=== PATIENT | male | born 1955 | race Caucasian/White ===

== ENCOUNTER 2018-02-19 14:54 | Inpatient (IN) | payer OTHER ==
--- NOTE | 2018-02-19 16:29 | PDOC ---
History of Present Illness - General History Source: Patient Exam Limitations: No Limitations - History of Present Illness Initial Comments: 02/19/18 17:15 The patient is a 62 year old male with past medical history of hypertension, diabetes, atrial fibrillation s/p stent x2, and R charcot foot who presents to the ED with complaints of redness and swelling to the sole of his right foot for the past two days. The patient states he has been nursing his foot for the past three years with his diagnosis and has had to reschedule his surgery multiple times in the past due to health and insurance reasons. The patient reports two days ago he stepped too hard on his right foot and developed a bruise on his right sole that has since swelled up and is painful to bare weight on. He denies any numbness or tingling, or blood or discharge from the area. Denies any fevers, chills, nausea, vomiting, diarrhea, cough, SOB, CP or urinary complaints. The patient states his most recent surgery was supposed to be done for January 17, 2018, but was canceled due to his need for cardiac catheterization. Timing/Duration: unsure <Lissa Walter - Last Filed: 02/20/18 00:26> <Mona Lamar - Last Filed: 02/20/18 00:34> - General Chief Complaint: Wound Stated Complaint: (PRE-OP) RT FOOT INJURY Time Seen by Provider: 02/19/18 16:28 Past History <Lissa Walter - Last Filed: 02/20/18 00:26> - Suicide/Smoking/Psychosocial Hx Smoking History: Former smoker Have you smoked in the past 12 months: No Information on smoking cessation initiated: No <Mona Lamar - Last Filed: 02/20/18 00:34> - Past Medical History Allergies/Adverse Reactions: Allergies Allergy/AdvReac Type Severity Reaction Status Date / Time metformin Allergy Hives Verified 02/19/18 15:27 Review of Systems - Review of Systems Able to Perform ROS?: Yes Comments:: 02/19/18 17:16 GENERAL/CONSTITUTIONAL: No fever or chills. No weakness. HEAD, EYES, EARS, NOSE AND THROAT: No change in vision. No ear pain or discharge. No sore throat. CARDIOVASCULAR: No chest pain or shortness of breath. RESPIRATORY: No cough, wheezing, or hemoptysis. GASTROINTESTINAL: No nausea, vomiting, diarrhea or constipation. GENITOURINARY: No dysuria, frequency, or change in urination. MUSCULOSKELETAL: (+) pain, swelling to sole of R foot. No neck or back pain. SKIN: No rash NEUROLOGIC: No headache, vertigo, loss of consciousness, or change in strength/ sensation. ENDOCRINE: No increased thirst. No abnormal weight change. HEMATOLOGIC/LYMPHATIC: No anemia, easy bleeding, or history of blood clots. ALLERGIC/IMMUNOLOGIC: No hives or skin allergy. All Other Systems: Reviewed and Negative <Lissa Walter - Last Filed: 02/20/18 00:26> *Physical Exam - Vital Signs Last Vital Signs Temp Pulse Resp BP Pulse Ox 98.4 F 88 17 137/67 95 02/19/18 15:27 02/19/18 15:27 02/19/18 15:27 02/19/18 15:27 02/19/18 15:27 - Physical Exam Comments: 02/19/18 17:17 GENERAL: Awake, alert, and fully oriented, in no acute distress HEAD: No signs of trauma EYES: PERRLA, EOMI, sclera anicteric, conjunctiva clear ENT: Auricles normal inspection, hearing grossly normal, nares patent, oropharynx clear without exudates. Moist mucosa NECK: Normal ROM, supple, no lymphadenopathy, JVD, or masses LUNGS: Breath sounds equal, clear to auscultation bilaterally. No wheezes, and no crackles HEART: Irregularly irregular, normal S1 and S2, no murmurs, rubs or gallops ABDOMEN: Obese, Soft, nontender, normoactive bowel sounds. No guarding, no rebound. No masses EXTREMITIES: Swelling and erythema to bilateral lower extremities, right greater than left. Diabetic wound to left pinky toe and diabetic wound to right big toe, both without any drainage, induration, or fluctuance. Soft tissue swelling present at the bottom of right foot that is extending out laterally, tender to palpation. Normal range of motion. No clubbing or cyanosis. NEUROLOGICAL: Cranial nerves II through XII grossly intact. Normal speech, normal gait SKIN: Warm, Dry, normal turgor, no rashes or lesions noted. <Lissa Walter - Last Filed: 02/20/18 00:26> - Vital Signs Last Vital Signs Temp Pulse Resp BP Pulse Ox 98.4 F 88 17 137/67 95 02/19/18 15:27 02/19/18 15:27 02/19/18 15:27 02/19/18 15:27 02/19/18 15:27 <Mona Lamar - Last Filed: 02/20/18 00:34> Heart Score/ECG Review - ECG Intrepretation Comment:: 02/19/18 23:14 afib at 96, nl axis, q waves anteriorly that are age indeterminate, no acute st/ t wave findings <Mona Lamar - Last Filed: 02/20/18 00:34> ED Treatment Course - LABORATORY CBC & Chemistry Diagram: 02/19/18 19:28 02/19/18 19:28 - RADIOLOGY Radiograph Interpretation: 02/19/18 22:38 Chest X-ray as reviewed by Dr. Lawson reports suggestion of mild cardiomegaly. Mild bilateral increased lung markings without gross evidence of focal infiltrates. <Lissa Walter - Last Filed: 02/20/18 00:26> - LABORATORY CBC & Chemistry Diagram: 02/19/18 19:28 02/19/18 19:28 <Mona Lamar - Last Filed: 02/20/18 00:34> Medical Decision Making - Medical Decision Making 02/19/18 23:01 Microblog sent to [facility]. Awaiting call back 02/20/18 00:26 US doppler exam as reviewed by Dr. Lawson reports no evidence of DVT. <Lissa Walter - Last Filed: 02/20/18 00:26> - Medical Decision Making 02/19/18 17:05 a/p: 62yo male with hx of charcot foot and dm with R foot swelling, purulent drainage from bottom of foot -pt was supposed to have charcot foot sx at S January 17 -had a cardiac cath and now has had surgery delayed 6m because of 2 stents placed on asa/plavix -concern for dm early ulcer formation with poss osteo to R foot given new swelling, drainage from the wound, redness up the legs -will obtain labs, ekg, cxr, foot xray -duplex b/l LE -cultures -will most likely need admission for IV abx for LE cellulitis with diabetic wounds 02/19/18 23:13 elevated WBC xray shows soft tissue swellign without air in the tissue 02/19/18 23:14 [facility] 02/19/18 23:[address] Vásquez who accepts pt to service <Mona Lamar - Last Filed: 02/20/18 00:34> *DC/Admit/Observation/Transfer - Attestations Scribe Attestion: 02/19/18 17:25 Documentation prepared by Lissa Walter, acting as registered medical assistant for Mona Lamar DO. <Lissa Walter - Last Filed: 02/20/18 00:26> - Discharge Dispostion Decision to Admit order: Yes - Attestations Physician Attestion: 02/19/18 23:32 I, Dr. Mona Lamar, DO, attest that this document has been prepared under my direction and personally reviewed by me in its entirety. I further attest, that it accurately reflects all work, treatment, procedures and medical decision -making performed by me. <Mona Lamar - Last Filed: 02/20/18 00:34> Diagnosis at time of Disposition: Cellulitis of foot - Discharge Dispostion Condition at time of disposition: Fair
[2018-02-19 19:53] LABS: BASO % 0.5 % (0-2.0); EOS % 2.3 % (0-4.5); HEMATOCRIT 44.1 % (35.4-49); HEMOGLOBIN 14.8 GM/dL (11.7-16.9); LYMPH % 25.3 % (8-40); MCH 30.9 pg (25.7-33.7); MCHC 33.6 g/dl (32.0-35.9); MEAN CELL VOLUME 91.7 fl (80-96); MEAN PLT VOLUME 8.2 fl (7.5-11.1); MONO % 7.5 % (3.8-10.2); NEUT % 64.4 % (42.8-82.8); PLATELET COUNT 373 K/MM3 (134-434); RDW 14.4 % (11.9-15.9); WHITE BLOOD COUNT 18.9 K/mm3 (4.0-10.0)
[2018-02-19 20:11] LABS: ALBUMIN 3.3 g/dl (3.4-5.0); ALK PHOS 125 U/L (45-117); ANION GAP 5 (8-16); BILIRUBIN,TOTAL 0.4 mg/dL (0.2-1.0); BLOOD UREA NITROGEN 13 mg/dL (7-18); CALCIUM 8.8 mg/dL (8.5-10.1); CHLORIDE 100 mmol/L (98-107); CO2 31 mmol/L (21-32); CREATININE 0.7 mg/dL (0.7-1.3); GLUCOSE,RANDOM 119 mg/dL (74-106); POTASSIUM 4.5 mmol/L (3.5-5.1); SGOT/AST 10 U/L (15-37); SGPT/ALT 16 U/L (12-78); SODIUM 136 mmol/L (136-145); TOT PROT 7.8 g/dl (6.4-8.2)
[2018-02-19 20:21] LABS: INR 1.55 (0.82-1.09); PROTHROMBIN TIME (PATIENT) 17.5 SEC (9.7-13.0)
[2018-02-19] MEDS ORDERED: VANCOMYCIN 1,000 MG in DEXTROSE 5%-WATER - 250 ML IVPB ONE (20:51)
[2018-02-19] MEDS ORDERED: PIPERACILLIN/TAZOB 4.5 GM 4.5 GM in DEXTROSE 5%-WATER 100 ML IVPB ONE (20:51)
[2018-02-19] MEDS ORDERED: VANCOMYCIN 1 GRAM (PRE-DOCKED) 1,000 MG/250 ML BAG IVPB ONE (20:52)
[2018-02-19] MEDS ORDERED: PIPERACILLIN/TAZOB 4.5 GM 4.5 GM/100 ML BAG IVPB ONE (20:52)
--- NOTE | 2018-02-20 00:19 | HP ---
CHIEF COMPLAINT: R foot pain PCP: Dr. Dee HISTORY OF PRESENT ILLNESS: 62 year old male with a past medical history of HTN, DM, A fib s/p 2 recent stents (January 2018), R foot osteomyelitis presents to the hospital for pain on the plantar side of his R foot. He states that he has had neuropathy which has progressed into a Charcot foot over the past 4 years. He has been admitted to multiple hospitals for R foot cellulitis and osteomyelitis since then. He states that normally, he takes good care of his feet and has aids that help wash and apply creams on it - but that 2 days ago, he must have stepped on something in the bathroom to cause his foot to swell and produce drainage. He had a surgery planned in January 2018 with a doctor from [facility] but it was cancelled and postponed 6 months because he had a positive stress echo and had 2 coated stents put in requiring him to be on ASA/Plavix. Denies fevers, chills, chest pain, SOB, nausea, vomiting. ER course was notable for: (1) WBC 18.9 (2) INR 1.55 (3) Vascular study no DVT Recent Travel: none PAST MEDICAL HISTORY: HTN, DM, A fib s/p 2 recent stents (January 2018), R foot osteomyelitis Social History: Smoking: former smoker 30 pack year, no longer smokes Alcohol: no alcohol Drugs: no drugs Allergies: metformin Allergy (Verified 02/19/18 15:27) Hives HOME MEDICATIONS: REVIEW OF SYSTEMS CONSTITUTIONAL: Absent: fever, chills, diaphoresis, generalized weakness, malaise, loss of appetite, weight change HEENT: Absent: rhinorrhea, nasal congestion, throat pain, throat swelling, difficulty swallowing, mouth swelling, ear pain, eye pain, visual changes CARDIOVASCULAR: Absent: chest pain, syncope, palpitations, irregular heart rate, lightheadedness , peripheral edema RESPIRATORY: Absent: cough, shortness of breath, dyspnea with exertion, orthopnea, wheezing, stridor, hemoptysis GASTROINTESTINAL: Absent: abdominal pain, abdominal distension, nausea, vomiting, diarrhea, constipation, melena, hematochezia GENITOURINARY: Absent: dysuria, frequency, urgency, hesitancy, hematuria, flank pain, genital pain MUSCULOSKELETAL: Absent: myalgia, arthralgia, joint swelling, back pain, neck pain SKIN: Absent: rash, itching, pallor HEMATOLOGIC/IMMUNOLOGIC: Absent: easy bleeding, easy bruising, lymphadenopathy, frequent infections ENDOCRINE: Absent: unexplained weight gain, unexplained weight loss, heat intolerance, cold intolerance NEUROLOGIC: Absent: headache, focal weakness or paresthesias, dizziness, unsteady gait, seizure, mental status changes, bladder or bowel incontinence PSYCHIATRIC: Absent: anxiety, depression, suicidal or homicidal ideation, hallucinations. PHYSICAL EXAMINATION Vital Signs - 24 hr 02/19/18 15:27 Temperature 98.4 F Pulse Rate 88 Respiratory 17 Rate Blood Pressure 137/67 O2 Sat by Pulse 95 Oximetry (%) GENERAL: A&Ox3, no acute distress EYES: PERRLA, EOMI ENT: Moist mucus membranes NECK: No JVD LUNGS: CTA, no wheezes HEART: RRR, no murmurs ABDOMEN: Morbidly Obese, Soft, nontender, BS present MUSCULOSKELETAL: No CVA Tenderness EXTREMITIES: Difficulty in feeling pulses. R foot has plantar callus with a lateral projection producing purulent fluid, another unstageable ulcer present on dorsal side of great toe (1cm in diameter) NEUROLOGICAL: Cranial nerves II-XII intact. Laboratory Results - last 24 hr 02/19/18 02/19/18 02/19/18 19:28 19:28 19:28 WBC 18.9 H RBC 4.80 Hgb 14.8 Hct 44.1 MCV 91.7 MCH 30.9 MCHC 33.6 RDW 14.4 Plt Count 373 MPV 8.2 Neutrophils % 64.4 Lymphocytes % 25.3 Monocytes % 7.5 Eosinophils % 2.3 Basophils % 0.5 PT with INR 17.50 H INR 1.55 H PTT (Actin FS) 35.8 H Sodium Potassium Chloride Carbon Dioxide Anion Gap BUN Creatinine Creat Clearance w eGFR Random Glucose Lactic Acid Calcium Magnesium Total Bilirubin AST ALT Alkaline Phosphatase Total Protein Albumin 02/19/18 02/19/18 19:28 19:28 WBC RBC Hgb Hct MCV MCH MCHC RDW Plt Count MPV Neutrophils % Lymphocytes % Monocytes % Eosinophils % Basophils % PT with INR INR PTT (Actin FS) Sodium 136 Potassium 4.5 Chloride 100 Carbon Dioxide 31 Anion Gap 5 L BUN 13 Creatinine 0.7 Creat Clearance w eGFR > 60 Random Glucose 119 H Lactic Acid 1.7 Calcium 8.8 Magnesium 2.0 Total Bilirubin 0.4 AST 10 L ALT 16 Alkaline Phosphatase 125 H Total Protein 7.8 Albumin 3.3 L ASSESSMENT/PLAN: 62 year old male with a past medical history of HTN, DM, A fib s/p 2 recent stents presents to the hospital for pain, swelling and drainage in his R foot suspect of cellulitis #R foot cellulitis: present for the past 2 days, unclear etiology - WBC count 18.9 -no xray evidence of osteomyelitis -likely will need MRI to r/o osteomyelitis- order w/ and w/o contrast of R foot -culture of wound -given vancomycin/zosyn in the ED - continue vanc/zosyn. -f/u ESR/CRP -podiatry consult appreciated -Patient's personal foot doctor is Dr. Moya ([facility]) -ID consult Dr. Bojorquez appreciated #Diabetes Mellitus: glucose is stable -A1C -BGMs -ISS -Patient takes high dose of long acting insulin but is unable to reliably remember dose, confirm medications with [facility] ([address] [facility]) #Atrial Fibrillation: patient is on coumadin for anticoagulation, but INR seems to be subtherapeutic given hx of cardiac stent placement -patient is on 2.5mg warfarin at home, but is subtherapeutic -start 180mg lovenox (1mg/kg) BID to bridge to coumadin once therapeutic -INR is subtherapeutic, will likely need to adjust medications -patient is on digoxin and diltiazem but does not remember the dose, will confirm in AM and restart appropriately #Subtherapeutic INR: INR 1.55 in the setting of CAD s/p stents -lovenox 180mg (1mg/kg) #CAD S/P 2 Stents: stable, not an acute complaint - recent stents as of January 2018 -continue ASA 81 -continue Plavix 75 -ordered echocardiogram #Hypertension: blood pressure stable -continue metoprolol 50 BID, confirm dose #FEN -No current standing fluids -electrolytes within normal limits -cardiac diet #Prophylaxis -On lovenox #Disposition: -admit to med surg Visit type - Emergency Visit Emergency Visit: Yes ED Registration Date: 02/19/18 Care time: The patient presented to the Emergency Department on the above date and was hospitalized for further evaluation of their emergent condition. - New Patient This patient is new to me today: Yes Date on this admission: 02/20/18 - Critical Care Critical Care patient: No Hospitalist Screening - Colonoscopy Questionnaire Colonoscopy Questionnaire: Colonoscopy Questionnaire - Patient: 50 - 75 years old and never had a screening colonoscopy: Unknown History of colon or rectal polyps, or CA: Unknown History of IBD, Crohn's disease or UC: Unknown History of abdominal radiation therapy as a child: Unknown - Relative: 1 with colon or rectal CA, or polyps at age 60 or younger: Unknown Colon or rectal CA diagnosed at age 45 or younger: Unknown Multiple relatives with colon or rectal CA: Unknown - Outcome: Screening Result: Negative Screen
[2018-02-20] MEDS ORDERED: HEPARIN NA (PORCINE) 5,000 UNITS/ML 1ML VIAL SQ SCH (02:00)
--- NOTE | 2018-02-20 04:57 | PN ---
Teaching Attending Note Name of Resident: Keith Del Castillo ATTENDING PHYSICIAN STATEMENT I saw and evaluated the patient. Chart, data reviewed. I reviewed the resident's note and discussed the case with the resident. I agree with the resident's findings and plan as documented. SUBJECTIVE: 62 year old man with a morbid obesity, HTN, DM, A fib s/p 2 recent stents ( January 2018), recurrent right foot osteomyelitis, care at past care at outside hospitals, came to the hospital for pain on the plantar side of his R foot. 2 days ago he stepped on object in bathroom, injured foot. Denied any fevers or chills. OBJECTIVE: Last Vital Signs Temp Pulse Resp BP Pulse Ox 97.7 F 100 H 20 122/60 95 02/20/18 01:35 02/20/18 01:35 02/20/18 01:35 02/20/18 01:35 02/20/18 01:35 general- nad Neuro- aaox3, no headache. ext- right foot hallux scab, plantar surface blister skin- b/l lower ext venous stasis changes Laboratory Results - last 24 hr 02/19/18 02/19/18 02/19/18 19:28 19:28 19:28 WBC 18.9 H RBC 4.80 Hgb 14.8 Hct 44.1 MCV 91.7 MCH 30.9 MCHC 33.6 RDW 14.4 Plt Count 373 MPV 8.2 Neutrophils % 64.4 Lymphocytes % 25.3 Monocytes % 7.5 Eosinophils % 2.3 Basophils % 0.5 PT with INR 17.50 H INR 1.55 H PTT (Actin FS) 35.8 H Sodium Potassium Chloride Carbon Dioxide Anion Gap BUN Creatinine Creat Clearance w eGFR Random Glucose Lactic Acid Calcium Magnesium Total Bilirubin AST ALT Alkaline Phosphatase Total Protein Albumin 02/19/18 02/19/18 19:28 19:28 WBC RBC Hgb Hct MCV MCH MCHC RDW Plt Count MPV Neutrophils % Lymphocytes % Monocytes % Eosinophils % Basophils % PT with INR INR PTT (Actin FS) Sodium 136 Potassium 4.5 Chloride 100 Carbon Dioxide 31 Anion Gap 5 L BUN 13 Creatinine 0.7 Creat Clearance w eGFR > 60 Random Glucose 119 H Lactic Acid 1.7 Calcium 8.8 Magnesium 2.0 Total Bilirubin 0.4 AST 10 L ALT 16 Alkaline Phosphatase 125 H Total Protein 7.8 Albumin 3.3 L ASSESSMENT AND PLAN: #right foot cellulitis and should r/o osteomyelitis given pain and history of prior osteomyelitis. -MRI of right foot to r/o osteomyelitis -deep culture of foot wound -continue vancomycin/zosyn epirically -ESR/CRP -podiatry consult -ID consult #Atrial Fibrillation: rate controlled, INR subtherapeutic -lovenox bridging as inr is subtherapeutic -restart coumadin #restart chronic home medications -diabetic diet -see resident note for details
[2018-02-20] MEDS ORDERED: PIPERACILLIN/TAZOB 4.5 GM 4.5 GM/100 ML BAG IVPB ONE (05:40)
[2018-02-20] MEDS ORDERED: PIPERACILLIN/TAZOB 4.5 GM 4.5 GM in DEXTROSE 5%-WATER 100 ML IVPB ONE (06:00)
[2018-02-20] MEDS: INSULIN SLIDING SCALE (NOVOLOG) 1 VIAL SQ SCH ×4 (07:10→22:23)
[2018-02-20 07:21] LABS: BASO % 0.4 % (0-2.0); EOS % 2.4 % (0-4.5); HEMATOCRIT 43.8 % (35.4-49); HEMOGLOBIN 14.7 GM/dL (11.7-16.9); LYMPH % 18.9 % (8-40); MCH 30.8 pg (25.7-33.7); MCHC 33.5 g/dl (32.0-35.9); MEAN CELL VOLUME 91.9 fl (80-96); MEAN PLT VOLUME 8.2 fl (7.5-11.1); NEUT % 70.3 % (42.8-82.8); PLATELET COUNT 345 K/MM3 (134-434); RBC 4.76 M/mm3 (4.00-5.60); RDW 14.1 % (11.9-15.9); WHITE BLOOD COUNT 18.3 K/mm3 (4.0-10.0)
[2018-02-20] MEDS ORDERED: INSULIN REGULAR HUMAN 100 UNITS/ML *VIAL ONE ×3 (08:02→11:39)
[2018-02-20 08:11] LABS: ANION GAP 8 (8-16); BLOOD UREA NITROGEN 12 mg/dL (7-18); CALCIUM 8.3 mg/dL (8.5-10.1); CHLORIDE 102 mmol/L (98-107); CO2 27 mmol/L (21-32); GLUCOSE,RANDOM 117 mg/dL (74-106); MAGNESIUM 2.1 mg/dL (1.8-2.4); PHOSPHOROUS 4.6 mg/dL (2.5-4.9); POTASSIUM 4.7 mmol/L (3.5-5.1); SODIUM 137 mmol/L (136-145)
[2018-02-20 08:53] LABS: CREATININE 0.7 mg/dL (0.7-1.3)
--- NOTE | 2018-02-20 09:33 | CONSULT ---
Consult - text type - Consultation Consultation Note: Podiatry Consultation: 62 year old IDDM M presents with R foot DFI. Patient stated that he banged his big toe on the bed about 1 week ago. He noticed increased swelling to the foot as well as some redness to the leg. Has a complicated history of Charcot foot and has had several bouts with osteomyelitis. Has been treated in the past and was planning to schedule Charcot reconstructive surgery at [facility]. Denies F/V/N/C/ SOB/CP. Afebrile, VSS. PMHx: poorly controlled IDDM, CAD s/p stents 01/29 Meds: noted ALL: metforming QUENTIN: R foot: pedal pulses 1/4, TG warm-warmer, CFT brisk to all toes. There is fluctuance plantar midfoot in the area of Charcot collapse with moderate erythema. There is no soft tissue crepitus, there is no tenderness to palpation. There is a dorsal hallux ulcer with superficial eschar, no probing to bone, no purulence, no fluctuance, no soft tissue crepitus. WBC: 18.3 ESR: 23 Blood Cx: not obtained R foot XR: no evidence of soft tissue crepitus. Charcot deformity tarsometatarsal joint Imp: 62 year old IDDM M with R plantar midfoot Charcot ulcer, abscess 1. IV abx 2. ID consultation 3. MRI R foot. If possible with contrast to r/o deep space abscess 4. Strongly recommended incision and drainage due to suspicion of abscess. Patient does not want the area opened because he is concerned he will lose his leg. I explained to him the risk of leaving the infection the way it is poses risk of worsening infection, bone infection, loss of limb and loss of life. I will attempt to have second opinion as per patient's request. Thank you for the courtesy of this consultation. Marta Cruz DPM
[2018-02-20] MEDS ORDERED: ENOXAPARIN NA (PORCINE) 80 MG/0.8 ML DISP.SYRIN SQ ONE (09:42)
[2018-02-20] MEDS ORDERED: ENOXAPARIN NA (PORCINE) 100 MG/1 ML DISP.SYRIN SQ ONE (09:42)
[2018-02-20] MEDS ORDERED: ENOXAPARIN NA (PORCINE) 120 MG/0.8 ML DISP.SYRIN SQ SCH (10:00)
[2018-02-20] MEDS ORDERED: CLOPIDOGREL BISULFATE 75 MG TABLET (FP) PO SCH (10:00)
[2018-02-20] MEDS ORDERED: METOPROLOL TARTRATE 50 MG TABLET (FP) PO SCH (10:00)
[2018-02-20] MEDS: ASPIRIN COATED 81 MG TABLET.EC PO SCH (10:02)
[2018-02-20] MEDS: ENOXAPARIN NA (PORCINE) 80 MG/0.8 ML DISP.SYRIN SQ SCH ×2 (11:20→22:27)
[2018-02-20] MEDS: ENOXAPARIN NA (PORCINE) 100 MG/1 ML DISP.SYRIN SQ SCH ×2 (11:20→22:24)
--- NOTE | 2018-02-20 11:44 | EKG ---
Test Reason : Blood Pressure : / mmHG Vent. Rate : 096 BPM Atrial Rate : 093 BPM P-R Int : 000 ms QRS Dur : 088 ms QT Int : 356 ms P-R-T Axes : 000 036 042 degrees QTc Int : 449 ms ATRIAL FIBRILLATION LOW VOLTAGE QRS CANNOT RULE OUT ANTEROSEPTAL INFARCT , AGE UNDETERMINED ABNORMAL ECG NO PREVIOUS ECGS AVAILABLE Confirmed by DELORIS ROGERS MD ([id number]) on 02/20/2018 11:43:45 AM Referred By: Confirmed By:DELORIS ROGERS MD
[2018-02-20] MEDS ORDERED: PIPERACILLIN/TAZOB 4.5 GM 4.5 GM in DEXTROSE 5%-WATER 100 ML IVPB SCH (15:00)
--- NOTE | 2018-02-20 15:02 | PN ---
<Lidya Newman - Last Filed: 02/20/18 16:36> Physical Exam: SUBJECTIVE: Patient seen and examined. he is complaining of right leg pain. Denies fever, chills, SOB, chest pain. OBJECTIVE: Vital Signs Period Temp Pulse Resp BP Sys/Soto Pulse Ox Last 24 Hr 97.7 F-99.6 F 77-100 17-20 112-137/59-67 95-97 GENERAL: The patient is awake, alert, and fully oriented, in no acute distress. HEAD: Normal with no signs of trauma. EYES: extraocular movements intact, sclera anicteric, conjunctiva clear. No ptosis. ENT: Ears normal, nares patent, oropharynx clear without exudates, moist mucous membranes. NECK: Trachea midline, full range of motion, supple. LUNGS: Breath sounds equal, clear to auscultation bilaterally, diminished, no wheezes, no crackles, no accessory muscle use. HEART: Regular rate and rhythm, S1, S2 without murmur, rub or gallop. ABDOMEN: Obese, Soft, nontender, nondistended, normoactive bowel sounds, no guarding, no rebound, no hepatosplenomegaly, no masses. EXTREMITIES: 2+ pulses, warm, well-perfused, 1+ edema, right LE; on the bottom 2x2 cm closed wound, flatulance, no drainage, mild redness, no crepitus. NEUROLOGICAL: Normal speech, gait not observed. PSYCH: Normal mood, normal affect. SKIN: Warm, dry, normal turgor. Laboratory Results - last 24 hr 02/19/18 02/19/18 02/19/18 19:28 19:28 19:28 WBC 18.9 H RBC 4.80 Hgb 14.8 Hct 44.1 MCV 91.7 MCH 30.9 MCHC 33.6 RDW 14.4 Plt Count 373 MPV 8.2 Neutrophils % 64.4 Lymphocytes % 25.3 Monocytes % 7.5 Eosinophils % 2.3 Basophils % 0.5 ESR PT with INR 17.50 H INR 1.55 H PTT (Actin FS) 35.8 H Sodium Potassium Chloride Carbon Dioxide Anion Gap BUN Creatinine Creat Clearance w eGFR POC Glucometer Random Glucose Lactic Acid Calcium Phosphorus Magnesium Total Bilirubin AST ALT Alkaline Phosphatase C-Reactive Protein Total Protein Albumin 05/07/0102/19/18 02/20/18 19:28 19:28 06:36 WBC 18.3 H RBC 4.76 Hgb 14.7 Hct 43.8 MCV 91.9 MCH 30.8 MCHC 33.5 RDW 14.1 Plt Count 345 MPV 8.2 Neutrophils % 70.3 Lymphocytes % 18.9 D Monocytes % 8.0 Eosinophils % 2.4 Basophils % 0.4 ESR PT with INR INR PTT (Actin FS) Sodium 136 Potassium 4.5 Chloride 100 Carbon Dioxide 31 Anion Gap 5 L BUN 13 Creatinine 0.7 Creat Clearance w eGFR > 60 POC Glucometer Random Glucose 119 H Lactic Acid 1.7 Calcium 8.8 Phosphorus Magnesium 2.0 Total Bilirubin 0.4 AST 10 L ALT 16 Alkaline Phosphatase 125 H C-Reactive Protein Total Protein 7.8 Albumin 3.3 L 02/20/18 02/20/18 02/20/18 06:36 06:36 06:36 WBC RBC Hgb Hct MCV MCH MCHC RDW Plt Count MPV Neutrophils % Lymphocytes % Monocytes % Eosinophils % Basophils % ESR 23 H PT with INR INR PTT (Actin FS) Sodium 137 Potassium 4.7 Chloride 102 Carbon Dioxide 27 Anion Gap 8 BUN 12 Creatinine 0.7 Creat Clearance w eGFR POC Glucometer Random Glucose 117 H Lactic Acid Calcium 8.3 L Phosphorus 4.6 Magnesium 2.1 Total Bilirubin AST ALT Alkaline Phosphatase C-Reactive Protein 2.2 H Total Protein Albumin 02/20/18 02/20/18 07:58 11:35 WBC RBC Hgb Hct MCV MCH MCHC RDW Plt Count MPV Neutrophils % Lymphocytes % Monocytes % Eosinophils % Basophils % ESR PT with INR INR PTT (Actin FS) Sodium Potassium Chloride Carbon Dioxide Anion Gap BUN Creatinine Creat Clearance w eGFR POC Glucometer [phone] Random Glucose Lactic Acid Calcium Phosphorus Magnesium Total Bilirubin AST ALT Alkaline Phosphatase C-Reactive Protein Total Protein Albumin Active Medications Generic Name Dose Route Start Last Admin Trade Name Freq PRN Reason Stop Dose Admin Aspirin 81 mg 02/20/18 10:02/20/18 10:02 Ecotrin - PO 81 mg DAILY [facility] Administration Clopidogrel Bisulfate 75 mg 02/20/18 10:00 02/20/18 10:02 Plavix - PO 75 mg DAILY [facility] Administration Enoxaparin Sodium 100 mg 02/20/18 10:00 02/20/18 11:20 Lovenox - SQ Not Given BID [facility] Enoxaparin Sodium 80 mg 02/20/18 10:00 02/20/18 11:20 Lovenox - SQ Not Given BID [facility] Vancomycin HCl 1,500 mg/ 250 mls @ 250 mls/hr 02/20/18 22:00 Dextrose IVPB Q24H [facility] Protocol Piperacillin Sod/Tazobactam 100 mls @ 200 mls/hr 02/20/18 10:00 Sod 4.5 gm/ Dextrose IVPB 02/21/18 14:59 Q8H-IV [facility] Protocol Insulin Aspart 0 vial 02/20/18 07:00 02/20/18 11:37 Novolog Vial Sliding Scale - SQ 4 units ACHS [facility] Administration Protocol Metoprolol Tartrate 50 mg 02/20/18 10:00 02/20/18 10:02 Lopressor - PO 50 mg BID [facility] Administration ASSESSMENT/PLAN: The patient is a 62 year old male with a past medical history of osteomyelitis, HTN, DM, A fib, s/p 2 stents in January 2018 presents to the hospital for pain, swelling, ulcer in RLE. R foot ulcer: -present for the past 2 days, unclear etiology, no injury -WBC count 18.3, he states that he always has WBC ranging from 13-17 -no xray evidence of osteomyelitis -f/u MRI to r/o osteomyelitis w/ and w/o contrast of R foot -culture of wound -given vancomycin/zosyn in the ED - continue vanc/zosyn, will wait for ID recommendations -CRP 2.2 -podiatry consult appreciated, will follow recommendations, the patient refused drainage today -Patient's personal foot doctor is Dr. Moya ([facility]) Diabetes Mellitus: -A1C ordered -BGMs -ISS -Patient takes 75 units of long acting insulin at home. Will continue 75 units of Levemir in AM. -at home he takes Novolog 30 units TID before meals. We will resume at lower dose 15 units before meals. -cont kanuvia 100 mg daily Atrial Fibrillation: -patient is on 2.5 mg of coumadin for anticoagulation, but INR seems to be subtherapeutic 1.55 -given hx of cardiac stent placement we will increase Coumadin to 5 mg daily and start 180mg lovenox (1mg/kg) BID to bridge to coumadin once therapeutic, confirmed with pharmacy -will continue Diltiazem CAD S/P 2 Stents: -continue ASA 81 -continue Plavix 75 -ordered echocardiogram Hypertension: -continue Ramipril 2.5 mg Hypercholesterolemia: -continue Atorvastatin 10 mg daily FEN -No current standing fluids -electrolytes within normal limits -cardiac diet Prophylaxis -On lovenox, coumadin Disposition: med surg Problem List - Problems (1) Atrial fibrillation Code(s): I48.91 - UNSPECIFIED ATRIAL FIBRILLATION (2) CAD (coronary artery disease) Code(s): I25.10 - ATHSCL HEART DISEASE OF [place] CORONARY ARTERY W/O ANG PCTRS (3) HTN (hypertension) Code(s): I10 - ESSENTIAL (PRIMARY) HYPERTENSION (4) HLD (hyperlipidemia) Code(s): E78.5 - HYPERLIPIDEMIA, UNSPECIFIED (5) Osteomyelitis Code(s): M86.9 - OSTEOMYELITIS, UNSPECIFIED (6) Diabetes mellitus Code(s): E11.9 - TYPE 2 DIABETES MELLITUS WITHOUT COMPLICATIONS (7) Cellulitis of foot Code(s): L03.119 - CELLULITIS OF UNSPECIFIED PART OF LIMB Visit type - Emergency Visit Emergency Visit: Yes ED Registration Date: 02/19/18 Care time: The patient presented to the Emergency Department on the above date and was hospitalized for further evaluation of their emergent condition. - New Patient This patient is new to me today: Yes Date on this admission: 02/20/18 - Critical Care Critical Care patient: No - Discharge Referral Referred to [facility] No <Hamilton Fonseca - Last Filed: 02/20/18 17:16> Physical Exam: Patient stated that he has a charcoat foot and he was told not to have any open wounds and if he does then he will have severe infection of the foot and amputation will be an issue, since he gained 80lbs just being in wheelchair. Patient has a drug elluting stent and was told that he can't have surgery untill 6 months of into his stents( had stents placed a month ago) when he went for cardiac clearance and was found to have blockage. Vital Signs Temperature 98.7 F 02/20/18 16:55 Pulse Rate 99 H 02/20/18 16:55 Respiratory Rate 18 02/20/18 16:55 Blood Pressure 120/77 02/20/18 16:55 O2 Sat by Pulse Oximetry (%) 97 02/20/18 07:06 CBCD WBC 18.3 K/mm3 (4.0-10.0) H 02/20/18 06:36 RBC 4.76 M/mm3 (4.00-5.60) 02/20/18 06:36 Hgb 14.7 GM/dL (11.7-16.9) 02/20/18 06:36 Hct 43.8 % (35.4-49) 02/20/18 06:36 MCV 91.9 fl (80-96) 02/20/18 06:36 MCHC 33.5 g/dl (32.0-35.9) 02/20/18 06:36 RDW 14.1 % (11.9-15.9) 02/20/18 06:36 Plt Count 345 K/MM3 (134-434) 02/20/18 06:36 MPV 8.2 fl (7.5-11.1) 02/20/18 06:36 CMP Sodium 137 mmol/L (136-145) 02/20/18 06:36 Potassium 4.7 mmol/L (3.5-5.1) 02/20/18 06:36 Chloride 102 mmol/L (98-107) 02/20/18 06:36 Carbon Dioxide 27 mmol/L (21-32) 02/20/18 06:36 Anion Gap 8 (8-16) 02/20/18 06:36 BUN 12 mg/dL (7-18) 02/20/18 06:36 Creatinine 0.7 mg/dL (0.7-1.3) 02/20/18 06:36 Creat Clearance w eGFR > 60 (>60) 02/19/18 19:28 Random Glucose 117 mg/dL (74-106) H 02/20/18 06:36 Calcium 8.3 mg/dL (8.5-10.1) L 02/20/18 06:36 Total Bilirubin 0.4 mg/dL (0.2-1.0) 02/19/18 19:28 AST 10 U/L (15-37) L 02/19/18 19:28 ALT 16 U/L (12-78) 02/19/18 19:28 Alkaline Phosphatase 125 U/L (45-117) H 02/19/18 19:28 Total Protein 7.8 g/dl (6.4-8.2) 02/19/18 19:28 Albumin 3.3 g/dl (3.4-5.0) L 02/19/18 19:28 Current Medications Generic Name Dose Route Start Last Admin Trade Name Freq PRN Reason Stop Dose Admin Aspirin 81 mg 02/20/18 10:00 02/20/18 10:02 Ecotrin - PO 81 mg DAILY [facility] Administration Atorvastatin Calcium 10 mg 02/20/18 22:00 Lipitor - PO HS [facility] Clopidogrel Bisulfate 75 mg 02/21/18 10:00 Plavix - PO DAILY [facility] Digoxin 0.125 mg 02/21/18 10:00 Lanoxin - PO DAILY [facility] Diltiazem HCl 120 mg 02/21/18 10:00 Cardizem Cd - PO DAILY [facility] Enoxaparin Sodium 100 mg 02/20/18 10:00 02/20/18 11:20 Lovenox - SQ Not Given BID [facility] Enoxaparin Sodium 80 mg 02/20/18 10:00 02/20/18 11:20 Lovenox - SQ Not Given BID [facility] Vancomycin HCl 1,500 mg/ 250 mls @ 250 mls/hr 02/20/18 22:00 Dextrose IVPB Q24H [facility] Protocol Piperacillin Sod/Tazobactam 100 mls @ 200 mls/hr 02/20/18 10:00 Sod 4.5 gm/ Dextrose IVPB 02/21/18 14:59 Q8H-IV [facility] Protocol Insulin Aspart 0 vial 02/20/18 07:00 02/20/18 11:37 Novolog Vial Sliding Scale - SQ 4 units ACHS [facility] Administration Protocol Insulin Aspart 15 units 02/21/18 16:45 Novolog Vial SQ TIDAC [facility] Insulin Detemir 75 units 02/21/18 10:00 Levemir Vial SQ DAILY [facility] Ramipril 2.5 mg 02/21/18 10:00 Altace - PO DAILY [facility] Sitagliptin Phosphate 100 mg 02/20/18 16:45 Januvia - PO DAILY [facility] Warfarin Sodium 5 mg 02/20/18 18:00 Coumadin - PO DAILY@1800 [facility] Home Medications Medication Instructions Recorded Aspirin 81 mg PO DAILY 02/20/18 Atorvastatin Ca [Lipitor] 10 mg PO HS 02/20/18 Clopidogrel Bisulfate [Plavix] 75 mg PO DAILY 02/20/18 Digoxin [Digoxin] 0.125 mg PO DAILY 02/20/18 Diltiazem Cd [Cardizem Cd -] 90 mg PO DAILY 02/20/18 Insulin Aspart [Novolog] 30 unit SQ TID 02/20/18 Insulin Glargine,Hum.rec.anlog 80 units SQ DAILY 02/20/18 [Basaglar Kwikpen U-100] Metoprolol Tartrate [Lopressor -] 50 mg PO BID 02/20/18 Ramipril [Altace] 2.5 mg PO DAILY 02/20/18 Sitagliptin Phosphate [Januvia] 100 mg PO DAILY 02/20/18 Warfarin Na [Coumadin] 2.5 mg PO DAILY 02/20/18 PE: Morbidly obese CVS: S1S2 positive, no murmur. rrr Ext: RLE plantar aspect of the foot: some fluid flactuance ( not sure whether is an abcess or just fluid collection, no erythema. A/P: Patient is a 62 year old male with a past medical history of HTN, DM, A fib s/p 2 recent stents (January 2018), R foot osteomyelitis presents to the hospital for pain on the plantar side of his R foot. He states that he has had neuropathy which has progressed into a Charcot foot over the past 4 years. He has been admitted to multiple hospitals for R foot cellulitis and osteomyelitis since then. He states that normally, he takes good care of his feet and has aids that help wash and apply creams on it - but that 2 days ago, he must have stepped on something in the bathroom to cause his foot to swell and produce drainage. He had a surgery planned in January 2018 with a doctor from [facility] but it was cancelled and postponed 6 months because he had a positive stress echo and had 2 coated stents put in requiring him to be on ASA/Plavix. # CAD with stents; continue palvix/aspirin #afib non therapeutic INR , will give a dose of Lovenox 180mg x 1 , Inr in am , and increase the dose of coumadin to 5mg please monitor # RLE fluid collection can't r/o Osteo. mri of Le r/o osteo # T2DM on levemir and novolog and jANUVIA CONTINUE dvt pX; ON lOVENOX/COUMADIN
[2018-02-20] MEDS ORDERED: sitaGLIPtin PHOSPHATE 100 MG TABLET (FP) PO SCH (16:45)
[2018-02-20] MEDS: WARFARIN NA 5 MG TABLET (UD) PO SCH (17:51)
[2018-02-20] MEDS ORDERED: WARFARIN NA 2.5 MG TABLET (FP) PO SCH (18:00)
--- NOTE | 2018-02-20 18:42 | PN ---
Progress Note (short form) - Note Progress Note: ID Consult dictated Cellulitis R foot R/O abscess/ osteomyelitis Charcot joint For MRI Await c/s Continue vancomycin / zosyn
[2018-02-20] MEDS: PIPERACILLIN/TAZOB 4.5 GM 4.5 GM in DEXTROSE 5%-WATER 100 ML IVPB SCH (18:56)
[2018-02-20] MEDS ORDERED: PT OWN MED DRAWER 7, Y5N ONE (19:05)
--- NOTE | 2018-02-20 20:04 | CONS ---
DATE OF CONSULTATION: DATE OF DICTATION: 02/20/2018 INFECTIOUS DISEASE CONSULTATION HISTORY OF PRESENT ILLNESS: A 62-year-old diabetic male evaluated for cellulitis of the right foot. Patient states 2 days prior to admission, he stepped on a surface resulting in a traumatic injury to his right foot. Patient has a longstanding history of Charcot joint with a misshapened foot. He had sustained trauma. He subsequently developed worsening erythema and swelling of the foot. He presented to the emergency room where he was admitted for cellulitis. He was seen in consultation by podiatry. An MRI has been ordered. Patient has a longstanding history of Charcot joint. He had a cut which has been present over the base of the right great toe for some time. He reports that the wound has been chronic in nature and has not been draining. He denies any associated fever or chills. PAST MEDICAL HISTORY: Positive for diabetes mellitus, hypertension, atrial fibrillation, coronary artery disease. PAST SURGICAL HISTORY: Status post coronary artery stent. LABORATORY DATA: White count 18.3, ESR 23, C-reactive protein 2.2, platelets 345, creatinine 0.7. PHYSICAL EXAMINATION: General: He is awake and alert, nontoxic appearing. Vital signs: Temperature 98.7, blood pressure 120/77, pulse 99 regular, respirations 18 per minute. HEENT: Sclerae anicteric. Cardiovascular: Heart sounds S1, S2. Respiratory: Lungs clear. Abdomen: Obese. Extremities: Examination of the right foot, positive Charcot joint. There is a dry ulceration present over the dorsal aspect of the right great toe at the metatarsal head. There is no purulent drainage or foul odor. There is diffuse swelling of the foot as well as erythema around the area of the base of the right great toe extending to the dorsum of the foot. IMPRESSION: 1. Cellulitis of the right foot. 2. Rule out underlying osteomyelitis/abscess. 3. History of Charcot joint. 4. Diabetes mellitus. Await cultures. An MRI. Empiric antibiotic coverage with vancomycin and Zosyn. local wound care. Podiatry followup. Thank you for the kind referral. LASHAUN RODAS M.D. [id number]
[2018-02-20] MEDS: VANCOMYCIN 1,000 MG in DEXTROSE 5%-WATER - 250 ML IVPB SCH (20:36)
[2018-02-20] MEDS ORDERED: VANCOMYCIN 1,500 MG in DEXTROSE 5%-WATER - 250 ML IVPB SCH (22:00)
[2018-02-20] MEDS ORDERED: INSULIN SLIDING SCALE (NOVOLOG) 1 VIAL SQ SCH (22:00)
[2018-02-20] MEDS ORDERED: INSULIN (LEVEMIR) 100 UNITS/ML UNITS SQ SCH (22:00)
[2018-02-20] MEDS: ATORVASTATIN CA 10 MG TABLET (FP) PO SCH (22:28)
[2018-02-21] MEDS ORDERED: PIPERACILLIN/TAZOBACTAM 3.375 GM VIAL IVPB ONE ×4 (01:37→22:44)
[2018-02-21] MEDS ORDERED: DEXTROSE 5%-WATER - 50 ML IVPB ONE ×4 (01:37→22:44)
[2018-02-21] MEDS: PIPERACILLIN/TAZOB 3.375 GM 3.375 GM in DEXTROSE 5%-WATER - 50 ML IVPB SCH ×3 (01:46→17:16)
[2018-02-21] MEDS ORDERED: INSULIN SLIDING SCALE (NOVOLOG) 1 VIAL SQ SCH (07:00)
[2018-02-21] MEDS: VANCOMYCIN 1,000 MG in DEXTROSE 5%-WATER - 250 ML IVPB SCH ×2 (07:00→18:11)
[2018-02-21] MEDS: sitaGLIPtin PHOSPHATE 50 MG TABLET PO SCH (07:06)
[2018-02-21] MEDS: INSULIN (LEVEMIR) 100 UNITS/ML UNITS SQ SCH (07:06)
[2018-02-21] MEDS: INSULIN (NOVOLOG) ASPART 100 UNITS/ML 10ML VIAL SQ SCH ×3 (07:12→17:16)
[2018-02-21] MEDS ORDERED: Insulin (LOG) Aspart 100 UNITS/ML VIAL SQ SCH (07:30)
[2018-02-21 08:50] LABS: BASO % 0.6 % (0-2.0); EOS % 2.4 % (0-4.5); HEMOGLOBIN 14.3 GM/dL (11.7-16.9); LYMPH % 22.2 % (8-40); MCH 30.7 pg (25.7-33.7); MCHC 33.3 g/dl (32.0-35.9); MEAN CELL VOLUME 92.3 fl (80-96); MEAN PLT VOLUME 8.5 fl (7.5-11.1); MONO % 7.4 % (3.8-10.2); NEUT % 67.4 % (42.8-82.8); PLATELET COUNT 344 K/MM3 (134-434); RBC 4.66 M/mm3 (4.00-5.60); RDW 14.1 % (11.9-15.9); WHITE BLOOD COUNT 15.5 K/mm3 (4.0-10.0)
[2018-02-21 09:05] LABS: INR 1.65 (0.82-1.09); PROTHROMBIN TIME (PATIENT) 18.6 SEC (9.7-13.0)
[2018-02-21 09:33] LABS: ANION GAP 6 (8-16); BLOOD UREA NITROGEN 10 mg/dL (7-18); CALCIUM 8.3 mg/dL (8.5-10.1); CHLORIDE 103 mmol/L (98-107); CO2 27 mmol/L (21-32); GLUCOSE,RANDOM 160 mg/dL (74-106); POTASSIUM 4.9 mmol/L (3.5-5.1); SGOT/AST 13 U/L (15-37); SGPT/ALT 17 U/L (12-78); SODIUM 136 mmol/L (136-145)
[2018-02-21 09:35] LABS: ALK PHOS 118 U/L (45-117); BILIRUBIN,TOTAL 0.6 mg/dL (0.2-1.0); CREATININE 0.6 mg/dL (0.7-1.3); TOT PROT 6.8 g/dl (6.4-8.2)
[2018-02-21] MEDS ORDERED: sitaGLIPtin PHOSPHATE 100 MG TABLET (FP) PO SCH (10:00)
[2018-02-21] MEDS ORDERED: PT OWN MED DRAWER 7, Y5N ONE ×2 (10:10→18:05)
[2018-02-21] MEDS: DIGOXIN 0.125 MG TABLET (FP) PO SCH (10:21)
[2018-02-21] MEDS: ENOXAPARIN NA (PORCINE) 80 MG/0.8 ML DISP.SYRIN SQ SCH ×2 (10:21→22:12)
[2018-02-21] MEDS: ASPIRIN COATED 81 MG TABLET.EC PO SCH (10:22)
[2018-02-21] MEDS: CLOPIDOGREL BISULFATE 75 MG TABLET (FP) PO SCH (10:22)
[2018-02-21] MEDS: ENOXAPARIN NA (PORCINE) 100 MG/1 ML DISP.SYRIN SQ SCH ×2 (10:22→22:11)
[2018-02-21] MEDS: RAMIPRIL 5 MG CAPSULE (FP) PO SCH (10:22)
--- NOTE | 2018-02-21 10:48 | PN ---
Progress Note (short form) - Note Progress Note: Subjective: The patient was seen and examined at the bedside, he states he has been seeing Dr. Moya at [facility] for his right charcot foot Current Medications Generic Name Dose Route Start Last Admin Trade Name Saravanan PRN Reason Stop Dose Admin Aspirin 81 mg 02/20/18 10:00 02/21/18 10:22 Ecotrin - PO 81 mg DAILY [facility] Administration Atorvastatin Calcium 10 mg 02/20/18 22:00 02/20/18 22:28 Lipitor - PO 10 mg HS [facility] Administration Clopidogrel Bisulfate 75 mg 02/21/18 10:00 02/21/18 10:22 Plavix - PO 75 mg DAILY [facility] Administration Digoxin 0.125 mg 02/21/18 10:00 02/21/18 10:21 Lanoxin - PO 0.125 mg DAILY [facility] Administration Diltiazem HCl 120 mg 02/21/18 10:00 02/21/18 10:22 Cardizem Cd - PO 120 mg DAILY [facility] Administration Enoxaparin Sodium 100 mg 02/20/18 10:00 02/21/18 10:22 Lovenox - SQ 100 mg BID [facility] Administration Enoxaparin Sodium 80 mg 02/20/18 10:00 02/21/18 10:21 Lovenox - SQ 80 mg BID [facility] Administration Vancomycin HCl 1,000 mg/ 250 mls @ 166.667 mls/hr 02/20/18 19:00 02/21/18 07: 00 Dextrose IVPB 166.667 mls/hr Q12H [facility] Administration Protocol Piperacillin Sod/Tazobactam 50 mls @ 100 mls/hr 02/21/18 02:00 02/21/18 10:21 Sod 3.375 gm/ Dextrose IVPB 100 mls/hr Q8H-IV [facility] Administration Protocol Insulin Aspart 15 units 02/20/18 17:19 02/21/18 07:12 Novolog Vial SQ 15 units TIDAC [facility] Administration Insulin Aspart 1 vial 02/21/18 07:00 02/21/18 07:12 Novolog Vial Sliding Scale - SQ 2 units ACHS [facility] Administration Protocol Insulin Detemir 75 units 02/21/18 07:00 02/21/18 07:06 Levemir Vial SQ 75 units DAILY@0700 [facility] Administration Ramipril 2.5 mg 02/21/18 10:00 02/21/18 10:22 Altace - PO 2.5 mg DAILY [facility] Administration Sitagliptin Phosphate 100 mg 02/21/18 07:00 02/21/18 07:06 Januvia - PO 100 mg ACBK [facility] Administration Warfarin Sodium 5 mg 02/20/18 18:00 02/20/18 17:51 Coumadin - PO 5 mg DAILY@1800 [facility] Administration Objective: Vital Signs Period Temp Pulse Resp BP Sys/Soto Pulse Ox Last 24 Hr 97.4 F-98.7 F 93-100 18-20 120-127/77-79 96 Physical Exam: General: NAD, A&Ox3, morbidly obese Lungs: CTA bilaterally Heart: Irregular rhythm Abd: Soft, non-tender, non-distended Ext: Right foot with dorsal hallux ulcer with superficial eschar. Fluctuance plantar midfoot in area of Charcot collapse Neuro: CN 2-12 intact CBCD WBC 15.5 K/mm3 (4.0-10.0) H 02/21/18 07:45 RBC 4.66 M/mm3 (4.00-5.60) 02/21/18 07:45 Hgb 14.3 GM/dL (11.7-16.9) 02/21/18 07:45 Hct 43.0 % (35.4-49) 02/21/18 07:45 MCV 92.3 fl (80-96) 02/21/18 07:45 MCHC 33.3 g/dl (32.0-35.9) 02/21/18 07:45 RDW 14.1 % (11.9-15.9) 02/21/18 07:45 Plt Count 344 K/MM3 (134-434) 02/21/18 07:45 MPV 8.5 fl (7.5-11.1) 02/21/18 07:45 CMP Sodium 136 mmol/L (136-145) 02/21/18 07:45 Potassium 4.9 mmol/L (3.5-5.1) 02/21/18 07:45 Chloride 103 mmol/L (98-107) 02/21/18 07:45 Carbon Dioxide 27 mmol/L (21-32) 02/21/18 07:45 Anion Gap 6 (8-16) L 02/21/18 07:45 BUN 10 mg/dL (7-18) 02/21/18 07:45 Creatinine 0.6 mg/dL (0.7-1.3) L 02/21/18 07:45 Creat Clearance w eGFR > 60 (>60) 02/21/18 07:45 Random Glucose 160 mg/dL (74-106) H D 02/21/18 07:45 Calcium 8.3 mg/dL (8.5-10.1) L 02/21/18 07:45 Total Bilirubin 0.6 mg/dL (0.2-1.0) D 02/21/18 07:45 AST 13 U/L (15-37) L D 02/21/18 07:45 ALT 17 U/L (12-78) 02/21/18 07:45 Alkaline Phosphatase 118 U/L (45-117) H 02/21/18 07:45 Total Protein 6.8 g/dl (6.4-8.2) 02/21/18 07:45 Albumin 3.0 g/dl (3.4-5.0) L 02/21/18 07:45 Assessment: This is a 62 with PMHx of HTN, DM, a.fib, CAD s/p stenting x2 (2017), right foot osteomyelitis, right charcot foot, who presented to the ED with right plantar foot pain. Plan: 1) Right foot cellulitis - R/o abscess - MRI ordered to r/o osteo however patient exceeds weight limit and it cannot be completed - F/u blood cultures - Elevated ESR/CRP - Continue Vancomycin - Continue Zosyn - Appreciate ID - Appreciate podiatry - Awaiting call back from Dr. Moya ([facility]) 2) CAD s/p stenting 01/2018 - Continue ASA - Continue Plavix - Continue Lipitor 3) HTN - Continue Ramipril 4) A.fib - INR subtherapeutic on Coumadin - Coumadin increased to 5mg po hs on 02/20, continue to trend INR - Lovenox 180mg bid for now 5) DM - BGM ACHS - Levemir 75u sq daily - Novolog 15u sq tidac 6) F/E/N: - Cardiac/diabetic diet - Monitor electrolytes 7) Prophylaxis: - PT - OOB ambulating 8) Dispo: - Requires continued inpatient care CODE STATUS: FULL CODE Visit type - Emergency Visit Emergency Visit: Yes ED Registration Date: 02/19/18 Care time: The patient presented to the Emergency Department on the above date and was hospitalized for further evaluation of their emergent condition. - New Patient This patient is new to me today: Yes Date on this admission: 02/21/18 - Critical Care Critical Care patient: No
--- NOTE | 2018-02-21 13:17 | PN ---
Progress Note, Physician History of Present Illness: No c/o R foot pain No drainage No fever/ chills MRI could not be done as patient exceeds weight limit of table - Current Medication List Current Medications: Active Medications Aspirin (Ecotrin -) 81 mg PO DAILY [facility] Last Admin: 02/21/18 10:22 Dose: 81 mg Atorvastatin Calcium (Lipitor -) 10 mg PO HS [facility] Last Admin: 02/20/18 22:28 Dose: 10 mg Clopidogrel Bisulfate (Plavix -) 75 mg PO DAILY [facility] Last Admin: 02/21/18 10:22 Dose: 75 mg Digoxin (Lanoxin -) 0.125 mg PO DAILY [facility] Last Admin: 02/21/18 10:21 Dose: 0.125 mg Diltiazem HCl (Cardizem Cd -) 120 mg PO DAILY [facility] Last Admin: 02/21/18 10:22 Dose: 120 mg Enoxaparin Sodium (Lovenox -) 100 mg SQ BID [facility] Last Admin: 02/21/18 10:22 Dose: 100 mg Enoxaparin Sodium (Lovenox -) 80 mg SQ BID [facility] Last Admin: 02/21/18 10:21 Dose: 80 mg Vancomycin HCl 1,000 mg/ (Dextrose) 250 mls @ 166.667 mls/hr IVPB Q12H [facility] PRN Reason: Protocol Last Admin: 02/21/18 07:00 Dose: 166.667 mls/hr Piperacillin Sod/Tazobactam (Sod 3.375 gm/ Dextrose) 50 mls @ 100 mls/hr IVPB Q8H-IV [facility] PRN Reason: Protocol Last Admin: 02/21/18 10:21 Dose: 100 mls/hr Insulin Aspart (Novolog Vial) 15 units SQ TIDAC [facility] Last Admin: 02/21/18 07:12 Dose: 15 units Insulin Detemir (Levemir Vial) 75 units SQ DAILY@0700 [facility] Last Admin: 02/21/18 07:06 Dose: 75 units Ramipril (Altace -) 2.5 mg PO DAILY [facility] Last Admin: 02/21/18 10:22 Dose: 2.5 mg Sitagliptin Phosphate (Januvia -) 100 mg PO ACBK [facility] Last Admin: 02/21/18 07:06 Dose: 100 mg Warfarin Sodium (Coumadin -) 5 mg PO DAILY@1800 [facility] Last Admin: 02/20/18 17:51 Dose: 5 mg - Objective Vital Signs: Vital Signs Temperature 98.3 F 02/21/18 09:00 Pulse Rate 93 H 02/21/18 10:21 Respiratory Rate 18 02/21/18 09:00 Blood Pressure 121/62 02/21/18 09:00 O2 Sat by Pulse Oximetry (%) 96 02/20/18 17:58 Constitutional: Yes: No Distress Eyes: Yes: Conjunctiva Clear Cardiovascular: Yes: Regular Rate and Rhythm, S1, S2 Respiratory: No: CTA Bilaterally Gastrointestinal: Yes: Normal Bowel Sounds, Soft Extremities: Yes: Other (R Charcot foot. Erythema resolved, Dry ulcer great toe. No drainage) Labs: CBC, BMP 02/21/18 07:45 02/21/18 07:45 INR, PTT INR 1.65 (0.82-1.09) H 02/21/18 07:45 Assessment/Plan Cellulitis R foot R Charcot foot Chronically elevated WBC per pt Switch to Augmentin 875mg po bid next 24hr Follow up with podiatry at [facility]
[2018-02-21] MEDS ORDERED: INSULIN (NOVOLOG) ASPART 100 UNITS/ML 10ML VIAL SQ SCH (16:45)
[2018-02-21] MEDS: WARFARIN NA 5 MG TABLET (UD) PO SCH (17:16)
[2018-02-21] MEDS: ATORVASTATIN CA 10 MG TABLET (FP) PO SCH (22:12)
[2018-02-22] MEDS: PIPERACILLIN/TAZOB 3.375 GM 3.375 GM in DEXTROSE 5%-WATER - 50 ML IVPB SCH ×3 (01:18→18:10)
[2018-02-22] MEDS ORDERED: PT OWN MED DRAWER 7, Y5N ONE ×2 (05:46→18:21)
[2018-02-22] MEDS: VANCOMYCIN 1,000 MG in DEXTROSE 5%-WATER - 250 ML IVPB SCH ×2 (06:15→19:30)
[2018-02-22] MEDS: sitaGLIPtin PHOSPHATE 50 MG TABLET PO SCH (06:16)
[2018-02-22] MEDS: INSULIN (LEVEMIR) 100 UNITS/ML UNITS SQ SCH (06:16)
[2018-02-22] MEDS: INSULIN (NOVOLOG) ASPART 100 UNITS/ML 10ML VIAL SQ SCH ×3 (06:25→18:09)
[2018-02-22 07:59] LABS: BASO % 0.5 % (0-2.0); EOS % 3.2 % (0-4.5); HEMATOCRIT 41.8 % (35.4-49); HEMOGLOBIN 14.1 GM/dL (11.7-16.9); LYMPH % 25.8 % (8-40); MCHC 33.6 g/dl (32.0-35.9); MEAN CELL VOLUME 92.1 fl (80-96); MEAN PLT VOLUME 8.3 fl (7.5-11.1); MONO % 8.5 % (3.8-10.2); PLATELET COUNT 328 K/MM3 (134-434); RBC 4.54 M/mm3 (4.00-5.60); RDW 14.2 % (11.9-15.9); WHITE BLOOD COUNT 12.9 K/mm3 (4.0-10.0)
[2018-02-22 08:15] LABS: INR 2.11 (0.82-1.09); PROTHROMBIN TIME (PATIENT) 23.8 SEC (9.7-13.0)
[2018-02-22] MEDS ORDERED: PIPERACILLIN/TAZOBACTAM 3.375 GM VIAL IVPB ONE ×3 (08:29→20:48)
[2018-02-22] MEDS ORDERED: DEXTROSE 5%-WATER - 50 ML IVPB ONE ×3 (08:29→20:48)
[2018-02-22 08:33] LABS: CHLORIDE 102 mmol/L (98-107); POTASSIUM 4.5 mmol/L (3.5-5.1); SODIUM 137 mmol/L (136-145)
--- NOTE | 2018-02-22 08:54 | PN ---
Progress Note (short form) - Note Progress Note: Subjective: The patient was seen and examined at the bedside, he is concerned he will have his foot amputated INR 2.11 WBC trending down Can switch to po abx today per ID Current Medications Generic Name Dose Route Start Last Admin Trade Name Jomarq PRN Reason Stop Dose Admin Aspirin 81 mg 02/20/18 10:00 02/21/18 10:22 Ecotrin - PO 81 mg DAILY SAIDA Administration Atorvastatin Calcium 10 mg 02/20/18 22:00 02/21/18 22:12 Lipitor - PO 10 mg HS SAIDA Administration Clopidogrel Bisulfate 75 mg 02/21/18 10:00 02/21/18 10:22 Plavix - PO 75 mg DAILY SAIDA Administration Digoxin 0.125 mg 02/21/18 10:00 02/21/18 10:21 Lanoxin - PO 0.125 mg DAILY SAIDA Administration Diltiazem HCl 120 mg 02/21/18 10:00 02/21/18 10:22 Cardizem Cd - PO 120 mg DAILY SAIDA Administration Enoxaparin Sodium 100 mg 02/20/18 10:00 02/21/18 22:11 Lovenox - SQ 100 mg BID SAIDA Administration Enoxaparin Sodium 80 mg 02/20/18 10:00 02/21/18 22:12 Lovenox - SQ 80 mg BID SAIDA Administration Vancomycin HCl 1,000 mg/ 250 mls @ 166.667 mls/hr 02/20/18 19:00 02/22/18 06: 15 Dextrose IVPB 166.667 mls/hr Q12H SAIDA Administration Protocol Piperacillin Sod/Tazobactam 50 mls @ 100 mls/hr 02/21/18 02:00 02/22/18 01:18 Sod 3.375 gm/ Dextrose IVPB 100 mls/hr Q8H-IV SAIDA Administration Protocol Insulin Aspart 15 units 02/20/18 17:19 02/22/18 06:25 Novolog Vial SQ 15 units TIDAC SAIDA Administration Insulin Detemir 75 units 02/21/18 07:00 02/22/18 06:16 Levemir Vial SQ 75 units DAILY@0700 SAIDA Administration Ramipril 2.5 mg 02/21/18 10:00 02/21/18 10:22 Altace - PO 2.5 mg DAILY SAIDA Administration Sitagliptin Phosphate 100 mg 02/21/18 07:00 02/22/18 06:16 Januvia - PO 100 mg ACBK SAIDA Administration Warfarin Sodium 5 mg 02/20/18 18:00 02/21/18 17:16 Coumadin - PO 5 mg DAILY@1800 SAIDA Administration Objective: Vital Signs Period Temp Pulse Resp BP Sys/Soto Pulse Ox Last 24 Hr 97.7 F-99.2 F 89-109 18-20 112-135/62-68 96-96 Physical Exam: General: NAD, A&Ox3, morbidly obese Lungs: CTA bilaterally Heart: Irregular rhythm Abd: Soft, non-tender, non-distended Ext: Right foot with dressing, c/d/i Neuro: CN 2-12 intact CBCD WBC 12.9 K/mm3 (4.0-10.0) H 02/22/18 06:15 RBC 4.54 M/mm3 (4.00-5.60) 02/22/18 06:15 Hgb 14.1 GM/dL (11.7-16.9) 02/22/18 06:15 Hct 41.8 % (35.4-49) 02/22/18 06:15 MCV 92.1 fl (80-96) 02/22/18 06:15 MCHC 33.6 g/dl (32.0-35.9) 02/22/18 06:15 RDW 14.2 % (11.9-15.9) 02/22/18 06:15 Plt Count 328 K/MM3 (134-434) 02/22/18 06:15 MPV 8.3 fl (7.5-11.1) 02/22/18 06:15 CMP Sodium 136 mmol/L (136-145) 02/21/18 07:45 Potassium 4.9 mmol/L (3.5-5.1) 02/21/18 07:45 Chloride 103 mmol/L (98-107) 02/21/18 07:45 Carbon Dioxide 27 mmol/L (21-32) 02/21/18 07:45 Anion Gap 6 (8-16) L 02/21/18 07:45 BUN 10 mg/dL (7-18) 02/21/18 07:45 Creatinine 0.6 mg/dL (0.7-1.3) L 02/21/18 07:45 Creat Clearance w eGFR > 60 (>60) 02/21/18 07:45 Random Glucose 160 mg/dL (74-106) H D 02/21/18 07:45 Calcium 8.3 mg/dL (8.5-10.1) L 02/21/18 07:45 Total Bilirubin 0.6 mg/dL (0.2-1.0) D 02/21/18 07:45 AST 13 U/L (15-37) L D 02/21/18 07:45 ALT 17 U/L (12-78) 02/21/18 07:45 Alkaline Phosphatase 118 U/L (45-117) H 02/21/18 07:45 Total Protein 6.8 g/dl (6.4-8.2) 02/21/18 07:45 Albumin 3.0 g/dl (3.4-5.0) L 02/21/18 07:45 Microbiology 02/20/18 12:15 Blood - Peripheral Venous Blood Culture - Preliminary NO GROWTH OBTAINED AFTER 24 HOURS, INCUBATION TO CONTINUE FOR 4 DAYS. 02/20/18 11:45 Blood - Peripheral Venous Blood Culture - Preliminary NO GROWTH OBTAINED AFTER 24 HOURS, INCUBATION TO CONTINUE FOR 4 DAYS. Assessment: This is a 62 with PMHx of HTN, DM, a.fib, CAD s/p stenting x2 (2017), right foot osteomyelitis, right charcot foot, who presented to the ED with right plantar foot pain. Plan: 1) Right foot cellulitis - MRI ordered to r/o osteo however patient exceeds weight limit and it cannot be completed - Blood cultures with NGTD - Elevated ESR/CRP - Continue Vancomycin - Continue Zosyn - Appreciate ID: can switch to po Augmentin today - Appreciate podiatry - Awaiting call back from Dr. Moya ([facility]) 2) CAD s/p stenting 01/2018 - Continue ASA - Continue Plavix - Continue Lipitor 3) HTN - Continue Ramipril 4) A.fib - INR 2.11 today, continue Coumadin 5mg po qhs - Continue Lovenox 180mg bid for now, needs overlapping once INR therapeutic 5) DM - BGM ACHS - Levemir 75u sq daily - Novolog 15u sq tidac 6) F/E/N: - Cardiac/diabetic diet - Monitor electrolytes 7) Prophylaxis: - PT - OOB ambulating 8) Dispo: - Requires continued inpatient care CODE STATUS: FULL CODE Visit type - Emergency Visit Emergency Visit: Yes ED Registration Date: 02/19/18 Care time: The patient presented to the Emergency Department on the above date and was hospitalized for further evaluation of their emergent condition. - New Patient This patient is new to me today: No - Critical Care Critical Care patient: No
[2018-02-22 08:58] LABS: ALK PHOS 112 U/L (45-117); ANION GAP 8 (8-16); BILIRUBIN,TOTAL 1.5 mg/dL (0.2-1.0); BLOOD UREA NITROGEN 9 mg/dL (7-18); CALCIUM 8.3 mg/dL (8.5-10.1); CO2 27 mmol/L (21-32); CREATININE 0.6 mg/dL (0.7-1.3); GLUCOSE,RANDOM 152 mg/dL (74-106); SGOT/AST 13 U/L (15-37); SGPT/ALT 17 U/L (12-78); TOT PROT 6.7 g/dl (6.4-8.2)
[2018-02-22] MEDS: ASPIRIN COATED 81 MG TABLET.EC PO SCH (11:15)
[2018-02-22] MEDS: CLOPIDOGREL BISULFATE 75 MG TABLET (FP) PO SCH (11:15)
[2018-02-22] MEDS: DIGOXIN 0.125 MG TABLET (FP) PO SCH (11:15)
[2018-02-22] MEDS: RAMIPRIL 5 MG CAPSULE (FP) PO SCH (11:16)
[2018-02-22] MEDS: ENOXAPARIN NA (PORCINE) 100 MG/1 ML DISP.SYRIN SQ SCH ×3 (11:17→22:09)
[2018-02-22] MEDS: ENOXAPARIN NA (PORCINE) 80 MG/0.8 ML DISP.SYRIN SQ SCH ×3 (11:19→22:09)
[2018-02-22] MEDS: WARFARIN NA 5 MG TABLET (UD) PO SCH (18:10)
[2018-02-22] MEDS: ATORVASTATIN CA 10 MG TABLET (FP) PO SCH (22:02)
[2018-02-23] MEDS: PIPERACILLIN/TAZOB 3.375 GM 3.375 GM in DEXTROSE 5%-WATER - 50 ML IVPB SCH ×3 (02:02→17:53)
[2018-02-23] MEDS: VANCOMYCIN 1,000 MG in DEXTROSE 5%-WATER - 250 ML IVPB SCH ×2 (06:25→19:20)
[2018-02-23] MEDS: sitaGLIPtin PHOSPHATE 50 MG TABLET PO SCH (06:25)
[2018-02-23] MEDS: INSULIN (LEVEMIR) 100 UNITS/ML UNITS SQ SCH (06:26)
[2018-02-23] MEDS: INSULIN (NOVOLOG) ASPART 100 UNITS/ML 10ML VIAL SQ SCH ×3 (06:27→17:53)
[2018-02-23 07:54] LABS: HEMATOCRIT 41.5 % (35.4-49); HEMOGLOBIN 14.1 GM/dL (11.7-16.9); MCH 31.3 pg (25.7-33.7); MCHC 34.1 g/dl (32.0-35.9); MEAN CELL VOLUME 91.9 fl (80-96); MEAN PLT VOLUME 8.2 fl (7.5-11.1); PLATELET COUNT 318 K/MM3 (134-434); RBC 4.51 M/mm3 (4.00-5.60); RDW 14.3 % (11.9-15.9); WHITE BLOOD COUNT 12.2 K/mm3 (4.0-10.0)
[2018-02-23 08:07] LABS: INR 2.59 (0.82-1.09); PROTHROMBIN TIME (PATIENT) 29.3 SEC (9.7-13.0)
[2018-02-23 08:45] LABS: ANION GAP 8 (8-16); BLOOD UREA NITROGEN 13 mg/dL (7-18); CALCIUM 8.4 mg/dL (8.5-10.1); CHLORIDE 102 mmol/L (98-107); CO2 27 mmol/L (21-32); GLUCOSE,RANDOM 187 mg/dL (74-106); POTASSIUM 4.6 mmol/L (3.5-5.1); SGOT/AST 14 U/L (15-37); SGPT/ALT 19 U/L (12-78); SODIUM 137 mmol/L (136-145)
[2018-02-23 08:47] LABS: ALK PHOS 108 U/L (45-117); BILIRUBIN,TOTAL 0.3 mg/dL (0.2-1.0); CREATININE 0.6 mg/dL (0.7-1.3); TOT PROT 6.7 g/dl (6.4-8.2)
--- NOTE | 2018-02-23 10:33 | PN ---
Progress Note (short form) - Note Progress Note: Subjective: The patient was seen and examined at the bedside, he has no complaints at this time Current Medications Generic Name Dose Route Start Last Admin Trade Name Saravanan PRN Reason Stop Dose Admin Aspirin 81 mg 02/20/18 10:00 02/22/18 11:15 Ecotrin - PO 81 mg DAILY SAIDA Administration Atorvastatin Calcium 10 mg 02/20/18 22:00 02/22/18 22:02 Lipitor - PO 10 mg HS SAIDA Administration Clopidogrel Bisulfate 75 mg 02/21/18 10:00 02/22/18 11:15 Plavix - PO 75 mg DAILY SAIDA Administration Digoxin 0.125 mg 02/21/18 10:00 02/22/18 11:15 Lanoxin - PO 0.125 mg DAILY SAIDA Administration Diltiazem HCl 120 mg 02/21/18 10:00 02/22/18 11:16 Cardizem Cd - PO 120 mg DAILY SAIDA Administration Vancomycin HCl 1,000 mg/ 250 mls @ 166.667 mls/hr 02/20/18 19:00 02/23/18 06: 25 Dextrose IVPB 166.667 mls/hr Q12H SAIDA Administration Protocol Piperacillin Sod/Tazobactam 50 mls @ 100 mls/hr 02/21/18 02:00 02/23/18 02:02 Sod 3.375 gm/ Dextrose IVPB 100 mls/hr Q8H-IV SAIDA Administration Protocol Insulin Aspart 15 units 02/20/18 17:19 02/23/18 06:27 Novolog Vial SQ 15 units TIDAC SAIDA Administration Insulin Detemir 75 units 02/21/18 07:00 02/23/18 06:26 Levemir Vial SQ 75 units DAILY@0700 SAIDA Administration Ramipril 2.5 mg 02/21/18 10:00 02/22/18 11:16 Altace - PO 2.5 mg DAILY SAIDA Administration Sitagliptin Phosphate 100 mg 02/21/18 07:00 02/23/18 06:25 Januvia - PO 100 mg ACBK SAIDA Administration Warfarin Sodium 5 mg 02/20/18 18:00 02/22/18 18:10 Coumadin - PO 5 mg DAILY@1800 SAIDA Administration Objective: Vital Signs Period Temp Pulse Resp BP Sys/Soto Pulse Ox Last 24 Hr 98.3 F-99.1 F 99-115 18-20 122-133/71-75 Physical Exam: General: NAD, A&Ox3, morbidly obese Lungs: CTA bilaterally Heart: Irregular rhythm Abd: Soft, non-tender, non-distended Ext: Right foot with dorsal hallux ulcer. Fluctuance plantar midfoot in area of Charcot collapse Neuro: CN 2-12 intact CBCD WBC 12.2 K/mm3 (4.0-10.0) H 02/23/18 06:56 RBC 4.51 M/mm3 (4.00-5.60) 02/23/18 06:56 Hgb 14.1 GM/dL (11.7-16.9) 02/23/18 06:56 Hct 41.5 % (35.4-49) 02/23/18 06:56 MCV 91.9 fl (80-96) 02/23/18 06:56 MCHC 34.1 g/dl (32.0-35.9) 02/23/18 06:56 RDW 14.3 % (11.9-15.9) 02/23/18 06:56 Plt Count 318 K/MM3 (134-434) 02/23/18 06:56 MPV 8.2 fl (7.5-11.1) 02/23/18 06:56 CMP Sodium 137 mmol/L (136-145) 02/23/18 06:56 Potassium 4.6 mmol/L (3.5-5.1) 02/23/18 06:56 Chloride 102 mmol/L (98-107) 02/23/18 06:56 Carbon Dioxide 27 mmol/L (21-32) 02/23/18 06:56 Anion Gap 8 (8-16) 02/23/18 06:56 BUN 13 mg/dL (7-18) D 02/23/18 06:56 Creatinine 0.6 mg/dL (0.7-1.3) L 02/23/18 06:56 Creat Clearance w eGFR > 60 (>60) 02/23/18 06:56 Random Glucose 187 mg/dL (74-106) H D 02/23/18 06:56 Calcium 8.4 mg/dL (8.5-10.1) L 02/23/18 06:56 Total Bilirubin 0.3 mg/dL (0.2-1.0) D 02/23/18 06:56 AST 14 U/L (15-37) L 02/23/18 06:56 ALT 19 U/L (12-78) 02/23/18 06:56 Alkaline Phosphatase 108 U/L (45-117) 02/23/18 06:56 Total Protein 6.7 g/dl (6.4-8.2) 02/23/18 06:56 Albumin 3.0 g/dl (3.4-5.0) L 02/23/18 06:56 Microbiology 02/20/18 12:15 Blood - Peripheral Venous Blood Culture - Preliminary NO GROWTH OBTAINED AFTER 48 HOURS, INCUBATION TO CONTINUE FOR 3 DAYS. 02/20/18 11:45 Blood - Peripheral Venous Blood Culture - Preliminary NO GROWTH OBTAINED AFTER 48 HOURS, INCUBATION TO CONTINUE FOR 3 DAYS. 02/20/18 16:20 Foot - Right Sole Wound Culture - Preliminary Staphylococcus Coagulase Neg Assessment: This is a 62 with PMHx of HTN, DM, a.fib, CAD s/p stenting x2 (2017), right foot osteomyelitis, right charcot foot, who presented to the ED with right plantar foot pain. Plan: 1) Right foot cellulitis - MRI ordered to r/o osteo however patient exceeds weight limit and it cannot be completed - Blood cultures with NGTD - Elevated ESR/CRP - Continue Vancomycin - Continue Zosyn - Appreciate ID: can switch to po Augmentin today - Appreciate podiatry: f/u outpatient - Awaiting call back from Dr. Moya ([facility]) 2) CAD s/p stenting 01/2018 - Continue ASA - Continue Plavix - Continue Lipitor 3) HTN - Continue Ramipril 4) A.fib - INR therapeutic - Discontinue Lovenox, patient refused - Continue Coumadin 5) DM - BGM ACHS - Levemir 75u sq daily - Novolog 15u sq tidac 6) F/E/N: - Cardiac/diabetic diet - Monitor electrolytes 6) F/E/N: - Cardiac/diabetic diet - Monitor electrolytes 7) Prophylaxis: - PT: only stood. Patient states its because he wasn't wearing his sneakers. Repeat PT in the morning with his sneakers for more accurate assessment in ability - OOB ambulating 8) Dispo: - May need SNF, discussed with telehealth case manager, Franci CODE STATUS: FULL CODE Visit type - Emergency Visit Emergency Visit: Yes ED Registration Date: 02/19/18 Care time: The patient presented to the Emergency Department on the above date and was hospitalized for further evaluation of their emergent condition. - New Patient This patient is new to me today: No - Critical Care Critical Care patient: No
[2018-02-23] MEDS ORDERED: PIPERACILLIN/TAZOBACTAM 3.375 GM VIAL IVPB ONE ×3 (11:14→19:41)
[2018-02-23] MEDS ORDERED: DEXTROSE 5%-WATER - 50 ML IVPB ONE ×3 (11:14→19:41)
[2018-02-23] MEDS: DIGOXIN 0.125 MG TABLET (FP) PO SCH (11:28)
[2018-02-23] MEDS: CLOPIDOGREL BISULFATE 75 MG TABLET (FP) PO SCH (11:28)
[2018-02-23] MEDS: ASPIRIN COATED 81 MG TABLET.EC PO SCH (11:29)
[2018-02-23] MEDS: RAMIPRIL 5 MG CAPSULE (FP) PO SCH (11:29)
[2018-02-23] MEDS: WARFARIN NA 5 MG TABLET (UD) PO SCH (17:53)
[2018-02-23] MEDS: ATORVASTATIN CA 10 MG TABLET (FP) PO SCH (21:47)
[2018-02-24] MEDS: PIPERACILLIN/TAZOB 3.375 GM 3.375 GM in DEXTROSE 5%-WATER - 50 ML IVPB SCH ×2 (01:42→12:20)
[2018-02-24] MEDS: INSULIN (LEVEMIR) 100 UNITS/ML UNITS SQ SCH (06:22)
[2018-02-24] MEDS: INSULIN (NOVOLOG) ASPART 100 UNITS/ML 10ML VIAL SQ SCH ×3 (06:22→12:36)
[2018-02-24] MEDS: VANCOMYCIN 1,000 MG in DEXTROSE 5%-WATER - 250 ML IVPB SCH (06:22)
[2018-02-24] MEDS: sitaGLIPtin PHOSPHATE 50 MG TABLET PO SCH (06:23)
[2018-02-24 07:16] LABS: BASO % 0.6 % (0-2.0); EOS % 3.7 % (0-4.5); HEMATOCRIT 40.3 % (35.4-49); LYMPH % 24.9 % (8-40); MCH 31.7 pg (25.7-33.7); MCHC 34.8 g/dl (32.0-35.9); MEAN CELL VOLUME 90.9 fl (80-96); MEAN PLT VOLUME 8.2 fl (7.5-11.1); MONO % 9.2 % (3.8-10.2); NEUT % 61.6 % (42.8-82.8); PLATELET COUNT 321 K/MM3 (134-434); RBC 4.43 M/mm3 (4.00-5.60); RDW 14.2 % (11.9-15.9); WHITE BLOOD COUNT 13.3 K/mm3 (4.0-10.0)
[2018-02-24 07:27] LABS: INR 2.99 (0.82-1.09); PROTHROMBIN TIME (PATIENT) 33.8 SEC (9.7-13.0)
--- NOTE | 2018-02-24 11:09 | PN ---
Progress Note (short form) - Note Progress Note: Subjective: The patient was seen and examined at the bedside, he states he would like to see Dr. Cruz today Current Medications Generic Name Dose Route Start Last Admin Trade Name Saravanan PRN Reason Stop Dose Admin Aspirin 81 mg 02/20/18 10:00 02/23/18 11:29 Ecotrin - PO 81 mg DAILY SAIDA Administration Atorvastatin Calcium 10 mg 02/20/18 22:00 02/23/18 21:47 Lipitor - PO 10 mg HS SAIDA Administration Clopidogrel Bisulfate 75 mg 02/21/18 10:00 02/23/18 11:28 Plavix - PO 75 mg DAILY SAIDA Administration Digoxin 0.125 mg 02/21/18 10:00 02/23/18 11:28 Lanoxin - PO 0.125 mg DAILY SAIDA Administration Diltiazem HCl 120 mg 02/21/18 10:00 02/23/18 11:27 Cardizem Cd - PO 120 mg DAILY SAIDA Administration Vancomycin HCl 1,000 mg/ 250 mls @ 166.667 mls/hr 02/20/18 19:00 02/24/18 06: 22 Dextrose IVPB 166.667 mls/hr Q12H SAIDA Administration Protocol Piperacillin Sod/Tazobactam 50 mls @ 100 mls/hr 02/21/18 02:00 02/24/18 01:42 Sod 3.375 gm/ Dextrose IVPB 100 mls/hr Q8H-IV SAIDA Administration Protocol Insulin Aspart 15 units 02/20/18 17:19 02/24/18 06:22 Novolog Vial SQ 15 units TIDAC SAIDA Administration Insulin Detemir 75 units 02/21/18 07:00 02/24/18 06:22 Levemir Vial SQ 75 units DAILY@0700 SAIDA Administration Ramipril 2.5 mg 02/21/18 10:00 02/23/18 11:29 Altace - PO 2.5 mg DAILY SAIDA Administration Sitagliptin Phosphate 100 mg 02/21/18 07:00 02/24/18 06:23 Januvia - PO 100 mg ACBK SAIDA Administration Warfarin Sodium 5 mg 02/20/18 18:00 02/23/18 17:53 Coumadin - PO 5 mg DAILY@1800 SAIDA Administration Objective: Vital Signs Period Temp Pulse Resp BP Sys/Soto Pulse Ox Last 24 Hr 97.6 F-99.1 F 65-111 20-20 118-138/66-88 Physical Exam: General: NAD, A&Ox3, morbidly obese Lungs: CTA bilaterally Heart: Irregular rhythm Abd: Soft, non-tender, non-distended Ext: Right foot with dorsal hallux ulcer. Fluctuance plantar midfoot in area of Charcot collapse Neuro: CN 2-12 intact CBCD WBC 13.3 K/mm3 (4.0-10.0) H 02/24/18 05:35 RBC 4.43 M/mm3 (4.00-5.60) 02/24/18 05:35 Hgb 14.0 GM/dL (11.7-16.9) 02/24/18 05:35 Hct 40.3 % (35.4-49) 02/24/18 05:35 MCV 90.9 fl (80-96) 02/24/18 05:35 MCHC 34.8 g/dl (32.0-35.9) 02/24/18 05:35 RDW 14.2 % (11.9-15.9) 02/24/18 05:35 Plt Count 321 K/MM3 (134-434) 02/24/18 05:35 MPV 8.2 fl (7.5-11.1) 02/24/18 05:35 CMP Sodium 137 mmol/L (136-145) 02/23/18 06:56 Potassium 4.6 mmol/L (3.5-5.1) 02/23/18 06:56 Chloride 102 mmol/L (98-107) 02/23/18 06:56 Carbon Dioxide 27 mmol/L (21-32) 02/23/18 06:56 Anion Gap 8 (8-16) 02/23/18 06:56 BUN 13 mg/dL (7-18) D 02/23/18 06:56 Creatinine 0.6 mg/dL (0.7-1.3) L 02/23/18 06:56 Creat Clearance w eGFR > 60 (>60) 02/23/18 06:56 Random Glucose 187 mg/dL (74-106) H D 02/23/18 06:56 Calcium 8.4 mg/dL (8.5-10.1) L 02/23/18 06:56 Total Bilirubin 0.3 mg/dL (0.2-1.0) D 02/23/18 06:56 AST 14 U/L (15-37) L 02/23/18 06:56 ALT 19 U/L (12-78) 02/23/18 06:56 Alkaline Phosphatase 108 U/L (45-117) 02/23/18 06:56 Total Protein 6.7 g/dl (6.4-8.2) 02/23/18 06:56 Albumin 3.0 g/dl (3.4-5.0) L 02/23/18 06:56 Microbiology 02/20/18 12:15 Blood - Peripheral Venous Blood Culture - Preliminary NO GROWTH OBTAINED AFTER 72 HOURS, INCUBATION TO CONTINUE FOR 2 DAYS. 02/20/18 11:45 Blood - Peripheral Venous Blood Culture - Preliminary NO GROWTH OBTAINED AFTER 72 HOURS, INCUBATION TO CONTINUE FOR 2 DAYS. 02/20/18 16:20 Foot - Right Sole Wound Culture - Preliminary Staphylococcus Coagulase Neg Group D Strep Or Entero Coccus Pending Organism Assessment: This is a 62 with PMHx of HTN, DM, a.fib, CAD s/p stenting x2 (2017), right foot osteomyelitis, right charcot foot, who presented to the ED with right plantar foot pain. Plan: 1) Right foot cellulitis - MRI ordered to r/o osteo however patient exceeds weight limit and it cannot be completed - Blood cultures with NGTD - Elevated ESR/CRP - Continue Vancomycin - Continue Zosyn - Appreciate ID: discussed with Dr. Bojorquez, can switch to Augmentin for total of 14 days - Appreciate podiatry: f/u outpatient - Awaiting call back from Dr. Moya ([facility]) 2) CAD s/p stenting 01/2018 - Continue ASA - Continue Plavix - Continue Lipitor 3) HTN - Continue Ramipril 4) A.fib - INR therapeutic - Continue Coumadin 5) DM - BGM ACHS - Levemir 75u sq daily - Novolog 15u sq tidac 6) F/E/N: - Cardiac/diabetic diet - Monitor electrolytes 6) F/E/N: - Cardiac/diabetic diet - Monitor electrolytes 7) Prophylaxis: - PT: only stood again today. Patient told PT that he is non-weight bearing. Discussed with Dr. Gaviria who will reevaluate the patient today - OOB ambulating 8) Dispo: - Will need SNF, discussed with case management CODE STATUS: FULL CODE Visit type - Emergency Visit Emergency Visit: Yes ED Registration Date: 02/19/18 Care time: The patient presented to the Emergency Department on the above date and was hospitalized for further evaluation of their emergent condition. - New Patient This patient is new to me today: No - Critical Care Critical Care patient: No
--- NOTE | 2018-02-24 11:16 | PN ---
Progress Note (short form) - Note Progress Note: Podiatry F/U: Seen/evaluated at bedside. R plantar Charcot midfoot has less erythema and less fluctuance. I discussed with patient that unless we image further with MRI or if I go in a do incision and drainage we don't really known if there is a consolidated abscess or just activation of Charcot. Will treat with non- weightbearing for now until we can investigate with outpatient open MRI and f/u with me or his surgeon. He is refusing surgical intervention at this time and so will f/u outpatient. Marta Cruz DPM
--- NOTE | 2018-02-24 11:49 | DS ---
Physical Examination Vital Signs: Vital Signs Temperature 97.6 F 02/24/18 05:00 Pulse Rate 107 H 02/24/18 05:00 Respiratory Rate 20 02/24/18 05:00 Blood Pressure 125/88 02/24/18 05:00 O2 Sat by Pulse Oximetry (%) 96 02/21/18 21:00 Labs: CBC, BMP 02/24/18 05:35 02/23/18 06:56 Discharge Summary Reason For Visit: CELLULITIS OF FOOT Current Active Problems Atrial fibrillation (Acute) CAD (coronary artery disease) (Acute) Cellulitis of foot (Acute) Diabetes mellitus (Acute) HLD (hyperlipidemia) (Acute) HTN (hypertension) (Acute) Osteomyelitis (Acute) Hospital Course: Discussed with Dr. Cruz and Dr. Bojorquez, discharge home with outpatient follow-up Condition: Improved - Instructions Diet, Activity, Other Instructions: Please return to the ED with new, persistent, or worsening symptoms. Please follow-up with your physician at [facility] and Dr. Cruz within 2-3 days for further management of your right foot. I have provided you with the names of three primary care providers in the area. Please follow-up with a primary care provider within 2-3 days to have your INR checked. Continue the current dose of Coumadin 5mg by mouth at 6pm daily. Continue non-weight bearing on your right foot until you are re-evaluated by your surgeon or podiatry. Referrals: Kayode Teran MD [Staff Physician] - Martín Cruz MD [Staff Physician] - (Please follow-up with Dr. Cruz within 2-3 days for further management of your right foot and to find an outpatient MRI that will accomodate your weight so you can have and MRI of your right foot to rule out and infection in your bone. ) Jonatan Gan MD [Staff Physician] - Suresh Hernandez MD [Staff Physician] - Disposition: VNS/HOME HEALTH CARE - Home Medications Comprehensive Discharge Medication List: Ambulatory Orders Aspirin 81 mg PO DAILY 02/20/18 Atorvastatin Ca [Lipitor] 10 mg PO HS 02/20/18 Clopidogrel Bisulfate [Plavix] 75 mg PO DAILY 02/20/18 Digoxin 0.125 mg PO DAILY 02/20/18 Metoprolol Tartrate [Lopressor -] 50 mg PO BID 02/20/18 Ramipril [Altace] 2.5 mg PO DAILY 02/20/18 Sitagliptin Phosphate [Januvia] 100 mg PO DAILY 02/20/18 Amoxicillin/Potassium Clav [Augmentin 875-125 Tablet] 1 each PO BID #17 tablet 02/24/18 Diltiazem Cd [Cardizem Cd -] 120 mg PO DAILY #30 cap.cd.24h 02/24/18 Insulin (Levemir) [Levemir Vial] 75 units SQ DAILY@0700 #30 ml 02/24/18 Insulin (Novolog) [Novolog -] 15 units SQ TIDAC #5 ml 02/24/18 Warfarin Na [Coumadin -] 5 mg PO DAILY@1800 #30 tablet 02/24/18 - Discharge Referral Referred to [facility] No
[2018-02-24] MEDS ORDERED: DEXTROSE 5%-WATER - 50 ML IVPB ONE (12:17)
[2018-02-24] MEDS ORDERED: PIPERACILLIN/TAZOBACTAM 3.375 GM VIAL IVPB ONE (12:17)
[2018-02-24] MEDS: CLOPIDOGREL BISULFATE 75 MG TABLET (FP) PO SCH (12:20)
[2018-02-24] MEDS: DIGOXIN 0.125 MG TABLET (FP) PO SCH (12:20)
[2018-02-24] MEDS: ASPIRIN COATED 81 MG TABLET.EC PO SCH (12:21)
[2018-02-24] MEDS ORDERED: RAMIPRIL 2.5 MG CAPSULE (FP) PO SCH (12:35)
[2018-02-24] MEDS: RAMIPRIL 5 MG CAPSULE (FP) PO SCH (12:39)
[2018-02-24 13:06] VITALS: BMI 50.3
[2018-02-24 15:12] VITALS: TEMP 97.4
[2018-02-24 15:22] VITALS: BP 134/64; PULSE 108
== END 2018-02-24 15:39 | disposition home health service (06) | DRG 383 ==
LOC: JER 14:54 → JERBED 23:22 → J8W 02-20 15:32
PROVIDERS: ADMIT Internal Medicine; ATTEND Registered Nurse
DX: L03.115 Cellulitis of right lower limb (principal); E11.9 Type 2 diabetes mellitus without complications; I48.91 Unspecified atrial fibrillation; R79.1 Abnormal coagulation profile; I25.10 Atherosclerotic heart disease of native coronary artery without angina pectoris; Z98.61 Coronary angioplasty status; I10 Essential (primary) hypertension; E78.5 Hyperlipidemia, unspecified; M86.8X7 Other osteomyelitis, ankle and foot; E11.621 Type 2 diabetes mellitus with foot ulcer; E66.01 Morbid (severe) obesity due to excess calories; Z68.43 Body mass index [BMI] 50.0-59.9, adult; A52.16 Charcot's arthropathy (tabetic)
CPT/HCPCS: 36415; 71045-TC-FY; 73630-TC-RT-FY; 80048; 80053; 82962; 83036; 83605; 83735; 84100; 85025; 85027; 85610; 85651; 85730; 86140; 87040; 87070; 87077; 87205; 93005; 93010; 93306-TC; 93970-TC; 97116-GP; 97161-GP; 99282-25

== ENCOUNTER 2019-02-09 16:22 | Emergency (ER) | payer OTHER ==
--- NOTE | 2019-02-09 16:28 | PDOC ---
History of Present Illness - General Chief Complaint: Injury Stated Complaint: right knee swelling Time Seen by Provider: 02/09/19 16:26 - History of Present Illness Initial Comments: 63 with PMHx of HTN, DM, a.fib, CAD s/p stenting x2 (01/2018), right foot osteomyelitis, and right charcot foot (s/p fusion) presenting from PCPs office for swelling of the right lower leg for the past 12 days (since 01/28/19). He had a fusion of his right charcot joint and on 01/28 his large plastic protection boot caused some accidental trauma to the back of his upper posterior right calf when he was lowering to a seated position into his wheel chair. States that he has had chronic SOB on exertion over the past 5 years wince being wheel chair bound. Denies fevers, chills, nausea, vomiting, diarrhea , chest pain, or other symptoms. 02/09/19 16:29 Past History - Past Medical History Allergies/Adverse Reactions: Allergies Allergy/AdvReac Type Severity Reaction Status Date / Time metformin Allergy Hives Verified 02/09/19 16:30 Home Medications: Ambulatory Orders Aspirin [ASA -] 81 mg PO DAILY 02/09/19 Atorvastatin Ca [Lipitor] 20 mg PO HS 02/09/19 Digoxin [Lanoxin -] 0.125 mg PO DAILY 02/09/19 Diltiazem [Cardizem -] 90 mg PO ONCE 02/09/19 Docusate Sodium [Colace] 100 mg PO TID 02/09/19 Insulin Glargine,Hum.rec.anlog [Basaglar Kwikpen U-100] 80 unit SQ AM 02/09/19 Insulin Lispro [Admelog] 30 unit SQ TID 02/09/19 Liraglutide [Victoza -] 1.2 mg SQ DAILY@0700 02/09/19 Metoprolol Tartrate [Lopressor -] 50 mg PO BID 02/09/19 Pantoprazole Sodium [Protonix] 40 mg PO DAILY 02/09/19 Ramipril [Altace] 5 mg PO DAILY 02/09/19 Warfarin Sodium [Coumadin] 3 mg PO DAILY 02/09/19 Cardiac Disorders: Yes (Afib on coumadin s/p stentx2) Diabetes: Yes HTN: Yes Hypercholesterolemia: Yes - Surgical History Cardiac Surgery: Yes (stent placementx2) - Suicide/Smoking/Psychosocial Hx Smoking History: Former smoker Have you smoked in the past 12 months: No If you are a former smoker, when did you quit?: 2017 Hx Alcohol Use: No Drug/Substance Use Hx: No Hx Substance Use Treatment: No Review of Systems - Review of Systems Constitutional: No: Chills, Diaphoresis, Fever HEENTM: No: Blurred Vision, Tearing, Recent change in vision Respiratory: Yes: Shortness of Breath, SOB with Exertion. No: Cough, Orthopnea , SOB at Rest, Productive cough Cardiac (ROS): No: Chest Pain, Irregular Heart Rate, Lightheadedness, Palpitations ABD/GI: No: Diarrhea, Nausea, Vomiting : No: Dysuria, Discharge Musculoskeletal: Yes: Joint Pain, Joint Swelling, Joint Stiffness. No: Back Pain Integumentary: Yes: Lesions. No: Erythema Neurological: No: Headache, Numbness, Paresthesia Psychiatric: No: Anxiety, Depression Hematologic/Lymphatic: No: Anemia, Blood Clots *Physical Exam - Physical Exam General Appearance: Yes: Nourished, Appropriately Dressed. No: Apparent Distress HEENT: positive: EOMI, MAEGAN, Normal ENT Inspection, Normal Voice Neck: positive: Trachea midline, Normal Thyroid, Supple. negative: Tender, Rigid Respiratory/Chest: positive: Lungs Clear, Normal Breath Sounds. negative: Chest Tender, Respiratory Distress, Accessory Muscle Use Cardiovascular: positive: Regular Rhythm, Regular Rate Gastrointestinal/Abdominal: positive: Normal Bowel Sounds, Flat, Soft. negative : Tender Musculoskeletal: positive: Decreased Range of Motion. negative: Normal Inspection (right lower joit s/p fusion) Extremity: positive: Swelling (right calf significantly largeer thanleft without tenderness). negative: Normal Inspection, Normal Range of Motion, Tender Integumentary: positive: Dry, Warm. negative: Normal Color (multiple small circular lesions on ther posterior aspects of his forearms bilaterally) Neurologic: positive: Fully Oriented, Alert, Normal Mood/Affect, Normal Response , Motor Strength 5/5 Medical Decision Making - Medical Decision Making 63 year odl male s/p right charcot joint presenting with right calf swelling after fusion. This was likely du eto trauma to his leg from his plastic boot. Duplex negative for thrombus. Patient well appearing otherwise. INR 2.84. Will DC with follow up [id number] and return precautions. 02/09/19 18:16 *DC/Admit/Observation/Transfer Diagnosis at time of Disposition: Right leg swelling - Discharge Dispostion Disposition: HOME Condition at time of disposition: Improved Decision to Admit order: No - Referrals Referrals: Gunnar Nur MD [Primary Care Provider] - - Patient Instructions Printed Discharge Instructions: DI for Leg Pain Additional Instructions: Please use you your medications at home for your pain. Please try to elevate your leg. Please follow up with your PCP within a week. Please return to the ED if you have new or worsening symptoms. - Post Discharge Activity
[2019-02-09 16:39] VITALS: BP 122/77; PULSE 89; TEMP 98.3; BMI 46.2
--- NOTE | 2019-02-09 17:16 | PDOC ---
Attending Attestation - Resident Resident Name: GiuliaEdwardzeekatlyn - ED Attending Attestation I have performed the following: I have examined & evaluated the patient, The case was reviewed & discussed with the resident, I agree w/resident's findings & plan, Exceptions are as noted - HPI HPI: 02/09/19 17:13 63-year-old male with history of hypertension, diabetes, peripheral neuropathy, atrial fibrillation on Coumadin, coronary artery disease, right Charcot foot status post fusion sent in by Dr. Singh to rule out right lower extremity DVT. The patient had right foot surgery at [facility] surgery in August 2018. Since then, the patient had a prolonged rehabilitation stay until January 28. Since discharge, the patient reported hitting his right leg, which is sitting in a boot. Noted that it has been persistent swollen but nontender. The patient had made an appointment to visit his doctor was potentially concern for DVT and sent the patient to the ER. The patient denies chest pain or shortness of breath. The patient denies any calf pain. Denies any numbness or weakness that is different from his baseline. Reports that when he stands up for prolong periods of time that he notices that the swelling is worse. - Physicial Exam PE: 02/09/19 17:13 GENERAL: Awake, alert, and fully oriented, in no acute distress HEAD: No signs of trauma EYES: EOMI, sclera anicteric, conjunctiva clear ENT: Auricles normal inspection, hearing grossly normal, nares patent, Moist mucosa NECK: Normal ROM, supple, EXTREMITIES: RLE with 1+ pitting edema. Theron sign negative. Sensation intact throughout NEUROLOGICAL: Cranial nerves II through XII grossly intact. Normal speech SKIN: Warm, Dry, normal turgor, no rashes or lesions noted. - Medical Decision Making 02/09/19 17:16 Vital Signs Temp Pulse Resp BP Pulse Ox 98.3 F 89 18 122/77 97 02/09/19 16:24 02/09/19 16:24 02/09/19 16:24 02/09/19 16:24 02/09/19 16:24 This may potentially be gravity dependent DVT. Will obtain a RLE duplex to r/o DVT Check INR. If workup is unremarkable, pt will be encouraged to elevate the leg and follow up with PMD. 02/09/19 18:06 RLE Duplex. No DVT. 02/09/19 18:38 INR 2.84. Pt feels comfortable being discharged.
[2019-02-09 18:31] LABS: INR 2.84 (0.82-1.09); PROTHROMBIN TIME (PATIENT) 31.2 SEC (10.2-13.0)
== END 2019-02-09 18:44 | disposition home or self-care (01) ==
LOC: FER 16:22
DX: R22.41 Localized swelling, mass and lump, right lower limb (principal); I10 Essential (primary) hypertension; I48.91 Unspecified atrial fibrillation; I25.10 Atherosclerotic heart disease of native coronary artery without angina pectoris; E11.9 Type 2 diabetes mellitus without complications; E78.5 Hyperlipidemia, unspecified; Z95.5 Presence of coronary angioplasty implant and graft; Z88.8 Allergy status to other drugs, medicaments and biological substances; Z79.82 Long term (current) use of aspirin; Z79.4 Long term (current) use of insulin; Z79.01 Long term (current) use of anticoagulants; Z87.891 Personal history of nicotine dependence
CPT/HCPCS: 36415; 85610; 93971-TC; 99281-25

== ENCOUNTER 2019-02-27 12:12 | Inpatient (IN) | payer OTHER ==
--- NOTE | 2019-02-27 12:29 | PDOC ---
Rapid Medical Evaluation Chief Complaint: Shortness of Breath Time Seen by Provider: 02/27/19 12:22 Medical Evaluation: Allergies Allergy/AdvReac Type Severity Reaction Status Date / Time metformin Allergy Hives Verified 02/09/19 16:30 02/27/19 12:23 I have performed a brief in-person evaluation of this patient. The patient presents with a chief complaint of: shortness of breath onset 2 days ago, felling legs heavy, no fevers- recent stent placement last year/ STATES GOES IN AND oyut of AFib. Pertinent physical exam findings: Some air hunger , no cough, pale- no diaphoreses I have ordered the following: CXR, CBC, CMP, Card, BNP,EKG The patient will proceed to the ED for further evaluation. 02/27/19 12:29 Discharge Disposition - Diagnosis Shortness of breath - Referrals - Patient Instructions - Post Discharge Activity
--- NOTE | 2019-02-27 13:04 | PDOC ---
History of Present Illness - General Chief Complaint: Shortness of Breath Stated Complaint: SHORTNESS OF BREATH Time Seen by Provider: 02/27/19 12:22 History Source: Patient - History of Present Illness Initial Comments: 02/27/19 22:30 The patient is a 63 year old male with a PMH of poorly controlled IDDM (w/ associated Charcot's foot), Atrial Fibrillation, HTN, HLD who presents to the ED c/o 5 day h/o shortness of breath. Patient states he initially became short of breath when climbing stairs to his doctor's appointment on Saturday. States the dyspnea persisted and he has not been able to lay down flat on his bed at night. Denies associated chest pain, palpitations. S/p limb salvage surgery in 08/2018. Allergy: Metformin Surgical: Limb salvage/Charcot foot repair PMD: Dr. Singh 02/27/19 22:38 Past History - Past Medical History Allergies/Adverse Reactions: Allergies Allergy/AdvReac Type Severity Reaction Status Date / Time metformin Allergy Hives Verified 02/27/19 12:23 Home Medications: Ambulatory Orders Aspirin [ASA -] 81 mg PO DAILY 02/09/19 Atorvastatin Ca [Lipitor] 20 mg PO HS 02/09/19 Digoxin [Lanoxin -] 0.125 mg PO DAILY 02/09/19 Diltiazem [Cardizem -] 90 mg PO ONCE 02/09/19 Docusate Sodium [Colace] 100 mg PO TID 02/09/19 Insulin Glargine,Hum.rec.anlog [Basaglar Kwikpen U-100] 80 unit SQ AM 02/09/19 Insulin Lispro [Admelog] 30 unit SQ TID 02/09/19 Metoprolol Tartrate [Lopressor -] 50 mg PO BID 02/09/19 Pantoprazole Sodium [Protonix] 40 mg PO DAILY 02/09/19 Ramipril [Altace] 5 mg PO DAILY 02/09/19 Warfarin Sodium [Coumadin] 3 mg PO DAILY 02/09/19 Cardiac Disorders: Yes (Afib on coumadin s/p stentx1) COPD: No Diabetes: Yes HTN: Yes Hypercholesterolemia: Yes - Surgical History Cardiac Surgery: Yes (stent placementx1) - Immunization History Immunization Up to Date: Yes - Suicide/Smoking/Psychosocial Hx Smoking History: Never smoked Have you smoked in the past 12 months: No If you are a former smoker, when did you quit?: 2017 Information on smoking cessation initiated: No Hx Alcohol Use: No Drug/Substance Use Hx: No Hx Substance Use Treatment: No Review of Systems - Review of Systems Constitutional: No: Chills, Fever HEENTM: No: Recent change in vision Respiratory: Yes: Shortness of Breath. No: Cough, Wheezing Cardiac (ROS): Yes: Edema (chronic) ABD/GI: No: Constipated, Diarrhea, Nausea, Vomiting *Physical Exam - Vital Signs Last Vital Signs Temp Pulse Resp BP Pulse Ox 98.5 F 92 H 17 104/53 L 96 02/27/19 12:23 02/27/19 12:23 02/27/19 12:23 02/27/19 12:23 02/27/19 12:23 - Physical Exam Comments: 02/27/19 23:04 Awake, alert, obese S1, S2 no M/R/G Lungs CLTA B/L B/L LE edema (chronic), 2+ DP pulse, RLE with boot Abdomen soft, distended/protuberant A&O x3, CN II-XII intact Heart Score/ECG Review - ECG Impressions Comment:: 02/27/19 23:12 AFib HR 84 no GRAY/STD/TWI ED Treatment Course - LABORATORY CBC & Chemistry Diagram: 02/27/19 13:50 02/27/19 13:50 Medical Decision Making - Medical Decision Making The patient is a morbidly obese 63 year old male who presents with a 5 day h/o of worsening shortness of breath and orthopnea. VS unremarkable. Frontal diagnosis: CHF vs. COPD will also consider PE as patient is immobile @ baseline. 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 Ramírez - will admit inpatient telemetry Patient counseled on plan of care, amenable to admission Clinical Impression: CHF +/- r/o PE *DC/Admit/Observation/Transfer Diagnosis at time of Disposition: Shortness of breath - Referrals - Patient Instructions - Post Discharge Activity
[2019-02-27 14:24] LABS: BASO % 0.4 % (0-2.0); HEMATOCRIT 39.4 % (35.4-49); HEMOGLOBIN 12.5 GM/dL (11.7-16.9); MCH 28.1 pg (25.7-33.7); MCHC 31.6 g/dl (32.0-35.9); MEAN CELL VOLUME 88.8 fl (80-96); MEAN PLT VOLUME 8.4 fl (7.5-11.1); MONO % 7.4 % (3.8-10.2); NEUT % 68.2 % (42.8-82.8); PLATELET COUNT 316 K/MM3 (134-434); RBC 4.43 M/mm3 (4.00-5.60); RDW 16.4 % (11.9-15.9); WHITE BLOOD COUNT 16.5 K/mm3 (4.0-10.0)
[2019-02-27 14:37] LABS: INR 3.11 (0.83-1.09); PROTHROMBIN TIME (PATIENT) 37.1 SEC (9.7-13.0)
[2019-02-27 14:49] LABS: ALBUMIN 2.8 g/dl (3.4-5.0); BILIRUBIN,TOTAL 0.3 mg/dL (0.2-1); CALCIUM 8.4 mg/dL (8.5-10.1); CREATININE 0.7 mg/dL (0.55-1.3); N-TERMINAL BNP 515.7 pg/ml (5-125); POTASSIUM 4.7 mmol/L (3.5-5.1); TOT PROT 6.8 g/dl (6.4-8.2)
--- NOTE | 2019-02-27 16:17 | PDOC ---
Documentation entered by Debi Hackett SCRIBE, acting as scribe for Dane Chapman MD. Dane Chapman MD: This documentation has been prepared by the Lew granados Daisy, SCRIBE, under my direction and personally reviewed by me in its entirety. I confirm that the documentation accurately reflects all work, treatment, procedures, and medical decision making performed by me. Attending Attestation - Resident Resident Name: Cristian Calvin - ED Attending Attestation I have performed the following: I have examined & evaluated the patient, The case was reviewed & discussed with the resident, I agree w/resident's findings & plan, Exceptions are as noted - HPI HPI: 02/27/19 13:41 The patient is a 63 YOM with a PMH of IDDM, HTN, HLD, and charcot foot who presents to the ER with one week history of shortness of breath. He reports decreased exercise tolerance, unable to go up two stairs before getting winded. Also endorses orthopnea. States that he woke up gasping for air last night. Pt denies any increased leg swelling. He had a recent surgery for his charcot foot August of last week. Pt denies chest pain. Denies any SOB at rest currently. Denies F/C. Allergies: metformin - Physicial Exam PE: 02/27/19 16:15 "GENERAL: Awake, alert, and fully oriented, in no acute distress. HEAD: No signs of trauma EYES: PERRLA, EOMI, sclera anicteric, conjunctiva clear ENT: Auricles normal inspection, hearing grossly normal, nares patent, oropharynx clear without exudates. Moist mucosa NECK: Nontender, no stepoffs, Normal ROM, supple, no lymphadenopathy, JVD, or masses LUNGS: Breath sounds equal, clear to auscultation bilaterally. No wheezes, and no crackles HEART: Regular rate and rhythm, normal S1 and S2, no murmurs, rubs or gallops ABDOMEN: Soft, nontender, normoactive bowel sounds. No guarding, no rebound. No masses EXTREMITIES: Normal range of motion, no edema. No clubbing or cyanosis. No cords, erythema, or tenderness NEUROLOGICAL: Cranial nerves II through XII intact. 5/5 strength and sensation in all extremities, Normal speech, normal gait, normal cerebellar function SKIN: Warm, Dry, normal turgor, no rashes or lesions noted. - Medical Decision Making 02/27/19 16:16 63 M with SOB, [place], orthopnea. Lungs clear on exam. Suspect CHF. However, given recent surgery, will need to r/o PE as well. - Labs, trop, BNP - CXR - CTA chest
--- NOTE | 2019-02-27 16:37 | HP ---
Admitting History and Physical - Primary Care Physician PCP: Gunnar Nur - Admission Chief Complaint: came in sudden SOB stared a few days ago with inc leg and abdomen swelling History of Present Illness: The patient is a 63 YOM with a PMH of IDDM, HTN, HLD, and charcot foot who presents to the ER with one week history of shortness of breath. He reports decreased exercise tolerance, unable to go up two stairs before getting winded. Also endorses orthopnea. States that he woke up gasping for air last night. Pt denies any increased leg swelling. He had a recent surgery for his charcot foot August of last week. Pt denies chest pain. Denies any SOB at rest currently. Denies F/C. per patient last few days he notices his abdomen getting large r in size and legs getting tight and diffuclty putting his shoe in leg brace, he said yestreday he lay down flat on bed and could not breath .he denies any chest pain or palpitations History Source: Patient - Past Medical History Cardiovascular: Yes: AFIB, HTN Endocrine: Yes: Diabetes Mellitus - Smoking History Smoking history: Never smoked Have you smoked in the past 12 months: No If you are a former smoker, when did you quit?: 2017 - Alcohol/Substance Use Hx Alcohol Use: No Home Medications - Allergies Allergies/Adverse Reactions: Allergies Allergy/AdvReac Type Severity Reaction Status Date / Time metformin Allergy Hives Verified 02/27/19 12:23 - Home Medications Home Medications: Ambulatory Orders Aspirin [ASA -] 81 mg PO DAILY 02/09/19 Atorvastatin Ca [Lipitor] 20 mg PO HS 02/09/19 Digoxin [Lanoxin -] 0.125 mg PO DAILY 02/09/19 Diltiazem [Cardizem -] 90 mg PO ONCE 02/09/19 Docusate Sodium [Colace] 100 mg PO TID 02/09/19 Insulin Glargine,Hum.rec.anlog [Basaglar Kwikpen U-100] 80 unit SQ AM 02/09/19 Insulin Lispro [Admelog] 30 unit SQ TID 02/09/19 Liraglutide [Victoza -] 1.2 mg SQ DAILY@0700 02/09/19 Metoprolol Tartrate [Lopressor -] 50 mg PO BID 02/09/19 Pantoprazole Sodium [Protonix] 40 mg PO DAILY 02/09/19 Ramipril [Altace] 5 mg PO DAILY 02/09/19 Warfarin Sodium [Coumadin] 3 mg PO DAILY 02/09/19 Review of Systems - Review of Systems Gastrointestinal: reports: Abdominal Pain Musculoskeletal: reports: Other (leg sweling) Physical Examination Vital Signs: Vital Signs Temperature 98.5 F 02/27/19 12:23 Pulse Rate 92 H 02/27/19 12:23 Respiratory Rate 17 02/27/19 12:23 Blood Pressure 104/53 L 02/27/19 12:23 O2 Sat by Pulse Oximetry (%) 96 02/27/19 12:23 Constitutional: Yes: Calm Cardiovascular: Yes: Regular Rate and Rhythm, S1, S2 Respiratory: Yes: Diminished Gastrointestinal: Yes: Ascites, Distention Edema: Yes Edema: LLE: 3+, RLE: 3+ Neurological: Yes: Alert, Oriented Labs: CBC, BMP 02/27/19 13:50 02/27/19 13:50 Problem List - Problems (1) Shortness of breath Assessment/Plan: hypoxia nasal canula pulm cta r/o PE iv lasix bid for volume overload cardiology daily weights echo Code(s): R06.02 - SHORTNESS OF BREATH (2) Atrial fibrillation Assessment/Plan: telemetry coumadin inr daily hold Coumadin check inr in AM Code(s): I48.91 - UNSPECIFIED ATRIAL FIBRILLATION (3) Diabetes mellitus Assessment/Plan: levemir bgm diabetic diet sliding scale Code(s): E11.9 - TYPE 2 DIABETES MELLITUS WITHOUT COMPLICATIONS Qualifiers: Diabetes mellitus type: type 2 (4) HLD (hyperlipidemia) Assessment/Plan: statin lipid panel Code(s): E78.5 - HYPERLIPIDEMIA, UNSPECIFIED (5) HTN (hypertension) Assessment/Plan: metorpolol altace Code(s): I10 - ESSENTIAL (PRIMARY) HYPERTENSION (6) Leg edema Assessment/Plan: doppler iv lasix bid monitor renal fucntion Code(s): R60.0 - LOCALIZED EDEMA
[2019-02-27] MEDS ORDERED: ATORVASTATIN CA 20 MG TABLET (FP) PO ONE (16:41)
[2019-02-27] MEDS ORDERED: FUROSEMIDE 40 MG/4 ML INJECTABLE VIAL IVPUSH ONE (16:46)
[2019-02-27] MEDS ORDERED: FUROSEMIDE 40 MG/4 ML INJECTABLE VIAL ONE (16:47)
[2019-02-27] MEDS ORDERED: WARFARIN NA 3 MG TABLET PO SCH (18:00)
[2019-02-27] MEDS: ATORVASTATIN CA 20 MG TABLET (FP) PO SCH (22:22)
[2019-02-27] MEDS: INSULIN SLIDING SCALE (NOVOLOG) 1 VIAL SQ SCH (22:23)
[2019-02-28 03:00] VITALS: BMI 52.2
[2019-02-28] MEDS: FUROSEMIDE 40 MG/4 ML INJECTABLE VIAL IVPUSH SCH ×2 (06:44→14:32)
[2019-02-28] MEDS: INSULIN (LEVEMIR) 100 UNITS/ML UNITS SQ SCH (06:44)
[2019-02-28] MEDS: INSULIN SLIDING SCALE (NOVOLOG) 1 VIAL SQ SCH ×4 (06:44→21:40)
[2019-02-28 06:50] LABS: BASO % 0.3 % (0-2.0); EOS % 3.7 % (0-4.5); HEMATOCRIT 37.7 % (35.4-49); HEMOGLOBIN 12.1 GM/dL (11.7-16.9); LYMPH % 20.9 % (8-40); MCH 28.2 pg (25.7-33.7); MEAN CELL VOLUME 88.2 fl (80-96); MEAN PLT VOLUME 8.3 fl (7.5-11.1); MONO % 8.8 % (3.8-10.2); NEUT % 66.3 % (42.8-82.8); PLATELET COUNT 338 K/MM3 (134-434); RBC 4.27 M/mm3 (4.00-5.60); RDW 16.1 % (11.9-15.9); WHITE BLOOD COUNT 17.3 K/mm3 (4.0-10.0)
[2019-02-28 07:01] LABS: INR 2.58 (0.83-1.09); PROTHROMBIN TIME (PATIENT) 30.7 SEC (9.7-13.0)
[2019-02-28 07:26] LABS: CHOLESTEROL 126 mg/dL (50-200); HDL CHOLESTEROL 34 mg/dL (40-60); MAGNESIUM 2.3 mg/dL (1.8-2.4); N-TERMINAL BNP 424.6 pg/ml (5-125); PHOSPHOROUS 4.6 mg/dL (2.5-4.9); TRIGLYCERIDES 108 mg/dL (0-150)
[2019-02-28] MEDS: ASPIRIN 81 MG CHEWABLE TABLETS PO SCH (10:58)
[2019-02-28] MEDS: RAMIPRIL 5 MG CAPSULE (FP) PO SCH (10:59)
--- NOTE | 2019-02-28 11:09 | EKG ---
Test Reason : Blood Pressure : / mmHG Vent. Rate : 084 BPM Atrial Rate : 087 BPM P-R Int : 000 ms QRS Dur : 080 ms QT Int : 366 ms P-R-T Axes : 000 039 054 degrees QTc Int : 432 ms ATRIAL FIBRILLATION LOW VOLTAGE QRS ABNORMAL ECG WHEN COMPARED WITH ECG OF 19-FEB-2018 20:50, MINIMAL CRITERIA FOR ANTEROSEPTAL INFARCT ARE NO LONGER PRESENT Confirmed by LASHAUN FELIPE MD ([id number]) on 02/28/2019 11:08:55 AM Referred By: Confirmed By:LASHAUN FELIPE MD
--- NOTE | 2019-02-28 12:12 | CON.PULM ---
Consult Consult Specialty:: PULMONARY Referred by:: PMD Reason for Consultation:: SOB/LEG EDEMA - History of Present Illness Chief Complaint: SOB/LEG EDEMA History of Present Illness: The patient is a 63 year old male with a PMH of poorly controlled IDDM (w/ associated Charcot's foot), Atrial Fibrillation, HTN, HLD who presents to the ED c/o 5 day h/o shortness of breath. Patient states he initially became short of breath when climbing stairs to his doctor's appointment on Saturday. States the dyspnea persisted and he has not been able to lay down flat on his bed at night. Denies associated chest pain, palpitations. S/p limb salvage surgery in 08/2018. 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 Cardio/Vascular: Yes: AFIB, HTN Pulmonary: No: COPD Gastrointestinal: No: Cancer Hepatobiliary: No: Cirrhosis Renal/: No: Renal Failure Heme/Onc: No: Anemia Psych: No: Addictions Endocrine: Yes: Diabetes Mellitus - Past Surgical History Additional Surgical History: CHARCOT FOOT REPAIR - Alcohol/Substance Use Hx Alcohol Use: No History of Substance Use: reports: None - Smoking History Smoking history: Never smoked Have you smoked in the past 12 months: No If you are a former smoker, when did you quit?: 2017 - Social History Usual Living Arrangement: Alone ADL: Support Services Place of : [facility] History of Recent Travel: No Home Medications - Allergies Allergies/Adverse Reactions: Allergies Allergy/AdvReac Type Severity Reaction Status Date / Time metformin Allergy Hives Verified 02/27/19 12:23 - Home Medications Home Medications: Ambulatory Orders Aspirin [ASA -] 81 mg PO DAILY 02/09/19 Atorvastatin Ca [Lipitor] 20 mg PO HS 02/09/19 Digoxin [Lanoxin -] 0.125 mg PO DAILY 02/09/19 Diltiazem [Cardizem -] 90 mg PO ONCE 02/09/19 Docusate Sodium [Colace] 100 mg PO TID 02/09/19 Insulin Glargine,Hum.rec.anlog [Basaglar Kwikpen U-100] 80 unit SQ AM 02/09/19 Insulin Lispro [Admelog] 30 unit SQ TID 02/09/19 Metoprolol Tartrate [Lopressor -] 50 mg PO BID 02/09/19 Pantoprazole Sodium [Protonix] 40 mg PO DAILY 02/09/19 Ramipril [Altace] 5 mg PO DAILY 02/09/19 Warfarin Sodium [Coumadin] 3 mg PO DAILY 02/09/19 Family Disease History - Family Disease History Family History: Unremarkable Review of Systems - Review of Systems Constitutional: denies: Fever Eyes: denies: Blurred Vision HENT: denies: Difficult Swallowing Neck: denies: Decreased ROM Cardiovascular: reports: Edema, Shortness of Breath. denies: Chest Pain Respiratory: reports: Exercise Intolerance, Orthopnea, SOB, SOB on Exertion. denies: Cough, Hemoptysis, Wheezing Gastrointestinal: denies: Abdominal Pain Genitourinary: denies: Burning Musculoskeletal: reports: Joint Pain, Muscle Weakness Physical Exam Vital Sings: Vital Signs Temperature 98.1 F 02/28/19 06:15 Pulse Rate 109 H 02/28/19 06:15 Respiratory Rate 20 02/28/19 06:15 Blood Pressure 133/85 02/28/19 06:15 O2 Sat by Pulse Oximetry (%) 95 02/27/19 19:50 Constitutional: Yes: Calm Eyes: Yes: EOM Intact HENT: Yes: Normocephalic Neck: Yes: Trachea Midline Cardiovascular: Yes: Pulse Irregular, S1, S2 Respiratory: Yes: Diminished, Rales Gastrointestinal: Yes: Abdomen, Obese Edema: LLE: 2+, RLE: 2+ Labs: CBC, BMP 02/28/19 05:30 02/27/19 13:50 Imaging - Results Chest X-ray: Report Reviewed, Image Reviewed Cat Scan: Report Reviewed, Image Reviewed EKG: Report Reviewed, Image Reviewed Problem List - Problems (1) Volume overload Code(s): E87.70 - FLUID OVERLOAD, UNSPECIFIED (2) Atrial fibrillation Code(s): I48.91 - UNSPECIFIED ATRIAL FIBRILLATION (3) CAD (coronary artery disease) Code(s): I25.10 - ATHSCL HEART DISEASE OF [place] CORONARY ARTERY W/O ANG PCTRS (4) Diabetes mellitus Code(s): E11.9 - TYPE 2 DIABETES MELLITUS WITHOUT COMPLICATIONS Qualifiers: Diabetes mellitus type: type 2 (5) HLD (hyperlipidemia) Code(s): E78.5 - HYPERLIPIDEMIA, UNSPECIFIED Assessment/Plan RATE CONTROL/TRIAL OF DIURETICS/O2 SUPPLEMENTATION DVT PROPHYLAXSIS/GLYCEMIC CONTROL/DIABETIC DIET CARDIO EVAL/ECHO DAILY WEIGHTS WILL FOLLOW Lila RASMUSSEN MD
[2019-02-28] MEDS: INSULIN (NOVOLOG) ASPART 100 UNITS/ML 10ML VIAL SQ SCH ×2 (12:44→18:23)
--- NOTE | 2019-02-28 13:05 | PN ---
Progress Note, Physician - Current Medication List Current Medications: Active Medications Aspirin (Asa -) 81 mg PO DAILY [facility] Last Admin: 02/28/19 10:58 Dose: 81 mg Atorvastatin Calcium (Lipitor -) 20 mg PO HS [facility] Last Admin: 02/27/19 22:22 Dose: 20 mg Furosemide (Lasix Injection -) 40 mg IVPUSH BIDLASIX [facility] Last Admin: 02/28/19 06:44 Dose: 40 mg Insulin Aspart (Novolog Vial) 10 units SQ BID@0700,1630 [facility] Last Admin: 02/28/19 12:44 Dose: 10 units Insulin Aspart (Novolog Vial Sliding Scale -) 1 vial SQ ACHS [facility]; Protocol Last Admin: 02/28/19 12:41 Dose: Not Given Insulin Detemir (Levemir Vial) 40 units SQ AM [facility] Last Admin: 02/28/19 06:44 Dose: 40 units Metoprolol Succinate (Toprol Xl -) 50 mg PO BID [facility] Last Admin: 02/28/19 10:58 Dose: 50 mg Ramipril (Altace -) 5 mg PO DAILY [facility] Last Admin: 02/28/19 10:59 Dose: 5 mg - Objective Vital Signs: Vital Signs Temperature 98.1 F 02/28/19 06:15 Pulse Rate 109 H 02/28/19 06:15 Respiratory Rate 20 02/28/19 06:15 Blood Pressure 133/85 02/28/19 06:15 O2 Sat by Pulse Oximetry (%) 95 02/27/19 19:50 Cardiovascular: Yes: S1, S2 Respiratory: Yes: Diminished, On Nasal O2 Gastrointestinal: Yes: Normal Bowel Sounds, Soft Edema: Yes Labs: CBC, BMP 02/28/19 05:30 02/27/19 13:50 INR, PTT INR 2.58 (0.83-1.09) H 02/28/19 05:30 Assessment/Plan - Problems (1) Shortness of breath Assessment/Plan: hypoxia nasal canula pulm cta no PE iv lasix bid for volume overload cardiology daily weights echo Code(s): R06.02 - SHORTNESS OF BREATH (2) Atrial fibrillation Assessment/Plan: telemetry coumadin inr daily Laboratory Tests 02/27/19 02/28/19 13:50 05:30 INR 3.11 H 2.58 H Code(s): I48.91 - UNSPECIFIED ATRIAL FIBRILLATION (3) Diabetes mellitus Assessment/Plan: levemir bgm diabetic diet sliding scale Code(s): E11.9 - TYPE 2 DIABETES MELLITUS WITHOUT COMPLICATIONS Qualifiers: Diabetes mellitus type: type 2 (4) HLD (hyperlipidemia) Assessment/Plan: statin lipid panel Code(s): E78.5 - HYPERLIPIDEMIA, UNSPECIFIED (5) HTN (hypertension) Assessment/Plan: metorpolol altace Code(s): I10 - ESSENTIAL (PRIMARY) HYPERTENSION (6) Leg edema Assessment/Plan: doppler iv lasix bid monitor renal fucntion Code(s): R60.0 - LOCALIZED EDEMA
--- NOTE | 2019-02-28 13:51 | CON.CARD ---
Consult Consult Specialty:: Cardiology Referred by:: Paul Reason for Consultation:: afib - History of Present Illness Chief Complaint: sob History of Present Illness: The patient is a 63 year old male with a PMH of poorly controlled IDDM (w/ associated Charcot's foot), chronic Atrial Fibrillation on coumadin, HTN, HLD PVD s/p revascularization of LE August 2018 who presents to the ED c/o 5 day h /o shortness of breath. No chest pain, +5 pillow orthopnea. No PND + edema. minimally ambulatory. 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 Cardio/Vascular: Yes: AFIB, HTN Pulmonary: No: COPD Gastrointestinal: No: Cancer Hepatobiliary: No: Cirrhosis Renal/: No: Renal Failure Psych: No: Addictions Endocrine: Yes: Diabetes Mellitus - Past Surgical History Additional Surgical History: CHARCOT FOOT REPAIR - Alcohol/Substance Use Hx Alcohol Use: No History of Substance Use: reports: None - Smoking History Smoking history: Never smoked Have you smoked in the past 12 months: No If you are a former smoker, when did you quit?: 2017 - Social History Usual Living Arrangement: Alone ADL: Support Services History of Recent Travel: No Home Medications - Allergies Allergies/Adverse Reactions: Allergies Allergy/AdvReac Type Severity Reaction Status Date / Time metformin Allergy Hives Verified 02/27/19 12:23 - Home Medications Home Medications: Ambulatory Orders Aspirin [ASA -] 81 mg PO DAILY 02/09/19 Atorvastatin Ca [Lipitor] 20 mg PO HS 02/09/19 Digoxin [Lanoxin -] 0.125 mg PO DAILY 02/09/19 Diltiazem [Cardizem -] 90 mg PO ONCE 02/09/19 Docusate Sodium [Colace] 100 mg PO TID 02/09/19 Insulin Glargine,Hum.rec.anlog [Basaglar Kwikpen U-100] 80 unit SQ AM 02/09/19 Insulin Lispro [Admelog] 30 unit SQ TID 02/09/19 Metoprolol Tartrate [Lopressor -] 50 mg PO BID 02/09/19 Pantoprazole Sodium [Protonix] 40 mg PO DAILY 02/09/19 Ramipril [Altace] 5 mg PO DAILY 02/09/19 Warfarin Sodium [Coumadin] 3 mg PO DAILY 02/09/19 Vital Signs: Vital Signs Temperature 98.1 F 02/28/19 06:15 Pulse Rate 109 H 02/28/19 06:15 Respiratory Rate 20 02/28/19 06:15 Blood Pressure 133/85 02/28/19 06:15 O2 Sat by Pulse Oximetry (%) 95 02/27/19 19:50 Constitutional: Yes: Obese Eyes: Yes: Conjunctiva Clear, EOM Intact HENT: Yes: Atraumatic, Normocephalic Neck: Yes: Supple, Trachea Midline Respiratory: Yes: CTA Bilaterally Gastrointestinal: Yes: Normal Bowel Sounds, Soft, Abdomen, Obese Cardiovascular: Yes: Pulse Irregular JVD: No Carotid Bruit: No PMI: Non-Displaced Heart Sounds: Yes: S1, S2 Edema: Yes Edema: LLE: 1+, RLE: 1+ Peripheral Pulses WNL: Yes - Other Data Labs, Other Data: CBC, BMP 02/28/19 05:30 02/27/19 13:50 INR, PTT INR 2.58 (0.83-1.09) H 02/28/19 05:30 Troponin, BNP 02/27/19 02/27/19 02/28/19 13:50 13:50 05:30 Troponin I < 0.02 < 0.02 B-Natriuretic Peptide 515.7 H 424.6 H Troponin, BNP 02/27/19 02/27/19 02/28/19 13:50 13:50 05:30 Troponin I < 0.02 < 0.02 B-Natriuretic Peptide 515.7 H 424.6 H Imaging - Results Chest X-ray: Report Reviewed Cat Scan: Report Reviewed (no pe) EKG: Report Reviewed (afib) Assessment/Plan The patient is a 63 year old male with a PMH of poorly controlled IDDM (w/ associated Charcot's foot), chronic Atrial Fibrillation on coumadin, HTN, HLD PVD s/p revascularization of LE August 2018 who presents to the ED c/o 5 day h /o shortness of breath. No chest pain, +5 pillow orthopnea. No PND + edema. minimally ambulatory. Duplex 02/28/19 neg CTA 02/28/19 no PE --echo --TFTs --agree with trial of diuretics. --continue coumadin for INR 2-3 --change toprol xl to metoprolol tartrate 75 bid. --will follow with you.
[2019-02-28] MEDS: WARFARIN NA 3 MG TABLET PO SCH (18:22)
[2019-02-28] MEDS: METOPROLOL TARTRATE 25 MG TABLET (FP) PO SCH (21:39)
[2019-02-28] MEDS: ATORVASTATIN CA 20 MG TABLET (FP) PO SCH (21:39)
[2019-03-01] MEDS ORDERED: ACETAMINOPHEN 500 MG TABLET (FP) PO ONE (01:38)
[2019-03-01] MEDS: FUROSEMIDE 40 MG/4 ML INJECTABLE VIAL IVPUSH SCH ×2 (06:55→13:53)
[2019-03-01] MEDS: INSULIN SLIDING SCALE (NOVOLOG) 1 VIAL SQ SCH ×4 (06:58→21:25)
[2019-03-01] MEDS: INSULIN (LEVEMIR) 100 UNITS/ML UNITS SQ SCH (07:06)
[2019-03-01] MEDS: INSULIN (NOVOLOG) ASPART 100 UNITS/ML 10ML VIAL SQ SCH ×2 (07:07→17:43)
[2019-03-01 07:28] LABS: BASO % 0.4 % (0-2.0); EOS % 3.7 % (0-4.5); HEMOGLOBIN 12.2 GM/dL (11.7-16.9); LYMPH % 24.3 % (8-40); MCH 28.2 pg (25.7-33.7); MCHC 32.2 g/dl (32.0-35.9); MEAN CELL VOLUME 87.7 fl (80-96); MEAN PLT VOLUME 8.3 fl (7.5-11.1); MONO % 9.9 % (3.8-10.2); NEUT % 61.7 % (42.8-82.8); PLATELET COUNT 337 K/MM3 (134-434); RBC 4.33 M/mm3 (4.00-5.60); RDW 15.9 % (11.9-15.9); WHITE BLOOD COUNT 18.1 K/mm3 (4.0-10.0)
[2019-03-01 07:51] LABS: ALBUMIN 2.8 g/dl (3.4-5.0); BILIRUBIN,TOTAL 0.5 mg/dL (0.2-1); CALCIUM 8.4 mg/dL (8.5-10.1); CREATININE 0.8 mg/dL (0.55-1.3); POTASSIUM 4.6 mmol/L (3.5-5.1); TOT PROT 6.7 g/dl (6.4-8.2)
[2019-03-01 08:23] LABS: INR 2.11 (0.83-1.09); PROTHROMBIN TIME (PATIENT) 25.1 SEC (9.7-13.0)
--- NOTE | 2019-03-01 09:57 | PN ---
Progress Note, Physician - Current Medication List Current Medications: Active Medications Aspirin (Asa -) 81 mg PO DAILY [facility] Last Admin: 02/28/19 10:58 Dose: 81 mg Atorvastatin Calcium (Lipitor -) 20 mg PO HS [facility] Last Admin: 02/28/19 21:39 Dose: 20 mg Furosemide (Lasix Injection -) 40 mg IVPUSH BIDLASIX [facility] Last Admin: 03/01/19 06:55 Dose: 40 mg Insulin Aspart (Novolog Vial) 10 units SQ BID@0700,1630 [facility] Last Admin: 03/01/19 07:07 Dose: 10 units Insulin Aspart (Novolog Vial Sliding Scale -) 1 vial SQ ACHS [facility]; Protocol Last Admin: 03/01/19 06:58 Dose: Not Given Insulin Detemir (Levemir Vial) 40 units SQ AM [facility] Last Admin: 03/01/19 07:06 Dose: 40 units Metoprolol Tartrate (Lopressor -) 75 mg PO BID [facility] Last Admin: 02/28/19 21:39 Dose: 75 mg Ramipril (Altace -) 5 mg PO DAILY [facility] Last Admin: 02/28/19 10:59 Dose: 5 mg Warfarin Sodium (Coumadin -) 3 mg PO DAILY@1800 [facility] Last Admin: 02/28/19 18:22 Dose: 3 mg - Objective Vital Signs: Vital Signs Temperature 97.7 F 03/01/19 05:48 Pulse Rate 110 H 03/01/19 05:48 Respiratory Rate 20 03/01/19 05:48 Blood Pressure 125/81 03/01/19 05:48 O2 Sat by Pulse Oximetry (%) 97 02/28/19 21:00 Cardiovascular: Yes: S1, S2 Respiratory: Yes: Diminished, Rales Gastrointestinal: Yes: Normal Bowel Sounds, Soft Extremities: Yes: Other (charcot foot). No: Erythema Edema: Yes Neurological: Yes: Alert, Oriented Labs: CBC, BMP 03/01/19 05:35 03/01/19 05:35 INR, PTT INR 2.11 (0.83-1.09) H 03/01/19 05:35 Assessment/Plan - Problems (1) Shortness of breath Assessment/Plan: hypoxia nasal canula pulm cta no PE iv lasix bid for volume overload cardiology daily weights echo Code(s): R06.02 - SHORTNESS OF BREATH (2) Atrial fibrillation Assessment/Plan: telemetry coumadin inr daily Code(s): I48.91 - UNSPECIFIED ATRIAL FIBRILLATION (3) Diabetes mellitus Assessment/Plan: levemir bgm diabetic diet sliding scale Code(s): E11.9 - TYPE 2 DIABETES MELLITUS WITHOUT COMPLICATIONS Qualifiers: Diabetes mellitus type: type 2 (4) HLD (hyperlipidemia) Assessment/Plan: statin lipid panel Code(s): E78.5 - HYPERLIPIDEMIA, UNSPECIFIED (5) HTN (hypertension) Assessment/Plan: metorpolol altace Code(s): I10 - ESSENTIAL (PRIMARY) HYPERTENSION (6) Leg edema Assessment/Plan: doppler iv lasix bid monitor renal fucntion Code(s): R60.0 - LOCALIZED EDEMA (7) Positive bc / Assessment/Plan: foot no open areas id consult (8) Leukocytosis Assessment/Plan: Chronic
[2019-03-01] MEDS: METOPROLOL TARTRATE 25 MG TABLET (FP) PO SCH (10:10)
[2019-03-01] MEDS: RAMIPRIL 5 MG CAPSULE (FP) PO SCH (10:11)
[2019-03-01] MEDS: ASPIRIN 81 MG CHEWABLE TABLETS PO SCH (10:11)
--- NOTE | 2019-03-01 10:21 | CON.ID ---
Consult Consult Specialty:: infectious disease Referred by:: dr barnes Reason for Consultation:: leukocytosis. positive blood culture - History of Present Illness Chief Complaint: sob History of Present Illness: 63 yo man PMH of DM since 2006, chronic afib 2006, charcot foot s/p midfoot fusion August 2018 at [facility] for charcot foot s/p CAD with stent placement 01/2018 admitted with 5 day history of worsening SOB he had limb salvage surgery for his charcot foot in August 2018 at [facility] with midfoot fusion- he ws sent to a rehab facility in [facility] for 5 months during which he was nonweight bearing until the last two weeks he was discharged home 01/28 with a walking cast that cut into the back of his right thigh and caused pain he is followed by Dr Singh no fevrs or chills 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- currently no open wounds notes worsening SOB was taking lasix prior to admission to rehab +weight gain since arrival at [place]- about 30 pounds foot has healed-no open lesions reports lower abdomen is heavy and itchy reports chronic leukocysotis for years with wbc 13k to 19k 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 currently sharing an apt in [employer] 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 - History Source History Provided By: Patient Limitations to Obtaining History: No Limitations - Past Medical History 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 Cardio/Vascular: Yes: AFIB, CAD, HTN, Hyperlipdemia Pulmonary: No: COPD Gastrointestinal: No: Cancer Hepatobiliary: No: Cirrhosis Renal/: No: Renal Failure Infectious Disease: Yes: MRSA Psych: No: Addictions Endocrine: Yes: Diabetes Mellitus Additional Medical History: charcot foot - Past Surgical History Additional Surgical History: CHARCOT FOOT REPAIR - Alcohol/Substance Use Hx Alcohol Use: No History of Substance Use: reports: None - Smoking History Smoking history: Former smoker Have you smoked in the past 12 months: No If you are a former smoker, when did you quit?: 2017 - Social History Usual Living Arrangement: Alone ADL: Support Services History of Recent Travel: No Home Medications - Allergies Allergies/Adverse Reactions: Allergies Allergy/AdvReac Type Severity Reaction Status Date / Time metformin Allergy Hives Verified 02/27/19 12:23 - Home Medications Home Medications: Ambulatory Orders Aspirin [ASA -] 81 mg PO DAILY 02/09/19 Atorvastatin Ca [Lipitor] 20 mg PO HS 02/09/19 Digoxin [Lanoxin -] 0.125 mg PO DAILY 02/09/19 Diltiazem [Cardizem -] 90 mg PO ONCE 02/09/19 Docusate Sodium [Colace] 100 mg PO TID 02/09/19 Insulin Glargine,Hum.rec.anlog [Basaglar Kwikpen U-100] 80 unit SQ AM 02/09/19 Insulin Lispro [Admelog] 30 unit SQ TID 02/09/19 Metoprolol Tartrate [Lopressor -] 50 mg PO BID 02/09/19 Pantoprazole Sodium [Protonix] 40 mg PO DAILY 02/09/19 Ramipril [Altace] 5 mg PO DAILY 02/09/19 Warfarin Sodium [Coumadin] 3 mg PO DAILY 02/09/19 Family Disease History - Family Disease History Family History: Denies Review of Systems - Review of Systems Constitutional: reports: No Symptoms. denies: Chills, Fever Cardiovascular: reports: Edema, Shortness of Breath. denies: Chest Pain Respiratory: reports: SOB Genitourinary: reports: Other (increased abdominal girth, tightness and itchiness) Neurological: reports: No Symptoms Physical Exam Vital Signs: Vital Signs Temperature 97.7 F 03/01/19 05:48 Pulse Rate 110 H 03/01/19 05:48 Respiratory Rate 20 03/01/19 05:48 Blood Pressure 125/81 03/01/19 05:48 O2 Sat by Pulse Oximetry (%) 97 02/28/19 21:00 Constitutional: Yes: Well Nourished, No Distress, Calm, Obese Eyes: Yes: Conjunctiva Clear, EOM Intact HENT: Yes: Atraumatic, Normocephalic. No: Tonsillar Exudate Neck: Yes: Supple, Trachea Midline Cardiovascular: Yes: Regular Rate and Rhythm Respiratory: Yes: Regular, CTA Bilaterally, Diminished (at bases) Gastrointestinal: Yes: Normal Bowel Sounds, Soft, Abdomen, Obese, Other ( induration and erythema of the lower abdomen +umbilical hernia- soft) Extremities: Yes: Other (no open ulcer of the foot) Edema: Yes Edema: LLE: 1+, RLE: 1+ Psychiatric: Yes: Alert, Oriented Labs: CBC, BMP 03/01/19 05:35 03/01/19 05:35 Microbiology 02/27/19 14:51 Blood - Peripheral Venous Blood Culture - Preliminary Staphylococcus Coagulase Neg 02/27/19 14:45 Blood - Peripheral Venous Blood Culture - Preliminary NO GROWTH OBTAINED AFTER 24 HOURS, INCUBATION TO CONTINUE FOR 4 DAYS. HGB A1c-8.6 Imaging - Results Chest X-ray: Report Reviewed Cat Scan: Report Reviewed (no PE, cardiomegaly) Ultrasound: Report Reviewed (no dvt) Problem List - Problems (1) Shortness of breath Code(s): R06.02 - SHORTNESS OF BREATH (2) Cellulitis, abdominal wall Code(s): L03.311 - CELLULITIS OF ABDOMINAL WALL (3) Positive blood culture Code(s): R78.81 - BACTEREMIA (4) Diabetes mellitus Code(s): E11.9 - TYPE 2 DIABETES MELLITUS WITHOUT COMPLICATIONS Qualifiers: Diabetes mellitus type: type 2 (5) Morbid obesity Code(s): E66.01 - MORBID (SEVERE) OBESITY DUE TO EXCESS CALORIES Assessment/Plan leukocytosis-chronic but suspect component of abdominal wall cellulitis suspect blood culture isolate is contaminant one in four bottle scn- repeat cultures pending foot is well healed, no signs infection abdominal wall cellulitis- erythema with edema noted SOB- being diuresed, cardiology eval, history of CAD poorly controlled diabetes morbid obesity
[2019-03-01] MEDS: CLINDAMYCIN 600MG PREMIX IVPB 600 MG/50 ML BAG IVPB SCH ×2 (13:53→17:43)
--- NOTE | 2019-03-01 14:03 | PN ---
Progress Note (short form) - Note Progress Note: PULMONARY AWAKE/ALERT SITTING ON SIDE OF BED VSS/AFEBRILE Constitutional: Yes: Calm Eyes: Yes: EOM Intact HENT: Yes: Normocephalic Neck: Yes: Trachea Midline Cardiovascular: Yes: Pulse Irregular, S1, S2 Respiratory: Yes: Diminished, Rales Gastrointestinal: Yes: Abdomen, Obese Edema: LLE: 2+, RLE: 2+ Labs: REVIEWED Chest X-ray: Report Reviewed, Image Reviewed Cat Scan: Report Reviewed, Image Reviewed EKG: Report Reviewed, Image Reviewed Problem List (1) Volume overload Code(s): E87.70 - FLUID OVERLOAD, UNSPECIFIED (2) Atrial fibrillation Code(s): I48.91 - UNSPECIFIED ATRIAL FIBRILLATION (3) CAD (coronary artery disease) Code(s): I25.10 - ATHSCL HEART DISEASE OF [place] CORONARY ARTERY W/O ANG PCTRS (4) Diabetes mellitus Code(s): E11.9 - TYPE 2 DIABETES MELLITUS WITHOUT COMPLICATIONS Qualifiers: Diabetes mellitus type: type 2 (5) HLD (hyperlipidemia) Code(s): E78.5 - HYPERLIPIDEMIA, UNSPECIFIED Assessment/Plan RATE CONTROL/TRIAL OF DIURETICS/O2 SUPPLEMENTATION DVT PROPHYLAXSIS/GLYCEMIC CONTROL/DIABETIC DIET CARDIO EVAL/ECHO DAILY [facility] AARON RASMUSSEN MD Problem List - Problems (1) Volume overload Code(s): E87.70 - FLUID OVERLOAD, UNSPECIFIED (2) Atrial fibrillation Code(s): I48.91 - UNSPECIFIED ATRIAL FIBRILLATION (3) CAD (coronary artery disease) Code(s): I25.10 - ATHSCL HEART DISEASE OF [place] CORONARY ARTERY W/O ANG PCTRS (4) Diabetes mellitus Code(s): E11.9 - TYPE 2 DIABETES MELLITUS WITHOUT COMPLICATIONS Qualifiers: Diabetes mellitus type: type 2 (5) HLD (hyperlipidemia) Code(s): E78.5 - HYPERLIPIDEMIA, UNSPECIFIED
--- NOTE | 2019-03-01 14:13 | PN ---
Progress Note, Physician Chief Complaint: no change tele af better vr still some rapid rates. History of Present Illness: The patient is a 63 year old male with a PMH of poorly controlled IDDM (w/ associated Charcot's foot), chronic Atrial Fibrillation on coumadin, HTN, HLD PVD s/p revascularization of LE August 2018 who presents to the ED c/o 5 day h /o shortness of breath. No chest pain, +5 pillow orthopnea. No PND + edema. minimally ambulatory. Duplex 02/28/19 neg CTA 02/28/19 no PE - Current Medication List Current Medications: Active Medications Aspirin (Asa -) 81 mg PO DAILY [facility] Last Admin: 03/01/19 10:11 Dose: 81 mg Atorvastatin Calcium (Lipitor -) 20 mg PO HS [facility] Last Admin: 02/28/19 21:39 Dose: 20 mg Furosemide (Lasix Injection -) 40 mg IVPUSH BIDLASIX [facility] Last Admin: 03/01/19 13:53 Dose: 40 mg Clindamycin Phosphate (Cleocin 600 Mg Premix Ivpb -) 600 mg in 50 mls @ 100 mls /hr IVPB Q8H-IV [facility]; Protocol Last Admin: 03/01/19 13:53 Dose: 100 mls/hr Insulin Aspart (Novolog Vial) 10 units SQ BID@0700,1630 [facility] Last Admin: 03/01/19 07:07 Dose: 10 units Insulin Aspart (Novolog Vial Sliding Scale -) 1 vial SQ ACHS [facility]; Protocol Last Admin: 03/01/19 13:46 Dose: Not Given Insulin Detemir (Levemir Vial) 40 units SQ AM [facility] Last Admin: 03/01/19 07:06 Dose: 40 units Metoprolol Tartrate (Lopressor -) 75 mg PO BID [facility] Last Admin: 03/01/19 10:10 Dose: 75 mg Ramipril (Altace -) 5 mg PO DAILY [facility] Last Admin: 03/01/19 10:11 Dose: 5 mg Warfarin Sodium (Coumadin -) 3 mg PO DAILY@1800 [facility] Last Admin: 02/28/19 18:22 Dose: 3 mg - Objective Vital Signs: Vital Signs Temperature 98.1 F 03/01/19 10:00 Pulse Rate 78 03/01/19 10:00 Respiratory Rate 22 H 03/01/19 10:00 Blood Pressure 143/78 03/01/19 10:00 O2 Sat by Pulse Oximetry (%) 97 03/01/19 09:00 Constitutional: Yes: No Distress Eyes: Yes: EOM Intact HENT: Yes: Atraumatic, Normocephalic Neck: Yes: Trachea Midline Cardiovascular: Yes: Tachycardia, Pulse Irregular Respiratory: Yes: CTA Bilaterally Gastrointestinal: Yes: Normal Bowel Sounds Musculoskeletal: Yes: WNL Extremities: Yes: WNL Edema: Yes Edema: LLE: 1+, RLE: 1+ Peripheral Pulses WNL: Yes Labs: CBC, BMP 03/01/19 05:35 03/01/19 05:35 INR, PTT INR 2.11 (0.83-1.09) H 03/01/19 05:35 Assessment/Plan The patient is a 63 year old male with a PMH of poorly controlled IDDM (w/ associated Charcot's foot), chronic Atrial Fibrillation on coumadin, HTN, HLD PVD s/p revascularization of LE August 2018 who presents to the ED c/o 5 day h /o shortness of breath. No chest pain, +5 pillow orthopnea. No PND + edema. minimally ambulatory. Duplex 02/28/19 neg CTA 02/28/19 no PE --echo --TFTs --agree with trial of diuretics. --continue coumadin for INR 2-3 --increase metoprolol tartrate to 100 bid. --will follow with you.
[2019-03-01] MEDS: WARFARIN NA 3 MG TABLET PO SCH (17:43)
[2019-03-01] MEDS: METOPROLOL TARTRATE 50 MG TABLET (FP) PO SCH (21:26)
[2019-03-01] MEDS: ATORVASTATIN CA 20 MG TABLET (FP) PO SCH (21:26)
--- NOTE | 2019-03-01 21:52 | CONSULT ---
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 Cardio/Vascular: Yes: AFIB, CAD, HTN, Hyperlipdemia Pulmonary: No: COPD Gastrointestinal: No: Cancer Hepatobiliary: No: Cirrhosis Renal/: No: Renal Failure Infectious Disease: Yes: MRSA Psych: No: Addictions Endocrine: Yes: Diabetes Mellitus Additional Medical History: charcot foot - Past Surgical History Additional Surgical History: CHARCOT FOOT REPAIR - Alcohol/Substance Use Hx Alcohol Use: No History of Substance Use: reports: None - Smoking History Smoking history: Former smoker Have you smoked in the past 12 months: No If you are a former smoker, when did you quit?: 2017 - Social History Usual Living Arrangement: Alone ADL: Support Services History of Recent Travel: No Home Medications - Allergies Allergies/Adverse Reactions: Allergies Allergy/AdvReac Type Severity Reaction Status Date / Time metformin Allergy Hives Verified 02/27/19 12:23 - Home Medications Home Medications: Ambulatory Orders Aspirin [ASA -] 81 mg PO DAILY 02/09/19 Atorvastatin Ca [Lipitor] 20 mg PO HS 02/09/19 Digoxin [Lanoxin -] 0.125 mg PO DAILY 02/09/19 Diltiazem [Cardizem -] 90 mg PO ONCE 02/09/19 Docusate Sodium [Colace] 100 mg PO TID 02/09/19 Insulin Glargine,Hum.rec.anlog [Basaglar Kwikpen U-100] 80 unit SQ AM 02/09/19 Insulin Lispro [Admelog] 30 unit SQ TID 02/09/19 Metoprolol Tartrate [Lopressor -] 50 mg PO BID 02/09/19 Pantoprazole Sodium [Protonix] 40 mg PO DAILY 02/09/19 Ramipril [Altace] 5 mg PO DAILY 02/09/19 Warfarin Sodium [Coumadin] 3 mg PO DAILY 02/09/19 Review of Systems - Review of Systems Constitutional: reports: Lethargy Eyes: reports: No Symptoms HENT: reports: No Symptoms Neck: reports: No Symptoms Cardiovascular: reports: Shortness of Breath Respiratory: reports: Exercise Intolerance, Orthopnea, SOB on Exertion Gastrointestinal: reports: Bloating Genitourinary: reports: No Symptoms Breasts: reports: No Symptoms Reported Musculoskeletal: reports: Extremity Pain, Joint Pain, Joint Swelling, Muscle Pain, Muscle Cramps Integumentary: reports: Wound Neurological: reports: Numbness, Unsteady Gait, Weakness Physical Exam Vital Signs: Vital Signs Temperature 98.3 F 03/01/19 19:59 Pulse Rate 96 H 03/01/19 19:59 Respiratory Rate 20 03/01/19 21:00 Blood Pressure 131/66 03/01/19 19:59 O2 Sat by Pulse Oximetry (%) 96 03/01/19 21:00 Constitutional: Yes: Calm Eyes: Yes: EOM Intact HENT: Yes: Normocephalic Neck: Yes: Trachea Midline Cardiovascular: Yes: Regular Rate and Rhythm Respiratory: Yes: CTA Bilaterally Gastrointestinal: Yes: Normal Bowel Sounds ...Rectal Exam: Yes: Deferred Renal/: Yes: WNL Breast(s): Yes: WNL Musculoskeletal: Yes: Joint Swelling, Muscle Weakness Extremities: Yes: Delayed Capillary Refill Edema: Yes Edema: RLE: 1+ Wound/Incision: Yes: Dressing Dry and Intact Neurological: Yes: Alert, Oriented Labs: CBC, BMP 03/01/19 05:35 03/01/19 05:35 Problem List - Problems (1) Cellulitis, abdominal wall Code(s): L03.311 - CELLULITIS OF ABDOMINAL WALL (2) Leg edema Code(s): R60.0 - LOCALIZED EDEMA (3) Morbid obesity Code(s): E66.01 - MORBID (SEVERE) OBESITY DUE TO EXCESS CALORIES (4) Positive blood culture Code(s): R78.81 - BACTEREMIA (5) Shortness of breath Code(s): R06.02 - SHORTNESS OF BREATH (6) Volume overload Code(s): E87.70 - FLUID OVERLOAD, UNSPECIFIED (7) Atrial fibrillation Code(s): I48.91 - UNSPECIFIED ATRIAL FIBRILLATION (8) CAD (coronary artery disease) Code(s): I25.10 - ATHSCL HEART DISEASE OF [place] CORONARY ARTERY W/O ANG PCTRS Assessment/Plan Current Active Problems [id number],CHARCOT FOOT Cellulitis, abdominal wall (Acute) Leg edema (Acute) Morbid obesity (Acute) Positive blood culture (Acute) Shortness of breath (Acute) Volume overload (Acute) Abnormal Lab Results 03/01/19 03/01/19 03/01/19 05:35 05:35 05:35 WBC 18.1 H Absolute Neuts (auto) 11.1 H PT with INR 25.10 H INR 2.11 H Sodium 134 L Chloride 96 L Carbon Dioxide 33 H Anion Gap 5 L Random Glucose 147 H Calcium 8.4 L Alkaline Phosphatase 157 H Albumin 2.8 L Laboratory Results - last 24 hr 03/01/19 03/01/19 03/01/19 05:35 05:35 05:35 WBC 18.1 H RBC 4.33 Hgb 12.2 Hct 38.0 MCV 87.7 MCH 28.2 MCHC 32.2 RDW 15.9 Plt Count 337 MPV 8.3 Absolute Neuts (auto) 11.1 H Neutrophils % 61.7 Lymphocytes % 24.3 Monocytes % 9.9 Eosinophils % 3.7 Basophils % 0.4 Nucleated RBC % 0 PT with INR 25.10 H INR 2.11 H Sodium 134 L Potassium 4.6 Chloride 96 L Carbon Dioxide 33 H Anion Gap 5 L BUN 18 Creatinine 0.8 Est GFR (CKD-EPI)AfAm 110.96 Est GFR (CKD-EPI)NonAf 95.74 POC Glucometer Random Glucose 147 H Calcium 8.4 L Total Bilirubin 0.5 AST 18 ALT 22 Alkaline Phosphatase 157 H Total Protein 6.7 Albumin 2.8 L 03/01/19 03/01/19 03/01/19 06:55 11:30 17:15 WBC RBC Hgb Hct MCV MCH MCHC RDW Plt Count MPV Absolute Neuts (auto) Neutrophils % Lymphocytes % Monocytes % Eosinophils % Basophils % Nucleated RBC % PT with INR INR Sodium Potassium Chloride Carbon Dioxide Anion Gap BUN Creatinine Est GFR (CKD-EPI)AfAm Est GFR (CKD-EPI)NonAf POC Glucometer 153 164 191 Random Glucose Calcium Total Bilirubin AST ALT Alkaline Phosphatase Total Protein Albumin 03/01/19 21:24 WBC RBC Hgb Hct MCV MCH MCHC RDW Plt Count MPV Absolute Neuts (auto) Neutrophils % Lymphocytes % Monocytes % Eosinophils % Basophils % Nucleated RBC % PT with INR INR Sodium Potassium Chloride Carbon Dioxide Anion Gap BUN Creatinine Est GFR (CKD-EPI)AfAm Est GFR (CKD-EPI)NonAf POC Glucometer 194 Random Glucose Calcium Total Bilirubin AST ALT Alkaline Phosphatase Total Protein Albumin PLAN: BGM QID NOVOLOG ACHS USE LEVEMIR 50 UNITS AM GIVE VICTOZA FOR RESISTANCE
[2019-03-02] MEDS ORDERED: ACETAMINOPHEN 500 MG TABLET (FP) PO ONE ×2 (00:59→01:12)
[2019-03-02] MEDS: CLINDAMYCIN 600MG PREMIX IVPB 600 MG/50 ML BAG IVPB SCH ×3 (01:12→18:04)
[2019-03-02] MEDS: FUROSEMIDE 40 MG/4 ML INJECTABLE VIAL IVPUSH SCH ×2 (05:56→14:12)
[2019-03-02] MEDS: INSULIN (LEVEMIR) 100 UNITS/ML UNITS SQ SCH (06:04)
[2019-03-02] MEDS: INSULIN (NOVOLOG) ASPART 100 UNITS/ML 10ML VIAL SQ SCH (06:05)
[2019-03-02] MEDS: INSULIN SLIDING SCALE (NOVOLOG) 1 VIAL SQ SCH ×4 (06:05→21:48)
[2019-03-02] MEDS: LIRAGLUTIDE 0.6 MG/0.1 ML PEN.INJCTR SQ SCH ×2 (07:30→10:53)
[2019-03-02] MEDS: RAMIPRIL 5 MG CAPSULE (FP) PO SCH (10:36)
[2019-03-02] MEDS: ASPIRIN 81 MG CHEWABLE TABLETS PO SCH (10:36)
[2019-03-02] MEDS: METOPROLOL TARTRATE 50 MG TABLET (FP) PO SCH ×2 (10:36→21:46)
--- NOTE | 2019-03-02 11:11 | PN ---
Progress Note (short form) - Note Progress Note: feels improved just had echo Vital Signs Period Temp Pulse Resp BP Sys/Soto Pulse Ox Last 24 Hr 97.4 F-98.6 F 86-104 20-24 113-143/61-92 95-96 cor-rrr lungs decreased bs at bases abd soft, less erythema, less abd wall edema lower abdomen +umbilical hernia soft ext +edema no open ulcers no erythema of the legs CBC, BMP 03/01/19 05:35 03/01/19 05:35 Microbiology 02/27/19 14:51 Blood - Peripheral Venous Blood Culture - Final Staphylococcus Simulans 02/28/19 20:00 Blood - Peripheral Venous Blood Culture - Preliminary NO GROWTH OBTAINED AFTER 24 HOURS, INCUBATION TO CONTINUE FOR 4 DAYS. 02/28/19 19:50 Blood - Peripheral Venous Blood Culture - Preliminary NO GROWTH OBTAINED AFTER 24 HOURS, INCUBATION TO CONTINUE FOR 4 DAYS. 02/27/19 14:45 Blood - Peripheral Venous Blood Culture - Preliminary NO GROWTH OBTAINED AFTER 48 HOURS, INCUBATION TO CONTINUE FOR 3 DAYS. a/p blood culture contaminant no need to treat repeat are negative abd wall cellulitis- continue clindamycin chronic leukocytosis by history volume overload- on lasix echo pending history of CAD history of DM Problem List - Problems (1) Shortness of breath Code(s): R06.02 - SHORTNESS OF BREATH (2) Cellulitis, abdominal wall Code(s): L03.311 - CELLULITIS OF ABDOMINAL WALL (3) Positive blood culture Code(s): R78.81 - BACTEREMIA (4) Diabetes mellitus Code(s): E11.9 - TYPE 2 DIABETES MELLITUS WITHOUT COMPLICATIONS Qualifiers: Diabetes mellitus type: type 2 (5) Morbid obesity Code(s): E66.01 - MORBID (SEVERE) OBESITY DUE TO EXCESS CALORIES
--- NOTE | 2019-03-02 11:37 | PN ---
Progress Note, Physician History of Present Illness: PULMONARY ALERT,FEELING BETTER,LESS DYSPNEIC,-CP - Current Medication List Current Medications: Active Medications Aspirin (Asa -) 81 mg PO DAILY [facility] Last Admin: 03/02/19 10:36 Dose: 81 mg Atorvastatin Calcium (Lipitor -) 20 mg PO HS [facility] Last Admin: 03/01/19 21:26 Dose: 20 mg Furosemide (Lasix Injection -) 40 mg IVPUSH BIDLASIX [facility] Last Admin: 03/02/19 05:56 Dose: 40 mg Clindamycin Phosphate (Cleocin 600 Mg Premix Ivpb -) 600 mg in 50 mls @ 100 mls /hr IVPB Q8H-IV [facility]; Protocol Last Admin: 03/02/19 10:36 Dose: 100 mls/hr Insulin Aspart (Novolog Vial) 10 units SQ BID@0700,1630 [facility] Last Admin: 03/02/19 06:05 Dose: 10 units Insulin Aspart (Novolog Vial Sliding Scale -) 1 vial SQ ACHS [facility]; Protocol Last Admin: 03/02/19 06:05 Dose: Not Given Insulin Detemir (Levemir Vial) 40 units SQ AM [facility] Last Admin: 03/02/19 06:04 Dose: 40 units Liraglutide (Victoza -) 1.2 mg SQ DAILY@0700 [facility] Last Admin: 03/02/19 10:53 Dose: 1.2 mg Metoprolol Tartrate (Lopressor -) 100 mg PO BID [facility] Last Admin: 03/02/19 10:36 Dose: 100 mg Ramipril (Altace -) 5 mg PO DAILY [facility] Last Admin: 03/02/19 10:36 Dose: 5 mg Warfarin Sodium (Coumadin -) 3 mg PO DAILY@1800 [facility] Last Admin: 03/01/19 17:43 Dose: 3 mg - Objective Vital Signs: Vital Signs Temperature 97.4 F L 03/02/19 09:00 Pulse Rate 104 H 03/02/19 09:00 Respiratory Rate 24 H 03/02/19 09:00 Blood Pressure 143/92 03/02/19 09:00 O2 Sat by Pulse Oximetry (%) 95 03/02/19 06:00 Constitutional: Yes: Calm, Obese Eyes: Yes: WNL HENT: Yes: WNL Neck: Yes: WNL Cardiovascular: Yes: Pulse Irregular, S1, S2 Gastrointestinal: Yes: Normal Bowel Sounds, Soft Extremities: Yes: WNL Edema: Yes Labs: CBC, BMP 03/01/19 05:35 Assessment/Plan Problem List - Problems (1) Volume overload Code(s): E87.70 - FLUID OVERLOAD, UNSPECIFIED (2) Atrial fibrillation Code(s): I48.91 - UNSPECIFIED ATRIAL FIBRILLATION (3) CAD (coronary artery disease) Code(s): I25.10 - ATHSCL HEART DISEASE OF [place] CORONARY ARTERY W/O ANG PCTRS (4) Diabetes mellitus Code(s): E11.9 - TYPE 2 DIABETES MELLITUS WITHOUT COMPLICATIONS Qualifiers: Diabetes mellitus type: type 2 (5) HLD (hyperlipidemia) Code(s): E78.5 - HYPERLIPIDEMIA, UNSPECIFIED Assessment/Plan RATE CONTROL DIURETICS O2 SUPPLEMENTATION DVT PROPHYLAXSIS GLYCEMIC CONTROL ECHO DAILY [facility]IGHT[facility] DR LAU
--- NOTE | 2019-03-02 11:50 | PN ---
Progress Note, Physician Chief Complaint: patient feeling much better abdominal distension and leg swelling both decreasing - Current Medication List Current Medications: Active Medications Aspirin (Asa -) 81 mg PO DAILY [facility] Last Admin: 03/02/19 10:36 Dose: 81 mg Atorvastatin Calcium (Lipitor -) 20 mg PO HS [facility] Last Admin: 03/01/19 21:26 Dose: 20 mg Furosemide (Lasix Injection -) 40 mg IVPUSH BIDLASIX [facility] Last Admin: 03/02/19 05:56 Dose: 40 mg Clindamycin Phosphate (Cleocin 600 Mg Premix Ivpb -) 600 mg in 50 mls @ 100 mls /hr IVPB Q8H-IV [facility]; Protocol Last Admin: 03/02/19 10:36 Dose: 100 mls/hr Insulin Aspart (Novolog Vial) 10 units SQ BID@0700,1630 [facility] Last Admin: 03/02/19 06:05 Dose: 10 units Insulin Aspart (Novolog Vial Sliding Scale -) 1 vial SQ ACHS [facility]; Protocol Last Admin: 03/02/19 06:05 Dose: Not Given Insulin Detemir (Levemir Vial) 40 units SQ AM [facility] Last Admin: 03/02/19 06:04 Dose: 40 units Liraglutide (Victoza -) 1.2 mg SQ DAILY@0700 [facility] Last Admin: 03/02/19 10:53 Dose: 1.2 mg Metoprolol Tartrate (Lopressor -) 100 mg PO BID [facility] Last Admin: 03/02/19 10:36 Dose: 100 mg Ramipril (Altace -) 5 mg PO DAILY [facility] Last Admin: 03/02/19 10:36 Dose: 5 mg Warfarin Sodium (Coumadin -) 3 mg PO DAILY@1800 [facility] Last Admin: 03/01/19 17:43 Dose: 3 mg - Objective Vital Signs: Vital Signs Temperature 97.4 F L 03/02/19 09:00 Pulse Rate 104 H 03/02/19 09:00 Respiratory Rate 24 H 03/02/19 09:00 Blood Pressure 143/92 03/02/19 09:00 O2 Sat by Pulse Oximetry (%) 95 03/02/19 06:00 Constitutional: Yes: Calm Cardiovascular: Yes: Regular Rate and Rhythm, S1, S2 Respiratory: Yes: CTA Bilaterally, Diminished (at the bases) Gastrointestinal: Yes: Soft, Abdomen, Obese Edema: Yes (reduced) Neurological: Yes: Alert, Oriented Labs: CBC, BMP 03/01/19 05:35 03/01/19 05:35 INR, PTT INR 2.11 (0.83-1.09) H 03/01/19 05:35 Problem List - Problems (1) Shortness of breath Assessment/Plan: hypoxia improved-iv diuresis nasal canula pulm on board cta no PE iv lasix bid for volume overload cardiology on board daily weights echo Code(s): R06.02 - SHORTNESS OF BREATH (2) Atrial fibrillation Assessment/Plan: telemetry coumadin inr daily metoprolol bid Code(s): I48.91 - UNSPECIFIED ATRIAL FIBRILLATION (3) Diabetes mellitus Assessment/Plan: levemir 50 units bgm noted hgba1c 8.6 endocrine consult noted diabetic diet sliding scale victoza added Code(s): E11.9 - TYPE 2 DIABETES MELLITUS WITHOUT COMPLICATIONS Qualifiers: Diabetes mellitus type: type 2 (4) HLD (hyperlipidemia) Assessment/Plan: statin lipid panel Code(s): E78.5 - HYPERLIPIDEMIA, UNSPECIFIED (5) HTN (hypertension) Assessment/Plan: metorpolol dose increased altace Code(s): I10 - ESSENTIAL (PRIMARY) HYPERTENSION (6) Leg edema Assessment/Plan: doppler iv lasix bid monitor renal fucntion Code(s): R60.0 - LOCALIZED EDEMA (7) Cellulitis, abdominal wall Assessment/Plan: ID on board on clindamycin Microbiology 02/27/19 14:51 Blood - Peripheral Venous Blood Culture - Final Staphylococcus Simulans h/o MRSA contact isolation Code(s): L03.311 - CELLULITIS OF ABDOMINAL WALL
--- NOTE | 2019-03-02 12:00 | ECHO ---
Name: GLORIA TURNER Exam:Adult Echocardiogram Study Date: 03/02/2019 09:34 AM Age: 63 yrs Reason For Study: ef Height: 76 in Weight: 425 lb BSA: 3.1 m2 MMode/2D Measurements & Calculations IVSd: 0.97 cm Ao root diam: 3.9 cm LVIDd: 5.9 cm LA dimension: 4.3 cm LVIDs: 4.0 cm ACS: 1.9 cm LVPWd: 1.3 cm IVSs: 1.4 cm LVPWs: 1.4 cm EDV(Teich): 173.9 ml ESV(Teich): 70.9 ml Doppler Measurements & Calculations MV E max benito: 125.9 cm/sec Ao V2 max: 121.3 cm/sec Ao max P.0 mmHg Ao V2 mean: 98.0 cm/sec Ao mean P.2 mmHg Ao V2 VTI: 24.1 cm TR max benito: 268.2 cm/sec Med Peak E' Benito: 12.8 cm/sec TR max P.8 mmHg Med E/e': 9.9 Lat Peak E' Benito: 9.5 cm/sec Lat E/e': 13.3 Procedure There was technical limitations during this study due to patients body habitas. The study was non-ester gnostic in quality. No definitive statements could be made about this echo due to extremely poor acoustic win dows. Left Ventricle The left ventricle is mildly dilated. The left ventricle is not well visualized. Due to the poor qual ity of the echocardiogram, an assessment of left ventricular ejection fraction cannot be made. Regional wall motion abnormalities cannot be excluded due to limited visualization. Right Ventricle The right ventricle is grossly normal size. The right ventricular systolic function is grossly normal . Atria The left atrium is mildly dilated. The right atrium is mildly dilated. Mitral Valve There is mild mitral annular calcification. The mitral valve is not well visualized. There is trace m itral regurgitation. Tricuspid Valve The tricuspid valve is not well visualized. There is trace tricuspid regurgitation. Right ventricular systolic pressure is normal. Aortic Valve The aortic valve is not well visualized. Pulmonic Valve The pulmonic valve is not well visualized. Great Vessels Borderline aortic root dilatation. Pericardium/Pleura There is no pericardial effusion. Interpretation Summary Poor echo windows preclude optimal evaluation of LVEF, consider contrast study to better delineate en docardial borders if clinically warranted. Borderline aortic root dilatation. The right ventricle is grossly normal size. The right ventricular systolic function is grossly normal. There is trace mitral regurgitation. The left atrium is mildly dilated. The right atrium is mildly dilated. The left ventricle is mildly dilated. The left ventricle is not well visualized. Regional wall motion abnormalities cannot be excluded due to limited visualization. There is trace tricuspid regurgitation. Due to the poor quality of the echocardiogram, an assessment of left ventricular ejection fraction ca nnot be made. Poor echo windows preclude optimal evaluation of LVEF, consider contrast study to better delineate en docardial borders if clinically warranted. Sylvester Garcia MD 03/02/2019 11:59 AM
--- NOTE | 2019-03-02 13:14 | PN ---
Progress Note, Physician Chief Complaint: Telem Afib rate controlled. Feeling better Less edema and SOB. History of Present Illness: 63 year old male with a PMH of poorly controlled IDDM (w/associated Charcot's foot), chronic Atrial Fibrillation on coumadin, CAD sp PCI 2017, HTN, HLD PVD s/ p revascularization of LE August 2018 who presents to the ED c/o 5 day h/o shortness of breath. No chest pain, +5 pillow orthopnea. No PND + edema. minimally ambulatory. Duplex 02/28/19 neg CTA 02/28/19 no PE - Current Medication List Current Medications: Active Medications Aspirin (Asa -) 81 mg PO DAILY [facility] Last Admin: 03/02/19 10:36 Dose: 81 mg Atorvastatin Calcium (Lipitor -) 20 mg PO HS [facility] Last Admin: 03/01/19 21:26 Dose: 20 mg Furosemide (Lasix Injection -) 40 mg IVPUSH BIDLASIX [facility] Last Admin: 03/02/19 05:56 Dose: 40 mg Clindamycin Phosphate (Cleocin 600 Mg Premix Ivpb -) 600 mg in 50 mls @ 100 mls /hr IVPB Q8H-IV [facility]; Protocol Last Admin: 03/02/19 10:36 Dose: 100 mls/hr Insulin Aspart (Novolog Vial Sliding Scale -) 1 vial SQ ACHS [facility]; Protocol Last Admin: 03/02/19 13:03 Dose: Not Given Insulin Detemir (Levemir Vial) 50 units SQ AM [facility] Liraglutide (Victoza -) 1.2 mg SQ DAILY@0700 [facility] Last Admin: 03/02/19 10:53 Dose: 1.2 mg Metoprolol Tartrate (Lopressor -) 100 mg PO BID [facility] Last Admin: 03/02/19 10:36 Dose: 100 mg Ramipril (Altace -) 5 mg PO DAILY [facility] Last Admin: 03/02/19 10:36 Dose: 5 mg Warfarin Sodium (Coumadin -) 3 mg PO DAILY@1800 [facility] Last Admin: 03/01/19 17:43 Dose: 3 mg - Objective Vital Signs: Vital Signs Temperature 97.4 F L 03/02/19 09:00 Pulse Rate 104 H 03/02/19 09:00 Respiratory Rate 24 H 03/02/19 09:00 Blood Pressure 143/92 03/02/19 09:00 O2 Sat by Pulse Oximetry (%) 95 03/02/19 06:00 Constitutional: Yes: No Distress, Calm Eyes: Yes: Conjunctiva Clear, EOM Intact HENT: Yes: Atraumatic, Normocephalic Neck: Yes: Supple Cardiovascular: Yes: Pulse Irregular, JVD, S1, S2 Respiratory: Yes: CTA Bilaterally Gastrointestinal: Yes: Normal Bowel Sounds Edema: Yes Edema: LLE: 1+, RLE: 1+ Labs: CBC, BMP 03/01/19 05:35 03/01/19 05:35 INR, PTT INR 2.11 (0.83-1.09) H 03/01/19 05:35 Problem List - Problems (1) Leg edema Code(s): R60.0 - LOCALIZED EDEMA (2) Shortness of breath Code(s): R06.02 - SHORTNESS OF BREATH (3) Volume overload Code(s): E87.70 - FLUID OVERLOAD, UNSPECIFIED (4) Atrial fibrillation Code(s): I48.91 - UNSPECIFIED ATRIAL FIBRILLATION (5) CAD (coronary artery disease) Code(s): I25.10 - ATHSCL HEART DISEASE OF [place] CORONARY ARTERY W/O ANG PCTRS Assessment/Plan 63 year old male with a PMH of poorly controlled IDDM (w/associated Charcot's foot), CAD sp PCI 2017, CHF, chronic Atrial Fibrillation on coumadin, HTN, HLD PVD s/p revascularization of LE August 2018 who presents to the ED c/o 5 day h /o shortness of breath. No chest pain, +5 pillow orthopnea. No PND + edema. minimally ambulatory. Duplex 02/28/19 neg CTA 02/28/19 no PE Echo was nondiagnostic done at bedside. --Responding well to diuretics. Continue IV diuresis. Still volume overloaded. --continue coumadin for INR 2-3 --Afib is rate controlled.
[2019-03-02 19:47] LABS: INR 2.38 (0.83-1.09); PROTHROMBIN TIME (PATIENT) 28.3 SEC (9.7-13.0)
[2019-03-02] MEDS: WARFARIN NA 3 MG TABLET PO SCH (20:14)
[2019-03-02] MEDS: ATORVASTATIN CA 20 MG TABLET (FP) PO SCH (21:46)
[2019-03-03] MEDS: CLINDAMYCIN 600MG PREMIX IVPB 600 MG/50 ML BAG IVPB SCH ×2 (02:34→10:36)
[2019-03-03] MEDS: LIRAGLUTIDE 0.6 MG/0.1 ML PEN.INJCTR SQ SCH (06:31)
[2019-03-03] MEDS: FUROSEMIDE 40 MG/4 ML INJECTABLE VIAL IVPUSH SCH ×2 (06:31→15:29)
[2019-03-03] MEDS: INSULIN SLIDING SCALE (NOVOLOG) 1 VIAL SQ SCH ×3 (06:31→17:53)
[2019-03-03] MEDS ORDERED: INSULIN (LEVEMIR) 100 UNITS/ML UNITS SQ SCH (07:00)
[2019-03-03 08:00] LABS: INR 2.32 (0.83-1.09); PROTHROMBIN TIME (PATIENT) 27.6 SEC (9.7-13.0)
[2019-03-03] MEDS: RAMIPRIL 5 MG CAPSULE (FP) PO SCH (10:35)
[2019-03-03] MEDS: ASPIRIN 81 MG CHEWABLE TABLETS PO SCH (10:36)
[2019-03-03] MEDS: METOPROLOL TARTRATE 50 MG TABLET (FP) PO SCH ×2 (10:36→22:53)
--- NOTE | 2019-03-03 11:24 | PN ---
Progress Note, Physician Chief Complaint: SOB Uncontrolled diabetes mellitus Abdominal wall cellulitis History of Present Illness: NAD sitting at the edge of the bed Breathing improved - Current Medication List Current Medications: Active Medications Aspirin (Asa -) 81 mg PO DAILY [facility] Last Admin: 03/03/19 10:36 Dose: 81 mg Atorvastatin Calcium (Lipitor -) 20 mg PO HS [facility] Last Admin: 03/02/19 21:46 Dose: 20 mg Furosemide (Lasix Injection -) 40 mg IVPUSH BIDLASIX [facility] Last Admin: 03/03/19 06:31 Dose: 40 mg Clindamycin Phosphate (Cleocin 600 Mg Premix Ivpb -) 600 mg in 50 mls @ 100 mls /hr IVPB Q8H-IV [facility]; Protocol Last Admin: 03/03/19 10:36 Dose: 100 mls/hr Insulin Aspart (Novolog Vial Sliding Scale -) 1 vial SQ ACHS [facility]; Protocol Last Admin: 03/03/19 06:31 Dose: Not Given Insulin Detemir (Levemir Vial) 50 units SQ AM [facility] Last Admin: 03/03/19 06:24 Dose: 50 units Liraglutide (Victoza -) 1.2 mg SQ DAILY@0700 [facility] Last Admin: 03/03/19 06:31 Dose: 1.2 mg Metoprolol Tartrate (Lopressor -) 100 mg PO BID [facility] Last Admin: 03/03/19 10:36 Dose: 100 mg Ramipril (Altace -) 5 mg PO DAILY [facility] Last Admin: 03/03/19 10:35 Dose: 5 mg Warfarin Sodium (Coumadin -) 3 mg PO DAILY@1800 [facility] Last Admin: 03/02/19 20:14 Dose: 3 mg - Objective Vital Signs: Vital Signs Temperature 98.1 F 03/03/19 10:00 Pulse Rate 101 H 03/03/19 10:00 Respiratory Rate 18 03/03/19 10:00 Blood Pressure 134/67 03/03/19 10:00 O2 Sat by Pulse Oximetry (%) 96 03/03/19 09:00 Constitutional: Yes: Well Nourished, No Distress, Calm, Obese Cardiovascular: Yes: Regular Rate and Rhythm Respiratory: Yes: Regular, Diminished (BLL) Gastrointestinal: Yes: Normal Bowel Sounds, Soft, Abdomen, Obese, Other (Lower abdomen erythema and tenderness) Genitourinary: Yes: WNL Musculoskeletal: Yes: Muscle Weakness Extremities: Yes: Other (RLE boot) Edema: Yes Edema: LLE: 2+ Neurological: Yes: Alert, Oriented Psychiatric: Yes: Alert, Oriented Labs: CBC, BMP 03/01/19 05:35 03/01/19 05:35 INR, PTT INR 2.32 (0.83-1.09) H 03/03/19 07:08 Problem List - Problems (1) Cellulitis, abdominal wall Assessment/Plan: -ID on board -IV abx -Culture: Microbiology 02/27/19 14:45 Blood - Peripheral Venous Blood Culture - Preliminary NO GROWTH OBTAINED AFTER 96 HOURS, INCUBATION TO CONTINUE FOR 1 DAYS. 02/28/19 20:00 Blood - Peripheral Venous Blood Culture - Preliminary NO GROWTH OBTAINED AFTER 48 HOURS, INCUBATION TO CONTINUE FOR 3 DAYS. 02/28/19 19:50 Blood - Peripheral Venous Blood Culture - Preliminary NO GROWTH OBTAINED AFTER 48 HOURS, INCUBATION TO CONTINUE FOR 3 DAYS. 02/27/19 14:51 Blood - Peripheral Venous Blood Culture - Final Staphylococcus Simulans Code(s): L03.311 - CELLULITIS OF ABDOMINAL WALL (2) Leg edema Assessment/Plan: -Improved -Fluid restriction -Diuresis -BLLE elevation above pelvis when resting Code(s): R60.0 - LOCALIZED EDEMA (3) Morbid obesity Assessment/Plan: -RD consult -Social issues inhibiting health promotion, access to healthy food is an issue -Calorie controlled low sodium diabetic diet Code(s): E66.01 - MORBID (SEVERE) OBESITY DUE TO EXCESS CALORIES (4) Positive blood culture Assessment/Plan: -ID on board -IV abx -Culture: Microbiology 02/27/19 14:45 Blood - Peripheral Venous Blood Culture - Preliminary NO GROWTH OBTAINED AFTER 96 HOURS, INCUBATION TO CONTINUE FOR 1 DAYS. 02/28/19 20:00 Blood - Peripheral Venous Blood Culture - Preliminary NO GROWTH OBTAINED AFTER 48 HOURS, INCUBATION TO CONTINUE FOR 3 DAYS. 02/28/19 19:50 Blood - Peripheral Venous Blood Culture - Preliminary NO GROWTH OBTAINED AFTER 48 HOURS, INCUBATION TO CONTINUE FOR 3 DAYS. 02/27/19 14:51 Blood - Peripheral Venous Blood Culture - Final Staphylococcus Simulans Code(s): R78.81 - BACTEREMIA (5) Shortness of breath Assessment/Plan: -improved -Pulmonary on board -Bronchodilators -IV diuresis Code(s): R06.02 - SHORTNESS OF BREATH (6) Atrial fibrillation Assessment/Plan: -On warfarin -INR therapeutic -continue to monitor daily INR Code(s): I48.91 - UNSPECIFIED ATRIAL FIBRILLATION (7) CAD (coronary artery disease) Assessment/Plan: -ASA, statin and BB -Cardiology on board -LDL at 84 with goal of <70 mg/dl -Increase atorvastatin to 40 mg po HS -RD consult Code(s): I25.10 - ATHSCL HEART DISEASE OF [place] CORONARY ARTERY W/O ANG PCTRS (8) Diabetes mellitus Assessment/Plan: -Uncontrolled with A1c at 8.4 -endocrine consult -RD consult -calorie controlled low sodium diabetic diet -Insulin sliding scale -Victoza -Levemir 50 U QAM Code(s): E11.9 - TYPE 2 DIABETES MELLITUS WITHOUT COMPLICATIONS Qualifiers: Diabetes mellitus type: type 2 (9) HLD (hyperlipidemia) Assessment/Plan: -Increase atorvastatin to 40 mg po HS -RD consult -Encouraged weight loss and dietary compliance Code(s): E78.5 - HYPERLIPIDEMIA, UNSPECIFIED Assessment/Plan See problem list Physical therapy
--- NOTE | 2019-03-03 11:26 | PN ---
Progress Note, Physician History of Present Illness: PULMONARY ALERT,OOB-CHAIR,FEELING BETTER,SOB IMPROVING,-CP,-COGH - Current Medication List Current Medications: Active Medications Aspirin (Asa -) 81 mg PO DAILY [facility] Last Admin: 03/03/19 10:36 Dose: 81 mg Atorvastatin Calcium (Lipitor -) 40 mg PO HS [facility] Furosemide (Lasix Injection -) 40 mg IVPUSH BIDLASIX [facility] Last Admin: 03/03/19 06:31 Dose: 40 mg Clindamycin Phosphate (Cleocin 600 Mg Premix Ivpb -) 600 mg in 50 mls @ 100 mls /hr IVPB Q8H-IV [facility]; Protocol Last Admin: 03/03/19 10:36 Dose: 100 mls/hr Insulin Aspart (Novolog Vial Sliding Scale -) 1 vial SQ ACHS [facility]; Protocol Last Admin: 03/03/19 06:31 Dose: Not Given Insulin Detemir (Levemir Vial) 50 units SQ AM [facility] Last Admin: 03/03/19 06:24 Dose: 50 units Liraglutide (Victoza -) 1.2 mg SQ DAILY@0700 [facility] Last Admin: 03/03/19 06:31 Dose: 1.2 mg Metoprolol Tartrate (Lopressor -) 100 mg PO BID [facility] Last Admin: 03/03/19 10:36 Dose: 100 mg Ramipril (Altace -) 5 mg PO DAILY [facility] Last Admin: 03/03/19 10:35 Dose: 5 mg Warfarin Sodium (Coumadin -) 3 mg PO DAILY@1800 [facility] Last Admin: 03/02/19 20:14 Dose: 3 mg - Objective Vital Signs: Vital Signs Temperature 98.1 F 03/03/19 10:00 Pulse Rate 101 H 03/03/19 10:00 Respiratory Rate 18 03/03/19 10:00 Blood Pressure 134/67 03/03/19 10:00 O2 Sat by Pulse Oximetry (%) 96 03/03/19 09:00 Constitutional: Yes: Well Nourished, Obese Eyes: Yes: WNL HENT: Yes: WNL Neck: Yes: WNL Cardiovascular: Yes: Pulse Irregular, S1, S2 Respiratory: Yes: CTA Bilaterally Gastrointestinal: Yes: Normal Bowel Sounds, Soft, Abdomen, Obese Extremities: Yes: WNL Edema: Yes Labs: CBC, BMP Assessment/Plan Problem List - Problems (1) Volume overload Code(s): E87.70 - FLUID OVERLOAD, UNSPECIFIED (2) Atrial fibrillation Code(s): I48.91 - UNSPECIFIED ATRIAL FIBRILLATION (3) CAD (coronary artery disease) Code(s): I25.10 - ATHSCL HEART DISEASE OF [place] CORONARY ARTERY W/O ANG PCTRS (4) Diabetes mellitus Code(s): E11.9 - TYPE 2 DIABETES MELLITUS WITHOUT COMPLICATIONS Qualifiers: Diabetes mellitus type: type 2 (5) HLD (hyperlipidemia) Code(s): E78.5 - HYPERLIPIDEMIA, UNSPECIFIED Assessment/Plan RATE CONTROL DIURETICS O2 SUPPLEMENTATION GLYCEMIC CONTROL DAILY [facility]IGHTS DR LAU
--- NOTE | 2019-03-03 12:02 | PN ---
Progress Note, Physician History of Present Illness: seen and examined today in nad. feeling better. states le edema slightly improved, abd distention improved. - Current Medication List Current Medications: Active Medications Aspirin (Asa -) 81 mg PO DAILY [facility] Last Admin: 03/03/19 10:36 Dose: 81 mg Atorvastatin Calcium (Lipitor -) 40 mg PO HS [facility] Furosemide (Lasix Injection -) 40 mg IVPUSH BIDLASIX [facility] Last Admin: 03/03/19 06:31 Dose: 40 mg Clindamycin Phosphate (Cleocin 600 Mg Premix Ivpb -) 600 mg in 50 mls @ 100 mls /hr IVPB Q8H-IV [facility]; Protocol Last Admin: 03/03/19 10:36 Dose: 100 mls/hr Insulin Aspart (Novolog Vial Sliding Scale -) 1 vial SQ ACHS [facility]; Protocol Last Admin: 03/03/19 06:31 Dose: Not Given Insulin Detemir (Levemir Vial) 50 units SQ AM [facility] Last Admin: 03/03/19 06:24 Dose: 50 units Liraglutide (Victoza -) 1.2 mg SQ DAILY@0700 [facility] Last Admin: 03/03/19 06:31 Dose: 1.2 mg Metoprolol Tartrate (Lopressor -) 100 mg PO BID [facility] Last Admin: 03/03/19 10:36 Dose: 100 mg Ramipril (Altace -) 5 mg PO DAILY [facility] Last Admin: 03/03/19 10:35 Dose: 5 mg Warfarin Sodium (Coumadin -) 3 mg PO DAILY@1800 [facility] Last Admin: 03/02/19 20:14 Dose: 3 mg - Objective Vital Signs: Vital Signs Temperature 98.1 F 03/03/19 10:00 Pulse Rate 101 H 03/03/19 10:00 Respiratory Rate 18 03/03/19 10:00 Blood Pressure 134/67 03/03/19 10:00 O2 Sat by Pulse Oximetry (%) 96 03/03/19 09:00 Constitutional: Yes: No Distress, Calm, Obese Eyes: Yes: Conjunctiva Clear, EOM Intact HENT: Yes: Atraumatic, Normocephalic Neck: Yes: Supple, Trachea Midline Cardiovascular: Yes: Pulse Irregular, S1, S2. No: Regular Rate and Rhythm, Bradycardia, Tachycardia, Bruit, JVD, Gallop, Murmur, Rub, S3, S4 Respiratory: Yes: Regular, Diminished. No: Rales, Rhonchi, SOB, Wheezes Gastrointestinal: Yes: Normal Bowel Sounds, Soft. No: Distention, Tenderness Edema: Yes Edema: LLE: 2+, RLE: 2+ Peripheral Pulses WNL: Yes Neurological: Yes: Alert, Oriented Psychiatric: Yes: Alert, Oriented Labs: CBC, BMP 03/01/19 05:35 03/01/19 05:35 INR, PTT INR 2.32 (0.83-1.09) H 03/03/19 07:08 - ....Imaging Chest X-ray: Report Reviewed, Image Reviewed EKG: Report Reviewed, Image Reviewed Other: Report Reviewed, Image Reviewed (tele-af, hr overall adequate, above goal at times) Assessment/Plan 63 year old male with a PMH of poorly controlled IDDM (w/associated Charcot's foot), CAD sp PCI 2017, CHF, chronic Atrial Fibrillation on coumadin, HTN, HLD PVD s/p revascularization of LE August 2018 who presents to the ED c/o 5 day h /o shortness of breath. No chest pain, +5 pillow orthopnea. No PND + edema. minimally ambulatory. Duplex 02/28/19 neg CTA 02/28/19 no PE Echo was nondiagnostic -Responding to diuretics. Continue IV diuresis. Still volume overloaded. -Needs blood work monitored on IV Lasix -monitor I/Os, daily weights bun/creat, electrolytes and replete as needed --continue coumadin for INR 2-3 --Afib is adequately rate controlled for now
--- NOTE | 2019-03-03 14:53 | ECHO ---
Name: GLORIA TURNER Exam:Adult Echocardiogram Study Date: 03/03/2019 02:14 PM Age: 63 yrs Height: 76 in Weight: 434 lb BSA: 3.1 m2 MMode/2D Measurements & Calculations IVSd: 0.73 cm Ao root diam: 2.9 cm LVIDd: 5.8 cm LA dimension: 4.4 cm LVIDs: 4.1 cm LVPWd: 0.87 cm EDV(Teich): 166.9 ml LVOT diam: 2.2 cm ESV(Teich): 75.2 ml Doppler Measurements & Calculations Ao V2 max: 110.5 cm/sec LV V1 max P.5 mmHg Ao max P.9 mmHg LV V1 mean P.83 mmHg Ao V2 mean: 70.1 cm/sec LV V1 max: 61.2 cm/sec Ao mean P.4 mmHg LV V1 mean: 42.2 cm/sec Ao V2 VTI: 18.5 cm LV V1 VTI: 11.6 cm MATI(I,D): 2.4 cm2 MATI(V,D): 2.1 cm2 SV(LVOT): 44.6 ml TR max benito: 238.9 cm/sec TR max P.8 mmHg Med Peak E' Benito: 8.8 cm/sec Lat Peak E' Benito: 9.1 cm/sec Procedure A complete two-dimensional transthoracic echocardiogram was performed (2D, M-mode, Doppler and color flow Doppler). There was technical limitations during this study due to patients body habitas. The patient was in atrial fibrillation with controlled ventricular rate during the exam. Left Ventricle The left ventricle is normal in size. Ejection Fraction = 55%. Left ventricular systolic function is grossly normal. Right Ventricle The right ventricle is normal in size and function. Atria The left atrium is moderately dilated. Right atrial size is normal. Mitral Valve The mitral valve is normal in structure and function. Tricuspid Valve The tricuspid valve is not well visualized, but is grossly normal. Aortic Valve There is moderate aortic sclerosis.;. Pulmonic Valve The pulmonic valve is not well visualized. Great Vessels The aortic root is normal size. Pericardium/Pleura There is no pericardial effusion. Interpretation Summary The left ventricle is normal in size. Left ventricular systolic function is grossly normal. The right ventricle is normal in size and function. Gonzalo Parrish 03/03/2019 02:52 PM
--- NOTE | 2019-03-03 17:39 | PN ---
Progress Note (short form) - Note Progress Note: feels improved Vital Signs Period Temp Pulse Resp BP Sys/Soto Pulse Ox Last 24 Hr 97.7 F-98.3 F 86-108 18-22 108-146/62-77 96-96 cor-rrr lungs decreased bs at bases abd soft,n_periumbilical hernia erythema unchanged lower abdomen ext +edema CBC, BMP 03/01/19 05:35 03/01/19 05:35 Microbiology 02/27/19 14:45 Blood - Peripheral Venous Blood Culture - Preliminary NO GROWTH OBTAINED AFTER 96 HOURS, INCUBATION TO CONTINUE FOR 1 DAYS. 02/28/19 20:00 Blood - Peripheral Venous Blood Culture - Preliminary NO GROWTH OBTAINED AFTER 48 HOURS, INCUBATION TO CONTINUE FOR 3 DAYS. 02/28/19 19:50 Blood - Peripheral Venous Blood Culture - Preliminary NO GROWTH OBTAINED AFTER 48 HOURS, INCUBATION TO CONTINUE FOR 3 DAYS. 02/27/19 14:51 Blood - Peripheral Venous Blood Culture - Final Staphylococcus Simulans a/p blood culture contaminant no need to treat repeat are negative abd wall cellulitis- switch to ceftaroline, erythema persists chronic leukocytosis by history-consider hematology evaluation volume overload- on lasix history of CAD history of DM Problem List - Problems (1) Shortness of breath Code(s): R06.02 - SHORTNESS OF BREATH (2) Cellulitis, abdominal wall Code(s): L03.311 - CELLULITIS OF ABDOMINAL WALL (3) Positive blood culture Code(s): R78.81 - BACTEREMIA (4) Diabetes mellitus Code(s): E11.9 - TYPE 2 DIABETES MELLITUS WITHOUT COMPLICATIONS Qualifiers: Diabetes mellitus type: type 2 (5) Morbid obesity Code(s): E66.01 - MORBID (SEVERE) OBESITY DUE TO EXCESS CALORIES
[2019-03-03] MEDS: WARFARIN NA 3 MG TABLET PO SCH (17:53)
[2019-03-03] MEDS ORDERED: INSULIN SLIDING SCALE (NOVOLOG) 1 VIAL SQ SCH (22:00)
[2019-03-03] MEDS: ATORVASTATIN CA 40 MG TABLET (FP) PO SCH (22:53)
[2019-03-03] MEDS: CEFTAROLINE FOSAMIL ACETATE 600 MG in DEXTROSE 5%-WATER - 100 ML IVPB SCH (22:53)
--- NOTE | 2019-03-03 23:46 | PN ---
Progress Note, Physician Chief Complaint: comfortable no complaint - Current Medication List Current Medications: Active Medications Aspirin (Asa -) 81 mg PO DAILY [facility] Last Admin: 03/03/19 10:36 Dose: 81 mg Atorvastatin Calcium (Lipitor -) 40 mg PO HS [facility] Last Admin: 03/03/19 22:53 Dose: 40 mg Furosemide (Lasix Injection -) 40 mg IVPUSH BIDLASIX [facility] Last Admin: 03/03/19 15:29 Dose: 40 mg Ceftaroline Fosamil 600 mg/ (Dextrose) 100 mls @ 100 mls/hr IVPB BID [facility]; Protocol Last Admin: 03/03/19 22:53 Dose: 100 mls/hr Insulin Aspart (Novolog Vial Sliding Scale -) 1 vial SQ ACHS [facility]; Protocol Last Admin: 03/03/19 22:56 Dose: 6 units Insulin Detemir (Levemir Vial) 50 units SQ AM [facility] Last Admin: 03/03/19 06:24 Dose: 50 units Liraglutide (Victoza -) 1.2 mg SQ DAILY@0700 [facility] Last Admin: 03/03/19 06:31 Dose: 1.2 mg Metoprolol Tartrate (Lopressor -) 100 mg PO BID [facility] Last Admin: 03/03/19 22:53 Dose: 100 mg Ramipril (Altace -) 5 mg PO DAILY [facility] Last Admin: 03/03/19 10:35 Dose: 5 mg Warfarin Sodium (Coumadin -) 3 mg PO DAILY@1800 [facility] Last Admin: 03/03/19 17:53 Dose: 3 mg - Objective Vital Signs: Vital Signs Temperature 98.2 F 03/03/19 14:15 Pulse Rate 86 03/03/19 14:15 Respiratory Rate 20 03/03/19 14:15 Blood Pressure 129/62 03/03/19 14:15 O2 Sat by Pulse Oximetry (%) 96 03/03/19 09:00 Constitutional: Yes: Calm Eyes: Yes: EOM Intact HENT: Yes: Normocephalic Neck: Yes: Trachea Midline Cardiovascular: Yes: Bradycardia Respiratory: Yes: CTA Bilaterally Gastrointestinal: Yes: Normal Bowel Sounds ...Rectal Exam: Yes: Deferred Genitourinary: Yes: WNL Musculoskeletal: Yes: Muscle Pain, Muscle Weakness Extremities: Yes: Delayed Capillary Refill Edema: Yes Edema: RUE: 1+, LLE: 1+ Integumentary: Yes: Venous Stasis Changes Wound/Incision: Yes: Clean/Dry Neurological: Yes: Alert, Oriented Labs: CBC, BMP 03/01/19 05:35 03/01/19 05:35 INR, PTT INR 2.32 (0.83-1.09) H 03/03/19 07:08 Problem List - Problems (1) Cellulitis, abdominal wall Code(s): L03.311 - CELLULITIS OF ABDOMINAL WALL (2) Leg edema Code(s): R60.0 - LOCALIZED EDEMA (3) Morbid obesity Code(s): E66.01 - MORBID (SEVERE) OBESITY DUE TO EXCESS CALORIES (4) Positive blood culture Code(s): R78.81 - BACTEREMIA (5) Shortness of breath Code(s): R06.02 - SHORTNESS OF BREATH (6) Volume overload Code(s): E87.70 - FLUID OVERLOAD, UNSPECIFIED (7) Atrial fibrillation Code(s): I48.91 - UNSPECIFIED ATRIAL FIBRILLATION (8) CAD (coronary artery disease) Code(s): I25.10 - ATHSCL HEART DISEASE OF [place] CORONARY ARTERY W/O ANG PCTRS Assessment/Plan Current Active Problems dm 2,diabetes mellitus hyperglycemia diabetic neuropathy Abnormal Lab Results Cellulitis, abdominal wall (Acute) Leg edema (Acute) Morbid obesity (Acute) Positive blood culture (Acute) Shortness of breath (Acute) Volume overload (Acute) Abnormal Lab Results 03/03/19 07:08 PT with INR 27.60 H INR 2.32 H Laboratory Results - last 24 hr 03/03/19 03/03/19 03/03/19 05:50 07:08 12:47 PT with INR 27.60 H INR 2.32 H POC Glucometer 192 158 03/03/19 03/03/19 17:32 22:51 PT with INR INR POC Glucometer 169 [id number] plan:bgm qid novolog scale levemir 60 unis am
[2019-03-04] MEDS: FUROSEMIDE 40 MG/4 ML INJECTABLE VIAL IVPUSH SCH ×2 (06:32→14:12)
[2019-03-04] MEDS: LIRAGLUTIDE 0.6 MG/0.1 ML PEN.INJCTR SQ SCH (06:32)
[2019-03-04] MEDS: INSULIN SLIDING SCALE (NOVOLOG) 1 VIAL SQ SCH ×4 (06:33→22:04)
[2019-03-04] MEDS: INSULIN (LEVEMIR) 100 UNITS/ML UNITS SQ SCH ×2 (06:33→22:05)
[2019-03-04] MEDS ORDERED: PT OWN MED DRAWER 7, Y5N ONE (06:37)
[2019-03-04] MEDS: CEFTAROLINE FOSAMIL ACETATE 600 MG in DEXTROSE 5%-WATER - 100 ML IVPB SCH ×2 (09:51→21:55)
[2019-03-04] MEDS: ASPIRIN 81 MG CHEWABLE TABLETS PO SCH (09:52)
[2019-03-04] MEDS: METOPROLOL TARTRATE 50 MG TABLET (FP) PO SCH ×2 (09:52→21:55)
[2019-03-04] MEDS: RAMIPRIL 5 MG CAPSULE (FP) PO SCH (09:52)
--- NOTE | 2019-03-04 10:22 | PN ---
Progress Note (short form) - Note Progress Note: feels improved by bedscale he is gaining weight! Vital Signs Period Temp Pulse Resp BP Sys/Soto Pulse Ox Last 24 Hr 97.5 F-98.2 F 86-98 18-20 114-129/62-77 95 cor-rrr lungs decreased bs at bases abd +subcutaneous edema +periumbilical hernia +erythema lower abdomen- decreasing eext +edema CBC, BMP 03/01/19 05:35 03/01/19 05:35 Microbiology 02/28/19 20:00 Blood - Peripheral Venous Blood Culture - Preliminary NO GROWTH OBTAINED AFTER 72 HOURS, INCUBATION TO CONTINUE FOR 2 DAYS. 02/28/19 19:50 Blood - Peripheral Venous Blood Culture - Preliminary NO GROWTH OBTAINED AFTER 72 HOURS, INCUBATION TO CONTINUE FOR 2 DAYS. 02/27/19 14:45 Blood - Peripheral Venous Blood Culture - Preliminary NO GROWTH OBTAINED AFTER 96 HOURS, INCUBATION TO CONTINUE FOR 1 DAYS. 02/27/19 14:51 Blood - Peripheral Venous Blood Culture - Final Staphylococcus Simulans Current Medications Aspirin (Asa -) 81 mg PO DAILY [facility] Last Admin: 03/04/19 09:52 Dose: 81 mg Atorvastatin Calcium (Lipitor -) 40 mg PO HS [facility] Last Admin: 03/03/19 22:53 Dose: 40 mg Furosemide (Lasix Injection -) 40 mg IVPUSH BIDLASIX [facility] Last Admin: 03/04/19 06:32 Dose: 40 mg Ceftaroline Fosamil 600 mg/ (Dextrose) 100 mls @ 100 mls/hr IVPB BID [facility]; Protocol Last Admin: 03/04/19 09:51 Dose: 100 mls/hr Insulin Aspart (Novolog Vial Sliding Scale -) 1 vial SQ ACHS [facility]; Protocol Last Admin: 03/04/19 06:33 Dose: 7 units Insulin Detemir (Levemir Vial) 60 units SQ AM [facility] Last Admin: 03/04/19 06:33 Dose: 60 units Liraglutide (Victoza -) 1.2 mg SQ DAILY@0700 [facility] Last Admin: 03/04/19 06:32 Dose: 1.2 mg Metoprolol Tartrate (Lopressor -) 100 mg PO BID [facility] Last Admin: 03/04/19 09:52 Dose: 100 mg Ramipril (Altace -) 5 mg PO DAILY [facility] Last Admin: 03/04/19 09:52 Dose: 5 mg Warfarin Sodium (Coumadin -) 3 mg PO DAILY@1800 [facility] Last Admin: 03/03/19 17:53 Dose: 3 mg a/p blood culture contaminant no need to treat repeat are negative abd wall cellulitis- ceftaroline day #1- appears improved chronic leukocytosis by history-consider hematology evaluation if persists labs ordered for today volume overload- on lasix-does not appear to be losing weight despite diuresis history of CAD history of DM Problem List - Problems (1) Shortness of breath Code(s): R06.02 - SHORTNESS OF BREATH (2) Cellulitis, abdominal wall Code(s): L03.311 - CELLULITIS OF ABDOMINAL WALL (3) Positive blood culture Code(s): R78.81 - BACTEREMIA (4) Diabetes mellitus Code(s): E11.9 - TYPE 2 DIABETES MELLITUS WITHOUT COMPLICATIONS Qualifiers: Diabetes mellitus type: type 2 (5) Morbid obesity Code(s): E66.01 - MORBID (SEVERE) OBESITY DUE TO EXCESS CALORIES
[2019-03-04 10:59] LABS: BASO % 0.6 % (0-2.0); EOS % 2.8 % (0-4.5); HEMATOCRIT 38.4 % (35.4-49); HEMOGLOBIN 12.3 GM/dL (11.7-16.9); LYMPH % 18.1 % (8-40); MCH 28.2 pg (25.7-33.7); MCHC 32.1 g/dl (32.0-35.9); MEAN CELL VOLUME 87.9 fl (80-96); MEAN PLT VOLUME 8.6 fl (7.5-11.1); NEUT % 69.5 % (42.8-82.8); PLATELET COUNT 325 K/MM3 (134-434); RBC 4.36 M/mm3 (4.00-5.60); WHITE BLOOD COUNT 15.1 K/mm3 (4.0-10.0)
--- NOTE | 2019-03-04 11:19 | PN ---
Progress Note, Physician Chief Complaint: SOB Uncontrolled diabetes mellitus Abdominal wall cellulitis History of Present Illness: NAD sitting at the edge of the bed Breathing improved - Current Medication List Current Medications: Active Medications Aspirin (Asa -) 81 mg PO DAILY [facility] Last Admin: 03/04/19 09:52 Dose: 81 mg Atorvastatin Calcium (Lipitor -) 40 mg PO HS [facility] Last Admin: 03/03/19 22:53 Dose: 40 mg Furosemide (Lasix Injection -) 40 mg IVPUSH BIDLASIX [facility] Last Admin: 03/04/19 06:32 Dose: 40 mg Ceftaroline Fosamil 600 mg/ (Dextrose) 100 mls @ 100 mls/hr IVPB BID [facility]; Protocol Last Admin: 03/04/19 09:51 Dose: 100 mls/hr Insulin Aspart (Novolog Vial Sliding Scale -) 1 vial SQ ACHS [facility]; Protocol Last Admin: 03/04/19 06:33 Dose: 7 units Insulin Detemir (Levemir Vial) 60 units SQ AM [facility] Last Admin: 03/04/19 06:33 Dose: 60 units Liraglutide (Victoza -) 1.2 mg SQ DAILY@0700 [facility] Last Admin: 03/04/19 06:32 Dose: 1.2 mg Metoprolol Tartrate (Lopressor -) 100 mg PO BID [facility] Last Admin: 03/04/19 09:52 Dose: 100 mg Ramipril (Altace -) 5 mg PO DAILY [facility] Last Admin: 03/04/19 09:52 Dose: 5 mg Warfarin Sodium (Coumadin -) 3 mg PO DAILY@1800 [facility] Last Admin: 03/03/19 17:53 Dose: 3 mg - Objective Vital Signs: Vital Signs Temperature 98.1 F 03/04/19 08:00 Pulse Rate 103 H 03/04/19 08:00 Respiratory Rate 18 03/04/19 09:00 Blood Pressure 113/67 03/04/19 08:00 O2 Sat by Pulse Oximetry (%) 95 03/04/19 09:00 Constitutional: Yes: Well Nourished, No Distress, Calm, Obese Cardiovascular: Yes: Regular Rate and Rhythm Respiratory: Yes: Regular, Diminished (BLL) Gastrointestinal: Yes: Normal Bowel Sounds, Abdomen, Obese, Tenderness (RLQ,LLQ) Musculoskeletal: Yes: Muscle Weakness Extremities: Yes: WNL Edema: Yes Edema: LLE: 2+ Integumentary: Yes: Erythema (Lower abdomen, LLE 2/2 to PVD) Neurological: Yes: Alert, Oriented Psychiatric: Yes: Alert, Oriented Labs: CBC, BMP 03/04/19 10:31 INR, PTT INR 2.32 (0.83-1.09) H 03/03/19 07:08 Problem List - Problems (1) Cellulitis, abdominal wall Assessment/Plan: -ID on board -IV abx Code(s): L03.311 - CELLULITIS OF ABDOMINAL WALL (2) Leg edema Assessment/Plan: -Improved -Fluid restriction -Diuresis -BLLE elevation above pelvis when resting Code(s): R60.0 - LOCALIZED EDEMA (3) Morbid obesity Assessment/Plan: -RD consult -Social issues inhibiting health promotion, access to healthy food is an issue -Calorie controlled low sodium diabetic diet Code(s): E66.01 - MORBID (SEVERE) OBESITY DUE TO EXCESS CALORIES (4) Positive blood culture Assessment/Plan: -ID on board -IV abx -Culture: Microbiology 02/27/19 14:45 Blood - Peripheral Venous Blood Culture - Final NO GROWTH AFTER 5 DAYS INCUBATION 02/28/19 20:00 Blood - Peripheral Venous Blood Culture - Preliminary NO GROWTH OBTAINED AFTER 72 HOURS, INCUBATION TO CONTINUE FOR 2 DAYS. 02/28/19 19:50 Blood - Peripheral Venous Blood Culture - Preliminary NO GROWTH OBTAINED AFTER 72 HOURS, INCUBATION TO CONTINUE FOR 2 DAYS. 02/27/19 14:51 Blood - Peripheral Venous Blood Culture - Final Staphylococcus Simulans Code(s): R78.81 - BACTEREMIA (5) Shortness of breath Assessment/Plan: -improved -Pulmonary on board -Bronchodilators -IV diuresis Code(s): R06.02 - SHORTNESS OF BREATH (6) Atrial fibrillation Assessment/Plan: -On warfarin -INR therapeutic -continue to monitor daily INR Code(s): I48.91 - UNSPECIFIED ATRIAL FIBRILLATION (7) CAD (coronary artery disease) Assessment/Plan: -ASA, statin and BB -Cardiology on board -LDL at 84 with goal of <70 mg/dl -Increase atorvastatin to 40 mg po HS -RD consult Code(s): I25.10 - ATHSCL HEART DISEASE OF [place] CORONARY ARTERY W/O ANG PCTRS (8) Diabetes mellitus Assessment/Plan: -Uncontrolled with A1c at 8.4 -endocrine consult -RD consult -calorie controlled low sodium diabetic diet -Insulin sliding scale -Victoza -Levemir [facility] Code(s): E11.9 - TYPE 2 DIABETES MELLITUS WITHOUT COMPLICATIONS Qualifiers: Diabetes mellitus type: type 2 (9) HLD (hyperlipidemia) Assessment/Plan: -Increase atorvastatin to 40 mg po HS -RD consult -Encouraged weight loss and dietary compliance Code(s): E78.5 - HYPERLIPIDEMIA, UNSPECIFIED Assessment/Plan See problem list Physical therapy
[2019-03-04 11:27] LABS: CALCIUM 8.7 mg/dL (8.5-10.1); CREATININE 0.8 mg/dL (0.55-1.3); POTASSIUM 4.5 mmol/L (3.5-5.1)
--- NOTE | 2019-03-04 11:32 | PN ---
Progress Note, Physician History of Present Illness: PULMONARY ALERT,COMFORTABLE,STILL DYSPNEIC WITH EXERTION,-CP,-COUGH - Current Medication List Current Medications: Active Medications Aspirin (Asa -) 81 mg PO DAILY [facility] Last Admin: 03/04/19 09:52 Dose: 81 mg Atorvastatin Calcium (Lipitor -) 40 mg PO HS [facility] Last Admin: 03/03/19 22:53 Dose: 40 mg Furosemide (Lasix Injection -) 40 mg IVPUSH BIDLASIX [facility] Last Admin: 03/04/19 06:32 Dose: 40 mg Ceftaroline Fosamil 600 mg/ (Dextrose) 100 mls @ 100 mls/hr IVPB BID [facility]; Protocol Last Admin: 03/04/19 09:51 Dose: 100 mls/hr Insulin Aspart (Novolog Vial Sliding Scale -) 1 vial SQ ACHS [facility]; Protocol Last Admin: 03/04/19 06:33 Dose: 7 units Insulin Detemir (Levemir Vial) 60 units SQ AM [facility] Last Admin: 03/04/19 06:33 Dose: 60 units Liraglutide (Victoza -) 1.2 mg SQ DAILY@0700 [facility] Last Admin: 03/04/19 06:32 Dose: 1.2 mg Metoprolol Tartrate (Lopressor -) 100 mg PO BID [facility] Last Admin: 03/04/19 09:52 Dose: 100 mg Ramipril (Altace -) 5 mg PO DAILY [facility] Last Admin: 03/04/19 09:52 Dose: 5 mg Warfarin Sodium (Coumadin -) 3 mg PO DAILY@1800 [facility] Last Admin: 03/03/19 17:53 Dose: 3 mg - Objective Vital Signs: Vital Signs Temperature 98.1 F 03/04/19 08:00 Pulse Rate 103 H 03/04/19 08:00 Respiratory Rate 18 03/04/19 09:00 Blood Pressure 113/67 03/04/19 08:00 O2 Sat by Pulse Oximetry (%) 95 03/04/19 09:00 Constitutional: Yes: Well Nourished, Calm, Obese Eyes: Yes: WNL HENT: Yes: WNL Neck: Yes: WNL Cardiovascular: Yes: Pulse Irregular, S1, S2 Respiratory: Yes: Diminished Gastrointestinal: Yes: Normal Bowel Sounds, Soft Extremities: Yes: WNL Edema: Yes Labs: CBC, BMP 03/04/19 10:31 03/04/19 10:31 INR, PTT INR 2.32 (0.83-1.09) H 03/03/19 07:08 Assessment/Plan Problem List - Problems (1) Volume overload Code(s): E87.70 - FLUID OVERLOAD, UNSPECIFIED (2) Atrial fibrillation Code(s): I48.91 - UNSPECIFIED ATRIAL FIBRILLATION (3) CAD (coronary artery disease) Code(s): I25.10 - ATHSCL HEART DISEASE OF [place] CORONARY ARTERY W/O ANG PCTRS (4) Diabetes mellitus Code(s): E11.9 - TYPE 2 DIABETES MELLITUS WITHOUT COMPLICATIONS Qualifiers: Diabetes mellitus type: type 2 (5) HLD (hyperlipidemia) Code(s): E78.5 - HYPERLIPIDEMIA, UNSPECIFIED Assessment/Plan RATE CONTROL CONTINUE DIURETICS O2 SUPPLEMENTATION GLYCEMIC CONTROL DAILY [facility] DR LAU
--- NOTE | 2019-03-04 16:07 | PN ---
Progress Note, Physician Chief Complaint: Feeling better Less edema and SOB. History of Present Illness: 63 year old male with a PMH of poorly controlled IDDM (w/associated Charcot's foot), chronic Atrial Fibrillation on coumadin, CAD sp PCI 2017, HTN, HLD PVD s/ p revascularization of LE August 2018 who presents to the ED c/o 5 day h/o shortness of breath. No chest pain, +5 pillow orthopnea. No PND + edema. minimally ambulatory. Duplex 02/28/19 neg CTA 02/28/19 no PE Echo repeated showing normal LV and RV function. - Current Medication List Current Medications: Active Medications Aspirin (Asa -) 81 mg PO DAILY [facility] Last Admin: 03/04/19 09:52 Dose: 81 mg Atorvastatin Calcium (Lipitor -) 40 mg PO HS [facility] Last Admin: 03/03/19 22:53 Dose: 40 mg Furosemide (Lasix Injection -) 40 mg IVPUSH BIDLASIX [facility] Last Admin: 03/04/19 14:12 Dose: 40 mg Ceftaroline Fosamil 600 mg/ (Dextrose) 100 mls @ 100 mls/hr IVPB BID [facility]; Protocol Last Admin: 03/04/19 09:51 Dose: 100 mls/hr Insulin Aspart (Novolog Vial Sliding Scale -) 1 vial SQ ACHS [facility]; Protocol Last Admin: 03/04/19 12:22 Dose: 7 units Insulin Detemir (Levemir Vial) 60 units SQ AM [facility] Last Admin: 03/04/19 06:33 Dose: 60 units Liraglutide (Victoza -) 1.2 mg SQ DAILY@0700 [facility] Last Admin: 03/04/19 06:32 Dose: 1.2 mg Metoprolol Tartrate (Lopressor -) 100 mg PO BID [facility] Last Admin: 03/04/19 09:52 Dose: 100 mg Ramipril (Altace -) 5 mg PO DAILY [facility] Last Admin: 03/04/19 09:52 Dose: 5 mg Warfarin Sodium (Coumadin -) 3 mg PO DAILY@1800 [facility] Last Admin: 03/03/19 17:53 Dose: 3 mg - Objective Vital Signs: Vital Signs Temperature 98.2 F 03/04/19 14:10 Pulse Rate 92 H 03/04/19 14:10 Respiratory Rate 16 03/04/19 14:10 Blood Pressure 134/74 03/04/19 14:10 O2 Sat by Pulse Oximetry (%) 95 03/04/19 09:00 Constitutional: Yes: Well Nourished, No Distress, Calm Eyes: Yes: Conjunctiva Clear HENT: Yes: Atraumatic, Normocephalic Neck: Yes: Supple, Trachea Midline Cardiovascular: Yes: Pulse Irregular, S1, S2. No: JVD Respiratory: Yes: CTA Bilaterally Gastrointestinal: Yes: Normal Bowel Sounds Edema: Yes Edema: LLE: 1+, RLE: 1+ Labs: CBC, BMP 03/04/19 10:31 03/04/19 10:31 INR, PTT INR 2.32 (0.83-1.09) H 03/03/19 07:08 Problem List - Problems (1) Leg edema Code(s): R60.0 - LOCALIZED EDEMA (2) Shortness of breath Code(s): R06.02 - SHORTNESS OF BREATH (3) Volume overload Code(s): E87.70 - FLUID OVERLOAD, UNSPECIFIED (4) Atrial fibrillation Code(s): I48.91 - UNSPECIFIED ATRIAL FIBRILLATION (5) CAD (coronary artery disease) Code(s): I25.10 - ATHSCL HEART DISEASE OF [place] CORONARY ARTERY W/O ANG PCTRS Assessment/Plan 63 year old male with a PMH of poorly controlled IDDM (w/associated Charcot's foot), CAD sp PCI 2017, CHF, chronic Atrial Fibrillation on coumadin, HTN, HLD PVD s/p revascularization of LE August 2018 who presents to the ED c/o 5 day h /o shortness of breath. No chest pain, +5 pillow orthopnea. No PND + edema. minimally ambulatory. Duplex 02/28/19 neg CTA 02/28/19 no PE Echo showed normal LV and RV systolic function --Responding well to diuretics. can transition to oral lasix 40mg bid. --continue coumadin for INR 2-3 --Afib is rate controlled. will see as needed.
[2019-03-04 18:36] LABS: INR 2.09 (0.83-1.09); PROTHROMBIN TIME (PATIENT) 24.8 SEC (9.7-13.0)
[2019-03-04] MEDS: WARFARIN NA 3 MG TABLET PO SCH (18:54)
[2019-03-04] MEDS: ATORVASTATIN CA 40 MG TABLET (FP) PO SCH (21:55)
[2019-03-05] MEDS ORDERED: ACETAMINOPHEN 325 MG TABLET (FP) PO STA (02:07)
[2019-03-05] MEDS: INSULIN SLIDING SCALE (NOVOLOG) 1 VIAL SQ SCH ×4 (06:42→21:34)
[2019-03-05] MEDS: INSULIN (LEVEMIR) 100 UNITS/ML UNITS SQ SCH ×2 (06:42→21:33)
[2019-03-05] MEDS: FUROSEMIDE 40 MG/4 ML INJECTABLE VIAL IVPUSH SCH ×2 (06:42→13:22)
[2019-03-05] MEDS: LIRAGLUTIDE 0.6 MG/0.1 ML PEN.INJCTR SQ SCH (06:43)
[2019-03-05 07:06] LABS: BASO % 0.7 % (0-2.0); EOS % 3.1 % (0-4.5); HEMATOCRIT 38.1 % (35.4-49); HEMOGLOBIN 12.2 GM/dL (11.7-16.9); LYMPH % 18.6 % (8-40); MCH 28.3 pg (25.7-33.7); MCHC 32.2 g/dl (32.0-35.9); MEAN CELL VOLUME 87.9 fl (80-96); MEAN PLT VOLUME 8.5 fl (7.5-11.1); MONO % 9.1 % (3.8-10.2); NEUT % 68.5 % (42.8-82.8); PLATELET COUNT 357 K/MM3 (134-434); RBC 4.33 M/mm3 (4.00-5.60); RDW 15.7 % (11.9-15.9); WHITE BLOOD COUNT 16.6 K/mm3 (4.0-10.0)
[2019-03-05 07:30] LABS: INR 2.04 (0.83-1.09); PROTHROMBIN TIME (PATIENT) 24.3 SEC (9.7-13.0)
[2019-03-05 07:36] LABS: ALBUMIN 2.7 g/dl (3.4-5.0); BILIRUBIN,TOTAL 0.5 mg/dL (0.2-1); CALCIUM 8.6 mg/dL (8.5-10.1); CREATININE 0.7 mg/dL (0.55-1.3); POTASSIUM 4.5 mmol/L (3.5-5.1); TOT PROT 6.6 g/dl (6.4-8.2)
[2019-03-05] MEDS ORDERED: PT OWN MED DRAWER 7, Y5N ONE (09:39)
[2019-03-05] MEDS: CEFTAROLINE FOSAMIL ACETATE 600 MG in DEXTROSE 5%-WATER - 100 ML IVPB SCH ×2 (09:54→21:34)
[2019-03-05] MEDS: RAMIPRIL 5 MG CAPSULE (FP) PO SCH (09:55)
[2019-03-05] MEDS: METOPROLOL TARTRATE 50 MG TABLET (FP) PO SCH ×2 (09:55→21:36)
[2019-03-05] MEDS: ASPIRIN 81 MG CHEWABLE TABLETS PO SCH (09:55)
--- NOTE | 2019-03-05 12:55 | PN ---
Progress Note, Physician Chief Complaint: patient seen and examiend feeling better SOB improved - Current Medication List Current Medications: Active Medications Aspirin (Asa -) 81 mg PO DAILY [facility] Last Admin: 03/05/19 09:55 Dose: 81 mg Atorvastatin Calcium (Lipitor -) 40 mg PO HS [facility] Last Admin: 03/04/19 21:55 Dose: 40 mg Furosemide (Lasix Injection -) 40 mg IVPUSH BIDLASIX [facility] Last Admin: 03/05/19 06:42 Dose: 40 mg Ceftaroline Fosamil 600 mg/ (Dextrose) 100 mls @ 100 mls/hr IVPB BID [facility]; Protocol Last Admin: 03/05/19 09:54 Dose: 100 mls/hr Insulin Aspart (Novolog Vial Sliding Scale -) 1 vial SQ ACHS [facility]; Protocol Last Admin: 03/05/19 06:42 Dose: 7 units Insulin Detemir (Levemir Vial) 60 units SQ AM [facility] Last Admin: 03/05/19 06:42 Dose: 60 units Insulin Detemir (Levemir Vial) 20 units SQ [facility] Last Admin: 03/04/19 22:05 Dose: 20 units Liraglutide (Victoza -) 1.2 mg SQ DAILY@0700 [facility] Last Admin: 03/05/19 06:43 Dose: 1.2 mg Metoprolol Tartrate (Lopressor -) 100 mg PO BID [facility] Last Admin: 03/05/19 09:55 Dose: 100 mg Ramipril (Altace -) 5 mg PO DAILY [facility] Last Admin: 03/05/19 09:55 Dose: 5 mg Warfarin Sodium (Coumadin -) 3 mg PO DAILY@1800 [facility] Last Admin: 03/04/19 18:54 Dose: 3 mg - Objective Vital Signs: Vital Signs Temperature 98.4 F 03/05/19 10:00 Pulse Rate 110 H 03/05/19 10:00 Respiratory Rate 22 H 03/05/19 10:00 Blood Pressure 133/73 03/05/19 10:00 O2 Sat by Pulse Oximetry (%) 95 03/04/19 21:00 Constitutional: Yes: Calm Cardiovascular: Yes: Regular Rate and Rhythm, S1, S2 Respiratory: Yes: CTA Bilaterally, On Nasal O2 Gastrointestinal: Yes: Normal Bowel Sounds, Soft, Abdomen, Obese, Other ( abdominla wall erythema improved) Edema: Yes Neurological: Yes: Alert, Oriented Labs: CBC, BMP 05/23/19 05:30 03/05/19 05:30 INR, PTT INR 2.04 (0.83-1.09) H 03/05/19 05:30 Problem List - Problems (1) Shortness of breath Assessment/Plan: hypoxia improved-iv diuresis nasal canula pulm on board cta no PE iv lasix bid for volume overload cardiology on board daily weights fr om 434 to 429 echo- left ventricle systolic function normal right and left ventricle size normal Code(s): R06.02 - SHORTNESS OF BREATH (2) Atrial fibrillation Assessment/Plan: telemetry coumadin inr daily metoprolol bid Code(s): I48.91 - UNSPECIFIED ATRIAL FIBRILLATION (3) Diabetes mellitus Assessment/Plan: levemir 50 units- increased to 60 units per endocrine bgm noted hgba1c 8.6 endocrine consult noted diabetic diet sliding scale victoza added Code(s): E11.9 - TYPE 2 DIABETES MELLITUS WITHOUT COMPLICATIONS Qualifiers: Diabetes mellitus type: type 2 (4) HLD (hyperlipidemia) Assessment/Plan: statin lipid panel Code(s): E78.5 - HYPERLIPIDEMIA, UNSPECIFIED (5) HTN (hypertension) Assessment/Plan: metorpolol dose increased altace Code(s): I10 - ESSENTIAL (PRIMARY) HYPERTENSION (6) Leg edema Assessment/Plan: doppler iv lasix bid monitor renal function Code(s): R60.0 - LOCALIZED EDEMA (7) Cellulitis, abdominal wall Assessment/Plan: ID on board ceftaroline Microbiology 02/27/19 14:51 Blood - Peripheral Venous Blood Culture - Final Staphylococcus Simulans h/o MRSA contact isolation cellulitis is improving Code(s): L03.311 - CELLULITIS OF ABDOMINAL WALL
--- NOTE | 2019-03-05 13:10 | PN ---
Progress Note (short form) - Note Progress Note: PULMONARY States breathing slowly improving. No chest pain. Minimal cough. Vital Signs Period Temp Pulse Resp BP Sys/Soto Pulse Ox Last 24 Hr 97.7 F-98.4 F 90-110 16-22 122-134/67-76 95 Gen: NAD at rest Heart: irregular Lung: distant breath sounds Abd: soft, nontender Ext: + edema CBC, BMP 03/05/19 05:30 03/05/19 05:30 Active Medications Aspirin (Asa -) 81 mg PO DAILY [facility] Last Admin: 03/05/19 09:55 Dose: 81 mg Atorvastatin Calcium (Lipitor -) 40 mg PO HS [facility] Last Admin: 03/04/19 21:55 Dose: 40 mg Furosemide (Lasix Injection -) 40 mg IVPUSH BIDLASIX [facility] Last Admin: 03/05/19 06:42 Dose: 40 mg Ceftaroline Fosamil 600 mg/ (Dextrose) 100 mls @ 100 mls/hr IVPB BID [facility]; Protocol Last Admin: 03/05/19 09:54 Dose: 100 mls/hr Insulin Aspart (Novolog Vial Sliding Scale -) 1 vial SQ ACHS [facility]; Protocol Last Admin: 03/05/19 06:42 Dose: 7 units Insulin Detemir (Levemir Vial) 60 units SQ AM [facility] Last Admin: 03/05/19 06:42 Dose: 60 units Insulin Detemir (Levemir Vial) 20 units SQ HS [facility] Last Admin: 03/04/19 22:05 Dose: 20 units Liraglutide (Victoza -) 1.2 mg SQ DAILY@0700 [facility] Last Admin: 03/05/19 06:43 Dose: 1.2 mg Metoprolol Tartrate (Lopressor -) 100 mg PO BID [facility] Last Admin: 03/05/19 09:55 Dose: 100 mg Ramipril (Altace -) 5 mg PO DAILY [facility] Last Admin: 03/05/19 09:55 Dose: 5 mg Warfarin Sodium (Coumadin -) 3 mg PO DAILY@1800 [facility] Last Admin: 03/04/19 18:54 Dose: 3 mg A/P Acute on Chronic Diastolic Heart Failure Atrial Fibrillation CAD PAD HTN DM Hyperlipidemia - contiue lasix - monitor urine output, creatinine - O2 to keep SpO2 >90% - rate control - continue anticoagulation - outpt PFTs, PSG
--- NOTE | 2019-03-05 16:34 | CONSULT ---
Consultation: REQUESTING PROVIDER: CONSULT REQUEST: We have been asked to medically evaluate this patient for leukocytosis HISTORY OF PRESENT ILLNESS: This is a 63 yo M with a PMH of chronic leukocytosis, IDDM, HTN, HLD, and charcot foot who presented due to sob, was admitted for volume overload treated with lasix and abd wall cellulitis treated with ceftaroline. Heme consulted for leukocytosis wbc 16.5->18->16.5 with left shift. also had it n 2018 up to 18 at that time was admitted for LE cellulitis. 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 baseline wbc count 13-18. He has since followed up q6mo, last time this Nov. he is moving to [place] and would like to establish [facility] locally. REVIEW OF SYSTEMS: CONSTITUTIONAL: Absent: fever, chills, weight change HEENT: Absent: rhinorrhea, nasal congestion, throat pain CARDIOVASCULAR: Absent: chest pain, syncope, palpitations, irregular heart rate, lightheadedness , peripheral edema RESPIRATORY: Absent: cough, shortness of breath, hemoptysis GASTROINTESTINAL: Absent: abdominal pain, abdominal distension, nausea, vomiting, diarrhea, constipation, melena, hematochezia GENITOURINARY: Absent: dysuria, hematuria MUSCULOSKELETAL: Absent: back pain, neck pain SKIN: Absent: rash, itching, pallor HEMATOLOGIC/IMMUNOLOGIC: Absent: easy bleeding, easy bruising ENDOCRINE: Absent: unexplained weight gain, unexplained weight loss, heat intolerance, cold intolerance NEUROLOGIC: Absent: headache, focal weakness or paresthesias PSYCHIATRIC: Absent: anxiety, depression PHYSICAL EXAMINATION Vital Signs - 24 hr 03/04/19 03/04/19 03/04/19 18:04 21:00 22:00 Temperature 98.3 F Pulse Rate 99 H 90 Respiratory 18 18 Rate Blood Pressure 122/73 127/67 O2 Sat by Pulse 95 Oximetry (%) 03/05/19 03/05/19 06:00 10:00 Temperature 97.7 F 98.4 F Pulse Rate 90 110 H Respiratory 18 22 H Rate Blood Pressure 129/76 133/73 O2 Sat by Pulse Oximetry (%) GENERAL: Awake, alert, and fully oriented, in no acute distress. HEAD: Normal with no signs of trauma. EYES: extraocular movements intact, sclera anicteric, conjunctiva clear. EARS, NOSE, THROAT:Moist mucous membranes. NECK: supple without lymphadenopathy LUNGS: Breath sounds equal, clear to auscultation bilaterally. HEART: Regular rate and rhythm, normal S1 and S2 ABDOMEN: Obese, Soft, nontender, not distended, normoactive bowel sounds, no guarding. + blanching redness over lower/mid R abdomen Testicular exam: refused Laboratory Results - last 24 hr 03/04/19 03/04/19 03/04/19 17:30 17:33 21:59 WBC RBC Hgb Hct MCV MCH MCHC RDW Plt Count MPV Absolute Neuts (auto) Neutrophils % Lymphocytes % Monocytes % Eosinophils % Basophils % Nucleated RBC % PT with INR 24.80 H INR 2.09 H Sodium Potassium Chloride Carbon Dioxide Anion Gap BUN Creatinine Est GFR (CKD-EPI)AfAm Est GFR (CKD-EPI)NonAf POC Glucometer 188 211 Random Glucose Calcium Total Bilirubin AST ALT Alkaline Phosphatase Total Protein Albumin 03/05/19 03/05/19 03/05/19 05:30 05:30 05:30 WBC 16.6 H RBC 4.33 Hgb 12.2 Hct 38.1 MCV 87.9 MCH 28.3 MCHC 32.2 RDW 15.7 Plt Count 357 MPV 8.5 Absolute Neuts (auto) 11.4 H Neutrophils % 68.5 Lymphocytes % 18.6 Monocytes % 9.1 Eosinophils % 3.1 Basophils % 0.7 Nucleated RBC % 0 PT with INR 24.30 H INR 2.04 H Sodium 134 L Potassium 4.5 Chloride 97 L Carbon Dioxide 33 H Anion Gap 4 L BUN 18 Creatinine 0.7 Est GFR (CKD-EPI)AfAm 117.22 Est GFR (CKD-EPI)NonAf 101.14 POC Glucometer Random Glucose 166 H Calcium 8.6 Total Bilirubin 0.5 AST 12 L ALT 19 Alkaline Phosphatase 156 H Total Protein 6.6 Albumin 2.7 L 03/05/19 03/05/19 06:39 12:18 WBC RBC Hgb Hct MCV MCH MCHC RDW Plt Count MPV Absolute Neuts (auto) Neutrophils % Lymphocytes % Monocytes % Eosinophils % Basophils % Nucleated RBC % PT with INR INR Sodium Potassium Chloride Carbon Dioxide Anion Gap BUN Creatinine Est GFR (CKD-EPI)AfAm Est GFR (CKD-EPI)NonAf POC Glucometer 170 197 Random Glucose Calcium Total Bilirubin AST ALT Alkaline Phosphatase Total Protein Albumin Active Medications Generic Name Dose Route Start Last Admin Trade Name Saravanan PRN Reason Stop Dose Admin Aspirin 81 mg 02/28/19 10:00 03/05/19 09:55 Asa - PO 81 mg DAILY SAIDA Administration Atorvastatin Calcium 40 mg 03/03/19 11:22 03/04/19 21:55 Lipitor - PO 40 mg HS SAIDA Administration Furosemide 40 mg 02/28/19 06:00 03/05/19 13:22 Lasix Injection - IVPUSH 40 mg BIDLASIX SAIDA Administration Ceftaroline Fosamil 600 mg/ 100 mls @ 100 mls/hr 03/03/19 22:00 03/05/19 09: 54 Dextrose IVPB 100 mls/hr BID SAIDA Administration Protocol Insulin Aspart 1 vial 03/04/19 07:00 03/05/19 13:23 Novolog Vial Sliding Scale - SQ 7 units ACHS SAIDA Administration Protocol Insulin Detemir 60 units 03/04/19 07:00 03/05/19 06:42 Levemir Vial SQ 60 units AM SAIDA Administration Insulin Detemir 20 units 03/04/19 22:00 03/04/19 22:05 Levemir Vial SQ 20 units HS SAIDA Administration Liraglutide 1.2 mg 03/02/19 07:00 03/05/19 06:43 Victoza - SQ 1.2 mg DAILY@0700 SAIDA Administration Metoprolol Tartrate 100 mg 03/01/19 14:12 03/05/19 09:55 Lopressor - PO 100 mg BID SAIDA Administration Ramipril 5 mg 02/28/19 10:00 03/05/19 09:55 Altace - PO 5 mg DAILY SAIDA Administration Warfarin Sodium 3 mg 02/28/19 18:00 03/04/19 18:54 Coumadin - PO 3 mg DAILY@1800 SAIDA Administration ASSESSMENT/PLAN: This is a 63 yo M with a PMH of chronic leukocytosis, IDDM, HTN, HLD, and charcot foot who presented due to sob, was admitted for volume overload treated with lasix and abd wall cellulitis treated with ceftaroline. Heme consulted for leukocytosis Chronic leukocytosis abd wall cellulitis IDDM HTN HLD -will otain records from [facility] regarding myeloproliferative d/o -could also be partially reactive due to ongoing infection -follow up outpatient Dispo: We will continue to follow the patient. Thank you for this consultative opportunity. Problem List - Problems (1) Myeloproliferative disorder Code(s): D47.1 - CHRONIC MYELOPROLIFERATIVE DISEASE (2) Leukocytosis Code(s): D72.829 - ELEVATED WHITE BLOOD CELL COUNT, UNSPECIFIED (3) Cellulitis Code(s): L03.90 - CELLULITIS, UNSPECIFIED Visit type - Emergency Visit Emergency Visit: Yes ED Registration Date: 02/27/19 Care time: The patient presented to the Emergency Department on the above date and was hospitalized for further evaluation of their emergent condition. - New Patient This patient is new to me today: Yes Date on this admission: 03/05/19 - Critical Care Critical Care patient: No
[2019-03-05] MEDS: WARFARIN NA 3 MG TABLET PO SCH (18:14)
[2019-03-05] MEDS: ATORVASTATIN CA 40 MG TABLET (FP) PO SCH (21:36)
--- NOTE | 2019-03-05 23:59 | PN ---
Teaching Attending Note Name of Resident: Flori Shea ATTENDING PHYSICIAN STATEMENT I saw and evaluated the patient. I reviewed the resident's note and discussed the case with the resident. I agree with the resident's findings and plan as documented. ASSESSMENT AND PLAN: This is a 63 yo M with a PMH of morbid obesity, chronic leukocytosis, IDDM, HTN , HLD, and charcot foot who presented due to sob, was admitted for volume overload treated with lasix and abd wall cellulitis treated with ceftaroline. Heme consulted for leukocytosis Chronic leukocytosis abd wall cellulitis IDDM HTN HLD Leukocytosis --chronic Had w/u at [facility] and was told due to inflammation. 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 Suspect leukocytosis reactive to motrbid obesity + ongoing foot infection. Being monitored at [facility] clinic Q 6 months
[2019-03-06] MEDS: INSULIN (LEVEMIR) 100 UNITS/ML UNITS SQ SCH (06:19)
[2019-03-06] MEDS: INSULIN SLIDING SCALE (NOVOLOG) 1 VIAL SQ SCH ×2 (06:20→11:37)
[2019-03-06] MEDS: LIRAGLUTIDE 0.6 MG/0.1 ML PEN.INJCTR SQ SCH (06:22)
[2019-03-06] MEDS: FUROSEMIDE 40 MG/4 ML INJECTABLE VIAL IVPUSH SCH (06:27)
[2019-03-06 07:30] LABS: BASO % 0.6 % (0-2.0); EOS % 2.4 % (0-4.5); HEMATOCRIT 39.7 % (35.4-49); HEMOGLOBIN 12.7 GM/dL (11.7-16.9); LYMPH % 18.1 % (8-40); MCH 28.4 pg (25.7-33.7); MCHC 31.9 g/dl (32.0-35.9); MEAN CELL VOLUME 89.1 fl (80-96); MEAN PLT VOLUME 8.7 fl (7.5-11.1); MONO % 8.3 % (3.8-10.2); NEUT % 70.6 % (42.8-82.8); PLATELET COUNT 325 K/MM3 (134-434); RBC 4.45 M/mm3 (4.00-5.60); WHITE BLOOD COUNT 17.5 K/mm3 (4.0-10.0)
[2019-03-06 07:51] LABS: INR 1.78 (0.83-1.09); PROTHROMBIN TIME (PATIENT) 21.1 SEC (9.7-13.0)
[2019-03-06 07:57] LABS: ALBUMIN 2.7 g/dl (3.4-5.0); BILIRUBIN,TOTAL 0.4 mg/dL (0.2-1); CALCIUM 8.5 mg/dL (8.5-10.1); CREATININE 0.8 mg/dL (0.55-1.3); POTASSIUM 4.5 mmol/L (3.5-5.1); TOT PROT 6.7 g/dl (6.4-8.2)
[2019-03-06] MEDS ORDERED: PT OWN MED DRAWER 7, Y5N ONE ×3 (08:59→14:38)
[2019-03-06] MEDS: ASPIRIN 81 MG CHEWABLE TABLETS PO SCH (09:52)
[2019-03-06] MEDS: METOPROLOL TARTRATE 50 MG TABLET (FP) PO SCH (09:52)
[2019-03-06] MEDS: RAMIPRIL 5 MG CAPSULE (FP) PO SCH (09:52)
--- NOTE | 2019-03-06 11:38 | PN ---
Progress Note, Physician History of Present Illness: PULMONARY ALERT,COMFORTABLE NO SOB AT REST,LESS [place] - Current Medication List Current Medications: Active Medications Aspirin (Asa -) 81 mg PO DAILY [facility] Last Admin: 03/06/19 09:52 Dose: 81 mg Atorvastatin Calcium (Lipitor -) 40 mg PO HS [facility] Last Admin: 03/05/19 21:36 Dose: 40 mg Furosemide (Lasix Injection -) 40 mg IVPUSH BIDLASIX [facility] Last Admin: 03/06/19 06:27 Dose: Not Given Ceftaroline Fosamil 600 mg/ (Dextrose) 100 mls @ 100 mls/hr IVPB BID [facility]; Protocol Last Admin: 03/05/19 21:34 Dose: 100 mls/hr Insulin Aspart (Novolog Vial Sliding Scale -) 1 vial SQ ACHS [facility]; Protocol Last Admin: 03/06/19 06:20 Dose: 7 units Insulin Detemir (Levemir Vial) 60 units SQ AM [facility] Last Admin: 03/06/19 06:19 Dose: 60 units Insulin Detemir (Levemir Vial) 20 units SQ HS [facility] Last Admin: 03/05/19 21:33 Dose: 20 units Liraglutide (Victoza -) 1.2 mg SQ DAILY@0700 [facility] Last Admin: 03/06/19 06:22 Dose: 1.2 mg Metoprolol Tartrate (Lopressor -) 100 mg PO BID [facility] Last Admin: 03/06/19 09:52 Dose: 100 mg Ramipril (Altace -) 5 mg PO DAILY [facility] Last Admin: 03/06/19 09:52 Dose: 5 mg Warfarin Sodium (Coumadin -) 3 mg PO DAILY@1800 [facility] Last Admin: 03/05/19 18:14 Dose: 3 mg - Objective Vital Signs: Vital Signs Temperature 98 F 03/06/19 10:00 Pulse Rate 91 H 03/06/19 10:00 Respiratory Rate 20 03/06/19 10:00 Blood Pressure 116/74 03/06/19 10:00 O2 Sat by Pulse Oximetry (%) 97 03/06/19 10:42 Constitutional: Yes: Well Nourished, Calm, Obese Eyes: Yes: WNL HENT: Yes: WNL Neck: Yes: WNL Cardiovascular: Yes: Pulse Irregular, S1, S2 Respiratory: Yes: Diminished Gastrointestinal: Yes: Normal Bowel Sounds, Soft Extremities: Yes: WNL Edema: Yes Labs: CBC, BMP 03/06/19 05:40 03/06/19 05:40 INR, PTT INR 1.78 (0.83-1.09) H 03/06/19 05:40 Assessment/Plan Problem List - Problems (1) Volume overload Code(s): E87.70 - FLUID OVERLOAD, UNSPECIFIED (2) Atrial fibrillation Code(s): I48.91 - UNSPECIFIED ATRIAL FIBRILLATION (3) CAD (coronary artery disease) Code(s): I25.10 - ATHSCL HEART DISEASE OF [place] CORONARY ARTERY W/O ANG PCTRS (4) Diabetes mellitus Code(s): E11.9 - TYPE 2 DIABETES MELLITUS WITHOUT COMPLICATIONS Qualifiers: Diabetes mellitus type: type 2 (5) HLD (hyperlipidemia) Code(s): E78.5 - HYPERLIPIDEMIA, UNSPECIFIED Assessment/Plan RATE CONTROL DIURETICS O2 SUPPLEMENTATION GLYCEMIC CONTROL DAILY [facility] SLEEP STUDIES OUTPATIENT DR LAU
[2019-03-06] MEDS: CEFTAROLINE FOSAMIL ACETATE 600 MG in DEXTROSE 5%-WATER - 100 ML IVPB SCH (12:47)
--- NOTE | 2019-03-06 13:04 | DS ---
Physical Examination Vital Signs: Vital Signs Temperature 98 F 03/06/19 10:00 Pulse Rate 91 H 03/06/19 10:00 Respiratory Rate 20 03/06/19 10:00 Blood Pressure 116/74 03/06/19 10:00 O2 Sat by Pulse Oximetry (%) 97 03/06/19 10:42 Constitutional: Yes: Calm, Obese Cardiovascular: Yes: Regular Rate and Rhythm, S1, S2 Respiratory: Yes: CTA Bilaterally Gastrointestinal: Yes: Normal Bowel Sounds, Soft, Abdomen, Obese, Hernia, Other (abdominal wall erythema resolved) Edema: Yes (improved) Neurological: Yes: Alert, Oriented Labs: CBC, BMP 03/06/19 05:40 03/06/19 05:40 Discharge Summary Reason For Visit: SHORTNESS OF BREATH Current Active Problems Cellulitis (Acute) Cellulitis, abdominal wall (Acute) Leg edema (Acute) Leukocytosis (Acute) Morbid obesity (Acute) Myeloproliferative disorder (Acute) Positive blood culture (Acute) Shortness of breath (Acute) Volume overload (Acute) Hospital Course: - Primary Care Physician PCP: Gunnar Nur - Admission Chief Complaint: came in sudden SOB stared a few days ago with inc leg and abdomen swelling History of Present Illness: The patient is a 63 YOM with a PMH of IDDM, HTN, HLD, and charcot foot who presents to the ER with one week history of shortness of breath. He reports decreased exercise tolerance, unable to go up two stairs before getting winded. Also endorses orthopnea. States that he woke up gasping for air last night. Pt denies any increased leg swelling. He had a recent surgery for his charcot foot August of last week. Pt denies chest pain. Denies any SOB at rest currently. Denies F/C. per patient last few days he notices his abdomen getting large r in size and legs getting tight and diffuclty putting his shoe in leg brace, he said yestreday he lay down flat on bed and could not breath .he denies any chest pain or palpitations admitted for inc leg edema iv lasix bid now change to po abdominal wall erythema iv abx now improved shortness of breath improved as well Condition: Improved - Instructions Diet, Activity, Other Instructions: FOlllow up with [facility] clinic for increase white blood cell count Folllow up with PMD next week for INR check lasix 40mg po bid kelfex 500mg po bid for 7 days Referrals: Gunnar Nur MD [Primary Care Provider] - 2 Weeks Harris Patino MD [Staff Physician] - 3 Weeks (make appointment to see field service coordinator) Disposition: HOME - Home Medications Comprehensive Discharge Medication List: Ambulatory Orders Aspirin [ASA -] 81 mg PO DAILY 02/09/19 Atorvastatin Ca [Lipitor] 20 mg PO HS 02/09/19 Digoxin [Lanoxin -] 0.125 mg PO DAILY 02/09/19 Diltiazem [Cardizem -] 90 mg PO ONCE 02/09/19 Docusate Sodium [Colace] 100 mg PO TID 02/09/19 Insulin Glargine,Hum.rec.anlog [Basaglar Kwikpen U-100] 80 unit SQ AM 02/09/19 Insulin Lispro [Admelog] 30 unit SQ TID 02/09/19 Metoprolol Tartrate [Lopressor -] 50 mg PO BID 02/09/19 Pantoprazole Sodium [Protonix] 40 mg PO DAILY 02/09/19 Ramipril [Altace] 5 mg PO DAILY 02/09/19 Warfarin Sodium [Coumadin] 3 mg PO DAILY 02/09/19
--- NOTE | 2019-03-06 13:08 | PN ---
Progress Note (short form) - Note Progress Note: feels improved Vital Signs Period Temp Pulse Resp BP Sys/Soto Pulse Ox Last 24 Hr 98 F-98.8 F 91-98 18-20 113-137/65-75 95-97 cor-rrr llungs clear abd soft,nt, +edema of lower abdomen,+periumbilical hernia ext +edema CBC, BMP 03/06/19 05:40 03/06/19 05:40 Microbiology 02/28/19 20:00 Blood - Peripheral Venous Blood Culture - Final NO GROWTH AFTER 5 DAYS INCUBATION 02/28/19 19:50 Blood - Peripheral Venous Blood Culture - Final NO GROWTH AFTER 5 DAYS INCUBATION 02/27/19 14:45 Blood - Peripheral Venous Blood Culture - Final NO GROWTH AFTER 5 DAYS INCUBATION 02/27/19 14:51 Blood - Peripheral Venous Blood Culture - Final Staphylococcus Simulans a/p blood culture contaminant no need to treat repeat are negative abd wall cellulitis- ceftaroline day #3- appears improved -can switch to po keflex 500 tid for 7 days chronic leukocytosis by history-to f/u with hematology clinic at [facility] volume overload- on lasix- history of CAD history of DM d/w dr chan Problem List - Problems (1) Shortness of breath Code(s): R06.02 - SHORTNESS OF BREATH (2) Cellulitis, abdominal wall Code(s): L03.311 - CELLULITIS OF ABDOMINAL WALL (3) Positive blood culture Code(s): R78.81 - BACTEREMIA (4) Diabetes mellitus Code(s): E11.9 - TYPE 2 DIABETES MELLITUS WITHOUT COMPLICATIONS Qualifiers: Diabetes mellitus type: type 2 (5) Morbid obesity Code(s): E66.01 - MORBID (SEVERE) OBESITY DUE TO EXCESS CALORIES
--- NOTE | 2019-03-06 13:14 | PN ---
Progress Note (short form) - Note Progress Note: patient to go home today will give one dose keflex and lasix and coumadin today prior to leaving aide services will resume tmw Problem List - Problems (1) Shortness of breath Code(s): R06.02 - SHORTNESS OF BREATH (2) Atrial fibrillation Code(s): I48.91 - UNSPECIFIED ATRIAL FIBRILLATION (3) Diabetes mellitus Code(s): E11.9 - TYPE 2 DIABETES MELLITUS WITHOUT COMPLICATIONS Qualifiers: Diabetes mellitus type: type 2 (4) HLD (hyperlipidemia) Code(s): E78.5 - HYPERLIPIDEMIA, UNSPECIFIED (5) HTN (hypertension) Code(s): I10 - ESSENTIAL (PRIMARY) HYPERTENSION (6) Leg edema Code(s): R60.0 - LOCALIZED EDEMA (7) Cellulitis, abdominal wall Code(s): L03.311 - CELLULITIS OF ABDOMINAL WALL
[2019-03-06] MEDS: FUROSEMIDE 20 MG TABLET (FP) PO ONE ×2 (13:36→15:48)
[2019-03-06] MEDS ORDERED: CEPHALEXIN MONOHYDRATE 500 MG CAPSULE (UD) PO ONE ×3 (13:45→18:00)
[2019-03-06] MEDS ORDERED: FUROSEMIDE 40 MG TABLET (FP) PO SCH (14:00)
[2019-03-06 15:28] VITALS: BP 127/70; PULSE 92; TEMP 98.2
[2019-03-06] MEDS ORDERED: WARFARIN NA 2.5 MG TABLET (FP) ONE (16:25)
[2019-03-06] MEDS ORDERED: WARFARIN NA 1 MG TABLET (FP) ONE (16:25)
[2019-03-06] MEDS ORDERED: WARFARIN NA 2.5 MG, WARFARIN NA 1 MG PO ONE (16:30)
--- NOTE | 2019-03-06 16:54 | PN ---
Progress Note (short form) - Note Progress Note: maggie tp PMD informed him about issue with PA for victoza the insurance company needs records stating that patient has allergy to metformin which will be sent next week told patient to continue with his home insulin regimen till victoza is approved Problem List - Problems (1) Shortness of breath Code(s): R06.02 - SHORTNESS OF BREATH (2) Atrial fibrillation Code(s): I48.91 - UNSPECIFIED ATRIAL FIBRILLATION (3) Diabetes mellitus Code(s): E11.9 - TYPE 2 DIABETES MELLITUS WITHOUT COMPLICATIONS Qualifiers: Diabetes mellitus type: type 2 (4) HLD (hyperlipidemia) Code(s): E78.5 - HYPERLIPIDEMIA, UNSPECIFIED (5) HTN (hypertension) Code(s): I10 - ESSENTIAL (PRIMARY) HYPERTENSION (6) Leg edema Code(s): R60.0 - LOCALIZED EDEMA (7) Cellulitis, abdominal wall Code(s): L03.311 - CELLULITIS OF ABDOMINAL WALL
[2019-03-06] MEDS ORDERED: WARFARIN NA 5 MG TABLET (UD) PO ONE (18:00)
[2019-03-06] MEDS ORDERED: WARFARIN NA 2.5 MG, WARFARIN NA 1 MG PO SCH ×3 (18:00)
== END 2019-03-06 16:56 | disposition home or self-care (01) | DRG 383 ==
LOC: JER 12:12 → JERBED 15:54 → J4W 18:52
PROVIDERS: ADMIT Student in an Organized Health Care Education/Training Program; ATTEND Student in an Organized Health Care Education/Training Program
DX: L03.311 Cellulitis of abdominal wall (principal); D72.829 Elevated white blood cell count, unspecified; E66.01 Morbid (severe) obesity due to excess calories; I25.10 Atherosclerotic heart disease of native coronary artery without angina pectoris; Z68.43 Body mass index [BMI] 50.0-59.9, adult; I48.91 Unspecified atrial fibrillation; E78.5 Hyperlipidemia, unspecified; E11.65 Type 2 diabetes mellitus with hyperglycemia; Z79.4 Long term (current) use of insulin; E87.70 Fluid overload, unspecified; E11.51 Type 2 diabetes mellitus with diabetic peripheral angiopathy without gangrene; I50.33 Acute on chronic diastolic (congestive) heart failure; E11.618 Type 2 diabetes mellitus with other diabetic arthropathy; I11.0 Hypertensive heart disease with heart failure
CPT/HCPCS: 36415; 71045-TC-FY; 71046-TC-FY; 71275-TC; 76705-TC; 80048; 80053; 80061; 82550; 82962; 83036; 83605; 83721; 83735; 83880; 84100; 84443; 84484; 85025; 85027; 85610; 87040; 87186; 93005; 93010; 93306-TC; 93970-TC; 97116-GP; 97161-GP; 99282-25

== ENCOUNTER 2019-04-19 17:13 | Inpatient (IN) | payer OTHER ==
[2019-04-19] MEDS ORDERED: METOCLOPRAMIDE HCL INJECTION 10 MG/2 ML VIAL ONE (18:07)
[2019-04-19] MEDS ORDERED: METOPROLOL TARTRATE 5 MG/5 ML VIAL IVPUSH ONE ×3 (18:23→18:38)
[2019-04-19] MEDS ORDERED: METOPROLOL TARTRATE 5 MG/5 ML VIAL ONE ×3 (18:35→18:46)
[2019-04-19 18:37] LABS: BASO % 0.8 % (0-2.0); EOS % 1.5 % (0-4.5); HEMATOCRIT 37.4 % (35.4-49); LYMPH % 20.4 % (8-40); MCH 27.9 pg (25.7-33.7); MCHC 32.2 g/dl (32.0-35.9); MEAN CELL VOLUME 86.7 fl (80-96); MEAN PLT VOLUME 8.3 fl (7.5-11.1); MONO % 8.7 % (3.8-10.2); NEUT % 68.6 % (42.8-82.8); PLATELET COUNT 357 K/MM3 (134-434); RBC 4.32 M/mm3 (4.00-5.60); RDW 17.1 % (11.9-15.9); WHITE BLOOD COUNT 17.4 K/mm3 (4.0-10.0)
--- NOTE | 2019-04-19 18:50 | PDOC ---
Documentation entered by Daniel Fontaine SCRIBE, acting as scribe for Mona Lamar DO. Mona Lamar DO: This documentation has been prepared by the Minal granados Nirvannie, SCRIBE, under my direction and personally reviewed by me in its entirety. I confirm that the documentation accurately reflects all work, treatment, procedures, and medical decision making performed by me. Attending Attestation - Resident Resident Name: EllieJoe - ED Attending Attestation I have performed the following: I have examined & evaluated the patient, The case was reviewed & discussed with the resident, I agree w/resident's findings & plan - HPI HPI: 04/19/19 18:42 The patient is a 63 year old male, with a significant past medical history of hypertension, diabetes, peripheral neuropathy, atrial fibrillation (on Coumadin) , coronary artery disease, right Charcot foot status, who presents to the emergency department with, shortness of breath. He denies any chest pain. He denies any recent fevers, chills, headache, or dizziness. He denies any recent nausea, vomiting, diarrhea, or constipation. He denies any recent dysuria, frequency, urgency, or hematuria. Allergies: Metformin Primary Care Physician: Dr. Nur - Physicial Exam PE: 04/19/19 18:50 Constitutional: +Morbid obesity. Awake, alert, oriented. No acute distress. Head: Normocephalic. Atraumatic Eyes: PERRL. EOMI. Conjunctivae are not pale. ENT: Mucous membranes are moist and intact. Posterior pharynx without exudates or erythema. Uvula midline. Neck: Supple. Full ROM. No lymphadenopathy. Cardiovascular: +Tachycardic. Irregularly irregular. Distal pulses are 2+ and symmetric. Pulmonary/Chest: +Conversational dyspnea. +Hypoxic. Abdominal: +Edema to the abdomen. Soft and non-distended. There is no tenderness. No rebound, guarding or rigidity. No organomegaly. No palpable masses. Good bowel sounds. Back: No CVA tenderness. Musculoskeletal: +Blt LE edema. No cyanosis. No clubbing. Full range of motion in all extremities. No calf tenderness. Radial/pedal pulses are intact and 2+ bilaterally Skin: Skin is warm and dry. No petechiae. No purpura. Neurological: Alert and oriented to person, place, and time. Cranial nerves II -XII are grossly intact. Normal speech. Strength is grossly symmetric. No sensory deficits. Psychiatric: Good eye contact. Normal interaction, affect and behavior. - Critical Care Time Total Critical Care Time: 35 Critical Care Statement: The care of this patient involved high complexity decision making to prevent further life threatening deterioration of the patient 's condition and/or to evaluate & treat vital organ system(s) failure or risk of failure. - Medical Decision Making 04/19/19 18:36 I, Dr. Mona Lamar, DO, attest that this document has been prepared under my direction and personally reviewed by me in its entirety. I further attest, that it accurately reflects all work, treatment, procedures and medical decision -making performed by me. 04/19/19 18:36 a/p: 63yo male with afib rvr who sob -pt with resp distress and hypoxic -pt with afib rvr -pt denies cp -morbid obesity -no abd pain. no n/v/d -hx of dm and afib rvr on coumadin -will send labs, ekg, cxr -pt will receive metoprolol iv given he takes metoprolol oral will monitor and reassess may need diuretics as well 04/19/19 19:25 pt received iv metoprolol, HR 108, will give an extra dose of oral metoprolol -cxr pending 04/19/19 19:25 trop negative 04/19/19 19:27 pt will need admission for afib w rvr dr. nur is PMD Heart Score/ECG Review - ECG Intrepretation Comment:: 04/19/19 19:26 afib with rvr at [address]/t wave findings
[2019-04-19 18:51] LABS: INR 3.14 (0.83-1.09); PROTHROMBIN TIME (PATIENT) 37.5 SEC (9.7-13.0)
[2019-04-19] MEDS ORDERED: METOPROLOL TARTRATE 50 MG TABLET (FP) PO ONE (18:51)
[2019-04-19 18:53] LABS: ACTIVATED PTT 47.7 SECONDS (25.2-36.5)
[2019-04-19 19:09] LABS: ALBUMIN 2.6 g/dl (3.4-5.0); ALK PHOS 169 U/L (45-117); ANION GAP 6 MMOL/L (8-16); BILIRUBIN,TOTAL 0.3 mg/dL (0.2-1); BLOOD UREA NITROGEN 19.8 mg/dL (7-18); CALCIUM 8.1 mg/dL (8.5-10.1); CHLORIDE 102 mmol/L (98-107); CO2 32 mmol/L (21-32); GLUCOSE,RANDOM 162 mg/dL (74-106); POTASSIUM 3.6 mmol/L (3.5-5.1); SGOT/AST 13 U/L (15-37); SGPT/ALT 19 U/L (13-61); SODIUM 141 mmol/L (136-145); TOT PROT 6.8 g/dl (6.4-8.2)
[2019-04-19] MEDS ORDERED: METOPROLOL TARTRATE 50 MG TABLET (FP) ONE (19:10)
--- NOTE | 2019-04-19 19:40 | PDOC ---
History of Present Illness <GlennaDevyn - Last Filed: 04/19/19 20:09> - General History Source: Patient - History of Present Illness Initial Comments: 04/19/19 19:54 63y/o M hx of fabricio currently on coumadin, diabetes,peripheral neuropathy, HTN and Charcot foot presents to the ED with worsening SOB over the last 3wks.SOB is exacerbated by exertion and somewhat relieved with rest. He denies any chest pain, cough, fevers, chills, nausea. vomiting, diarrhea, dysuria, hematuria. <Joe Argueta - Last Filed: 04/19/19 20:37> - General Chief Complaint: Shortness of Breath Stated Complaint: DIFFICULTY BREATHING/NUMBNESS IN BOTH ARMS Time Seen by Provider: 04/19/19 17:41 Past History <GlennaDevyn - Last Filed: 04/19/19 20:09> - Past Medical History Cardiac Disorders: Yes (Afib on coumadin s/p stentx1) COPD: No Diabetes: Yes HTN: Yes Hypercholesterolemia: Yes - Surgical History Cardiac Surgery: Yes (stent placementx1) Orthopedic Surgery: Yes (Midfusion foot surgery) - Immunization History Immunization Up to Date: Yes - Suicide/Smoking/Psychosocial Hx Smoking History: Never smoked Have you smoked in the past 12 months: No If you are a former smoker, when did you quit?: 2017 Hx Alcohol Use: No Drug/Substance Use Hx: No Substance Use Type: None Hx Substance Use Treatment: No <Joe Argueta - Last Filed: 04/19/19 20:37> - Past Medical History Allergies/Adverse Reactions: Allergies Allergy/AdvReac Type Severity Reaction Status Date / Time metformin Allergy Hives Verified 04/19/19 17:45 Home Medications: Ambulatory Orders Aspirin [ASA -] 81 mg PO DAILY 02/09/19 Pantoprazole Sodium [Protonix] 40 mg PO DAILY 02/09/19 Ramipril [Altace] 5 mg PO DAILY 02/09/19 Warfarin Sodium [Coumadin] 3 mg PO DAILY 02/09/19 Atorvastatin Ca [Lipitor] 40 mg PO HS #30 tablet MDD 1 03/06/19 Furosemide [Lasix -] 40 mg PO BID@0600,1400 #30 tablet MDD 2 03/06/19 Insulin (Levemir) [Levemir Vial] 20 units SQ HS #100 units 03/06/19 Insulin (Levemir) [Levemir Vial] 60 units SQ AM #100 units 03/06/19 Metoprolol Tartrate [Lopressor -] 100 mg PO BID #60 tablet MDD 2 03/06/19 Review of Systems - Review of Systems Constitutional: No: Chills, Diaphoresis, Fever HEENTM: No: Blurred Vision Respiratory: No: Stridor, Wheezing, Productive cough Cardiac (ROS): Yes: Irregular Heart Rate. No: Chest Pain, Palpitations : No: Burning, Dysuria Musculoskeletal: Yes: Joint Pain Neurological: No: Headache <Joe Argueta - Last Filed: 04/19/19 20:37> *Physical Exam - Vital Signs Last Vital Signs Temp Pulse Resp BP Pulse Ox 98 F 120 H 18 126/77 98 04/19/19 17:41 04/19/19 19:11 04/19/19 19:11 04/19/19 19:11 04/19/19 19:11 <Devyn Manzanares - Last Filed: 04/19/19 20:09> - Vital Signs Last Vital Signs Temp Pulse Resp BP Pulse Ox 98 F 120 H 18 126/77 98 04/19/19 17:41 04/19/19 19:11 04/19/19 19:11 04/19/19 19:11 04/19/19 19:11 - Physical Exam General Appearance: Yes: Appropriately Dressed, Obese HEENT: positive: EOMI, Normal Voice Respiratory/Chest: positive: Lungs Clear, Normal Breath Sounds, Respiratory Distress, Rapid RR. negative: Wheezing Cardiovascular: positive: S1, S2, Irregular Musculoskeletal: negative: CVA Tenderness Integumentary: positive: Warm. negative: Cyanotic Neurologic: positive: Fully Oriented, Alert, Normal Response <Joe Argueta - Last Filed: 04/19/19 20:37> ED Treatment Course - LABORATORY CBC & Chemistry Diagram: 04/19/19 18:29 04/19/19 18:29 - ADDITIONAL ORDERS Additional order review: Laboratory Results 04/19/19 04/19/19 18:29 18:29 PT with INR 37.50 H INR 3.14 H PTT (Actin FS) 47.7 H Sodium 141 Potassium 3.6 Chloride 102 Carbon Dioxide 32 Anion Gap 6 L BUN 19.8 H Creatinine 1.0 Est GFR (CKD-EPI)AfAm 93.08 Est GFR (CKD-EPI)NonAf 80.31 Random Glucose 162 H Calcium 8.1 L Total Bilirubin 0.3 AST 13 L ALT 19 Alkaline Phosphatase 169 H Creatine Kinase 62 Troponin I < 0.02 B-Natriuretic Peptide 1158.0 H Total Protein 6.8 Albumin 2.6 L 04/19/19 18:29 RBC 4.32 MCV 86.7 MCHC 32.2 RDW 17.1 H MPV 8.3 Neutrophils % 68.6 Lymphocytes % 20.4 Monocytes % 8.7 Eosinophils % 1.5 Basophils % 0.8 - Medications Given in the ED: ED Medications Discontinued Medications Generic Name Dose Route Start Last Admin Trade Name Freq PRN Reason Stop Dose Admin Metoprolol Tartrate 5 mg 04/19/19 18:23 04/19/19 18:30 Lopressor Injection - IVPUSH 04/19/19 18:24 5 mg ONCE ONE Administration Metoprolol Tartrate 5 mg 04/19/19 18:37 04/19/19 18:43 Lopressor Injection - IVPUSH 04/19/19 18:38 5 mg ONCE ONE Administration Metoprolol Tartrate 5 mg 04/19/19 18:38 04/19/19 18:52 Lopressor Injection - IVPUSH 04/19/19 18:39 5 mg ONCE ONE Administration Metoprolol Tartrate 100 mg 04/19/19 18:51 04/19/19 19:07 Lopressor - PO 04/19/19 18:52 100 mg ONCE ONE Administration <Devyn Manzanares - Last Filed: 04/19/19 20:09> - LABORATORY CBC & Chemistry Diagram: 04/19/19 18:29 04/19/19 18:29 - ADDITIONAL ORDERS Additional order review: Laboratory Results 04/19/19 04/19/19 18:29 18:29 PT with INR 37.50 H INR 3.14 H PTT (Actin FS) 47.7 H Sodium 141 Potassium 3.6 Chloride 102 Carbon Dioxide 32 Anion Gap 6 L BUN 19.8 H Creatinine 1.0 Est GFR (CKD-EPI)AfAm 93.08 Est GFR (CKD-EPI)NonAf 80.31 Random Glucose 162 H Calcium 8.1 L Total Bilirubin 0.3 AST 13 L ALT 19 Alkaline Phosphatase 169 H Creatine Kinase 62 Troponin I < 0.02 B-Natriuretic Peptide 1158.0 H Total Protein 6.8 Albumin 2.6 L 04/19/19 18:29 RBC 4.32 MCV 86.7 MCHC 32.2 RDW 17.1 H MPV 8.3 Neutrophils % 68.6 Lymphocytes % 20.4 Monocytes % 8.7 Eosinophils % 1.5 Basophils % 0.8 - Medications Given in the ED: ED Medications Discontinued Medications Generic Name Dose Route Start Last Admin Trade Name Saravanan PRN Reason Stop Dose Admin Metoprolol Tartrate 5 mg 04/19/19 18:23 04/19/19 18:30 Lopressor Injection - IVPUSH 04/19/19 18:24 5 mg ONCE ONE Administration Metoprolol Tartrate 5 mg 04/19/19 18:37 04/19/19 18:43 Lopressor Injection - IVPUSH 04/19/19 18:38 5 mg ONCE ONE Administration Metoprolol Tartrate 5 mg 04/19/19 18:38 04/19/19 18:52 Lopressor Injection - IVPUSH 04/19/19 18:39 5 mg ONCE ONE Administration Metoprolol Tartrate 100 mg 04/19/19 18:51 04/19/19 19:07 Lopressor - PO 04/19/19 18:52 100 mg ONCE ONE Administration <Joe Argueat - Last Filed: 04/19/19 20:37> Medical Decision Making - Medical Decision Making 04/19/19 19:36 63y/o M with hx of afib with RVR on coumadin presenting to the ED with SOB. Labs/Imaging/Interventions cbc, bnp,ua, cmp Imaging: cxr interventions: metoprolol 5mg given q 5mins for a total of 15mg pt. placed on telemetry pt.refused examination of his feet and wants to wait till he gets upstairs to have his feet examined. On reassesment SOB is improved and HR is now at 120 04/19/19 19:41 04/19/19 20:22 Spoke with Tamera Blanco NP. Pt. is being admitted to Dr. Singh's service. 04/19/19 20:35 <Joe Argueta - Last Filed: 04/19/19 20:37> *DC/Admit/Observation/Transfer <Devyn Manzanares - Last Filed: 04/19/19 20:09> - Discharge Dispostion Decision to Admit order: Yes - Transfer to Acute Care Facility Accepting Physician:: Dr. Singh <Joe Argueta - Last Filed: 04/19/19 20:37> Diagnosis at time of Disposition: Atrial fibrillation with RVR, Shortness of breath
[2019-04-19] MEDS ORDERED: FUROSEMIDE 40 MG/4 ML INJECTABLE VIAL IVPUSH ONE (20:59)
[2019-04-19] MEDS ORDERED: FUROSEMIDE 40 MG/4 ML INJECTABLE VIAL ONE (21:04)
--- NOTE | 2019-04-19 21:24 | HP ---
CHIEF COMPLAINT: shortness of breath PCP:Dr. Geller HISTORY OF PRESENT ILLNESS: 63 year old morbidly obese male with history of chronic atrial fibrillation(on Coumadin) diagnosed 15 years ago, (does not have a Wholesale [employer]er), coronary artery disease with stent in 01/2018, hypertension, IDDM(last hemoglobin a1c 10) , chronic leukocytosis(reported had workup up previously, unknown etiology), and Charcot right foot with surgery at [facility] in August 2018 who presents with worsening shortness of breath for the past 3 weeks. He reports he was discharged home 3 weeks ago from [facility] for admission for atrial fibrillation with RVR and reported he was previously on digoxin which was discontinued and metoprolol dosage was increased to 200 mg once daily. He reports he is unable to walk 10 feet without getting shortness of breath and reports abdominal bloating. He denied chest pain, shortness of breath, palpitations, nausea, vomiting, fever, or chills. Upon evaluation in the ER he presented with mild respiratory distress and mild hypoxia(Oxygen saturation 93%). He was found to be in atrial fibrillation with RVR heart rate 150's. He was given 3 dosages of IV lopressor 5mg and an oral dosage of metoprolol 100 mg with some heart rate improvement into the low 100's. Lab findings notable for BNP of 1158 and WBC of 17,4000. EKG-atrial fibrillation w/ RVR 150's, no acute ischemia Recent Travel:denies PAST MEDICAL HISTORY: chronic atrial fibrillation(on Coumadin) coronary artery disease with stent in 01/2018 hypertension IDDM chronic leukocytosis PAST SURGICAL HISTORY: right foot surgery for Charkot foot Social History: Smoking:denies Alcohol:denies Drugs: denies lives alone, has no family Family History:noncontributory Allergies metformin Allergy (Verified 04/19/19 17:45) Hives HOME MEDICATIONS: Home Medications Medication Instructions Recorded Aspirin [ASA -] 81 mg PO DAILY 02/09/19 Pantoprazole Sodium [Protonix] 40 mg PO DAILY 02/09/19 Ramipril [Altace] 5 mg PO DAILY 02/09/19 Warfarin Sodium [Coumadin] 3 mg PO DAILY 02/09/19 Atorvastatin Ca [Lipitor] 40 mg PO HS #30 tablet MDD 1 03/06/19 Furosemide [Lasix -] 40 mg PO BID@0600,1400 #30 tablet 05/24/19 MDD 2 Insulin (Levemir) [Levemir Vial] 20 units SQ HS #100 units 03/06/19 Insulin (Levemir) [Levemir Vial] 60 units SQ AM #100 units 03/06/19 Metoprolol Tartrate [Lopressor -] 100 mg PO BID #60 tablet MDD 2 03/06/19 REVIEW OF SYSTEMS CONSTITUTIONAL: Absent: fever, chills, diaphoresis, generalized weakness, malaise, loss of appetite, weight change HEENT: Absent: rhinorrhea, nasal congestion, throat pain, throat swelling, difficulty swallowing, mouth swelling, ear pain, eye pain, visual changes CARDIOVASCULAR: Absent: chest pain, syncope, palpitations, irregular heart rate, lightheadedness , peripheral edema RESPIRATORY: Absent: cough, shortness of breath, dyspnea with exertion, orthopnea, wheezing, stridor, hemoptysis GASTROINTESTINAL: Absent: abdominal pain, abdominal distention, nausea, vomiting, diarrhea, constipation, melena, hematochezia GENITOURINARY: Absent: dysuria, frequency, urgency, hesitancy, hematuria, flank pain, genital pain MUSCULOSKELETAL: Absent: myalgia, arthralgia, joint swelling, back pain, neck pain SKIN: Absent: hand rash, itching, pallor HEMATOLOGIC/IMMUNOLOGIC: Absent: easy bleeding, easy bruising, lymphadenopathy, frequent infections ENDOCRINE: Absent : + weight gain, unexplained weight loss, heat intolerance, cold intolerance NEUROLOGIC: Absent: headache, focal weakness or paresthesias, dizziness, unsteady gait, seizure, mental status changes, bladder or bowel incontinence PSYCHIATRIC: Absent: anxiety, depression, suicidal or homicidal ideation, hallucinations. PHYSICAL EXAMINATION Vital Signs - 24 hr 04/19/19 04/19/19 04/19/19 17:35 17:41 18:30 Temperature 98 F Pulse Rate 130 H Pulse Rate [ 136 H Left Apical] Respiratory 22 H 20 Rate Blood Pressure 129/74 120/61 Blood Pressure 132/86 [Left Arm] O2 Sat by Pulse 98 92 L Oximetry (%) 04/19/19 04/19/19 04/19/19 18:43 18:52 18:57 Temperature Pulse Rate Pulse Rate [ 121 H Left Apical] Respiratory 16 Rate Blood Pressure 141/60 139/86 Blood Pressure 141/70 [Left Arm] O2 Sat by Pulse 98 Oximetry (%) 04/19/19 19:11 Temperature Pulse Rate Pulse Rate [ 120 H Left Apical] Respiratory 18 Rate Blood Pressure Blood Pressure 126/77 [Left Arm] O2 Sat by Pulse 98 Oximetry (%) GENERAL: morbidly obese male, awake, alert, and oriented, no acute distress HEAD: normal EYES: pupils equal, round and reactive to light EARS, NOSE, THROAT: ears normal, nares patent NECK: supple, no JVD LUNGS: breath sounds diminished bilaterally no wheezes no crackles no accessory muscle use HEART: rate abnormal and rhythm irregular ABDOMEN: large, soft and distended MUSCULOSKELETAL: limited ROM to RLE (uses special boot to knee due to RT foot surgery 9 months ago) UPPER EXTREMITIES: 2+ pulses warm well-perfused no cyanosis LOWER EXTREMITIES: 1+ edema present bilaterally warm no cyanosis NEUROLOGICAL: no neuro focal deficits PSYCHIATRIC: cooperative and very talkative, appears frustrated with healthcare Laboratory Results - last 24 hr 04/19/19 04/19/19 04/19/19 18:29 18:29 18:29 WBC 17.4 H RBC 4.32 Hgb 12.0 Hct 37.4 MCV 86.7 MCH 27.9 MCHC 32.2 RDW 17.1 H Plt Count 357 MPV 8.3 Absolute Neuts (auto) 11.9 H Neutrophils % 68.6 Lymphocytes % 20.4 Monocytes % 8.7 Eosinophils % 1.5 Basophils % 0.8 Nucleated RBC % 0 PT with INR 37.50 H INR 3.14 H PTT (Actin FS) 47.7 H Sodium 141 Potassium 3.6 Chloride 102 Carbon Dioxide 32 Anion Gap 6 L BUN 19.8 H Creatinine 1.0 Est GFR (CKD-EPI)AfAm 93.08 Est GFR (CKD-EPI)NonAf 80.31 Random Glucose 162 H Calcium 8.1 L Total Bilirubin 0.3 AST 13 L ALT 19 Alkaline Phosphatase 169 H Creatine Kinase 62 Troponin I < 0.02 B-Natriuretic Peptide 1158.0 H Total Protein 6.8 Albumin 2.6 L ASSESSMENT/PLAN: 63 year old morbidly obese male with history of chronic atrial fibrillation(on Coumadin),diagnosed 15 years ago, (does not have a Wholesale Buyer), coronary artery disease with stent in 01/2018, hypertension, IDDM(last hemoglobin a1c 10) , chronic leukocytosis(reported had workup up previously, unknown etiology), and Charcot right foot with surgery at [facility] in August 2018 who presents with worsening shortness of breath on minimal exertion and orthopnea for the past 3 weeks. He presented with mild respiratory distress and mild hypoxia. He was found to be in atrial fibrillation with RVR heart rate 150's. He was given 3 dosages of IV lopressor 5mg and an oral dosage of metoprolol 100 mg with some heart rate improvement into the low 100's. He was found to have an elevated BNP. Findings consistent with Atrial Fibrillation with RVR in setting of Acute Congestive Heart Failure Exacerbation. #1 Dyspnea in setting of Atrial Fibrillation with RVR Rates better controlled but suboptimal(low 100's), BP normotensive Continue with metoprolol succinate 200 mg daily, previously he was taking digoxin and stopped on prior hospitalization and bb was increased(creatinine normal) Continue to monitor on telemetry. If HR will increase and sustained will add IV cardizem gtt INR supratherapeutic today and will hold coumadin tonight, repeat INR level in am to maintain INR goal of 2.0-3.0 Check TSH level Will check venous dopplers of lower extremities to exclude DVT and will check D- Dimer. PE less likely as patient has been on Couamdin. Continue with IV diuretics Cardiology consulted- Dr. Se Burns #2 Acute Diastolic Congestive Heart Failure BNP 1158. On exam he has signs of fluid overload(abdominal distention) Echocardiogram 02/2019 -EF >55%, no significant valvular disease Will give one dose of IV lasix 40 mg now and added IV lasix 40 mg twice daily, mild hypokalemia noted and repleted Continue with strict I&0'S, and close monitoring of renal studies and electrolytes Continue with ramipril and metoprolol succinate #3 Hypertension Normotensive Continue with ramipril and metoprolol succinate #4 Hyperlipidemia Continue with statin therapy. LFT's normal. #5 IDDM (Uncontrolled) Check hemoglobin A1c Continue with levimir 60 units qam and 20 Units hs and novolin sliding scale as needed Consider Endocrine consult in am as patient was supposed to be on Victoza, has allergy to metformin. #6 Coronary Artery Disease with Coronary Stent Asymptomatic of angina. Troponin is normal. EKG with no acute ST changes Continue with asa and statin therapy #7 Chronic Leukocytosis Patient reported he had prior workup and he has a genetic marker. He reports he does not sees physicians in the outpatient setting and only his PCP He is afebrile and denies fever, chills, malaise, n/v/d. Consider Hematology /Oncology evaluation #8 S/P Right Charcot Foot Surgery Physical therapy consulted as patient uses a wheelchair and he is requesting a walker #9 Low Albumin Nutrition consulted FEN low sodium, ADA diet, monitor electrolytes closely DVT TEDS and SCD's, on systemic anticoagulation Visit type - Emergency Visit Emergency Visit: Yes ED Registration Date: 04/19/19 Care time: The patient presented to the Emergency Department on the above date and was hospitalized for further evaluation of their emergent condition. - New Patient This patient is new to me today: Yes Date on this admission: 04/19/19 - Critical Care Critical Care patient: No
[2019-04-19] MEDS ORDERED: INSULIN (NOVOLOG) ASPART 100 UNITS/ML 10ML VIAL ONE (21:46)
[2019-04-19] MEDS ORDERED: POTASSIUM CHLORIDE TABS 20 MEQ TABLET.ER (FP) PO ONE (22:10)
[2019-04-19] MEDS: ATORVASTATIN CA 40 MG TABLET (FP) PO SCH (23:04)
[2019-04-19] MEDS: INSULIN (LEVEMIR) 100 UNITS/ML UNITS SQ SCH (23:04)
[2019-04-19 23:56] LABS: EPI CELLS 0.1 /HPF (0-5/HPF); HYALINE CASTS 0 /lpf (0-8); URINE APPEARANCE CLEAR; URINE BACTERIA 0.8 /hpf (NEGATIVE); URINE BILIRUBIN NEGATIVE (NEGATIVE); URINE COLOR YELLOW; URINE GLUCOSE (UA) NEGATIVE (NEGATIVE); URINE KETONE NEGATIVE (NEGATIVE); URINE LEUK ESTERASE NEGATIVE (NEGATIVE); URINE NITRITE NEGATIVE (NEGATIVE); URINE PROTEIN TRACE (NEGATIVE); URINE RBC 86 /hpf (0-4); URINE UROBILINOGEN 0.2 mg/dL (0.2-1.0); URINE WBC 2 /hpf (0-5)
[2019-04-20] MEDS ORDERED: KETOROLAC TROMETHAMINE 15 MG/ML VIAL IVPUSH ONE (02:28)
[2019-04-20] MEDS ORDERED: FUROSEMIDE 40 MG/4 ML INJECTABLE VIAL IVPUSH SCH ×2 (06:00→14:19)
[2019-04-20] MEDS: INSULIN (LEVEMIR) 100 UNITS/ML UNITS SQ SCH ×2 (06:57→21:53)
[2019-04-20] MEDS: INSULIN SLIDING SCALE (NOVOLOG) 1 VIAL SQ SCH ×2 (06:57→17:50)
[2019-04-20 07:37] LABS: HEMATOCRIT 37.7 % (35.4-49); HEMOGLOBIN 11.9 GM/dL (11.7-16.9); MCH 27.6 pg (25.7-33.7); MCHC 31.5 g/dl (32.0-35.9); MEAN CELL VOLUME 87.5 fl (80-96); MEAN PLT VOLUME 8.5 fl (7.5-11.1); PLATELET COUNT 364 K/MM3 (134-434); RBC 4.31 M/mm3 (4.00-5.60); RDW 16.6 % (11.9-15.9); WHITE BLOOD COUNT 16.3 K/mm3 (4.0-10.0)
[2019-04-20 07:57] LABS: BLOOD UREA NITROGEN 21.8 mg/dL (7-18); CALCIUM 8.2 mg/dL (8.5-10.1); CREATININE 1.1 mg/dL (0.55-1.3); MAGNESIUM 2.2 mg/dL (1.8-2.4); POTASSIUM 4.4 mmol/L (3.5-5.1)
[2019-04-20 08:04] LABS: INR 3.26 (0.83-1.09); PROTHROMBIN TIME (PATIENT) 38.9 SEC (9.7-13.0)
[2019-04-20] MEDS ORDERED: PT OWN MED DRAWER 7, Y5N ONE (09:37)
[2019-04-20] MEDS ORDERED: RAMIPRIL 5 MG CAPSULE (FP) PO SCH (10:00)
[2019-04-20] MEDS: METOPROLOL TARTRATE 50 MG TABLET (FP) PO SCH ×2 (10:38→21:52)
[2019-04-20] MEDS: ASPIRIN 81 MG CHEWABLE TABLETS PO SCH (10:38)
[2019-04-20] MEDS: PANTOPRAZOLE 40 MG TABLET (FP) PO SCH (10:39)
--- NOTE | 2019-04-20 11:23 | EKG ---
Test Reason : Blood Pressure : / mmHG Vent. Rate : 139 BPM Atrial Rate : 127 BPM P-R Int : 000 ms QRS Dur : 082 ms QT Int : 332 ms P-R-T Axes : 000 044 227 degrees QTc Int : 505 ms ATRIAL FIBRILLATION WITH RAPID VENTRICULAR RESPONSE LOW VOLTAGE QRS NONSPECIFIC T WAVE ABNORMALITY ABNORMAL ECG WHEN COMPARED WITH ECG OF 27-FEB-2019 12:41, VENT. RATE HAS INCREASED BY 55 BPM NONSPECIFIC T WAVE ABNORMALITY, WORSE IN INFERIOR LEADS NONSPECIFIC T WAVE ABNORMALITY NOW EVIDENT IN LATERAL LEADS Confirmed by JCARLOS MCKEON MD ([id number]) on 04/20/2019 11:22:57 AM Referred By: Confirmed By:JCARLOS MCKEON MD
--- NOTE | 2019-04-20 13:30 | CON.PULM ---
Consult Consult Specialty:: PULM/CCM Referred by:: WILI Reason for Consultation:: SOB - History of Present Illness Chief Complaint: SOB History of Present Illness: 63 M, morbid obesity, chronic atrial fibrillation (on Coumadin), coronary artery disease with stent in 01/2018, hypertension, IDDM, chronic leukocytosis, and Charcot right foot (being managed at [facility]). No formal sleep apnea testing. Admitted via the ER due to progressive worsening of shortness of breath for the past 3 weeks. He reports that he was discharged home 3 weeks ago from [facility] for admission for atrial fibrillation. His digoxin was reportedly stopped and his Metoprolol dose was doubled. No fever or chills. No travel history or sick contacts. No hemoptysis or night sweats. CXR: increased vascular markings - History Source History Provided By: Patient Limitations to Obtaining History: No Limitations - Past Medical History Cardio/Vascular: Yes: AFIB, CAD, HTN, Hyperlipdemia Pulmonary: Yes: Bronchitis, Sleep Apnea. No: Asthma, Cancer, COPD, O2 Dependent , Previously Intubated, Pulmonary Embolus, Pulmonary Fibrosis Infectious Disease: Yes: MRSA Endocrine: Yes: Diabetes Mellitus Additional Medical History: charcot foot - Alcohol/Substance Use Hx Alcohol Use: No History of Substance Use: reports: None - Smoking History Smoking history: Former smoker Have you smoked in the past 12 months: No If you are a former smoker, when did you quit?: 2017 - Social History Usual Living Arrangement: Alone ADL: Support Services History of Recent Travel: No Home Medications - Allergies Allergies/Adverse Reactions: Allergies Allergy/AdvReac Type Severity Reaction Status Date / Time metformin Allergy Hives Verified 04/19/19 17:45 - Home Medications Home Medications: Ambulatory Orders Aspirin [ASA -] 81 mg PO DAILY 02/09/19 Pantoprazole Sodium [Protonix] 40 mg PO DAILY 02/09/19 Ramipril [Altace] 5 mg PO DAILY 02/09/19 Warfarin Sodium [Coumadin] 3 mg PO DAILY 02/09/19 Atorvastatin Ca [Lipitor] 40 mg PO HS #30 tablet MDD 1 03/06/19 Furosemide [Lasix -] 40 mg PO BID@0600,1400 #30 tablet MDD 2 03/06/19 Insulin (Levemir) [Levemir Vial] 20 units SQ HS #100 units 03/06/19 Insulin (Levemir) [Levemir Vial] 60 units SQ AM #100 units 03/06/19 Metoprolol Tartrate [Lopressor -] 100 mg PO BID #60 tablet MDD 2 03/06/19 Review of Systems - Review of Systems Constitutional: reports: Malaise. denies: Chills, Fever, Night Sweats, Unintentional Wgt. Loss Eyes: reports: No Symptoms HENT: reports: No Symptoms Neck: reports: No Symptoms Cardiovascular: reports: Edema, Shortness of Breath. denies: Chest Pain, Palpitations Respiratory: reports: Cough, Orthopnea, PND, Snoring, SOB, SOB on Exertion. denies: Hemoptysis, Wheezing Gastrointestinal: reports: No Symptoms, Other (ascites) Genitourinary: reports: No Symptoms Breasts: reports: No Symptoms Reported Musculoskeletal: reports: Decreased ROM, Extremity Pain, Joint Pain, Muscle Pain , Muscle Cramps Integumentary: reports: No Symptoms Neurological: reports: No Symptoms Endocrine: reports: No Symptoms Hematology/Lymphatic: reports: No Symptoms Psychiatric: reports: No Symptoms Physical Exam Vital Sings: Vital Signs Temperature 97.8 F 04/20/19 06:30 Pulse Rate 123 H 04/20/19 06:30 Respiratory Rate 20 04/20/19 06:30 Blood Pressure 118/58 L 04/20/19 06:30 O2 Sat by Pulse Oximetry (%) 96 04/19/19 22:20 Constitutional: Yes: No Distress, Anxious, Obese Eyes: Yes: Conjunctiva Clear, EOM Intact HENT: Yes: Atraumatic, Normocephalic Neck: Yes: Supple, Trachea Midline Cardiovascular: Yes: Pulse Irregular Respiratory: Yes: Cough, Diminished, Poor Air Entry, Rales, Rhonchi, SOB, SOB on Exertion, Tachypnea. No: Accessory Muscle Use, Stridor, Wheezes ...Inspection: Yes: WNL ...Clubbing: No Gastrointestinal: Yes: Normal Bowel Sounds, Soft, Abdomen, Obese Musculoskeletal: Yes: Joint Stiffness, Joint Swelling, Muscle Pain Extremities: Yes: Deformity Edema: Yes Peripheral Pulses WNL: Yes Integumentary: Yes: Venous Stasis Changes Neurological: Yes: WNL, Alert, Oriented ...Motor Strength: WNL Psychiatric: Yes: WNL, Alert, Oriented Labs: CBC, BMP 04/20/19 05:32 04/20/19 05:32 Imaging - Results Chest X-ray: Report Reviewed, Image Reviewed Problem List - Problems (1) Atrial fibrillation with RVR Code(s): I48.91 - UNSPECIFIED ATRIAL FIBRILLATION (2) Shortness of breath Code(s): R06.02 - SHORTNESS OF BREATH (3) CAD (coronary artery disease) Code(s): I25.10 - ATHSCL HEART DISEASE OF [place] CORONARY ARTERY W/O ANG PCTRS (4) Diabetes mellitus Code(s): E11.9 - TYPE 2 DIABETES MELLITUS WITHOUT COMPLICATIONS Qualifiers: Diabetes mellitus type: type 2 (5) HLD (hyperlipidemia) Code(s): E78.5 - HYPERLIPIDEMIA, UNSPECIFIED (6) HTN (hypertension) Code(s): I10 - ESSENTIAL (PRIMARY) HYPERTENSION (7) Leg edema Code(s): R60.0 - LOCALIZED EDEMA (8) Morbid obesity Code(s): E66.01 - MORBID (SEVERE) OBESITY DUE TO EXCESS CALORIES (9) Myeloproliferative disorder Code(s): D47.1 - CHRONIC MYELOPROLIFERATIVE DISEASE (10) Right leg swelling Code(s): M79.89 - OTHER SPECIFIED SOFT TISSUE DISORDERS (11) Volume overload Code(s): E87.70 - FLUID OVERLOAD, UNSPECIFIED Assessment/Plan IV Lasix BID O2 as needed to maintain saturation BD TX PRN No indication for systemic steroids No clear indication for ABX Daily weights if feasible No smoking discussed Sleep screen Glycemic control Will follow Thank you. Dr Joseph
--- NOTE | 2019-04-20 14:11 | PN ---
Progress Note, Physician Chief Complaint: SOB Acute on CHronic CHF Exacerbation Chronic Leukocytosis Afib with RVR History of Present Illness: Previous notes and events reviewed awake and alert NAD continue to have SOB denies chest pain or palpitations - Current Medication List Current Medications: Active Medications Aspirin (Asa -) 81 mg PO DAILY [facility] Last Admin: 04/20/19 10:38 Dose: 81 mg Atorvastatin Calcium (Lipitor -) 40 mg PO HS [facility] Last Admin: 04/19/19 23:04 Dose: 40 mg Furosemide (Lasix Injection -) 40 mg IVPUSH BID@0600,1600 [facility] Last Admin: 04/20/19 06:58 Dose: Not Given Insulin Aspart (Novolog Vial Sliding Scale -) [facility]; Protocol Last Admin: 04/20/19 06:57 Dose: Not Given Insulin Detemir (Levemir Vial) 20 units SQ HS [facility] Last Admin: 04/19/19 23:04 Dose: 20 units Insulin Detemir (Levemir Vial) 60 units SQ AM [facility] Last Admin: 04/20/19 06:57 Dose: 60 units Metoprolol Tartrate (Lopressor -) 100 mg PO BID [facility] Last Admin: 04/20/19 10:38 Dose: 100 mg Pantoprazole Sodium (Protonix -) 40 mg PO DAILY [facility] Last Admin: 04/20/19 10:39 Dose: 40 mg Ramipril (Altace -) 5 mg PO DAILY [facility] Last Admin: 04/20/19 10:37 Dose: 5 mg - Objective Vital Signs: Vital Signs Temperature 97.8 F 04/20/19 06:30 Pulse Rate 123 H 04/20/19 06:30 Respiratory Rate 20 04/20/19 06:30 Blood Pressure 118/58 L 04/20/19 06:30 O2 Sat by Pulse Oximetry (%) 96 04/19/19 22:20 Constitutional: Yes: No Distress, Obese Eyes: Yes: Conjunctiva Clear HENT: Yes: Atraumatic Cardiovascular: Yes: Tachycardia, Pulse Irregular Respiratory: Yes: Diminished, On Nasal O2, SOB on Exertion, Tachypnea Gastrointestinal: Yes: Soft, Abdomen, Obese Musculoskeletal: Yes: Muscle Weakness Extremities: Yes: WNL Edema: Yes Neurological: Yes: Alert, Oriented Psychiatric: Yes: Alert, Oriented Labs: CBC, BMP 04/20/19 05:32 07/08/19 05:32 INR, PTT INR 3.26 (0.83-1.09) H 04/20/19 05:32 - ....Imaging Chest X-ray: Report Reviewed EKG: Report Reviewed Problem List - Problems (1) Atrial fibrillation with RVR Assessment/Plan: -Cardiology on board -Tele monitoring -Cardizem q6h, Metoprolol BID -Aspirin Code(s): I48.91 - UNSPECIFIED ATRIAL FIBRILLATION (2) Shortness of breath Assessment/Plan: -Pulm on board -keep SpO2 >90% -O2 via NC Code(s): R06.02 - SHORTNESS OF BREATH (3) CAD (coronary artery disease) Assessment/Plan: -Aspirin and Atorvastatin Code(s): I25.10 - ATHSCL HEART DISEASE OF [place] CORONARY ARTERY W/O ANG PCTRS (4) Diabetes mellitus Assessment/Plan: -BGM AC HS -Levemir -ISS -diabetic diet Code(s): E11.9 - TYPE 2 DIABETES MELLITUS WITHOUT COMPLICATIONS Qualifiers: Diabetes mellitus type: type 2 (5) HLD (hyperlipidemia) Assessment/Plan: -Atorvastatin Code(s): E78.5 - HYPERLIPIDEMIA, UNSPECIFIED (6) HTN (hypertension) Assessment/Plan: -Ramipril on hold until CHF exacerbation improves Code(s): I10 - ESSENTIAL (PRIMARY) HYPERTENSION (7) Leukocytosis Assessment/Plan: -WBC 16.3 -ID consult -afebrile -monitor for WBC downtrend Code(s): D72.829 - ELEVATED WHITE BLOOD CELL COUNT, UNSPECIFIED (8) Acute on chronic diastolic CHF (congestive heart failure) Assessment/Plan: -Cardiology on board -Lasix BID -Metolazone -1L fluid restriction -daily weights -strict I&Os Code(s): I50.33 - ACUTE ON CHRONIC DIASTOLIC (CONGESTIVE) HEART FAILURE Assessment/Plan see progress notes dvt ppx
--- NOTE | 2019-04-20 14:12 | CON.CARD ---
Consult Consult Specialty:: Cardiology - History of Present Illness Chief Complaint: Rapid Afib. Dyspnea History of Present Illness: 63 year old morbidly obese male with history of chronic atrial fibrillation(on Coumadin), coronary artery disease with stent in 01/2018, hypertension, IDDM( last hemoglobin a1c 10), chronic leukocytosis, and Charcot right foot. He was admitted in February with heart failure. Echocardiogram at that time showed normal LV function. Has been compliant with medications. Presents with worsening shortness of breath for the past 3 weeks. He reports he is unable to walk 10 feet without getting shortness of breath and reports abdominal bloating. In the ER mild respiratory distress and mild hypoxia(Oxygen saturation 93%). He was found to be in atrial fibrillation with RVR heart rate 150's. - Past Medical History Cardio/Vascular: Yes: AFIB, CAD, HTN, Hyperlipdemia Pulmonary: Yes: Bronchitis, Sleep Apnea. No: Asthma, Cancer, COPD, O2 Dependent , Previously Intubated, Pulmonary Embolus, Pulmonary Fibrosis Infectious Disease: Yes: MRSA Endocrine: Yes: Diabetes Mellitus Additional Medical History: charcot foot - Alcohol/Substance Use Hx Alcohol Use: No History of Substance Use: reports: None - Smoking History Smoking history: Former smoker Have you smoked in the past 12 months: No If you are a former smoker, when did you quit?: 2017 - Social History Usual Living Arrangement: Alone ADL: Support Services History of Recent Travel: No Home Medications - Allergies Allergies/Adverse Reactions: Allergies Allergy/AdvReac Type Severity Reaction Status Date / Time metformin Allergy Hives Verified 04/19/19 17:45 - Home Medications Home Medications: Ambulatory Orders Aspirin [ASA -] 81 mg PO DAILY 02/09/19 Pantoprazole Sodium [Protonix] 40 mg PO DAILY 02/09/19 Ramipril [Altace] 5 mg PO DAILY 02/09/19 Warfarin Sodium [Coumadin] 3 mg PO DAILY 02/09/19 Atorvastatin Ca [Lipitor] 40 mg PO HS #30 tablet MDD 1 03/06/19 Furosemide [Lasix -] 40 mg PO BID@0600,1400 #30 tablet MDD 2 03/06/19 Insulin (Levemir) [Levemir Vial] 20 units SQ HS #100 units 03/06/19 Insulin (Levemir) [Levemir Vial] 60 units SQ AM #100 units 03/06/19 Metoprolol Tartrate [Lopressor -] 100 mg PO BID #60 tablet MDD 2 03/06/19 Review of Systems - Review of Systems Constitutional: reports: No Symptoms Eyes: reports: No Symptoms HENT: reports: No Symptoms Neck: reports: No Symptoms Cardiovascular: reports: Edema, Shortness of Breath. denies: Chest Pain, Palpitations Respiratory: reports: SOB on Exertion Gastrointestinal: reports: No Symptoms Vital Signs: Vital Signs Temperature 97.8 F 04/20/19 06:30 Pulse Rate 123 H 04/20/19 06:30 Respiratory Rate 20 04/20/19 06:30 Blood Pressure 118/58 L 04/20/19 06:30 O2 Sat by Pulse Oximetry (%) 96 04/19/19 22:20 Constitutional: Yes: Well Nourished, Obese Eyes: Yes: Conjunctiva Clear, EOM Intact HENT: Yes: Atraumatic, Normocephalic Neck: Yes: Supple, Trachea Midline Respiratory: Yes: Regular, CTA Bilaterally Gastrointestinal: Yes: Normal Bowel Sounds, Soft Cardiovascular: Yes: Pulse Irregular JVD: Yes Carotid Bruit: No PMI: Non-Displaced Heart Sounds: Yes: S1, S2 Murmur: No: Systolic Murmur, Diastolic Murmur Edema: Yes (sacral and abdominal wall) Edema: LLE: 1+, RLE: 1+ - Other Data Labs, Other Data: CBC, BMP 04/20/19 05:32 04/20/19 05:32 INR, PTT INR 3.26 (0.83-1.09) H 04/20/19 05:32 Troponin, BNP 04/19/19 18:29 Troponin I < 0.02 B-Natriuretic Peptide 1158.0 H Troponin, BNP 04/19/19 18:29 Troponin I < 0.02 B-Natriuretic Peptide 1158.0 H Afib RVR no ST T changes. Ejection Fraction %: LVEF > or = 40 % Imaging - Results Chest X-ray: Report Reviewed Problem List - Problems (1) Atrial fibrillation with RVR Code(s): I48.91 - UNSPECIFIED ATRIAL FIBRILLATION (2) Shortness of breath Code(s): R06.02 - SHORTNESS OF BREATH Assessment/Plan Chronic Afib, CHF due to Heart failure with normal EF. Stable chronic CAD Morbid besity with DM and charcot foot. Admitted with rapid Afib and volume overload. Rec Increase Lasix 80mg IV BID Add Metolazone 5mg po 30 min prior to AM lasix Add Diltiazem 30mg Q8 hr Hold ramapril until CHF improves. Monitor I/O and daily weight.
[2019-04-20] MEDS ORDERED: FUROSEMIDE 40 MG/4 ML INJECTABLE VIAL IVPB SCH (14:21)
[2019-04-20] MEDS: FUROSEMIDE 40 MG/4 ML INJECTABLE VIAL IVPB SCH (15:30)
--- NOTE | 2019-04-20 17:01 | CON.ID ---
Consult Referred by:: dr barnes Reason for Consultation:: leukocytosis - History of Present Illness Chief Complaint: sob History of Present Illness: 63 yo man admitted with SOB and increasing edema and weight gain he ws found to be in rapid afib in the ED recent admission in February for CHF pmh of chronic afib CAD s/p stent charcot foot s/p surgery- wears boot no fevers or chills no cough history of chronic leukocytosis- followed by hematology at [facility] he has lost his apt and his walker is broken - History Source History Provided By: Patient Limitations to Obtaining History: Physical Impairment - Past Medical History Cardio/Vascular: Yes: AFIB, CAD, HTN, Hyperlipdemia Pulmonary: Yes: Bronchitis, Sleep Apnea. No: Asthma, Cancer, COPD, O2 Dependent , Previously Intubated, Pulmonary Embolus, Pulmonary Fibrosis Infectious Disease: Yes: MRSA Endocrine: Yes: Diabetes Mellitus Additional Medical History: charcot foot - Past Surgical History Additional Surgical History: s/p charcot foot surgery. 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 Place of : [facility] History of Recent Travel: No Home Medications - Allergies Allergies/Adverse Reactions: Allergies Allergy/AdvReac Type Severity Reaction Status Date / Time metformin Allergy Hives Verified 04/19/19 17:45 - Home Medications Home Medications: Ambulatory Orders Aspirin [ASA -] 81 mg PO DAILY 02/09/19 Pantoprazole Sodium [Protonix] 40 mg PO DAILY 02/09/19 Ramipril [Altace] 5 mg PO DAILY 02/09/19 Warfarin Sodium [Coumadin] 3 mg PO DAILY 02/09/19 Atorvastatin Ca [Lipitor] 40 mg PO HS #30 tablet MDD 1 03/06/19 Furosemide [Lasix -] 40 mg PO BID@0600,1400 #30 tablet MDD 2 03/06/19 Insulin (Levemir) [Levemir Vial] 20 units SQ HS #100 units 03/06/19 Insulin (Levemir) [Levemir Vial] 60 units SQ AM #100 units 03/06/19 Metoprolol Tartrate [Lopressor -] 100 mg PO BID #60 tablet MDD 2 03/06/19 Family Disease History - Family Disease History Family History: Denies Review of Systems - Review of Systems Constitutional: reports: No Symptoms Eyes: reports: No Symptoms HENT: reports: No Symptoms Neck: reports: No Symptoms Cardiovascular: reports: No Symptoms, Edema, Shortness of Breath. denies: Chest Pain Respiratory: reports: Orthopnea, SOB on Exertion. denies: Cough Gastrointestinal: reports: No Symptoms. denies: Abdominal Pain Genitourinary: reports: No Symptoms. denies: Burning, Discharge Physical Exam Vital Signs: Vital Signs Temperature 98.7 F 04/20/19 14:00 Pulse Rate 106 H 04/20/19 14:00 Respiratory Rate 20 04/20/19 14:00 Blood Pressure 104/67 04/20/19 14:00 O2 Sat by Pulse Oximetry (%) 95 04/20/19 09:00 Constitutional: Yes: Well Nourished, Obese Eyes: Yes: Conjunctiva Clear HENT: Yes: Atraumatic, Normocephalic. No: Thrush Neck: Yes: Supple Cardiovascular: Yes: Regular Rate and Rhythm Respiratory: Yes: Regular, CTA Bilaterally, Diminished (at the bases) Gastrointestinal: Yes: Normal Bowel Sounds, Soft, Other (protuberant, obese, cannot appreciate any organomegaly due to size) Extremities: Yes: Other (foot examined, no skin breakdown) Edema: Yes Edema: LLE: 2+, RLE: 2+ Integumentary: Yes: Rash (both hands, macular, chronic per patient) Psychiatric: Yes: Alert, Oriented Labs: CBC, BMP 04/20/19 05:32 04/20/19 05:32 Imaging - Results Chest X-ray: Report Reviewed, Image Reviewed Problem List - Problems (1) Leukocytosis Code(s): D72.829 - ELEVATED WHITE BLOOD CELL COUNT, UNSPECIFIED (2) Volume overload Code(s): E87.70 - FLUID OVERLOAD, UNSPECIFIED (3) Atrial fibrillation with RVR Code(s): I48.91 - UNSPECIFIED ATRIAL FIBRILLATION Assessment/Plan chronic leukocytosis at baseline- f/u with outpt piecer- count runs 16-20k management of CHF/volume overload, afib per cardiology please call back if needed
[2019-04-20] MEDS: dilTIAZem HCL 30 MG TABLET (FP) PO SCH ×2 (17:51→23:57)
[2019-04-20] MEDS: ATORVASTATIN CA 40 MG TABLET (FP) PO SCH (21:52)
[2019-04-21] MEDS ORDERED: METOLAZONE 5 MG TABLET PO SCH (05:30)
[2019-04-21] MEDS: dilTIAZem HCL 30 MG TABLET (FP) PO SCH ×4 (05:48→17:29)
[2019-04-21] MEDS: INSULIN (LEVEMIR) 100 UNITS/ML UNITS SQ SCH ×2 (06:59→21:39)
[2019-04-21] MEDS: FUROSEMIDE 40 MG/4 ML INJECTABLE VIAL IVPB SCH ×2 (06:59→16:48)
[2019-04-21] MEDS: INSULIN SLIDING SCALE (NOVOLOG) 1 VIAL SQ SCH ×2 (06:59→16:54)
[2019-04-21 07:06] LABS: HEMOGLOBIN 11.4 GM/dL (11.7-16.9); MCH 27.3 pg (25.7-33.7); MCHC 31.7 g/dl (32.0-35.9); MEAN CELL VOLUME 86.1 fl (80-96); MEAN PLT VOLUME 8.3 fl (7.5-11.1); PLATELET COUNT 381 K/MM3 (134-434); RBC 4.18 M/mm3 (4.00-5.60); RDW 16.4 % (11.9-15.9); WHITE BLOOD COUNT 16.5 K/mm3 (4.0-10.0)
[2019-04-21 07:55] LABS: ALBUMIN 2.6 g/dl (3.4-5.0); BILIRUBIN,TOTAL 0.7 mg/dL (0.2-1); BLOOD UREA NITROGEN 25.1 mg/dL (7-18); CALCIUM 8.2 mg/dL (8.5-10.1); CREATININE 1.1 mg/dL (0.55-1.3); POTASSIUM 4.4 mmol/L (3.5-5.1); TOT PROT 6.7 g/dl (6.4-8.2)
[2019-04-21 08:12] LABS: INR 2.48 (0.83-1.09); PROTHROMBIN TIME (PATIENT) 29.5 SEC (9.7-13.0)
[2019-04-21] MEDS: ASPIRIN 81 MG CHEWABLE TABLETS PO SCH (09:46)
[2019-04-21] MEDS: PANTOPRAZOLE 40 MG TABLET (FP) PO SCH (09:46)
[2019-04-21] MEDS: METOPROLOL TARTRATE 50 MG TABLET (FP) PO SCH ×2 (09:46→21:39)
--- NOTE | 2019-04-21 10:40 | PN ---
Progress Note, Physician Chief Complaint: Cards FU Telem Afib HR 90s-120. 12 beats NSVT. History of Present Illness: 63 year old morbidly obese male with history of chronic atrial fibrillation(on Coumadin), coronary artery disease with stent in 01/2018, hypertension, IDDM( last hemoglobin a1c 10), chronic leukocytosis, and Charcot right foot. He was admitted in February with heart failure. Echocardiogram at that time showed normal LV function. Has been compliant with medications. Presents with worsening shortness of breath for the past 3 weeks. He reports he is unable to walk 10 feet without getting shortness of breath and reports abdominal bloating. In the ER mild respiratory distress and mild hypoxia(Oxygen saturation 93%). He was found to be in atrial fibrillation with RVR heart rate 150's. - Current Medication List Current Medications: Active Medications Aspirin (Asa -) 81 mg PO DAILY [facility] Last Admin: 04/21/19 09:46 Dose: 81 mg Atorvastatin Calcium (Lipitor -) 40 mg PO HS [facility] Last Admin: 04/20/19 21:52 Dose: 40 mg Diltiazem HCl (Cardizem -) 30 mg PO Q6HPO [facility] Last Admin: 04/21/19 05:48 Dose: 30 mg Furosemide (Lasix Injection -) 80 mg IVPB BID@0600,1400 [facility] Last Admin: 04/21/19 06:59 Dose: 80 mg Insulin Aspart (Novolog Vial Sliding Scale -) 1 vial SQ BIDAC [facility]; Protocol Last Admin: 04/21/19 06:59 Dose: Not Given Insulin Detemir (Levemir Vial) 20 units SQ HS [facility] Last Admin: 04/20/19 21:53 Dose: 20 units Insulin Detemir (Levemir Vial) 60 units SQ AM [facility] Last Admin: 04/21/19 06:59 Dose: 60 units Metolazone (Zaroxolyn -) 5 mg PO 0530 [facility] Last Admin: 04/21/19 05:48 Dose: 5 mg Metoprolol Tartrate (Lopressor -) 100 mg PO BID [facility] Last Admin: 04/21/19 09:46 Dose: 100 mg Pantoprazole Sodium (Protonix -) 40 mg PO DAILY [facility] Last Admin: 04/21/19 09:46 Dose: 40 mg - Objective Vital Signs: Vital Signs Temperature 98.7 F 04/21/19 02:00 Pulse Rate 94 H 04/21/19 05:55 Respiratory Rate 20 04/21/19 05:55 Blood Pressure 129/69 04/21/19 05:55 O2 Sat by Pulse Oximetry (%) 95 04/20/19 21:00 Constitutional: Yes: Well Nourished, No Distress Eyes: Yes: Conjunctiva Clear HENT: Yes: Atraumatic, Normocephalic Neck: Yes: Supple, Trachea Midline Cardiovascular: Yes: Tachycardia, Pulse Irregular, JVD Respiratory: Yes: Regular, CTA Bilaterally Edema: Yes Edema: LLE: 1+, RLE: 1+ Labs: CBC, BMP 04/21/19 05:30 04/21/19 05:30 INR, PTT INR 2.48 (0.83-1.09) H 04/21/19 06:50 Problem List - Problems (1) Atrial fibrillation with RVR Code(s): I48.91 - UNSPECIFIED ATRIAL FIBRILLATION (2) Shortness of breath Code(s): R06.02 - SHORTNESS OF BREATH Assessment/Plan Chronic Afib, CHF due to Heart failure with normal EF. Stable chronic CAD Morbid besity with DM and charcot foot. Admitted with rapid Afib and volume overload. Rec Diuresing on current therapy . Still volume overloaded. cont Lasix 80mg IV BID, and Metolazone 5mg po 30 min prior to AM lasix Diltiazem 30mg Q8 hr Hold ramapril until CHF improves. Monitor I/O and daily weight.
--- NOTE | 2019-04-21 11:15 | PN ---
Progress Note, Physician Chief Complaint: SOB Acute on CHronic CHF Exacerbation Chronic Leukocytosis Afib with RVR History of Present Illness: NAD in bed SOB improved - Current Medication List Current Medications: Active Medications Aspirin (Asa -) 81 mg PO DAILY [facility] Last Admin: 04/21/19 09:46 Dose: 81 mg Atorvastatin Calcium (Lipitor -) 40 mg PO HS [facility] Last Admin: 04/20/19 21:52 Dose: 40 mg Diltiazem HCl (Cardizem -) 30 mg PO Q6HPO [facility] Last Admin: 04/21/19 05:48 Dose: 30 mg Furosemide (Lasix Injection -) 80 mg IVPB BID@0600,1400 [facility] Last Admin: 04/21/19 06:59 Dose: 80 mg Insulin Aspart ([facility]olog [facility]ial Sliding Scale -) [facility] Protocol Last Admin: 04/21/19 06:59 Dose: Not Given Insulin Detemir (Levemir Vial) 20 units SQ HS [facility] Last Admin: 04/20/19 21:53 Dose: 20 units Insulin Detemir (Levemir Vial) 60 units SQ AM [facility] Last Admin: 04/21/19 06:59 Dose: 60 units Metolazone (Zaroxolyn -) 5 mg PO 0530 [facility] Last Admin: 04/21/19 05:48 Dose: 5 mg Metoprolol Tartrate (Lopressor -) 100 mg PO BID [facility] Last Admin: 04/21/19 09:46 Dose: 100 mg Pantoprazole Sodium (Protonix -) 40 mg PO DAILY [facility] Last Admin: 04/21/19 09:46 Dose: 40 mg - Objective Vital Signs: Vital Signs Temperature 98.7 F 04/21/19 02:00 Pulse Rate 94 H 04/21/19 05:55 Respiratory Rate 20 04/21/19 05:55 Blood Pressure 129/69 04/21/19 05:55 O2 Sat by Pulse Oximetry (%) 95 04/20/19 21:00 Constitutional: Yes: Well Nourished, No Distress, Calm, Obese Cardiovascular: Yes: Regular Rate and Rhythm Respiratory: Yes: Regular Gastrointestinal: Yes: Normal Bowel Sounds, Soft, Abdomen, Obese Genitourinary: Yes: WNL Musculoskeletal: Yes: WNL Extremities: Yes: WNL Edema: Yes (BLLE non pitting edema) Peripheral Pulses WNL: Yes Neurological: Yes: Alert, Oriented Psychiatric: Yes: Alert, Oriented Labs: CBC, BMP 04/21/19 05:30 04/21/19 05:30 INR, PTT INR 2.48 (0.83-1.09) H 04/21/19 06:50 Assessment/Plan (1) Atrial fibrillation with RVR Assessment/Plan: -Cardiology on board -Tele monitoring- rate controlled at this time in 80's-90's -Cardizem 30 mg q6h, Metoprolol 100 mg BID -Aspirin -Warfarin was on hold due to elevated INR -INR goal 2-3 -INR therapeutic today -restart warfarin at 3 mg TTh and 1.5 mg all other days Code(s): I48.91 - UNSPECIFIED ATRIAL FIBRILLATION (2) Shortness of breath Assessment/Plan: -Pulm on board -keep SpO2 >90% -O2 via NC Code(s): R06.02 - SHORTNESS OF BREATH (3) CAD (coronary artery disease) Assessment/Plan: -Aspirin and Atorvastatin Code(s): I25.10 - ATHSCL HEART DISEASE OF [place] CORONARY ARTERY W/O ANG PCTRS (4) Diabetes mellitus Assessment/Plan: -BGM AC HS -Levemir -ISS -diabetic diet -A1c at 8.3 -Endocrine consult -RD consult Code(s): E11.9 - TYPE 2 DIABETES MELLITUS WITHOUT COMPLICATIONS Qualifiers: Diabetes mellitus type: type 2 (5) HLD (hyperlipidemia) Assessment/Plan: -Atorvastatin Code(s): E78.5 - HYPERLIPIDEMIA, UNSPECIFIED (6) HTN (hypertension) Assessment/Plan: -Ramipril on hold until CHF exacerbation improves Code(s): I10 - ESSENTIAL (PRIMARY) HYPERTENSION (7) Leukocytosis Assessment/Plan: -chronic -sees hematology at [facility] -afebrile Code(s): D72.829 - ELEVATED WHITE BLOOD CELL COUNT, UNSPECIFIED (8) Acute on chronic diastolic CHF (congestive heart failure) Assessment/Plan: -Cardiology on board -Lasix BID -Metolazone -1L fluid restriction -daily weights -strict I&Os Code(s): I50.33 - ACUTE ON CHRONIC DIASTOLIC (CONGESTIVE) HEART FAILURE Pt refused physical therapy
--- NOTE | 2019-04-21 11:27 | PN ---
Progress Note, Physician History of Present Illness: pulmonary alert,less dyspneic,-cp - Current Medication List Current Medications: Active Medications Aspirin (Asa -) 81 mg PO DAILY [facility] Last Admin: 04/21/19 09:46 Dose: 81 mg Atorvastatin Calcium (Lipitor -) 40 mg PO HS [facility] Last Admin: 04/20/19 21:52 Dose: 40 mg Diltiazem HCl (Cardizem -) 30 mg PO Q6HPO [facility] Last Admin: 04/21/19 05:48 Dose: 30 mg Furosemide (Lasix Injection -) 80 mg IVPB BID@0600,1400 [facility] Last Admin: 04/21/19 06:59 Dose: 80 mg Insulin Aspart (Novolog Vial Sliding Scale -) [facility] Protocol Last Admin: 04/21/19 06:59 Dose: Not Given Insulin Detemir (Levemir Vial) 20 units SQ [facility] Last Admin: 04/20/19 21:53 Dose: 20 units Insulin Detemir (Levemir Vial) 60 units SQ AM [facility] Last Admin: 04/21/19 06:59 Dose: 60 units Metolazone (Zaroxolyn -) 5 mg PO 0530 [facility] Last Admin: 04/21/19 05:48 Dose: 5 mg Metoprolol Tartrate (Lopressor -) 100 mg PO BID [facility] Last Admin: 04/21/19 09:46 Dose: 100 mg Pantoprazole Sodium (Protonix -) 40 mg PO DAILY [facility] Last Admin: 04/21/19 09:46 Dose: 40 mg Warfarin Sodium (Coumadin -) 3 mg PO [facility] Warfarin Sodium (Coumadin -) 1.5 mg PO [facility]OWEFR [facility] - Objective Vital Signs: Vital Signs Temperature 98.7 F 04/21/19 02:00 Pulse Rate 94 H 04/21/19 05:55 Respiratory Rate 20 04/21/19 05:55 Blood Pressure 129/69 04/21/19 05:55 O2 Sat by Pulse Oximetry (%) 95 04/20/19 21:00 Constitutional: Yes: Calm, Obese Eyes: Yes: WNL HENT: Yes: WNL Neck: Yes: WNL Cardiovascular: Yes: Pulse Irregular, S1, S2 Respiratory: Yes: Diminished Gastrointestinal: Yes: Normal Bowel Sounds, Soft, Abdomen, Obese Extremities: Yes: WNL Edema: Yes Labs: CBC, BMP 04/21/19 05:30 04/21/19 05:30 INR, PTT INR 2.48 (0.83-1.09) H 04/21/19 06:50 Assessment/Plan Problem List - Problems (1) Atrial fibrillation with RVR Code(s): I48.91 - UNSPECIFIED ATRIAL FIBRILLATION (2) Shortness of breath Code(s): R06.02 - SHORTNESS OF BREATH (3) CAD (coronary artery disease) Code(s): I25.10 - ATHSCL HEART DISEASE OF [place] CORONARY ARTERY W/O ANG PCTRS (4) Diabetes mellitus Code(s): E11.9 - TYPE 2 DIABETES MELLITUS WITHOUT COMPLICATIONS Qualifiers: Diabetes mellitus type: type 2 (5) HLD (hyperlipidemia) Code(s): E78.5 - HYPERLIPIDEMIA, UNSPECIFIED (6) HTN (hypertension) Code(s): I10 - ESSENTIAL (PRIMARY) HYPERTENSION (7) Leg edema Code(s): R60.0 - LOCALIZED EDEMA (8) Morbid obesity Code(s): E66.01 - MORBID (SEVERE) OBESITY DUE TO EXCESS CALORIES (9) Myeloproliferative disorder Code(s): D47.1 - CHRONIC MYELOPROLIFERATIVE DISEASE (10) Right leg swelling Code(s): M79.89 - OTHER SPECIFIED SOFT TISSUE DISORDERS (11) Volume overload Code(s): E87.70 - FLUID OVERLOAD, UNSPECIFIED Assessment/Plan IV Lasix BID O2 as needed to maintain saturation BD TX PRN Daily weights if feasible No smoking discussed Sleep screen Glycemic control Bariatric surgery evaluation DR LAU
[2019-04-21] MEDS ORDERED: HEPARIN NA (PORCINE) 5,000 UNITS/ML 1ML VIAL SQ SCH (11:30)
--- NOTE | 2019-04-21 14:35 | CONSULT ---
Consult Consult Specialty:: Bariatric Surgery Reason for Consultation:: Morbid obesity - History Source History Provided By: Patient - Past Medical History Cardio/Vascular: Yes: AFIB, CAD, HTN, Hyperlipdemia Pulmonary: Yes: Bronchitis, Sleep Apnea. No: Asthma, Cancer, COPD, O2 Dependent , Previously Intubated, Pulmonary Embolus, Pulmonary Fibrosis Infectious Disease: Yes: MRSA Endocrine: Yes: Diabetes Mellitus Additional Medical History: charcot foot - Past Surgical History Additional Surgical History: s/p charcot foot surgery. 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 History of Recent Travel: No Home Medications - Allergies Allergies/Adverse Reactions: Allergies Allergy/AdvReac Type Severity Reaction Status Date / Time metformin Allergy Hives Verified 04/19/19 17:45 - Home Medications Home Medications: Ambulatory Orders Aspirin [ASA -] 81 mg PO DAILY 02/09/19 Pantoprazole Sodium [Protonix] 40 mg PO DAILY 02/09/19 Ramipril [Altace] 5 mg PO DAILY 02/09/19 Warfarin Sodium [Coumadin] 3 mg PO DAILY 02/09/19 Atorvastatin Ca [Lipitor] 40 mg PO HS #30 tablet MDD 1 03/06/19 Furosemide [Lasix -] 40 mg PO BID@0600,1400 #30 tablet MDD 2 03/06/19 Insulin (Levemir) [Levemir Vial] 20 units SQ HS #100 units 03/06/19 Insulin (Levemir) [Levemir Vial] 60 units SQ AM #100 units 03/06/19 Metoprolol Tartrate [Lopressor -] 100 mg PO BID #60 tablet MDD 2 03/06/19 Review of Systems - Review of Systems Gastrointestinal: reports: No Symptoms. denies: Abdominal Pain Pain Intensity: 2 Physical Exam Vital Signs: Vital Signs Temperature 97.5 F L 04/21/19 10:00 Pulse Rate 103 H 04/21/19 10:00 Respiratory Rate 20 04/21/19 10:00 Blood Pressure 135/74 04/21/19 10:00 O2 Sat by Pulse Oximetry (%) 95 04/21/19 09:00 Constitutional: Yes: Calm Cardiovascular: Yes: WNL Gastrointestinal: Yes: Soft, Abdomen, Obese Labs: CBC, BMP 04/21/19 05:30 04/21/19 05:30 Problem List - Problems (1) Morbid (severe) obesity due to excess calories Code(s): E66.01 - MORBID (SEVERE) OBESITY DUE TO EXCESS CALORIES Assessment/Plan Morbid obesity To follow up in office for consultation [phone] Thank you
[2019-04-21] MEDS: WARFARIN NA 3 MG TABLET PO SCH (17:27)
[2019-04-21] MEDS ORDERED: WARFARIN NA 3 MG TABLET PO SCH (18:00)
[2019-04-21] MEDS: ATORVASTATIN CA 40 MG TABLET (FP) PO SCH (21:39)
[2019-04-21] MEDS ORDERED: DICYCLOMINE HCL 10 MG CAPSULE PO ONE (23:46)
[2019-04-22] MEDS: dilTIAZem HCL 30 MG TABLET (FP) PO SCH ×4 (00:06→17:12)
[2019-04-22] MEDS ORDERED: PT OWN MED DRAWER 7, Y5N ONE (04:41)
[2019-04-22] MEDS: INSULIN (LEVEMIR) 100 UNITS/ML UNITS SQ SCH ×2 (08:14→21:43)
[2019-04-22] MEDS: INSULIN SLIDING SCALE (NOVOLOG) 1 VIAL SQ SCH ×2 (08:15→17:06)
[2019-04-22] MEDS: METOLAZONE 5 MG TABLET PO SCH (08:17)
--- NOTE | 2019-04-22 08:49 | PN ---
Progress Note, Physician - Current Medication List Current Medications: Active Medications Aspirin (Asa -) 81 mg PO DAILY [facility] Atorvastatin Calcium (Lipitor -) 40 mg PO HS [facility] Last Admin: 04/21/19 21:39 Dose: 40 mg Diltiazem HCl (Cardizem -) 30 mg PO Q6HPO [facility] Last Admin: 04/22/19 08:18 Dose: 30 mg Furosemide (Lasix Injection -) 80 mg IVPB BID@0600,1400 [facility] Insulin Aspart (Novolog Vial Sliding Scale -) [facility]; Protocol Last Admin: 04/22/19 08:15 Dose: 4 units Insulin Detemir (Levemir Vial) 20 units SQ HS [facility] Last Admin: 04/21/19 21:39 Dose: 20 unit Insulin Detemir (Levemir Vial) 60 units SQ AM [facility] Last Admin: 04/22/19 08:14 Dose: 60 units Metolazone (Zaroxolyn -) 5 mg PO 0530 [facility] Last Admin: 04/22/19 08:17 Dose: 5 mg Metoprolol Tartrate (Lopressor -) 100 mg PO BID [facility] Last Admin: 04/21/19 21:39 Dose: 100 mg Pantoprazole Sodium (Protonix -) 40 mg PO DAILY [facility] Warfarin Sodium (Coumadin -) 3 mg PO TuTh@1800 [facility] Last Admin: 04/21/19 17:27 Dose: 3 mg Warfarin Sodium (Coumadin -) 1.5 mg PO SuMoWeFrSa@1800 [facility] - Objective Vital Signs: Vital Signs Temperature 98.3 F 04/21/19 22:00 Pulse Rate 110 H 04/21/19 22:00 Respiratory Rate 20 04/21/19 22:00 Blood Pressure 154/90 04/21/19 22:00 O2 Sat by Pulse Oximetry (%) 96 04/21/19 21:00 Cardiovascular: Yes: Pulse Irregular, S1, S2 Respiratory: Yes: Rales Gastrointestinal: Yes: Normal Bowel Sounds, Soft Edema: Yes Edema: LLE: 3+, RLE: 3+ Labs: CBC, BMP 04/21/19 05:30 INR, PTT INR 2.48 (0.83-1.09) H 04/21/19 06:50 Assessment/Plan (1) Atrial fibrillation with RVR Assessment/Plan: -Cardiology on board -Tele monitoring -Cardizem 30 mg q6h, Metoprolol 100 mg BID -Aspirin -INR goal 2-3 -INR therapeutic today -restart warfarin at 3 mg TTh and 1.5 mg all other days Code(s): I48.91 - UNSPECIFIED ATRIAL FIBRILLATION (2) Shortness of breath Assessment/Plan: -Pulm on board -keep SpO2 >90% -O2 via NC Code(s): R06.02 - SHORTNESS OF BREATH (3) CAD (coronary artery disease) Assessment/Plan: -Aspirin and Atorvastatin Code(s): I25.10 - ATHSCL HEART DISEASE OF [place] CORONARY ARTERY W/O ANG PCTRS (4) Diabetes mellitus Assessment/Plan: -BGM AC HS -Levemir -ISS -diabetic diet -A1c at 8.3 -Endocrine consult -RD consult Code(s): E11.9 - TYPE 2 DIABETES MELLITUS WITHOUT COMPLICATIONS Qualifiers: Diabetes mellitus type: type 2 (5) HLD (hyperlipidemia) Assessment/Plan: -Atorvastatin Code(s): E78.5 - HYPERLIPIDEMIA, UNSPECIFIED (6) HTN (hypertension) Assessment/Plan: -Ramipril on hold until CHF exacerbation improves Code(s): I10 - ESSENTIAL (PRIMARY) HYPERTENSION (7) Leukocytosis Assessment/Plan: -chronic -sees hematology at [place] -afebrile Code(s): D72.829 - ELEVATED WHITE BLOOD CELL COUNT, UNSPECIFIED (8) Acute on chronic diastolic CHF (congestive heart failure) Assessment/Plan: -Cardiology on board -Lasix BID -Metolazone -1L fluid restriction -daily weights -strict I&Os Code(s): I50.33 - ACUTE ON CHRONIC DIASTOLIC (CONGESTIVE) HEART FAILURE
[2019-04-22 09:06] LABS: BLOOD UREA NITROGEN 23.9 mg/dL (7-18); CALCIUM 8.8 mg/dL (8.5-10.1); CREATININE 1.1 mg/dL (0.55-1.3); POTASSIUM 4.3 mmol/L (3.5-5.1)
[2019-04-22] MEDS: FUROSEMIDE 40 MG/4 ML INJECTABLE VIAL IVPB SCH ×2 (09:12→15:41)
[2019-04-22 09:13] LABS: INR 2.05 (0.83-1.09); PROTHROMBIN TIME (PATIENT) 24.4 SEC (9.7-13.0)
[2019-04-22] MEDS: PANTOPRAZOLE 40 MG TABLET (FP) PO SCH (10:25)
[2019-04-22] MEDS: ASPIRIN 81 MG CHEWABLE TABLETS PO SCH (10:25)
[2019-04-22] MEDS: METOPROLOL TARTRATE 50 MG TABLET (FP) PO SCH ×2 (10:25→21:44)
--- NOTE | 2019-04-22 13:50 | PN ---
Progress Note, Physician History of Present Illness: pulmonary alert,feeling better,dyspnea improving - Current Medication List Current Medications: Active Medications Aspirin (Asa -) 81 mg PO DAILY [facility] Last Admin: 04/22/19 10:25 Dose: 81 mg Atorvastatin Calcium (Lipitor -) 40 mg PO HS [facility] Last Admin: 04/21/19 21:39 Dose: 40 mg Diltiazem HCl (Cardizem -) 30 mg PO Q6HPO [facility] Last Admin: 04/22/19 13:23 Dose: 30 mg Furosemide (Lasix Injection -) 80 mg IVPB BID@0600,1400 [facility] Last Admin: 04/22/19 09:12 Dose: 80 mg Insulin Aspart (Novolog Vial Sliding Scale -) [facility]; Protocol Last Admin: 04/22/19 08:15 Dose: 4 units Insulin Detemir (Levemir Vial) [address] [facility] Last Admin: 04/21/19 21:39 Dose: 20 unit Insulin Detemir (Levemir Vial) 60 units SQ AM [facility] Last Admin: 04/22/19 08:14 Dose: 60 units Metolazone (Zaroxolyn -) 5 mg PO 0530 [facility] Last Admin: 04/22/19 08:17 Dose: 5 mg Metoprolol Tartrate (Lopressor -) 100 mg PO BID [facility] Last Admin: 04/22/19 10:25 Dose: 100 mg Pantoprazole Sodium (Protonix -) 40 mg PO DAILY [facility] Last Admin: 04/22/19 10:25 Dose: 40 mg Warfarin Sodium (Coumadin -) 3 mg PO TuTh@1800 [facility] Last Admin: 04/21/19 17:27 Dose: 3 mg Warfarin Sodium (Coumadin -) 1.5 mg PO SuMoWeFrSa@1800 [facility] - Objective Vital Signs: Vital Signs Temperature 98.2 F 04/22/19 10:00 Pulse Rate 102 H 04/22/19 10:00 Respiratory Rate 20 04/22/19 10:00 Blood Pressure 117/56 L 04/22/19 10:00 O2 Sat by Pulse Oximetry (%) 95 04/22/19 09:00 Constitutional: Yes: Calm, Obese Eyes: Yes: WNL HENT: Yes: WNL Neck: Yes: WNL Cardiovascular: Yes: Pulse Irregular, S1, S2 Respiratory: Yes: Diminished Gastrointestinal: Yes: Normal Bowel Sounds, Soft Extremities: Yes: WNL Edema: Yes Labs: CBC, BMP 04/22/19 08:20 INR, PTT INR 2.05 (0.83-1.09) H 04/22/19 08:20 Assessment/Plan Problem List - Problems (1) Atrial fibrillation with RVR Code(s): I48.91 - UNSPECIFIED ATRIAL FIBRILLATION (2) Shortness of breath Code(s): R06.02 - SHORTNESS OF BREATH (3) CAD (coronary artery disease) Code(s): I25.10 - ATHSCL HEART DISEASE OF [place] CORONARY ARTERY W/O ANG PCTRS (4) Diabetes mellitus Code(s): E11.9 - TYPE 2 DIABETES MELLITUS WITHOUT COMPLICATIONS Qualifiers: Diabetes mellitus type: type 2 (5) HLD (hyperlipidemia) Code(s): E78.5 - HYPERLIPIDEMIA, UNSPECIFIED (6) HTN (hypertension) Code(s): I10 - ESSENTIAL (PRIMARY) HYPERTENSION (7) Leg edema Code(s): R60.0 - LOCALIZED EDEMA (8) Morbid obesity Code(s): E66.01 - MORBID (SEVERE) OBESITY DUE TO EXCESS CALORIES (9) Myeloproliferative disorder Code(s): D47.1 - CHRONIC MYELOPROLIFERATIVE DISEASE (10) Right leg swelling Code(s): M79.89 - OTHER SPECIFIED SOFT TISSUE DISORDERS (11) Volume overload Code(s): E87.70 - FLUID OVERLOAD, UNSPECIFIED Assessment/Plan IV Lasix BID O2 as needed to maintain saturation BD TX PRN Daily weights if feasible No smoking discussed Sleep screen Glycemic control DR LAU
--- NOTE | 2019-04-22 14:49 | EKG ---
Test Reason : Blood Pressure : / mmHG Vent. Rate : 096 BPM Atrial Rate : 234 BPM P-R Int : 000 ms QRS Dur : 086 ms QT Int : 328 ms P-R-T Axes : 000 045 060 degrees QTc Int : 414 ms ATRIAL FIBRILLATION LOW VOLTAGE QRS CANNOT RULE OUT ANTEROSEPTAL INFARCT , AGE UNDETERMINED ABNORMAL ECG WHEN COMPARED WITH ECG OF 19-APR-2019 17:16, MINIMAL CRITERIA FOR ANTEROSEPTAL INFARCT ARE NOW PRESENT NONSPECIFIC T WAVE ABNORMALITY, IMPROVED IN INFERIOR LEADS NONSPECIFIC T WAVE ABNORMALITY NO LONGER EVIDENT IN LATERAL LEADS PATIENT SITTING UP IN BED DURING EKG DUE TO BREATHING DIFFICULTY Confirmed by SONIDO RIVAS, SYDNEY ([id number]) on 04/22/2019 2:49:26 PM Referred By: Lila MACK Confirmed By:SYDNEY HEAD MD
--- NOTE | 2019-04-22 15:32 | PN ---
Progress Note, Physician Chief Complaint: Cards FU No dyspnea. History of Present Illness: 63 year old morbidly obese male with history of chronic atrial fibrillation(on Coumadin), coronary artery disease with stent in 01/2018, hypertension, IDDM( last hemoglobin a1c 10), chronic leukocytosis, and Charcot right foot. He was admitted in February with heart failure. Echocardiogram at that time showed normal LV function. Has been compliant with medications. Presents with worsening shortness of breath for the past 3 weeks. He reports he is unable to walk 10 feet without getting shortness of breath and reports abdominal bloating. In the ER mild respiratory distress and mild hypoxia(Oxygen saturation 93%). He was found to be in atrial fibrillation with RVR heart rate 150's. - Current Medication List Current Medications: Active Medications Aspirin (Asa -) 81 mg PO DAILY [facility] Last Admin: 04/22/19 10:25 Dose: 81 mg Atorvastatin Calcium (Lipitor -) 40 mg PO HS [facility] Last Admin: 04/21/19 21:39 Dose: 40 mg Diltiazem HCl (Cardizem -) 30 mg PO Q6HPO [facility] Last Admin: 04/22/19 13:23 Dose: 30 mg Furosemide (Lasix Injection -) 80 mg IVPB BID@0600,1400 [facility] Last Admin: 04/22/19 09:12 Dose: 80 mg Insulin Aspart (Novolog Vial Sliding Scale -) 1 vial SQ BIDAC [facility]; Protocol Last Admin: 04/22/19 08:15 Dose: 4 units Insulin Detemir (Levemir Vial) 20 units SQ HS [facility] Last Admin: 04/21/19 21:39 Dose: 20 unit Insulin Detemir (Levemir Vial) 60 units SQ AM [facility] Last Admin: 04/22/19 08:14 Dose: 60 units Metolazone (Zaroxolyn -) 5 mg PO 0530 [facility] Last Admin: 04/22/19 08:17 Dose: 5 mg Metoprolol Tartrate (Lopressor -) 100 mg PO BID [facility] Last Admin: 04/22/19 10:25 Dose: 100 mg Pantoprazole Sodium (Protonix -) 40 mg PO DAILY [facility] Last Admin: 04/22/19 10:25 Dose: 40 mg Warfarin Sodium (Coumadin -) 3 mg PO TuTh@1800 [facility] Last Admin: 04/21/19 17:27 Dose: 3 mg Warfarin Sodium (Coumadin -) 1.5 mg PO SuMoWeFrSa@1800 [facility] - Objective Vital Signs: Vital Signs Temperature 98.3 F 04/22/19 14:00 Pulse Rate 97 H 04/22/19 14:00 Respiratory Rate 20 04/22/19 14:00 Blood Pressure 115/64 04/22/19 14:00 O2 Sat by Pulse Oximetry (%) 95 04/22/19 09:00 Constitutional: Yes: Well Nourished, No Distress Eyes: Yes: Conjunctiva Clear HENT: Yes: Atraumatic, Normocephalic Neck: Yes: Supple, Trachea Midline Cardiovascular: Yes: Tachycardia, Pulse Irregular, JVD Respiratory: Yes: Regular, CTA Bilaterally Edema: Yes Edema: LLE: 1+, RLE: 1+ Labs: CBC, BMP 04/21/19 05:30 04/22/19 08:20 INR, PTT INR 2.05 (0.83-1.09) H 04/22/19 08:20 Problem List - Problems (1) Atrial fibrillation with RVR Code(s): I48.91 - UNSPECIFIED ATRIAL FIBRILLATION (2) Shortness of breath Code(s): R06.02 - SHORTNESS OF BREATH Assessment/Plan Chronic Afib, CHF due to Heart failure with normal EF. Stable chronic CAD Morbid obesity with DM and charcot foot. Admitted with rapid Afib and volume overload. Rec Diuresing on current therapy over 6L UO in last 24 hours. Hemodynamics and labs are stable. Still volume overloaded. cont Lasix 80mg IV BID, and Metolazone 5mg po 30 min prior to AM lasix Increase metoprolol 150mg bid Please resume telemetry-I am routinely monitoring his HR and he remains tachycardic. Hold ramapril until CHF improves. Monitor I/O and daily weight.
[2019-04-22] MEDS ORDERED: WARFARIN NA 3 MG TABLET PO SCH ×2 (18:00)
[2019-04-22] MEDS: ATORVASTATIN CA 40 MG TABLET (FP) PO SCH (21:43)
[2019-04-23] MEDS: dilTIAZem HCL 30 MG TABLET (FP) PO SCH ×3 (00:05→13:18)
[2019-04-23] MEDS ORDERED: PT OWN MED DRAWER 7, Y5N ONE (05:15)
[2019-04-23 08:12] LABS: BASO % 0.4 % (0-2.0); HEMATOCRIT 37.5 % (35.4-49); HEMOGLOBIN 12.1 GM/dL (11.7-16.9); LYMPH % 18.5 % (8-40); MCH 27.4 pg (25.7-33.7); MCHC 32.2 g/dl (32.0-35.9); MEAN CELL VOLUME 85.2 fl (80-96); MONO % 8.4 % (3.8-10.2); NEUT % 69.7 % (42.8-82.8); PLATELET COUNT 366 K/MM3 (134-434); RDW 16.2 % (11.9-15.9); WHITE BLOOD COUNT 14.9 K/mm3 (4.0-10.0)
[2019-04-23 08:35] LABS: INR 1.86 (0.83-1.09); PROTHROMBIN TIME (PATIENT) 22.1 SEC (9.7-13.0)
[2019-04-23 08:44] LABS: ALBUMIN 2.8 g/dl (3.4-5.0); BILIRUBIN,TOTAL 0.6 mg/dL (0.2-1); BLOOD UREA NITROGEN 23.1 mg/dL (7-18); CALCIUM 9.1 mg/dL (8.5-10.1); POTASSIUM 4.2 mmol/L (3.5-5.1); TOT PROT 7.2 g/dl (6.4-8.2)
[2019-04-23] MEDS: METOLAZONE 5 MG TABLET PO SCH (09:43)
[2019-04-23] MEDS: PANTOPRAZOLE 40 MG TABLET (FP) PO SCH (09:44)
[2019-04-23] MEDS: ASPIRIN 81 MG CHEWABLE TABLETS PO SCH (09:46)
[2019-04-23] MEDS: FUROSEMIDE 40 MG/4 ML INJECTABLE VIAL IVPB SCH ×2 (10:22→14:23)
[2019-04-23] MEDS: INSULIN (LEVEMIR) 100 UNITS/ML UNITS SQ SCH ×2 (10:22→22:00)
[2019-04-23] MEDS: INSULIN SLIDING SCALE (NOVOLOG) 1 VIAL SQ SCH ×2 (10:23→17:02)
[2019-04-23] MEDS: METOPROLOL TARTRATE 50 MG TABLET (FP) PO SCH ×2 (10:24→21:56)
--- NOTE | 2019-04-23 12:25 | PN ---
Progress Note, Physician Chief Complaint: SOB Acute on CHronic CHF Exacerbation Chronic Leukocytosis Afib with RVR History of Present Illness: NAD in bed SOB much improved - Current Medication List Current Medications: Active Medications Aspirin (Asa -) 81 mg PO DAILY [facility] Last Admin: 04/23/19 09:46 Dose: 81 mg Atorvastatin Calcium (Lipitor -) 40 mg PO HS [facility] Last Admin: 04/22/19 21:43 Dose: 40 mg Diltiazem HCl (Cardizem -) 30 mg PO Q6HPO [facility] Last Admin: 04/23/19 09:43 Dose: 30 mg Furosemide (Lasix Injection -) 80 mg IVPB BID@0600,1400 [facility] Last Admin: 04/23/19 10:22 Dose: 80 mg Insulin Aspart (Novolog Vial Sliding Scale -) [facility]; Protocol Last Admin: 04/23/19 10:23 Dose: 4 units Insulin Detemir (Levemir Vial) 20 units SQ HS [facility] Last Admin: 04/22/19 21:43 Dose: 20 unit Insulin Detemir (Levemir Vial) 60 units SQ AM [facility] Last Admin: 04/23/19 10:22 Dose: 60 units Metolazone (Zaroxolyn -) 5 mg PO 0530 [facility] Last Admin: 04/23/19 09:43 Dose: 5 mg Metoprolol Tartrate (Lopressor -) 150 mg PO BID [facility] Last Admin: 04/23/19 10:24 Dose: 150 mg Pantoprazole Sodium (Protonix -) 40 mg PO DAILY [facility] Last Admin: 04/23/19 09:44 Dose: 40 mg Warfarin Sodium (Coumadin -) 3 mg PO TuTh@1800 [facility] Last Admin: 04/21/19 17:27 Dose: 3 mg Warfarin Sodium (Coumadin -) 1.5 mg PO SuMoWeFrSa@1800 [facility] Last Admin: 04/22/19 17:12 Dose: 1.5 mg - Objective Vital Signs: Vital Signs Temperature 98.4 F 04/23/19 09:41 Pulse Rate 112 H 04/23/19 09:41 Respiratory Rate 24 H 04/23/19 09:41 Blood Pressure 146/80 04/23/19 09:41 O2 Sat by Pulse Oximetry (%) 95 04/22/19 09:00 Constitutional: Yes: Well Nourished, No Distress, Calm, Obese Cardiovascular: Yes: Tachycardia, Pulse Irregular Respiratory: Yes: Regular, On Nasal O2, SOB on Exertion Gastrointestinal: Yes: Normal Bowel Sounds, Soft, Abdomen, Obese Genitourinary: Yes: WNL Musculoskeletal: Yes: Muscle Weakness Extremities: Yes: WNL Edema: Yes Edema: LLE: Trace, RLE: Trace Peripheral Pulses WNL: Yes Neurological: Yes: Alert, Oriented Psychiatric: Yes: Alert, Oriented Labs: CBC, BMP 04/23/19 07:30 04/23/19 07:30 INR, PTT INR 1.86 (0.83-1.09) H 04/23/19 07:30 Assessment/Plan (1) Atrial fibrillation with RVR Assessment/Plan: -Cardiology on board -Tele monitoring-rate controlled at this time, with periods of tachy -Cardizem 120 CD po daily, Metoprolol 150 mg BID-tolerating well -Aspirin -Warfarin was on hold due to elevated INR -INR goal 2-3 -warfarin at 3 mg TTh and 1.5 mg all other days Code(s): I48.91 - UNSPECIFIED ATRIAL FIBRILLATION (2) Shortness of breath Assessment/Plan: -Pulm on board -keep SpO2 >90% -O2 via NC Code(s): R06.02 - SHORTNESS OF BREATH (3) CAD (coronary artery disease) Assessment/Plan: -Aspirin and Atorvastatin Code(s): I25.10 - ATHSCL HEART DISEASE OF [place] CORONARY ARTERY W/O ANG PCTRS (4) Diabetes mellitus Assessment/Plan: -BGM AC HS -Levemir -ISS -diabetic diet -A1c at 8.3 -Endocrine consult -RD consult Code(s): E11.9 - TYPE 2 DIABETES MELLITUS WITHOUT COMPLICATIONS Qualifiers: Diabetes mellitus type: type 2 (5) HLD (hyperlipidemia) Assessment/Plan: -Atorvastatin Code(s): E78.5 - HYPERLIPIDEMIA, UNSPECIFIED (6) HTN (hypertension) Assessment/Plan: -Ramipril on hold until CHF exacerbation improves Code(s): I10 - ESSENTIAL (PRIMARY) HYPERTENSION (7) Leukocytosis Assessment/Plan: -chronic -sees hematology at [place] -afebrile Code(s): D72.829 - ELEVATED WHITE BLOOD CELL COUNT, UNSPECIFIED (8) Acute on chronic diastolic CHF (congestive heart failure) Assessment/Plan: -Cardiology on board -Lasix BID -Metolazone -1L fluid restriction -daily weights -strict I&Os Code(s): I50.33 - ACUTE ON CHRONIC DIASTOLIC (CONGESTIVE) HEART FAILURE
--- NOTE | 2019-04-23 13:41 | PN ---
Progress Note, Physician Chief Complaint: Cards FU No dyspnea or orthopnea Telem AF HR 90-120 History of Present Illness: 63 year old morbidly obese male with history of chronic atrial fibrillation(on Coumadin), coronary artery disease with stent in 01/2018, hypertension, IDDM( last hemoglobin a1c 10), chronic leukocytosis, and Charcot right foot. He was admitted in February with heart failure. Echocardiogram at that time showed normal LV function. Has been compliant with medications. Presents with worsening shortness of breath for the past 3 weeks. He reports he is unable to walk 10 feet without getting shortness of breath and reports abdominal bloating. In the ER mild respiratory distress and mild hypoxia(Oxygen saturation 93%). He was found to be in atrial fibrillation with RVR heart rate 150's. - Current Medication List Current Medications: Active Medications Aspirin (Asa -) 81 mg PO DAILY [facility] Last Admin: 04/23/19 09:46 Dose: 81 mg Atorvastatin Calcium (Lipitor -) 40 mg PO HS [facility] Last Admin: 04/22/19 21:43 Dose: 40 mg Diltiazem HCl (Cardizem -) 30 mg PO Q6HPO [facility] Last Admin: 04/23/19 13:18 Dose: 30 mg Furosemide (Lasix Injection -) 80 mg IVPB BID@0600,1400 [facility] Last Admin: 04/23/19 10:22 Dose: 80 mg Insulin Aspart (Novolog Vial Sliding Scale -) 1 vial SQ BIDAC [facility]; Protocol Last Admin: 04/23/19 10:23 Dose: 4 units Insulin Detemir (Levemir Vial) 20 units SQ HS [facility] Last Admin: 04/22/19 21:43 Dose: 20 unit Insulin Detemir (Levemir Vial) 60 units SQ AM [facility] Last Admin: 04/23/19 10:22 Dose: 60 units Metolazone (Zaroxolyn -) 5 mg PO 0530 [facility] Last Admin: 04/23/19 09:43 Dose: 5 mg Metoprolol Tartrate (Lopressor -) 150 mg PO BID [facility] Last Admin: 04/23/19 10:24 Dose: 150 mg Pantoprazole Sodium (Protonix -) 40 mg PO DAILY [facility] Last Admin: 04/23/19 09:44 Dose: 40 mg Warfarin Sodium (Coumadin -) 3 mg PO TuTh@1800 [facility] Last Admin: 04/21/19 17:27 Dose: 3 mg Warfarin Sodium (Coumadin -) 1.5 mg PO SuMoWePeng@1800 [facility] Last Admin: 04/22/19 17:12 Dose: 1.5 mg - Objective Vital Signs: Vital Signs Temperature 98.4 F 04/23/19 09:41 Pulse Rate 112 H 04/23/19 09:41 Respiratory Rate 24 H 04/23/19 09:41 Blood Pressure 146/80 04/23/19 09:41 O2 Sat by Pulse Oximetry (%) 95 04/22/19 09:00 Constitutional: Yes: Well Nourished, No Distress, Calm Eyes: Yes: Conjunctiva Clear, EOM Intact HENT: Yes: Atraumatic, Normocephalic Neck: Yes: Supple, Trachea Midline Cardiovascular: Yes: Tachycardia, Pulse Irregular, S1, S2 Respiratory: Yes: Diminished Edema: Yes Edema: LLE: 1+, RLE: 1+ Labs: CBC, BMP 04/23/19 07:30 04/23/19 07:30 INR, PTT INR 1.86 (0.83-1.09) H 04/23/19 07:30 Problem List - Problems (1) Atrial fibrillation with RVR Code(s): I48.91 - UNSPECIFIED ATRIAL FIBRILLATION (2) Shortness of breath Code(s): R06.02 - SHORTNESS OF BREATH Assessment/Plan Chronic Afib, CHF due to Heart failure with normal EF. Stable chronic CAD Morbid obesity with DM and charcot foot. Admitted with rapid Afib and volume overload. Rec Improved volume status but still over his "dry weight" and has edema. 6L UO in last 24 hours. Hemodynamics and labs are stable. cont Lasix 80mg IV BID, and Metolazone 5mg po 30 min prior to AM lasix Switch to Diltiazem CD 120mg qd Add aldactone 25mg qd. metoprolol 150mg bid Hold ramapril until CHF improves. Monitor I/O and daily weight.
[2019-04-23] MEDS: SPIRONOLACTONE 25 MG TABLET (FP) PO SCH (14:22)
[2019-04-23 14:51] VITALS: BMI 52.4
[2019-04-23] MEDS: WARFARIN NA 3 MG TABLET PO SCH (17:03)
[2019-04-23] MEDS: ATORVASTATIN CA 40 MG TABLET (FP) PO SCH (21:57)
[2019-04-24 07:31] LABS: INR 1.79 (0.83-1.09); PROTHROMBIN TIME (PATIENT) 21.2 SEC (9.7-13.0)
[2019-04-24 07:54] LABS: BLOOD UREA NITROGEN 23.9 mg/dL (7-18); CALCIUM 8.8 mg/dL (8.5-10.1); CREATININE 1.1 mg/dL (0.55-1.3); POTASSIUM 3.7 mmol/L (3.5-5.1)
[2019-04-24] MEDS: INSULIN (LEVEMIR) 100 UNITS/ML UNITS SQ SCH ×2 (08:50→21:43)
[2019-04-24] MEDS ORDERED: PT OWN MED DRAWER 7, Y5N ONE (08:59)
[2019-04-24] MEDS: METOLAZONE 5 MG TABLET PO SCH (09:00)
[2019-04-24] MEDS: INSULIN SLIDING SCALE (NOVOLOG) 1 VIAL SQ SCH ×2 (09:00→17:02)
[2019-04-24] MEDS: FUROSEMIDE 40 MG/4 ML INJECTABLE VIAL IVPB SCH (09:34)
[2019-04-24] MEDS: ASPIRIN 81 MG CHEWABLE TABLETS PO SCH (09:40)
[2019-04-24] MEDS: PANTOPRAZOLE 40 MG TABLET (FP) PO SCH (09:40)
--- NOTE | 2019-04-24 11:06 | PN ---
Progress Note (short form) - Note Progress Note: PULMONARY WELL KNOWN BY ME FROM DR[facility] PATIENT STATES HE IS 50% IMPROVED FROM ADMISSION VSS/AFEBRILE ANICTERIC DISTANT BIBASILAR BREATH SOUNDS S1S2 IRREGULAR OBESE 1+ EDEMA LOWER EXT LABS/MEDS/NOTES/IMAGES REVIEWED Problem List (1) Atrial fibrillation with RVR Code(s): I48.91 - UNSPECIFIED ATRIAL FIBRILLATION (2) Shortness of breath Code(s): R06.02 - SHORTNESS OF BREATH (3) CAD (coronary artery disease) Code(s): I25.10 - ATHSCL HEART DISEASE OF [place] CORONARY ARTERY W/O ANG PCTRS (4) Diabetes mellitus Code(s): E11.9 - TYPE 2 DIABETES MELLITUS WITHOUT COMPLICATIONS Qualifiers: Diabetes mellitus type: type 2 (5) HLD (hyperlipidemia) Code(s): E78.5 - HYPERLIPIDEMIA, UNSPECIFIED (6) HTN (hypertension) Code(s): I10 - ESSENTIAL (PRIMARY) HYPERTENSION (7) Leg edema Code(s): R60.0 - LOCALIZED EDEMA (8) Morbid obesity Code(s): E66.01 - MORBID (SEVERE) OBESITY DUE TO EXCESS CALORIES (9) Myeloproliferative disorder Code(s): D47.1 - CHRONIC MYELOPROLIFERATIVE DISEASE (10) Right leg swelling Code(s): M79.89 - OTHER SPECIFIED SOFT TISSUE DISORDERS (11) Volume overload Code(s): E87.70 - FLUID OVERLOAD, UNSPECIFIED IV Lasix BID/volume control/na restrict O2 as needed to maintain saturation BD TX PRN Daily weights if feasible No smoking discussed osas needs to be evaluated given body habitus Glycemic control Lila Nur MD
--- NOTE | 2019-04-24 11:21 | PN ---
Progress Note, Physician Chief Complaint: SOB Acute on CHronic CHF Exacerbation Chronic Leukocytosis Afib with RVR History of Present Illness: NAD in bed SOB much improved - Current Medication List Current Medications: Active Medications Aspirin (Asa -) 81 mg PO DAILY [facility] Last Admin: 04/24/19 09:40 Dose: 81 mg Atorvastatin Calcium (Lipitor -) 40 mg PO HS [facility] Last Admin: 04/23/19 21:57 Dose: 40 mg Diltiazem HCl (Cardizem Cd -) 120 mg PO DAILY [facility] Last Admin: 04/24/19 09:40 Dose: 120 mg Furosemide (Lasix Injection -) 80 mg IVPB BID@0600,1400 [facility] Last Admin: 04/24/19 09:34 Dose: 80 mg Insulin Aspart (Novolog Vial Sliding Scale -) [facility] Protocol Last Admin: 04/24/19 09:00 Dose: Not Given Insulin Detemir (Levemir Vial) 20 units SQ HS [facility] Last Admin: 04/23/19 22:00 Dose: 20 unit Insulin Detemir (Levemir Vial) 60 units SQ AM [facility] Last Admin: 04/24/19 08:50 Dose: 60 units Metolazone (Zaroxolyn -) 5 mg PO 0530 [facility] Last Admin: 04/24/19 09:00 Dose: 5 mg Metoprolol Tartrate (Lopressor -) 150 mg PO BID [facility] Last Admin: 04/23/19 21:56 Dose: 150 mg Pantoprazole Sodium (Protonix -) 40 mg PO DAILY [facility] Last Admin: 04/24/19 09:40 Dose: 40 mg Spironolactone (Aldactone -) 25 mg PO DAILY [facility] Last Admin: 04/23/19 14:22 Dose: 25 mg Warfarin Sodium (Coumadin -) 3 mg PO TuTh@1800 [facility] Last Admin: 04/23/19 17:03 Dose: 3 mg Warfarin Sodium (Coumadin -) 1.5 mg PO SuMoWeFrSa@1800 [facility] Last Admin: 04/22/19 17:12 Dose: 1.5 mg - Objective Vital Signs: Vital Signs Temperature 97.6 F 04/23/19 21:44 Pulse Rate 95 H 04/23/19 21:44 Respiratory Rate 20 04/23/19 21:44 Blood Pressure 118/61 04/23/19 21:44 O2 Sat by Pulse Oximetry (%) 95 04/22/19 09:00 Constitutional: Yes: Well Nourished, No Distress, Calm, Obese Cardiovascular: Yes: Pulse Irregular Respiratory: Yes: Regular, On Nasal O2, SOB on Exertion Gastrointestinal: Yes: Normal Bowel Sounds, Soft, Abdomen, Obese Genitourinary: Yes: WNL Musculoskeletal: Yes: Muscle Weakness Extremities: Yes: WNL Edema: Yes Edema: LLE: Trace, RLE: Trace Peripheral Pulses WNL: Yes Neurological: Yes: Alert, Oriented Psychiatric: Yes: Alert, Oriented Labs: CBC, BMP 04/23/19 07:30 04/24/19 06:55 INR, PTT INR 1.79 (0.83-1.09) H 04/24/19 06:55 Assessment/Plan (1) Atrial fibrillation with RVR Assessment/Plan: -Cardiology on board -Tele monitoring-rate controlled at this time, with periods of tachy -Cardizem 120 CD po daily, Metoprolol 150 mg BID-tolerating well -Aspirin -INR goal 2-3 -Change Warfarin to 3 mg MWF, 1.5 mg all other days -Monitor daily INR Code(s): I48.91 - UNSPECIFIED ATRIAL FIBRILLATION (2) Shortness of breath Assessment/Plan: -Pulm on board -keep SpO2 >90% -O2 via NC Code(s): R06.02 - SHORTNESS OF BREATH (3) CAD (coronary artery disease) Assessment/Plan: -Aspirin and Atorvastatin Code(s): I25.10 - ATHSCL HEART DISEASE OF [place] CORONARY ARTERY W/O ANG PCTRS (4) Diabetes mellitus Assessment/Plan: -BGM AC HS -Levemir -ISS -diabetic diet -A1c at 8.3 -Endocrine consult -RD consult Code(s): E11.9 - TYPE 2 DIABETES MELLITUS WITHOUT COMPLICATIONS Qualifiers: Diabetes mellitus type: type 2 (5) HLD (hyperlipidemia) Assessment/Plan: -Atorvastatin Code(s): E78.5 - HYPERLIPIDEMIA, UNSPECIFIED (6) HTN (hypertension) Assessment/Plan: -Ramipril on hold until CHF exacerbation improves Code(s): I10 - ESSENTIAL (PRIMARY) HYPERTENSION (7) Leukocytosis Assessment/Plan: -chronic -sees hematology at [place] -afebrile Code(s): D72.829 - ELEVATED WHITE BLOOD CELL COUNT, UNSPECIFIED (8) Acute on chronic diastolic CHF (congestive heart failure) Assessment/Plan: -Cardiology on board -Lasix BID -Metolazone -1L fluid restriction -daily weights -strict I&Os Code(s): I50.33 - ACUTE ON CHRONIC DIASTOLIC (CONGESTIVE) HEART FAILURE
--- NOTE | 2019-04-24 14:08 | PN ---
Progress Note, Physician Chief Complaint: Cards FU No dyspnea or orthopnea Telem AF HR 90-120 History of Present Illness: 63 year old morbidly obese male with history of chronic atrial fibrillation(on Coumadin), coronary artery disease with stent in 01/2018, hypertension, IDDM( last hemoglobin a1c 10), chronic leukocytosis, and Charcot right foot. He was admitted in February with heart failure. Echocardiogram at that time showed normal LV function. Has been compliant with medications. Presents with worsening shortness of breath for the past 3 weeks. He reports he is unable to walk 10 feet without getting shortness of breath and reports abdominal bloating. In the ER mild respiratory distress and mild hypoxia(Oxygen saturation 93%). He was found to be in atrial fibrillation with RVR heart rate 150's. - Current Medication List Current Medications: Active Medications Aspirin (Asa -) 81 mg PO DAILY [facility] Last Admin: 04/24/19 09:40 Dose: 81 mg Atorvastatin Calcium (Lipitor -) 40 mg PO HS [facility] Last Admin: 04/23/19 21:57 Dose: 40 mg Diltiazem HCl (Cardizem Cd -) 120 mg PO DAILY [facility] Last Admin: 04/24/19 09:40 Dose: 120 mg Furosemide (Lasix Injection -) 80 mg IVPB BID@0600,1400 [facility] Last Admin: 04/24/19 09:34 Dose: 80 mg Insulin Aspart (Novolog Vial Sliding Scale -) 1 vial SQ BIDAC [facility]; Protocol Last Admin: 04/24/19 09:00 Dose: Not Given Insulin Detemir (Levemir Vial) 20 units SQ HS [facility] Last Admin: 04/23/19 22:00 Dose: 20 unit Insulin Detemir (Levemir Vial) 60 units SQ AM [facility] Last Admin: 04/24/19 08:50 Dose: 60 units Metolazone (Zaroxolyn -) 5 mg PO 0530 [facility] Last Admin: 04/24/19 09:00 Dose: 5 mg Metoprolol Tartrate (Lopressor -) 150 mg PO BID [facility] Last Admin: 04/23/19 21:56 Dose: 150 mg Pantoprazole Sodium (Protonix -) 40 mg PO DAILY [facility] Last Admin: 04/24/19 09:40 Dose: 40 mg Spironolactone (Aldactone -) 25 mg PO DAILY [facility] Last Admin: 04/23/19 14:22 Dose: 25 mg Warfarin Sodium (Coumadin -) 3 mg PO MoWeFr@1800 [facility] Warfarin Sodium (Coumadin -) 1.5 mg PO SuTuThSa@1800 [facility] - Objective Vital Signs: Vital Signs Temperature 98.0 F 04/24/19 09:00 Pulse Rate 99 H 04/24/19 09:00 Respiratory Rate 04/24/19 09:00 Blood Pressure 129/66 04/24/19 09:00 O2 Sat by Pulse Oximetry (%) 95 04/22/19 09:00 Constitutional: Yes: Well Nourished, No Distress Eyes: Yes: Conjunctiva Clear HENT: Yes: Atraumatic, Normocephalic Neck: Yes: Supple, Trachea Midline Cardiovascular: Yes: Pulse Irregular, JVD Respiratory: Yes: Regular, CTA Bilaterally Gastrointestinal: Yes: Normal Bowel Sounds Edema: Yes Edema: LLE: Trace, RLE: Trace Labs: CBC, BMP 04/23/19 07:30 04/24/19 06:55 INR, PTT INR 1.79 (0.83-1.09) H 04/24/19 06:55 Problem List - Problems (1) Atrial fibrillation with RVR Code(s): I48.91 - UNSPECIFIED ATRIAL FIBRILLATION (2) Shortness of breath Code(s): R06.02 - SHORTNESS OF BREATH Assessment/Plan Chronic Afib, CHF due to Heart failure with normal EF. Stable chronic CAD Morbid obesity with DM and charcot foot. Admitted with rapid Afib and volume overload. Rec Marked UO and progressive weight loss. Closer to dry weight. Given weight loss adn CO2 retention-possibly from effects of diuresis, will stop metolazone and transition to oral diuretic. Place on Torsemide 40mg bid Cont aldactone 25mg qd. metoprolol 150mg bid Diltiazem CD 120 Hold ramapril until CHF improves. Monitor I/O and daily weight.
[2019-04-24] MEDS: SPIRONOLACTONE 25 MG TABLET (FP) PO SCH (14:34)
[2019-04-24] MEDS: METOPROLOL TARTRATE 50 MG TABLET (FP) PO SCH ×2 (14:34→21:43)
[2019-04-24] MEDS: WARFARIN NA 3 MG TABLET PO SCH (17:02)
[2019-04-24] MEDS: ATORVASTATIN CA 40 MG TABLET (FP) PO SCH (21:43)
[2019-04-24] MEDS: TORSEMIDE 20 MG TABLET (FP) PO SCH (21:44)
[2019-04-24] MEDS ORDERED: INSULIN (NOVOLOG) ASPART 100 UNITS/ML 10ML VIAL SQ ONE (22:45)
--- NOTE | 2019-04-24 23:37 | CONSULT ---
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 has had prior admission for chf.He reports he was discharged home [address] [facility] for admission for atrial fibrillation and reported he was previously on digoxin which was discontinued and metoprolol dosage was increased to 200 mg once daily. He has been getting shortness of breath and reports abdominal bloating. He denied chest pain, shortness of breath, palpitations, nausea, vomiting,he reports better diabetes control when he takes liraglutide,however insurance has denied him coverage. has had to resort to high dose insulin use and increased appetite, which has made diabetic control difficult.. - Past Medical History Cardio/Vascular: Yes: AFIB, CAD, HTN, Hyperlipdemia Pulmonary: Yes: Bronchitis, Sleep Apnea. No: Asthma, Cancer, COPD, O2 Dependent , Previously Intubated, Pulmonary Embolus, Pulmonary Fibrosis Infectious Disease: Yes: MRSA Endocrine: Yes: Diabetes Mellitus Additional Medical History: charcot foot - Past Surgical History Additional Surgical History: s/p charcot foot surgery. 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 History of Recent Travel: No Home Medications - Allergies Allergies/Adverse Reactions: Allergies Allergy/AdvReac Type Severity Reaction Status Date / Time metformin Allergy Hives Verified 04/19/19 17:45 - Home Medications Home Medications: Ambulatory Orders Aspirin [ASA -] 81 mg PO DAILY 02/09/19 Pantoprazole Sodium [Protonix] 40 mg PO DAILY 02/09/19 Ramipril [Altace] 5 mg PO DAILY 02/09/19 Warfarin Sodium [Coumadin] 3 mg PO DAILY 02/09/19 Atorvastatin Ca [Lipitor] 40 mg PO HS #30 tablet MDD 1 03/06/19 Furosemide [Lasix -] 40 mg PO BID@0600,1400 #30 tablet [facility] 2 03/06/19 Insulin (Levemir) [Levemir Vial] 20 units SQ HS #100 units 03/06/19 Insulin (Levemir) [Levemir Vial] 60 units SQ AM #100 units 03/06/19 Metoprolol Tartrate [Lopressor -] 100 mg PO BID #60 tablet MDD 2 03/06/19 Review of Systems - Review of Systems Constitutional: reports: Weakness Eyes: reports: Blurred Vision HENT: reports: No Symptoms Neck: reports: No Symptoms Cardiovascular: reports: Edema, Shortness of Breath Respiratory: reports: Exercise Intolerance, Orthopnea, SOB, SOB on Exertion Gastrointestinal: reports: Bloating, Nausea Genitourinary: reports: No Symptoms Breasts: reports: No Symptoms Reported Musculoskeletal: reports: No Symptoms Integumentary: reports: Change in Color Neurological: reports: Numbness, Unsteady Gait, Weakness Endocrine: reports: Unexplained Weight Gain Physical Exam Vital Signs: Vital Signs Temperature 98.0 F 04/24/19 18:00 Pulse Rate 102 H 04/24/19 18:00 Respiratory Rate 20 04/24/19 18:00 Blood Pressure 157/80 04/24/19 18:00 O2 Sat by Pulse Oximetry (%) 95 04/22/19 09:00 Constitutional: Yes: Calm Eyes: Yes: EOM Intact HENT: Yes: Normocephalic Neck: Yes: Trachea Midline Cardiovascular: Yes: Tachycardia, Murmur Respiratory: Yes: On Nasal O2, Tachypnea Gastrointestinal: Yes: Normal Bowel Sounds, Abdomen, Obese ...Rectal Exam: Yes: Deferred Renal/: Yes: WNL Breast(s): Yes: WNL Musculoskeletal: Yes: Back Pain Extremities: Yes: Erythema Edema: Yes Edema: LLE: 1+, RLE: 1+ Neurological: Yes: Alert, Oriented Labs: CBC, BMP 04/23/19 07:30 04/24/19 06:55 Assessment/Plan Current Active Problems 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 diabetic charcot deformity Acute on chronic diastolic CHF (congestive heart failure) (Acute) Atrial fibrillation with RVR (Acute) Morbid (severe) obesity due to excess calories (Acute) Shortness of breath (Acute) Abnormal Lab Results 04/24/19 04/24/19 06:55 06:55 PT with INR 21.20 H INR 1.79 H Sodium 132 L Chloride 81 L Carbon Dioxide 44 H Anion Gap 7 L BUN 23.9 H Random Glucose 173 H Laboratory Results - last 24 hr 04/24/19 04/24/19 06:55 06:55 PT with INR 21.20 H INR 1.79 H Sodium 132 L Potassium 3.7 Chloride 81 L Carbon Dioxide 44 H Anion Gap 7 L BUN 23.9 H Creatinine 1.1 Est GFR (CKD-EPI)AfAm 82.95 Est GFR (CKD-EPI)NonAf 71.57 Random Glucose 173 H Calcium 8.8 Laboratory Tests 04/22/19 04/23/19 04/23/19 21:41 09:47 16:53 POC Glucometer 225 274 326 04/23/19 21:59 POC Glucometer 213 plan:\ add victoza 1.8mg day levemir 70 units am levemir 20 units hs diet counselling
[2019-04-25] MEDS: LIRAGLUTIDE 0.6 MG/0.1 ML PEN.INJCTR SQ SCH (08:28)
[2019-04-25] MEDS: INSULIN (LEVEMIR) 100 UNITS/ML UNITS SQ SCH ×2 (08:28→21:09)
[2019-04-25] MEDS: INSULIN SLIDING SCALE (NOVOLOG) 1 VIAL SQ SCH ×4 (08:29→21:09)
[2019-04-25 08:38] LABS: ANION GAP 8 MMOL/L (8-16); BLOOD UREA NITROGEN 29.7 mg/dL (7-18); CHLORIDE 80 mmol/L (98-107); CO2 > 45 mmol/L (21-32); CREATININE 1.2 mg/dL (0.55-1.3); GLUCOSE,RANDOM 260 mg/dL (74-106); POTASSIUM 3.6 mmol/L (3.5-5.1); SODIUM 133 mmol/L (136-145)
[2019-04-25 08:43] LABS: INR 1.74 (0.83-1.09); PROTHROMBIN TIME (PATIENT) 20.6 SEC (9.7-13.0)
--- NOTE | 2019-04-25 09:26 | PN ---
Progress Note (short form) - Note Progress Note: PULMONARY WELL KNOWN BY ME FROM DR[facility] PATIENT STATES HE IS 50% IMPROVED FROM ADMISSION VSS/AFEBRILE ANICTERIC DISTANT BIBASILAR BREATH SOUNDS S1S2 IRREGULAR OBESE 1+ EDEMA LOWER EXT LABS/MEDS/NOTES/IMAGES REVIEWED Problem List (1) Atrial fibrillation with RVR Code(s): I48.91 - UNSPECIFIED ATRIAL FIBRILLATION (2) Shortness of breath Code(s): R06.02 - SHORTNESS OF BREATH (3) CAD (coronary artery disease) Code(s): I25.10 - ATHSCL HEART DISEASE OF [place] CORONARY ARTERY W/O ANG PCTRS (4) Diabetes mellitus Code(s): E11.9 - TYPE 2 DIABETES MELLITUS WITHOUT COMPLICATIONS Qualifiers: Diabetes mellitus type: type 2 (5) HLD (hyperlipidemia) Code(s): E78.5 - HYPERLIPIDEMIA, UNSPECIFIED (6) HTN (hypertension) Code(s): I10 - ESSENTIAL (PRIMARY) HYPERTENSION (7) Leg edema Code(s): R60.0 - LOCALIZED EDEMA (8) Morbid obesity Code(s): E66.01 - MORBID (SEVERE) OBESITY DUE TO EXCESS CALORIES (9) Myeloproliferative disorder Code(s): D47.1 - CHRONIC MYELOPROLIFERATIVE DISEASE (10) Right leg swelling Code(s): M79.89 - OTHER SPECIFIED SOFT TISSUE DISORDERS (11) Volume overload Code(s): E87.70 - FLUID OVERLOAD, UNSPECIFIED IV Lasix BID/volume control/na restrict O2 as needed to maintain saturation BD TX PRN Anticoagulation 2-3 inr Daily weights if feasible No smoking discussed osas needs to be evaluated given body habitus Glycemic control Lila Nur MD
--- NOTE | 2019-04-25 10:09 | PN ---
Progress Note, Physician Chief Complaint: SOB Acute on CHronic CHF Exacerbation Chronic Leukocytosis Afib with RVR History of Present Illness: Previous notes and events reviewed awake and alert NAD patient states breathing is improving denies chest pain or palpitation tele monitor reviewed - Current Medication List Current Medications: Active Medications Aspirin (Asa -) 81 mg PO DAILY [facility] Last Admin: 04/24/19 09:40 Dose: 81 mg Atorvastatin Calcium (Lipitor -) 40 mg PO HS [facility] Last Admin: 04/24/19 21:43 Dose: 40 mg Diltiazem HCl (Cardizem Cd -) 120 mg PO DAILY [facility] Last Admin: 04/24/19 09:40 Dose: 120 mg Insulin Aspart (Novolog Vial Sliding Scale -) 1 vial SQ [facility]; Protocol Last Admin: 04/25/19 08:29 Dose: 8 units Insulin Detemir (Levemir Vial) 20 units SQ HS [facility] Last Admin: 04/24/19 21:43 Dose: 20 unit Insulin Detemir (Levemir Vial) 70 units SQ AM [facility] Last Admin: 04/25/19 08:28 Dose: 70 units Liraglutide (Victoza -) 1.8 mg SQ DAILY@0700 [facility] Last Admin: 04/25/19 08:28 Dose: 1.8 mg Metoprolol Tartrate (Lopressor -) 150 mg PO BID [facility] Last Admin: 04/24/19 21:43 Dose: 150 mg Pantoprazole Sodium (Protonix -) 40 mg PO DAILY [facility] Last Admin: 04/24/19 09:40 Dose: 40 mg Spironolactone (Aldactone -) 25 mg PO DAILY [facility] Last Admin: 04/24/19 14:34 Dose: 25 mg Torsemide (Demadex -) 40 mg PO BID [facility] Last Admin: 04/24/19 21:44 Dose: 40 mg Warfarin Sodium (Coumadin -) 3 mg PO MoWeFr@1800 [facility] Last Admin: 04/24/19 17:02 Dose: 3 mg Warfarin Sodium (Coumadin -) 1.5 mg PO SuTuThSa@1800 [facility] - Objective Vital Signs: Vital Signs Temperature 98.1 F 04/24/19 22:00 Pulse Rate 103 H 04/24/19 22:00 Respiratory Rate 20 04/24/19 22:00 Blood Pressure 130/55 L 04/24/19 22:00 O2 Sat by Pulse Oximetry (%) 95 04/22/19 09:00 Constitutional: Yes: No Distress, Calm, Obese Eyes: Yes: Conjunctiva Clear HENT: Yes: Atraumatic Cardiovascular: Yes: Tachycardia, Pulse Irregular Respiratory: Yes: Diminished, On Nasal O2 Gastrointestinal: Yes: Normal Bowel Sounds, Soft, Abdomen, Obese Extremities: Yes: Erythema (LLE) Edema: Yes (B/L lower extremity) Neurological: Yes: Alert, Oriented Psychiatric: Yes: Alert, Oriented Labs: CBC, BMP 04/23/19 07:30 04/25/19 07:50 INR, PTT INR 1.74 (0.83-1.09) H 04/25/19 07:50 Problem List - Problems (1) Atrial fibrillation with RVR Assessment/Plan: -Cardiology on board -Tele monitoring -Cardizem 120mg daily, Metoprolol 150mg BID -monitor INR daily -INR therapeutic goal 2-3 -Coumadin 1.5 (SunTuThSat), Coumadin 3 (MWF) Code(s): I48.91 - UNSPECIFIED ATRIAL FIBRILLATION (2) Shortness of breath Assessment/Plan: -Pulm on board -keep SpO2 >90% -O2 via NC Code(s): R06.02 - SHORTNESS OF BREATH (3) CAD (coronary artery disease) Assessment/Plan: -Aspirin and Atorvastatin Code(s): I25.10 - ATHSCL HEART DISEASE OF [place] CORONARY ARTERY W/O ANG PCTRS (4) Diabetes mellitus Assessment/Plan: -BGM AC HS -Levemir 70U QAM and 20U QHS -ISS -diabetic diet -Endo on board Code(s): E11.9 - TYPE 2 DIABETES MELLITUS WITHOUT COMPLICATIONS Qualifiers: Diabetes mellitus type: type 2 (5) HLD (hyperlipidemia) Assessment/Plan: -Atorvastatin Code(s): E78.5 - HYPERLIPIDEMIA, UNSPECIFIED (6) HTN (hypertension) Assessment/Plan: -Ramipril on hold until CHF exacerbation improves Code(s): I10 - ESSENTIAL (PRIMARY) HYPERTENSION (7) Leukocytosis Assessment/Plan: -WBC 14.9 -ID on board -afebrile -monitor for WBC downtrend Code(s): D72.829 - ELEVATED WHITE BLOOD CELL COUNT, UNSPECIFIED (8) Acute on chronic diastolic CHF (congestive heart failure) Assessment/Plan: -Cardiology on board -Lasix BID -Torsemide -Spironolactone -1L fluid restriction -daily weights -strict I&Os Code(s): I50.33 - ACUTE ON CHRONIC DIASTOLIC (CONGESTIVE) HEART FAILURE Assessment/Plan see progress notes dvt ppx
[2019-04-25] MEDS: SPIRONOLACTONE 25 MG TABLET (FP) PO SCH (10:37)
[2019-04-25] MEDS: TORSEMIDE 20 MG TABLET (FP) PO SCH ×2 (10:37→21:08)
[2019-04-25] MEDS: METOPROLOL TARTRATE 50 MG TABLET (FP) PO SCH ×2 (10:38→21:08)
[2019-04-25] MEDS: PANTOPRAZOLE 40 MG TABLET (FP) PO SCH (10:38)
[2019-04-25] MEDS: ASPIRIN 81 MG CHEWABLE TABLETS PO SCH (10:38)
[2019-04-25] MEDS: WARFARIN NA 3 MG TABLET PO SCH (17:31)
--- NOTE | 2019-04-25 17:33 | PN ---
Progress Note, Physician History of Present Illness: pt seen and examined tdoay in nad. feeling better. no new complaints. - Current Medication List Current Medications: Active Medications Aspirin (Asa -) 81 mg PO DAILY [facility] Last Admin: 04/25/19 10:38 Dose: 81 mg Atorvastatin Calcium (Lipitor -) 40 mg PO HS [facility] Last Admin: 04/24/19 21:43 Dose: 40 mg Diltiazem HCl (Cardizem Cd -) 120 mg PO DAILY [facility] Last Admin: 04/25/19 10:38 Dose: 120 mg Insulin Aspart (Novolog Vial Sliding Scale -) 1 vial SQ [facility]; Protocol Last Admin: 04/25/19 16:41 Dose: 5 units Insulin Detemir (Levemir Vial) 20 units SQ HS [facility] Last Admin: 04/24/19 21:43 Dose: 20 unit Insulin Detemir (Levemir Vial) 70 units SQ AM [facility] Last Admin: 04/25/19 08:28 Dose: 70 units Liraglutide (Victoza -) 1.8 mg SQ DAILY@0700 [facility] Last Admin: 04/25/19 08:28 Dose: 1.8 mg Metoprolol Tartrate (Lopressor -) 150 mg PO BID [facility] Last Admin: 04/25/19 10:38 Dose: 150 mg Pantoprazole Sodium (Protonix -) 40 mg PO DAILY [facility] Last Admin: 04/25/19 10:38 Dose: 40 mg Spironolactone (Aldactone -) 25 mg PO DAILY [facility] Last Admin: 04/25/19 10:37 Dose: 25 mg Torsemide (Demadex -) 40 mg PO BID [facility] Last Admin: 04/25/19 10:37 Dose: 40 mg Warfarin Sodium (Coumadin -) 3 mg PO MoWeFr@1800 [facility] Last Admin: 04/24/19 17:02 Dose: 3 mg Warfarin Sodium (Coumadin -) 1.5 mg PO SuTuThSa@1800 [facility] - Objective Vital Signs: Vital Signs Temperature 97.8 F 04/25/19 14:20 Pulse Rate 98 H 04/25/19 14:20 Respiratory Rate 16 04/25/19 14:20 Blood Pressure 111/60 04/25/19 14:20 O2 Sat by Pulse Oximetry (%) 95 04/22/19 09:00 Constitutional: Yes: No Distress, Calm, Obese Eyes: Yes: Conjunctiva Clear, EOM Intact HENT: Yes: Atraumatic, Normocephalic Neck: Yes: Supple, Trachea Midline Cardiovascular: Yes: Pulse Irregular, S1, S2. No: Regular Rate and Rhythm, Bradycardia, Tachycardia, Bruit, JVD, Gallop, Murmur, Rub, S3, S4, Varicosities Respiratory: Yes: Regular, Diminished. No: Rales, Rhonchi, SOB, Wheezes Gastrointestinal: Yes: Normal Bowel Sounds, Soft. No: Distention, Tenderness Edema: Yes Neurological: Yes: Alert, Oriented Psychiatric: Yes: Alert, Oriented Labs: CBC, BMP 04/23/19 07:30 04/25/19 07:50 INR, PTT INR 1.74 (0.83-1.09) H 04/25/19 07:50 - ....Imaging Chest X-ray: Report Reviewed, Image Reviewed EKG: Report Reviewed, Image Reviewed Other: Report Reviewed, Image Reviewed Assessment/Plan Chronic Afib, CHF due to Heart failure with normal EF. Stable chronic CAD Morbid obesity with DM and charcot foot. Admitted with rapid Afib and volume overload. Rec Marked UO and progressive weight loss. Closer to dry weight. Given weight loss adn CO2 retention-possibly from effects of diuresis, metolazone wsa stopped and transitioned to oral diuretic. cont Torsemide 40mg bid for now Cont aldactone 25mg qd. cont metoprolol 150mg bid and Diltiazem CD 120 for HR control can resume ramapril if BP tolerates Monitor I/O and daily weight.
[2019-04-25] MEDS ORDERED: PT OWN MED DRAWER 7, Y5N ONE (18:59)
[2019-04-25] MEDS: ATORVASTATIN CA 40 MG TABLET (FP) PO SCH (21:08)
[2019-04-25] MEDS ORDERED: Insulin (LOG) Aspart 100 UNITS/ML VIAL SQ ONE (22:27)
[2019-04-25] MEDS ORDERED: ACETAMINOPHEN 325 MG TABLET (FP) PO PRN (23:44)
[2019-04-26 08:19] LABS: HEMATOCRIT 39.1 % (35.4-49); HEMOGLOBIN 12.7 GM/dL (11.7-16.9); MCH 27.7 pg (25.7-33.7); MCHC 32.4 g/dl (32.0-35.9); MEAN CELL VOLUME 85.4 fl (80-96); MEAN PLT VOLUME 8.3 fl (7.5-11.1); RBC 4.58 M/mm3 (4.00-5.60); RDW 16.3 % (11.9-15.9); WHITE BLOOD COUNT 17.2 K/mm3 (4.0-10.0)
[2019-04-26 08:29] LABS: INR 1.85 (0.83-1.09)
[2019-04-26] MEDS ORDERED: PT OWN MED DRAWER 7, Y5N ONE (08:32)
[2019-04-26] MEDS: INSULIN SLIDING SCALE (NOVOLOG) 1 VIAL SQ SCH ×4 (08:37→22:17)
[2019-04-26] MEDS: INSULIN (LEVEMIR) 100 UNITS/ML UNITS SQ SCH ×2 (08:37→22:16)
[2019-04-26] MEDS: LIRAGLUTIDE 0.6 MG/0.1 ML PEN.INJCTR SQ SCH (08:38)
[2019-04-26 08:40] LABS: PLATELET COUNT 373 K/MM3 (134-434)
--- NOTE | 2019-04-26 08:58 | PN ---
Progress Note (short form) - Note Progress Note: PULMONARY WELL KNOWN BY ME FROM [facility] PATIENT STATES HE IS 80% IMPROVED FROM ADMISSION VSS/AFEBRILE ANICTERIC DISTANT BIBASILAR BREATH SOUNDS S1S2 IRREGULAR OBESE 1+ EDEMA LOWER EXT LABS/MEDS/NOTES/IMAGES REVIEWED Problem List (1) Atrial fibrillation with RVR Code(s): I48.91 - UNSPECIFIED ATRIAL FIBRILLATION (2) Shortness of breath Code(s): R06.02 - SHORTNESS OF BREATH (3) CAD (coronary artery disease) Code(s): I25.10 - ATHSCL HEART DISEASE OF [place] CORONARY ARTERY W/O ANG PCTRS (4) Diabetes mellitus Code(s): E11.9 - TYPE 2 DIABETES MELLITUS WITHOUT COMPLICATIONS Qualifiers: Diabetes mellitus type: type 2 (5) HLD (hyperlipidemia) Code(s): E78.5 - HYPERLIPIDEMIA, UNSPECIFIED (6) HTN (hypertension) Code(s): I10 - ESSENTIAL (PRIMARY) HYPERTENSION (7) Leg edema Code(s): R60.0 - LOCALIZED EDEMA (8) Morbid obesity Code(s): E66.01 - MORBID (SEVERE) OBESITY DUE TO EXCESS CALORIES (9) Myeloproliferative disorder Code(s): D47.1 - CHRONIC MYELOPROLIFERATIVE DISEASE (10) Right leg swelling Code(s): M79.89 - OTHER SPECIFIED SOFT TISSUE DISORDERS (11) Volume overload Code(s): E87.70 - FLUID OVERLOAD, UNSPECIFIED Diuretics/volume/salt control O2 as needed to maintain saturation BD TX PRN Anticoagulation 2-3 inr Daily weights if feasible No smoking discussed osas needs to be evaluated given body habitus Glycemic control Lila Nur MD
[2019-04-26] MEDS: PANTOPRAZOLE 40 MG TABLET (FP) PO SCH (09:30)
[2019-04-26] MEDS: SPIRONOLACTONE 25 MG TABLET (FP) PO SCH (09:30)
[2019-04-26] MEDS: TORSEMIDE 20 MG TABLET (FP) PO SCH (09:31)
[2019-04-26] MEDS: ASPIRIN 81 MG CHEWABLE TABLETS PO SCH (09:31)
[2019-04-26] MEDS: METOPROLOL TARTRATE 50 MG TABLET (FP) PO SCH ×2 (09:31→22:16)
[2019-04-26 09:41] LABS: ALK PHOS 170 U/L (45-117); ANION GAP 7 MMOL/L (8-16); BILIRUBIN,TOTAL 0.5 mg/dL (0.2-1); BLOOD UREA NITROGEN 40.4 mg/dL (7-18); CALCIUM 8.8 mg/dL (8.5-10.1); CHLORIDE 81 mmol/L (98-107); CO2 > 45 mmol/L (21-32); CREATININE 1.4 mg/dL (0.55-1.3); GLUCOSE,RANDOM 228 mg/dL (74-106); POTASSIUM 3.3 mmol/L (3.5-5.1); SGOT/AST 16 U/L (15-37); SGPT/ALT 18 U/L (13-61); SODIUM 133 mmol/L (136-145); TOT PROT 7.5 g/dl (6.4-8.2)
--- NOTE | 2019-04-26 11:23 | PN ---
Progress Note, Physician Chief Complaint: SOB Acute on CHronic CHF Exacerbation Chronic Leukocytosis Afib with RVR History of Present Illness: Previous notes and events reviewed awake and alert NAD patient states having difficulty sleeping last night 2/2 orthopnea currently on exam sts his breathing feels better and denies SOB denies chest pain or palpitation - Current Medication List Current Medications: Active Medications Acetaminophen (Tylenol -) 650 mg PO Q6H PRN PRN Reason: MILD PAIN Last Admin: 04/25/19 23:54 Dose: 650 mg Aspirin (Asa -) 81 mg PO DAILY [facility] Last Admin: 04/26/19 09:31 Dose: 81 mg Atorvastatin Calcium (Lipitor -) 40 mg PO HS [facility] Last Admin: 04/25/19 21:08 Dose: 40 mg Diltiazem HCl (Cardizem Cd -) 120 mg PO DAILY [facility] Last Admin: 04/26/19 09:30 Dose: 120 mg Insulin Aspart (Novolog Vial Sliding Scale -) 1 vial SQ [facility]; Protocol Last Admin: 04/26/19 08:37 Dose: 8 units Insulin Detemir (Levemir Vial) 20 units SQ HS [facility] Last Admin: 04/25/19 21:09 Dose: 20 unit Insulin Detemir (Levemir Vial) 70 units SQ AM [facility] Last Admin: 04/26/19 08:37 Dose: 70 units Liraglutide (Victoza -) 1.8 mg SQ DAILY@0700 [facility] Last Admin: 04/26/19 08:38 Dose: 1.8 mg Metoprolol Tartrate (Lopressor -) 150 mg PO BID [facility] Last Admin: 04/26/19 09:31 Dose: 150 mg Pantoprazole Sodium (Protonix -) 40 mg PO DAILY [facility] Last Admin: 04/26/19 09:30 Dose: 40 mg Spironolactone (Aldactone -) 25 mg PO DAILY [facility] Last Admin: 04/26/19 09:30 Dose: 25 mg Torsemide (Demadex -) 40 mg PO BID [facility] Last Admin: 04/26/19 09:31 Dose: 40 mg Warfarin Sodium (Coumadin -) 3 mg PO MoWeFr@1800 [facility] Last Admin: 04/24/19 17:02 Dose: 3 mg Warfarin Sodium (Coumadin -) 1.5 mg PO SuTuThSa@1800 [facility] Last Admin: 04/25/19 17:31 Dose: 1.5 mg - Objective Vital Signs: Vital Signs Temperature 98.0 F 04/26/19 08:48 Pulse Rate 92 H 04/26/19 08:48 Respiratory Rate 19 04/26/19 08:48 Blood Pressure 133/69 04/26/19 08:48 O2 Sat by Pulse Oximetry (%) 95 04/25/19 21:00 Constitutional: Yes: No Distress, Calm, Obese Eyes: Yes: Conjunctiva Clear HENT: Yes: Atraumatic Cardiovascular: Yes: Pulse Irregular Respiratory: Yes: Regular, CTA Bilaterally, On Nasal O2, Orthopnea Gastrointestinal: Yes: Normal Bowel Sounds, Soft, Abdomen, Obese Musculoskeletal: Yes: Muscle Weakness Extremities: Yes: WNL Edema: Yes Edema: LLE: 1+, RLE: 1+ Integumentary: Yes: Erythema (LLE) Neurological: Yes: Alert, Oriented Psychiatric: Yes: Alert, Oriented Labs: CBC, BMP 04/26/19 07:40 04/26/19 07:40 INR, PTT INR 1.85 (0.83-1.09) H 04/26/19 07:40 Microbiology 04/20/19 18:00 Nares - Mrsa Screen - Right MRSA Screen - Final NO MRSA ISOLATED 04/20/19 18:00 Nares - Mrsa Screen - Left MRSA Screen - Final NO MRSA ISOLATED 04/19/19 23:40 Urine - Urine Clean Catch Urine Culture - Final NO GROWTH OBTAINED Problem List - Problems (1) Atrial fibrillation with RVR Assessment/Plan: -Cardiology on board -Tele monitoring -Cardizem 120mg daily, Metoprolol 150mg BID -monitor INR daily -INR therapeutic goal 2-3 -Coumadin 1.5 (SunTuThSat), Coumadin 3 (MWF) Code(s): I48.91 - UNSPECIFIED ATRIAL FIBRILLATION (2) Shortness of breath Assessment/Plan: -Pulm on board -keep SpO2 >90% -O2 via NC Code(s): R06.02 - SHORTNESS OF BREATH (3) CAD (coronary artery disease) Assessment/Plan: -Aspirin and Atorvastatin Code(s): I25.10 - ATHSCL HEART DISEASE OF [place] CORONARY ARTERY W/O ANG PCTRS (4) Diabetes mellitus Assessment/Plan: -BGM AC HS -Levemir 70U QAM and 20U QHS -ISS -diabetic diet -Endo on board Code(s): E11.9 - TYPE 2 DIABETES MELLITUS WITHOUT COMPLICATIONS Qualifiers: Diabetes mellitus type: type 2 (5) HLD (hyperlipidemia) Assessment/Plan: -Atorvastatin Code(s): E78.5 - HYPERLIPIDEMIA, UNSPECIFIED (6) HTN (hypertension) Assessment/Plan: -Ramipril on hold until CHF exacerbation improves Code(s): I10 - ESSENTIAL (PRIMARY) HYPERTENSION (7) Leukocytosis Assessment/Plan: -WBC 17.2 -ID on board -afebrile -monitor for WBC downtrend Code(s): D72.829 - ELEVATED WHITE BLOOD CELL COUNT, UNSPECIFIED (8) Acute on chronic diastolic CHF (congestive heart failure) Assessment/Plan: -Cardiology on board -Lasix BID -Torsemide -Spironolactone -1L fluid restriction -daily weights -strict I&Os Code(s): I50.33 - ACUTE ON CHRONIC DIASTOLIC (CONGESTIVE) HEART FAILURE Assessment/Plan see progress notes dvt ppx
--- NOTE | 2019-04-26 17:26 | PN ---
Progress Note (short form) - Note Progress Note: reduced dose of Torsemide to 40mg po daily given rising bun/creat. replete electrolytes monitor I/oS repeat labs tomorrow
[2019-04-26] MEDS: WARFARIN NA 3 MG TABLET PO SCH (17:45)
[2019-04-26] MEDS: ATORVASTATIN CA 40 MG TABLET (FP) PO SCH (22:16)
[2019-04-27] MEDS ORDERED: POTASSIUM CHLORIDE TABS 20 MEQ TABLET.ER (FP) PO ONE (06:00)
[2019-04-27 07:42] LABS: HEMATOCRIT 39.3 % (35.4-49); HEMOGLOBIN 12.9 GM/dL (11.7-16.9); MCH 27.8 pg (25.7-33.7); MEAN CELL VOLUME 84.3 fl (80-96); MEAN PLT VOLUME 8.5 fl (7.5-11.1); PLATELET COUNT 394 K/MM3 (134-434); RBC 4.66 M/mm3 (4.00-5.60); RDW 16.3 % (11.9-15.9); WHITE BLOOD COUNT 18.5 K/mm3 (4.0-10.0)
[2019-04-27 08:01] LABS: INR 1.84 (0.83-1.09); PROTHROMBIN TIME (PATIENT) 21.9 SEC (9.7-13.0)
[2019-04-27] MEDS ORDERED: PT OWN MED DRAWER 7, Y5N ONE (08:13)
[2019-04-27] MEDS: INSULIN (LEVEMIR) 100 UNITS/ML UNITS SQ SCH ×2 (08:19→21:40)
[2019-04-27 08:23] LABS: ALK PHOS 159 U/L (45-117); ANION GAP 5 MMOL/L (8-16); BILIRUBIN,TOTAL 0.6 mg/dL (0.2-1); BLOOD UREA NITROGEN 31.4 mg/dL (7-18); CALCIUM 9.3 mg/dL (8.5-10.1); CHLORIDE 82 mmol/L (98-107); CO2 > 45 mmol/L (21-32); CREATININE 1.3 mg/dL (0.55-1.3); GLUCOSE,RANDOM 199 mg/dL (74-106); POTASSIUM 3.7 mmol/L (3.5-5.1); SGOT/AST 15 U/L (15-37); SGPT/ALT 20 U/L (13-61); SODIUM 132 mmol/L (136-145); TOT PROT 7.5 g/dl (6.4-8.2)
[2019-04-27] MEDS: LIRAGLUTIDE 0.6 MG/0.1 ML PEN.INJCTR SQ SCH (08:27)
[2019-04-27] MEDS: INSULIN SLIDING SCALE (NOVOLOG) 1 VIAL SQ SCH ×4 (08:38→21:41)
--- NOTE | 2019-04-27 08:59 | PN ---
Progress Note, Physician - Current Medication List Current Medications: Active Medications Acetaminophen (Tylenol -) 650 mg PO Q6H PRN PRN Reason: MILD PAIN Last Admin: 04/25/19 23:54 Dose: 650 mg Aspirin (Asa -) 81 mg PO DAILY [facility] Last Admin: 04/26/19 09:31 Dose: 81 mg Atorvastatin Calcium (Lipitor -) 40 mg PO HS [facility] Last Admin: 04/26/19 22:16 Dose: 40 mg Diltiazem HCl (Cardizem Cd -) 120 mg PO DAILY [facility] Last Admin: 04/26/19 09:30 Dose: 120 mg Fluticasone Propionate (Flonase -) 1 spray NS DAILY [facility] Insulin Aspart (Novolog Vial Sliding Scale -) 1 vial SQ [facility]; Protocol Last Admin: 04/27/19 08:38 Dose: 7 units Insulin Detemir (Levemir Vial) 20 units SQ HS [facility] Last Admin: 04/26/19 22:16 Dose: 20 unit Insulin Detemir (Levemir Vial) 70 units SQ AM [facility] Last Admin: 04/27/19 08:19 Dose: 70 units Liraglutide (Victoza -) 1.8 mg SQ DAILY@0700 [facility] Last Admin: 04/27/19 08:27 Dose: 1.8 mg Metoprolol Tartrate (Lopressor -) 150 mg PO BID [facility] Last Admin: 04/26/19 22:16 Dose: 150 mg Pantoprazole Sodium (Protonix -) 40 mg PO DAILY [facility] Last Admin: 04/26/19 09:30 Dose: 40 mg Potassium Chloride (Potassium Chloride Oral Liquid) 40 meq PO DAILY [facility] Stop: 04/28/19 23:59 Spironolactone (Aldactone -) 25 mg PO DAILY [facility] Last Admin: 04/26/19 09:30 Dose: 25 mg Torsemide (Demadex -) 40 mg PO DAILY [facility] Warfarin Sodium (Coumadin -) 3 mg PO MoWeFr@1800 [facility] Last Admin: 04/24/19 17:02 Dose: 3 mg Warfarin Sodium (Coumadin -) 1.5 mg PO SuTuThSa@1800 [facility] Last Admin: 04/26/19 17:45 Dose: 1.5 mg - Objective Vital Signs: Vital Signs Temperature 98 F 04/27/19 06:00 Pulse Rate 99 H 04/27/19 06:00 Respiratory Rate 19 04/27/19 06:00 Blood Pressure 142/94 04/27/19 06:00 O2 Sat by Pulse Oximetry (%) 95 04/26/19 21:00 Cardiovascular: Yes: S1, S2 Respiratory: Yes: CTA Bilaterally, On Nasal O2 Gastrointestinal: Yes: Normal Bowel Sounds, Soft Labs: CBC, BMP 04/27/19 07:10 04/27/19 07:10 INR, PTT INR 1.84 (0.83-1.09) H 04/27/19 07:10 Assessment/Plan Problems (1) Atrial fibrillation with RVR Assessment/Plan: -Cardiology on board -Tele monitoring -Cardizem 120mg daily, Metoprolol 150mg BID -monitor INR daily -INR therapeutic goal 2-3 -Coumadin 1.5 (SunTuThSat), Coumadin 3 (MWF) Code(s): I48.91 - UNSPECIFIED ATRIAL FIBRILLATION (2) Shortness of breath Assessment/Plan: -Pulm on board -keep SpO2 >90% -O2 via NC Code(s): R06.02 - SHORTNESS OF BREATH (3) CAD (coronary artery disease) Assessment/Plan: -Aspirin and Atorvastatin Code(s): I25.10 - ATHSCL HEART DISEASE OF [place] CORONARY ARTERY W/O ANG PCTRS (4) Diabetes mellitus Assessment/Plan: -BGM AC HS -Levemir 70U QAM and 20U QHS -ISS -diabetic diet -Endo on board Code(s): E11.9 - TYPE 2 DIABETES MELLITUS WITHOUT COMPLICATIONS Qualifiers: Diabetes mellitus type: type 2 (5) HLD (hyperlipidemia) Assessment/Plan: -Atorvastatin Code(s): E78.5 - HYPERLIPIDEMIA, UNSPECIFIED (6) HTN (hypertension) Assessment/Plan: -Ramipril on hold until CHF exacerbation improves Code(s): I10 - ESSENTIAL (PRIMARY) HYPERTENSION (7) Leukocytosis Assessment/Plan: -WBC 17.2 -ID on board -afebrile -monitor for WBC downtrend Code(s): D72.829 - ELEVATED WHITE BLOOD CELL COUNT, UNSPECIFIED (8) Acute on chronic diastolic CHF (congestive heart failure) Assessment/Plan: -Cardiology on board -Lasix BID -Torsemide -Spironolactone -1L fluid restriction -daily weights -strict I&Os Code(s): I50.33 - ACUTE ON CHRONIC DIASTOLIC (CONGESTIVE) HEART FAILURE
[2019-04-27] MEDS: FLUTICASONE PROP 0.05% 16 GM NASAL SPRAY NS SCH (09:39)
[2019-04-27] MEDS: TORSEMIDE 20 MG TABLET (FP) PO SCH (09:39)
[2019-04-27] MEDS: SPIRONOLACTONE 25 MG TABLET (FP) PO SCH (09:39)
[2019-04-27] MEDS: ASPIRIN 81 MG CHEWABLE TABLETS PO SCH (09:39)
[2019-04-27] MEDS: METOPROLOL TARTRATE 50 MG TABLET (FP) PO SCH ×2 (09:39→21:41)
[2019-04-27] MEDS: POTASSIUM CHLORIDE ORAL LIQUID 20 MEQ/15 ML PO SCH (09:40)
[2019-04-27] MEDS: PANTOPRAZOLE 40 MG TABLET (FP) PO SCH (09:40)
[2019-04-27] MEDS ORDERED: POTASSIUM CHLORIDE ORAL LIQUID 20 MEQ/15 ML PO SCH (10:00)
--- NOTE | 2019-04-27 10:01 | DS ---
Physical Examination Vital Signs: Vital Signs Temperature 98 F 04/27/19 09:47 Pulse Rate 105 H 04/27/19 09:47 Respiratory Rate 20 04/27/19 09:47 Blood Pressure 131/47 L 04/27/19 09:47 O2 Sat by Pulse Oximetry (%) 95 04/26/19 21:00 Labs: CBC, BMP 04/27/19 07:10 04/27/19 07:10 Discharge Summary Reason For Visit: SOB/ATRIAL FIB W/ RAPID VENTRICULAR RESPONSE Current Active Problems Acute on chronic diastolic CHF (congestive heart failure) (Acute) Atrial fibrillation with RVR (Acute) Morbid (severe) obesity due to excess calories (Acute) Shortness of breath (Acute) Hospital Course: ADMITTED WITH CHF PT RESPONDED TO DIURESIS WELL AND CHANGED TO PO MEDS SEE PROGRESS NOTE Condition: Improved - Instructions Diet, Activity, Other Instructions: MONITOR LABS AND WEIGHT Disposition: TRANSFER ACUTE CARE/OTHER HOSP - Home Medications Comprehensive Discharge Medication List: Ambulatory Orders Aspirin [ASA -] 81 mg PO DAILY 02/09/19 Pantoprazole Sodium [Protonix] 40 mg PO DAILY 02/09/19 Atorvastatin Ca [Lipitor] 40 mg PO HS #30 tablet MDD 1 03/06/19 Insulin (Levemir) [Levemir Vial] 20 units SQ HS #100 units 03/06/19 Insulin (Levemir) [Levemir Vial] 60 units SQ AM #100 units 03/06/19 Acetaminophen [Tylenol .Regular Strength -] 650 mg PO Q6H PRN tablet 04/27/19 Diltiazem Cd [Cardizem Cd -] 120 mg PO DAILY cap.cd.24h 04/27/19 Fluticasone Prop 0.05% Nasal [Flonase -] 1 spray NS DAILY spray 04/27/19 Liraglutide [Victoza -] 1.8 mg SQ DAILY@0700 pen.[email or web address] 04/27/19 Potassium Chloride [Potassium Chloride Oral Liquid] 40 meq PO DAILY cup Spironolactone [Aldactone -] 25 mg PO DAILY tablet 04/27/19 Torsemide [Demadex -] 40 mg PO DAILY tablet 04/27/19 Warfarin Na [Coumadin -] 1.5 mg PO SuTuThSa@1800 tablet 04/27/19
--- NOTE | 2019-04-27 11:26 | PN ---
Progress Note, Physician History of Present Illness: pulmonary alert,ambulating with walker,-resp distress - Current Medication List Current Medications: Active Medications Acetaminophen (Tylenol -) 650 mg PO Q6H PRN PRN Reason: MILD PAIN Last Admin: 04/25/19 23:54 Dose: 650 mg Aspirin (Asa -) 81 mg PO DAILY [facility] Last Admin: 04/27/19 09:39 Dose: 81 mg Atorvastatin Calcium (Lipitor -) 40 mg PO HS [facility] Last Admin: 04/26/19 22:16 Dose: 40 mg Diltiazem HCl (Cardizem Cd -) 120 mg PO DAILY [facility] Last Admin: 04/27/19 09:39 Dose: 120 mg Fluticasone Propionate (Flonase -) 1 spray NS DAILY [facility] Last Admin: 04/27/19 09:39 Dose: 1 spray Insulin Aspart (Novolog Vial Sliding Scale -) 1 vial SQ [facility]; Protocol Last Admin: 04/27/19 08:38 Dose: 7 units Insulin Detemir (Levemir Vial) 20 units SQ HS [facility] Last Admin: 04/26/19 22:16 Dose: 20 unit Insulin Detemir (Levemir Vial) 70 units SQ AM [facility] Last Admin: 04/27/19 08:19 Dose: 70 units Liraglutide (Victoza -) 1.8 mg SQ DAILY@0700 [facility] Last Admin: 04/27/19 08:27 Dose: 1.8 mg Metoprolol Tartrate (Lopressor -) 150 mg PO BID [facility] Last Admin: 04/27/19 09:39 Dose: 150 mg Pantoprazole Sodium (Protonix -) 40 mg PO DAILY [facility] Last Admin: 04/27/19 09:40 Dose: 40 mg Potassium Chloride (Potassium Chloride Oral Liquid) 40 meq PO DAILY [facility] Stop: 04/28/19 23:59 Last Admin: 04/27/19 09:40 Dose: 40 meq Spironolactone (Aldactone -) 25 mg PO DAILY [facility] Last Admin: 04/27/19 09:39 Dose: 25 mg Torsemide (Demadex -) 40 mg PO DAILY [facility] Last Admin: 04/27/19 09:39 Dose: 40 mg Warfarin Sodium (Coumadin -) 3 mg PO MoWeFr@1800 [facility] Last Admin: 04/24/19 17:02 Dose: 3 mg Warfarin Sodium (Coumadin -) 1.5 mg PO SuTuThSa@1800 [facility] Last Admin: 04/26/19 17:45 Dose: 1.5 mg - Objective Vital Signs: Vital Signs Temperature 98 F 04/27/19 09:47 Pulse Rate 105 H 04/27/19 09:47 Respiratory Rate 20 04/27/19 09:47 Blood Pressure 131/47 L 04/27/19 09:47 O2 Sat by Pulse Oximetry (%) 95 04/26/19 21:00 Constitutional: Yes: Calm, Obese Eyes: Yes: WNL HENT: Yes: WNL Neck: Yes: WNL Cardiovascular: Yes: Pulse Irregular, S1, S2 Respiratory: Yes: CTA Bilaterally Gastrointestinal: Yes: Normal Bowel Sounds, Soft, Abdomen, Obese Extremities: Yes: WNL Edema: Yes Labs: CBC, BMP 04/27/19 07:10 04/27/19 07:10 INR, PTT INR 1.84 (0.83-1.09) H 04/27/19 07:10 Assessment/Plan Problem List - Problems (1) Atrial fibrillation with RVR Code(s): I48.91 - UNSPECIFIED ATRIAL FIBRILLATION (2) Shortness of breath Code(s): R06.02 - SHORTNESS OF BREATH (3) CAD (coronary artery disease) Code(s): I25.10 - ATHSCL HEART DISEASE OF [place] CORONARY ARTERY W/O ANG PCTRS (4) Diabetes mellitus Code(s): E11.9 - TYPE 2 DIABETES MELLITUS WITHOUT COMPLICATIONS Qualifiers: Diabetes mellitus type: type 2 (5) HLD (hyperlipidemia) Code(s): E78.5 - HYPERLIPIDEMIA, UNSPECIFIED (6) HTN (hypertension) Code(s): I10 - ESSENTIAL (PRIMARY) HYPERTENSION (7) Leg edema Code(s): R60.0 - LOCALIZED EDEMA (8) Morbid obesity Code(s): E66.01 - MORBID (SEVERE) OBESITY DUE TO EXCESS CALORIES (9) Myeloproliferative disorder Code(s): D47.1 - CHRONIC MYELOPROLIFERATIVE DISEASE (10) Right leg swelling Code(s): M79.89 - OTHER SPECIFIED SOFT TISSUE DISORDERS (11) Volume overload Code(s): E87.70 - FLUID OVERLOAD, UNSPECIFIED Assessment/Plan diuretics O2 as needed to maintain saturation BD TX PRN Daily weights if feasible No smoking discussed sleep studies outpatient Glycemic control DR LAU
--- NOTE | 2019-04-27 14:45 | PN ---
Progress Note, Physician Chief Complaint: Feels better Afib with VR 100-110s - Current Medication List Current Medications: Active Medications Acetaminophen (Tylenol -) 650 mg PO Q6H PRN PRN Reason: MILD PAIN Last Admin: 04/25/19 23:54 Dose: 650 mg Aspirin (Asa -) 81 mg PO DAILY [facility] Last Admin: 04/27/19 09:39 Dose: 81 mg Atorvastatin Calcium (Lipitor -) 40 mg PO HS [facility] Last Admin: 04/26/19 22:16 Dose: 40 mg Diltiazem HCl (Cardizem Cd -) 120 mg PO DAILY [facility] Last Admin: 04/27/19 09:39 Dose: 120 mg Fluticasone Propionate (Flonase -) 1 spray NS DAILY [facility] Last Admin: 04/27/19 09:39 Dose: 1 spray Insulin Aspart (Novolog Vial Sliding Scale -) 1 vial SQ [facility]; Protocol Last Admin: 04/27/19 12:25 Dose: 8 units Insulin Detemir (Levemir Vial) 20 units SQ HS [facility] Last Admin: 04/26/19 22:16 Dose: 20 unit Insulin Detemir (Levemir Vial) 70 units SQ AM [facility] Last Admin: 04/27/19 08:19 Dose: 70 units Liraglutide (Victoza -) 1.8 mg SQ DAILY@0700 [facility] Last Admin: 04/27/19 08:27 Dose: 1.8 mg Metoprolol Tartrate (Lopressor -) 150 mg PO BID [facility] Last Admin: 04/27/19 09:39 Dose: 150 mg Pantoprazole Sodium (Protonix -) 40 mg PO DAILY [facility] Last Admin: 04/27/19 09:40 Dose: 40 mg Potassium Chloride (Potassium Chloride Oral Liquid) 40 meq PO DAILY [facility] Stop: 04/28/19 23:59 Last Admin: 04/27/19 09:40 Dose: 40 meq Spironolactone (Aldactone -) 25 mg PO DAILY [facility] Last Admin: 04/27/19 09:39 Dose: 25 mg Torsemide (Demadex -) 40 mg PO DAILY [facility] Last Admin: 04/27/19 09:39 Dose: 40 mg Warfarin Sodium (Coumadin -) 3 mg PO MoWeFr@1800 [facility] Last Admin: 04/24/19 17:02 Dose: 3 mg Warfarin Sodium (Coumadin -) 1.5 mg PO SuTuThSa@1800 [facility] Last Admin: 04/26/19 17:45 Dose: 1.5 mg - Objective Vital Signs: Vital Signs Temperature 99.3 F 04/27/19 14:00 Pulse Rate 95 H 04/27/19 14:00 Respiratory Rate 20 04/27/19 14:00 Blood Pressure 130/84 04/27/19 14:00 O2 Sat by Pulse Oximetry (%) 95 04/27/19 09:00 Constitutional: Yes: No Distress Neck: Yes: Supple Cardiovascular: Yes: Tachycardia, Pulse Irregular, S1, S2. No: JVD, Murmur Respiratory: Yes: CTA Bilaterally Gastrointestinal: Yes: Soft Edema: LLE: Trace, RLE: Trace Labs: CBC, BMP 04/27/19 07:10 04/27/19 07:10 INR, PTT INR 1.84 (0.83-1.09) H 04/27/19 07:10 Problem List - Problems (1) Acute on chronic diastolic CHF (congestive heart failure) Code(s): I50.33 - ACUTE ON CHRONIC DIASTOLIC (CONGESTIVE) HEART FAILURE (2) Atrial fibrillation with RVR Code(s): I48.91 - UNSPECIFIED ATRIAL FIBRILLATION Assessment/Plan Chronic Afib, CHF due to Heart failure with normal EF. Stable chronic CAD Morbid obesity with DM and charcot foot. 1) Afib -increase metoprolol to 200mg bid continue diltiazem On coumadin 2) Acute on chronic diastolic CHF exacerbation Torsemide 40mg po daily Spironolactone 25mg po daily Monitor I/O's and dialy weights Replete lytes as needed
[2019-04-27] MEDS: WARFARIN NA 3 MG TABLET PO SCH (18:31)
[2019-04-27] MEDS: ATORVASTATIN CA 40 MG TABLET (FP) PO SCH (21:41)
--- NOTE | 2019-04-27 23:42 | PN ---
Progress Note (short form) - Note Progress Note: still with high sugars despite restricted diet Current Active Problems DM 2 INSULIN USE MCC METABOLIC SYNDROME MORBID OBESITY Acute on chronic diastolic CHF (congestive heart failure) (Acute) Atrial fibrillation with RVR (Acute) Morbid (severe) obesity due to excess calories (Acute) Shortness of breath (Acute) Abnormal Lab Results 04/27/19 04/27/19 04/27/19 07:10 07:10 07:10 WBC 18.5 H RDW 16.3 H PT with INR 21.90 H INR 1.84 H Sodium 132 L Chloride 82 L Carbon Dioxide > 45 H Anion Gap 5 L BUN 31.4 H Random Glucose 199 H Alkaline Phosphatase 159 H Albumin 3.0 L Laboratory Results - last 24 hr 04/24/19 04/24/19 04/24/19 08:49 17:01 21:42 WBC RBC Hgb Hct MCV MCH MCHC RDW Plt Count MPV PT with INR INR Sodium Potassium Chloride Carbon Dioxide Anion Gap BUN Creatinine Est GFR (CKD-EPI)AfAm Est GFR (CKD-EPI)NonAf POC Glucometer 177 232 374 Random Glucose Calcium Total Bilirubin AST ALT Alkaline Phosphatase Total Protein Albumin 04/25/19 04/25/19 04/25/19 08:18 11:11 16:39 WBC RBC Hgb Hct MCV MCH MCHC RDW Plt Count MPV PT with INR INR Sodium Potassium Chloride Carbon Dioxide Anion Gap BUN Creatinine Est GFR (CKD-EPI)AfAm Est GFR (CKD-EPI)NonAf POC Glucometer 258 263 197 Random Glucose Calcium Total Bilirubin AST ALT Alkaline Phosphatase Total Protein Albumin 04/25/19 04/26/19 04/26/19 21:07 08:35 11:29 WBC RBC Hgb Hct MCV MCH MCHC RDW Plt Count MPV PT with INR INR Sodium Potassium Chloride Carbon Dioxide Anion Gap BUN Creatinine Est GFR (CKD-EPI)AfAm Est GFR (CKD-EPI)NonAf POC Glucometer 308 272 282 Random Glucose Calcium Total Bilirubin AST ALT Alkaline Phosphatase Total Protein Albumin 04/26/19 04/26/19 04/27/19 17:07 22:12 06:00 WBC RBC Hgb Hct MCV MCH MCHC RDW Plt Count MPV PT with INR INR Sodium Potassium Chloride Carbon Dioxide Anion Gap BUN Creatinine Est GFR (CKD-EPI)AfAm Est GFR (CKD-EPI)NonAf POC Glucometer 195 279 219 Random Glucose Calcium Total Bilirubin AST ALT Alkaline Phosphatase Total Protein Albumin 04/27/19 04/27/19 04/27/19 07:10 07:10 07:10 WBC 18.5 H RBC 4.66 Hgb 12.9 Hct 39.3 MCV 84.3 MCH 27.8 MCHC 33.0 RDW 16.3 H Plt Count 394 MPV 8.5 PT with INR 21.90 H INR 1.84 H Sodium 132 L Potassium 3.7 Chloride 82 L Carbon Dioxide > 45 H Anion Gap 5 L BUN 31.4 H Creatinine 1.3 Est GFR (CKD-EPI)AfAm 67.78 Est GFR (CKD-EPI)NonAf 58.48 POC Glucometer Random Glucose 199 H Calcium 9.3 Total Bilirubin 0.6 AST 15 ALT 20 Alkaline Phosphatase 159 H Total Protein 7.5 Albumin 3.0 L 04/27/19 04/27/19 04/27/19 12:08 17:10 21:32 WBC RBC Hgb Hct MCV MCH MCHC RDW Plt Count MPV PT with INR INR Sodium Potassium Chloride Carbon Dioxide Anion Gap BUN Creatinine Est GFR (CKD-EPI)AfAm Est GFR (CKD-EPI)NonAf POC Glucometer 261 267 283 Random Glucose Calcium Total Bilirubin AST ALT Alkaline Phosphatase Total Protein Albumin PLAN: VICTOZA DAILY DOSE TITRATE NOVOLOG SCALE LEVEMIR 70 AM LEVEMIR 30 HS
[2019-04-28] MEDS: INSULIN (LEVEMIR) 100 UNITS/ML UNITS SQ SCH ×2 (06:24→21:31)
[2019-04-28] MEDS: INSULIN SLIDING SCALE (NOVOLOG) 1 VIAL SQ SCH ×4 (06:25→21:31)
[2019-04-28] MEDS ORDERED: PT OWN MED DRAWER 7, Y5N ONE ×3 (06:57→10:32)
[2019-04-28] MEDS: LIRAGLUTIDE 0.6 MG/0.1 ML PEN.INJCTR SQ SCH (07:02)
[2019-04-28] MEDS ORDERED: INSULIN SLIDING SCALE (NOVOLOG) 1 VIAL SQ ONE (07:06)
[2019-04-28] MEDS ORDERED: INSULIN (LEVEMIR) 100 UNITS/ML UNITS SQ ONE (07:06)
--- NOTE | 2019-04-28 09:27 | DS ---
Physical Examination Vital Signs: Vital Signs Temperature 97.8 F 04/28/19 08:50 Pulse Rate 107 H 04/28/19 08:50 Respiratory Rate 19 04/28/19 08:50 Blood Pressure 116/65 04/28/19 08:50 O2 Sat by Pulse Oximetry (%) 95 04/27/19 21:00 Cardiovascular: Yes: S1, S2 Respiratory: Yes: Regular, CTA Bilaterally Gastrointestinal: Yes: Normal Bowel Sounds, Soft Labs: CBC, BMP 04/27/19 07:10 04/27/19 07:10 Discharge Summary Reason For Visit: SOB/ATRIAL FIB W/ RAPID VENTRICULAR RESPONSE Current Active Problems Acute on chronic diastolic CHF (congestive heart failure) (Acute) Atrial fibrillation with RVR (Acute) Morbid (severe) obesity due to excess calories (Acute) Shortness of breath (Acute) Hospital Course: Problems (1) Atrial fibrillation with RVR Assessment/Plan: -Cardiology on board -Tele monitoring -Cardizem 120mg daily, Metoprolol 150mg BID -monitor INR daily -INR therapeutic goal 2-3 -Coumadin 1.5 (SunTuThSat), Coumadin 3 (MWF) Code(s): I48.91 - UNSPECIFIED ATRIAL FIBRILLATION (2) Shortness of breath Assessment/Plan: -Pulm on board -keep SpO2 >90% -O2 via NC Code(s): R06.02 - SHORTNESS OF BREATH (3) CAD (coronary artery disease) Assessment/Plan: -Aspirin and Atorvastatin Code(s): I25.10 - ATHSCL HEART DISEASE OF [place] CORONARY ARTERY W/O ANG PCTRS (4) Diabetes mellitus Assessment/Plan: -BGM AC HS -Levemir 70U QAM and 20U QHS -ISS -diabetic diet -Endo on board Code(s): E11.9 - TYPE 2 DIABETES MELLITUS WITHOUT COMPLICATIONS Qualifiers: Diabetes mellitus type: type 2 (5) HLD (hyperlipidemia) Assessment/Plan: -Atorvastatin Code(s): E78.5 - HYPERLIPIDEMIA, UNSPECIFIED (6) HTN (hypertension) Assessment/Plan: -Ramipril on hold until CHF exacerbation improves Code(s): I10 - ESSENTIAL (PRIMARY) HYPERTENSION (7) Leukocytosis Assessment/Plan: -WBC 17.2 -ID on board -afebrile -monitor for WBC downtrend Code(s): D72.829 - ELEVATED WHITE BLOOD CELL COUNT, UNSPECIFIED (8) Acute on chronic diastolic CHF (congestive heart failure) Assessment/Plan: -Cardiology on board -Lasix BID -Torsemide -Spironolactone -1L fluid restriction -daily weights -strict I&Os Code(s): I50.33 - ACUTE ON CHRONIC DIASTOLIC (CONGESTIVE) HEART FAILURE Condition: Improved - Instructions Diet, Activity, Other Instructions: MONITOR LABS AND WEIGHT Disposition: TRANSFER ACUTE CARE/OTHER HOSP - Home Medications Comprehensive Discharge Medication List: Ambulatory Orders Aspirin [ASA -] 81 mg PO DAILY 02/09/19 Pantoprazole Sodium [Protonix] 40 mg PO DAILY 02/09/19 Atorvastatin Ca [Lipitor] 40 mg PO HS #30 tablet MDD 1 03/06/19 Insulin (Levemir) [Levemir Vial] 20 units SQ HS #100 units 03/06/19 Insulin (Levemir) [Levemir Vial] 60 units SQ AM #100 units 03/06/19 Acetaminophen [Tylenol .Regular Strength -] 650 mg PO Q6H PRN tablet 04/27/19 Diltiazem Cd [Cardizem Cd -] 120 mg PO DAILY cap.cd.24h 04/27/19 Fluticasone Prop 0.05% Nasal [Flonase -] 1 spray NS DAILY spray 04/27/19 Liraglutide [Victoza -] 1.8 mg SQ DAILY@0700 [email or web address] 04/27/19 Potassium Chloride [Potassium Chloride Oral Liquid] 40 meq PO DAILY cup Spironolactone [Aldactone -] 25 mg PO DAILY tablet 04/27/19 Torsemide [Demadex -] 40 mg PO DAILY tablet 04/27/19 Warfarin Na [Coumadin -] 1.5 mg PO SuTuThSa@1800 tablet 04/27/19
[2019-04-28] MEDS: SPIRONOLACTONE 25 MG TABLET (FP) PO SCH (10:33)
[2019-04-28] MEDS: ASPIRIN 81 MG CHEWABLE TABLETS PO SCH (10:34)
[2019-04-28] MEDS: TORSEMIDE 20 MG TABLET (FP) PO SCH (10:34)
[2019-04-28] MEDS: METOPROLOL TARTRATE 50 MG TABLET (FP) PO SCH ×2 (10:34→21:31)
[2019-04-28] MEDS: PANTOPRAZOLE 40 MG TABLET (FP) PO SCH (10:34)
[2019-04-28] MEDS: POTASSIUM CHLORIDE ORAL LIQUID 20 MEQ/15 ML PO SCH (10:34)
[2019-04-28] MEDS: FLUTICASONE PROP 0.05% 16 GM NASAL SPRAY NS SCH (10:35)
[2019-04-28] MEDS: WARFARIN NA 3 MG TABLET PO SCH (17:29)
[2019-04-28] MEDS: ATORVASTATIN CA 40 MG TABLET (FP) PO SCH (21:31)
[2019-04-29] MEDS: INSULIN SLIDING SCALE (NOVOLOG) 1 VIAL SQ SCH ×4 (07:18→22:39)
[2019-04-29] MEDS: INSULIN (LEVEMIR) 100 UNITS/ML UNITS SQ SCH ×2 (07:18→22:38)
[2019-04-29] MEDS ORDERED: PT OWN MED DRAWER 7, Y5N ONE ×4 (07:20→11:09)
[2019-04-29] MEDS: LIRAGLUTIDE 0.6 MG/0.1 ML PEN.INJCTR SQ SCH (07:21)
[2019-04-29 07:39] LABS: INR 1.64 (0.83-1.09); PROTHROMBIN TIME (PATIENT) 19.4 SEC (9.7-13.0)
[2019-04-29 07:40] LABS: CALCIUM 8.9 mg/dL (8.5-10.1); CREATININE 1.2 mg/dL (0.55-1.3); POTASSIUM 4.1 mmol/L (3.5-5.1)
[2019-04-29] MEDS: TORSEMIDE 20 MG TABLET (FP) PO SCH (09:49)
[2019-04-29] MEDS: METOPROLOL TARTRATE 50 MG TABLET (FP) PO SCH ×2 (09:49→22:38)
[2019-04-29] MEDS: SPIRONOLACTONE 25 MG TABLET (FP) PO SCH (09:50)
[2019-04-29] MEDS: PANTOPRAZOLE 40 MG TABLET (FP) PO SCH (09:50)
[2019-04-29] MEDS: ASPIRIN 81 MG CHEWABLE TABLETS PO SCH (09:50)
[2019-04-29] MEDS: FLUTICASONE PROP 0.05% 16 GM NASAL SPRAY NS SCH (10:16)
--- NOTE | 2019-04-29 10:54 | PN ---
Progress Note, Physician Chief Complaint: SOB Acute on CHronic CHF Exacerbation Chronic Leukocytosis Afib with RVR History of Present Illness: NAD in bed SOB much improved Awaiting discharge - Current Medication List Current Medications: Active Medications Acetaminophen (Tylenol -) 650 mg PO Q6H PRN PRN Reason: MILD PAIN Last Admin: 04/25/19 23:54 Dose: 650 mg Aspirin (Asa -) 81 mg PO DAILY [facility] Last Admin: 04/29/19 09:50 Dose: 81 mg Atorvastatin Calcium (Lipitor -) 40 mg PO HS [facility] Last Admin: 04/28/19 21:31 Dose: 40 mg Diltiazem HCl (Cardizem Cd -) 120 mg PO DAILY [facility] Last Admin: 04/29/19 09:50 Dose: 120 mg Fluticasone Propionate (Flonase -) 1 spray NS DAILY [facility] Last Admin: 04/28/19 10:35 Dose: 1 spray Insulin Aspart (Novolog Vial Sliding Scale -) 1 vial SQ [facility]; Protocol Last Admin: 04/29/19 07:18 Dose: 9 units Insulin Detemir (Levemir Vial) 70 units SQ AM [facility] Last Admin: 04/29/19 07:18 Dose: 70 units Insulin Detemir (Levemir Vial) 30 units SQ HS [facility] Last Admin: 04/28/19 21:31 Dose: 30 units Liraglutide (Victoza -) 1.8 mg SQ DAILY@0700 [facility] Last Admin: 04/29/19 07:21 Dose: 1.8 mg Metoprolol Tartrate (Lopressor -) 150 mg PO BID [facility] Last Admin: 04/29/19 09:49 Dose: 150 mg Pantoprazole Sodium (Protonix -) 40 mg PO DAILY [facility] Last Admin: 04/29/19 09:50 Dose: 40 mg Spironolactone (Aldactone -) 25 mg PO DAILY [facility] Last Admin: 04/29/19 09:50 Dose: 25 mg Torsemide (Demadex -) 40 mg PO DAILY [facility] Last Admin: 04/29/19 09:49 Dose: 40 mg Warfarin Sodium (Coumadin -) 5 mg PO ONCE@1800 ONE Stop: 04/29/19 18:01 Warfarin Sodium (C[facility]madin -) [facility] Warfarin Sodium (Coumadin -) 1.5 mg PO MOWEFR [facility] - Objective Vital Signs: Vital Signs Temperature 97.8 F 04/29/19 06:00 Pulse Rate 91 H 04/29/19 06:00 Respiratory Rate 20 04/29/19 06:00 Blood Pressure 140/71 04/29/19 06:00 O2 Sat by Pulse Oximetry (%) 95 04/28/19 20:15 Constitutional: Yes: Well Nourished, No Distress, Calm, Obese Cardiovascular: Yes: Pulse Irregular Respiratory: Yes: Regular Gastrointestinal: Yes: Normal Bowel Sounds, Soft, Abdomen, Obese Genitourinary: Yes: WNL Musculoskeletal: Yes: Muscle Weakness Extremities: Yes: WNL Edema: Yes Edema: LLE: Trace, RLE: Trace Peripheral Pulses WNL: Yes Neurological: Yes: Alert, Oriented Psychiatric: Yes: Alert, Oriented Labs: CBC, BMP 04/27/19 07:10 04/29/19 06:10 INR, PTT INR 1.64 (0.83-1.09) H 04/29/19 06:10 Assessment/Plan (1) Atrial fibrillation with RVR Assessment/Plan: -Cardiology on board -Tele monitoring-rate controlled at this time, with periods of tachy -Cardizem 120 CD po daily, Metoprolol 150 mg BID-tolerating well -Aspirin -INR goal 2-3 -Warfarin 5 mg once today, then -Change warfarin to 1.5 mg po MWF and 3 mg all other days -Monitor daily INR Code(s): I48.91 - UNSPECIFIED ATRIAL FIBRILLATION (2) Shortness of breath Assessment/Plan: -Pulm on board -keep SpO2 >90% -O2 via [place] Code(s): R06.02 - SHORTNESS OF BREATH (3) CAD (coronary artery disease) Assessment/Plan: -Aspirin and Atorvastatin Code(s): I25.10 - ATHSCL HEART DISEASE OF [place] CORONARY ARTERY W/O ANG PCTRS (4) Diabetes mellitus Assessment/Plan: -BGM AC HS -Levemir -ISS -diabetic diet -A1c at 8.3 -Endocrine consult -RD consult Code(s): E11.9 - TYPE 2 DIABETES MELLITUS WITHOUT COMPLICATIONS Qualifiers: Diabetes mellitus type: type 2 (5) HLD (hyperlipidemia) Assessment/Plan: -Atorvastatin Code(s): E78.5 - HYPERLIPIDEMIA, UNSPECIFIED (6) HTN (hypertension) Assessment/Plan: -Ramipril on hold until CHF exacerbation improves Code(s): I10 - ESSENTIAL (PRIMARY) HYPERTENSION (7) Leukocytosis Assessment/Plan: -chronic -sees hematology at [place] -afebrile Code(s): D72.829 - ELEVATED WHITE BLOOD CELL COUNT, UNSPECIFIED (8) Acute on chronic diastolic CHF (congestive heart failure) Assessment/Plan: -Cardiology on board -Lasix BID -Metolazone -1L fluid restriction -daily weights -strict I&Os Code(s): I50.33 - ACUTE ON CHRONIC DIASTOLIC (CONGESTIVE) HEART FAILURE
--- NOTE | 2019-04-29 13:51 | PN ---
Progress Note, Physician Chief Complaint: Feels well Awaiting discharge - Current Medication List Current Medications: Active Medications Acetaminophen (Tylenol -) 650 mg PO Q6H PRN PRN Reason: MILD PAIN Last Admin: 04/25/19 23:54 Dose: 650 mg Aspirin (Asa -) [address] [facility] Last Admin: 04/29/19 09:50 Dose: 81 mg Atorvastatin Calcium (Lipitor -) [address] [facility] Last Admin: 04/28/19 21:31 Dose: 40 mg Diltiazem HCl (Cardizem Cd -) [address] [facility] Last Admin: 04/29/19 09:50 Dose: 120 mg Fluticasone Propionate (Flonase -) [address] [facility] Last Admin: 04/29/19 10:16 Dose: 1 spray Insulin Aspart (Novolog Vial Sliding Scale -) 1 vial SQ [facility]; Protocol Last Admin: 04/29/19 12:00 Dose: 10 units Insulin Detemir (Levemir Vial) [address] [facility] Last Admin: 04/29/19 07:18 Dose: 70 units Insulin Detemir (Levemir Vial) [address] [facility] Last Admin: 04/28/19 21:31 Dose: 30 units Liraglutide (Victoza -) 1.8 mg SQ DAILY@0700 [facility] Last Admin: 04/29/19 07:21 Dose: 1.8 mg Metoprolol Tartrate (Lopressor -) [address] [facility] Last Admin: 04/29/19 09:49 Dose: 150 mg Pantoprazole Sodium (Protonix -) [address] [facility] Last Admin: 04/29/19 09:50 Dose: 40 mg Spironolactone (Aldactone -) [address] [facility] Last Admin: 04/29/19 09:50 Dose: 25 mg Torsemide (Demadex -) [address] [facility] Last Admin: 04/29/19 09:49 Dose: 40 mg Warfarin Sodium (Coumadin -) 5 mg PO ONCE@1800 ONE Stop: 04/29/19 18:01 Warfarin Sodium (Coumadin -) 3 mg PO SuTuThSa@1800 [facility] Warfarin Sodium (Coumadin -) 1.5 mg PO MoWeFr@1800 [facility] - Objective Vital Signs: Vital Signs Temperature 97.8 F 04/29/19 06:00 Pulse Rate 91 H 04/29/19 06:00 Respiratory Rate 20 07/17/19 06:00 Blood Pressure 140/71 04/29/19 06:00 O2 Sat by Pulse Oximetry (%) 95 04/28/19 20:15 Constitutional: Yes: No Distress Neck: Yes: Supple Cardiovascular: Yes: Pulse Irregular, S1, S2 Respiratory: Yes: CTA Bilaterally Gastrointestinal: Yes: Soft Edema: LLE: Trace, RLE: Trace Labs: CBC, BMP 04/27/19 07:10 04/29/19 06:10 INR, PTT INR 1.64 (0.83-1.09) H 04/29/19 06:10 Problem List - Problems (1) Acute on chronic diastolic CHF (congestive heart failure) Code(s): I50.33 - ACUTE ON CHRONIC DIASTOLIC (CONGESTIVE) HEART FAILURE (2) Atrial fibrillation with RVR Code(s): I48.91 - UNSPECIFIED ATRIAL FIBRILLATION Assessment/Plan Chronic Afib, CHF due to Heart failure with normal EF. Stable chronic CAD Morbid obesity with DM and charcot foot. 1) Afib -HR today is better controlled Continue metoprolol and diltiazem On coumadin with goal INR 2-3 2) Acute on chronic diastolic CHF exacerbation Torsemide 40mg po daily Spironolactone 25mg po daily Monitor I/O's and dialy weights Replete lytes as needed Plan is for DC to [facility]. No cardiac contraindications at this time for acute rehab at [place]
[2019-04-29] MEDS ORDERED: WARFARIN NA 5 MG TABLET (UD) PO ONE (18:00)
[2019-04-29] MEDS: ATORVASTATIN CA 40 MG TABLET (FP) PO SCH (22:38)
[2019-04-30] MEDS ORDERED: PT OWN MED DRAWER 7, Y5N ONE ×2 (08:23→08:28)
[2019-04-30] MEDS: INSULIN (LEVEMIR) 100 UNITS/ML UNITS SQ SCH (08:34)
[2019-04-30] MEDS: INSULIN SLIDING SCALE (NOVOLOG) 1 VIAL SQ SCH (08:35)
[2019-04-30] MEDS: LIRAGLUTIDE 0.6 MG/0.1 ML PEN.INJCTR SQ SCH (08:37)
[2019-04-30] MEDS: METOPROLOL TARTRATE 50 MG TABLET (FP) PO SCH (09:22)
[2019-04-30] MEDS: ASPIRIN 81 MG CHEWABLE TABLETS PO SCH (09:22)
[2019-04-30] MEDS: TORSEMIDE 20 MG TABLET (FP) PO SCH (09:22)
[2019-04-30] MEDS: PANTOPRAZOLE 40 MG TABLET (FP) PO SCH (09:22)
[2019-04-30] MEDS: FLUTICASONE PROP 0.05% 16 GM NASAL SPRAY NS SCH (09:23)
[2019-04-30] MEDS: SPIRONOLACTONE 25 MG TABLET (FP) PO SCH (09:23)
--- NOTE | 2019-04-30 11:15 | PN ---
Progress Note, Physician Chief Complaint: SOB Acute on CHronic CHF Exacerbation Chronic Leukocytosis Afib with RVR History of Present Illness: NAD in bed SOB much improved Awaiting discharge to [place] - Current Medication List Current Medications: Active Medications Acetaminophen (Tylenol -) 650 mg PO Q6H PRN PRN Reason: MILD PAIN Last Admin: 04/25/19 23:54 Dose: 650 mg Aspirin (Asa -) 81 mg PO DAILY [facility] Last Admin: 04/30/19 09:22 Dose: 81 mg Atorvastatin Calcium (Lipitor -) 40 mg PO HS [facility] Last Admin: 04/29/19 22:38 Dose: 40 mg Diltiazem HCl (Cardizem Cd -) 120 mg PO DAILY [facility] Last Admin: 04/30/19 09:23 Dose: 120 mg Fluticasone Propionate (Flonase -) 1 spray NS DAILY [facility] Last Admin: 04/30/19 09:23 Dose: 1 spray Insulin Aspart (Novolog Vial Sliding Scale -) 1 vial SQ [facility]; Protocol Last Admin: 04/30/19 08:35 Dose: 9 units Insulin Detemir (Levemir Vial) 70 units SQ AM [facility] Last Admin: 04/30/19 08:34 Dose: 70 units Insulin Detemir (Levemir Vial) 30 units SQ HS [facility] Last Admin: 04/29/19 22:38 Dose: 30 units Liraglutide (Victoza -) 1.8 mg SQ DAILY@0700 [facility] Last Admin: 04/30/19 08:37 Dose: 1.8 mg Metoprolol Tartrate (Lopressor -) 150 mg PO BID [facility] Last Admin: 04/30/19 09:22 Dose: 150 mg Pantoprazole Sodium (Protonix -) 40 mg PO DAILY [facility] Last Admin: 04/30/19 09:22 Dose: 40 mg Spironolactone (Aldactone -) 25 mg PO DAILY [facility] Last Admin: 04/30/19 09:23 Dose: 25 mg Torsemide (Demadex -) 40 mg PO DAILY [facility] Last Admin: 04/30/19 09:22 Dose: 40 mg Warfarin Sodium (Coumadin -) 3 mg PO SuTuThSa@1800 [facility] Warfarin Sodium (Coumadin -) 1.5 mg PO MoWeFr@1800 [facility] - Objective Vital Signs: Vital Signs Temperature 97.4 F L 04/29/19 22:00 Pulse Rate 99 H 04/29/19 22:00 Respiratory Rate 20 04/29/19 22:00 Blood Pressure 105/50 L 04/29/19 22:00 O2 Sat by Pulse Oximetry (%) 94 L 04/29/19 21:00 Constitutional: Yes: Well Nourished, No Distress, Calm, Obese Cardiovascular: Yes: Regular Rate and Rhythm Respiratory: Yes: Regular Gastrointestinal: Yes: Normal Bowel Sounds, Soft, Abdomen, Obese Genitourinary: Yes: WNL Musculoskeletal: Yes: WNL Extremities: Yes: WNL Edema: Yes Edema: LLE: Trace, RLE: Trace Peripheral Pulses WNL: Yes Neurological: Yes: Alert, Oriented Psychiatric: Yes: Alert, Oriented Labs: CBC, BMP 04/27/19 07:10 04/29/19 06:10 INR, PTT INR 1.64 (0.83-1.09) H 04/29/19 06:10 Assessment/Plan (1) Atrial fibrillation with RVR Assessment/Plan: -Cardiology on board -Tele monitoring-rate controlled at this time, with periods of tachy -Cardizem 120 CD po daily, Metoprolol 150 mg BID-tolerating well -Aspirin -INR goal 2-3 -Warfarin 5 mg once today, then -Change warfarin to 1.5 mg po MWF and 3 mg all other days -Monitor daily INR Code(s): I48.91 - UNSPECIFIED ATRIAL FIBRILLATION (2) Shortness of breath Assessment/Plan: -Pulm on board -keep SpO2 >90% -O2 via [place] Code(s): R06.02 - SHORTNESS OF BREATH (3) CAD (coronary artery disease) Assessment/Plan: -Aspirin and Atorvastatin Code(s): I25.10 - ATHSCL HEART DISEASE OF [place] CORONARY ARTERY W/O ANG PCTRS (4) Diabetes mellitus Assessment/Plan: -BGM AC HS -Levemir -ISS -diabetic diet -A1c at 8.3 -Endocrine consult -RD consult Code(s): E11.9 - TYPE 2 DIABETES MELLITUS WITHOUT COMPLICATIONS Qualifiers: Diabetes mellitus type: type 2 (5) HLD (hyperlipidemia) Assessment/Plan: -Atorvastatin Code(s): E78.5 - HYPERLIPIDEMIA, UNSPECIFIED (6) HTN (hypertension) Assessment/Plan: -Ramipril on hold until CHF exacerbation improves Code(s): I10 - ESSENTIAL (PRIMARY) HYPERTENSION (7) Leukocytosis Assessment/Plan: -chronic -sees hematology at [place] -afebrile Code(s): D72.829 - ELEVATED WHITE BLOOD CELL COUNT, UNSPECIFIED (8) Acute on chronic diastolic CHF (congestive heart failure) Assessment/Plan: -Cardiology on board -Lasix BID -Metolazone -1L fluid restriction -daily weights -strict I&Os Code(s): I50.33 - ACUTE ON CHRONIC DIASTOLIC (CONGESTIVE) HEART FAILURE
[2019-04-30 11:57] VITALS: BP 123/66; PULSE 98; TEMP 97.9
[2019-04-30] MEDS ORDERED: WARFARIN NA 3 MG TABLET PO SCH (18:00)
[2020-05-01] MEDS ORDERED: WARFARIN NA 3 MG TABLET PO SCH (18:00)
== END 2019-04-30 11:55 | DRG 194 ==
LOC: JER 17:13 → JERBED 20:24 → J4W 22:06 → J4S 04-21 14:26
PROVIDERS: ADMIT Family Medicine; ATTEND Family Medicine
DX: I50.33 Acute on chronic diastolic (congestive) heart failure (principal); I13.0 Hypertensive heart and chronic kidney disease with heart failure and stage 1 through stage 4 chronic kidney disease, or unspecified chronic kidney disease; A52.16 Charcot's arthropathy (tabetic); E11.42 Type 2 diabetes mellitus with diabetic polyneuropathy; E11.65 Type 2 diabetes mellitus with hyperglycemia; Z79.01 Long term (current) use of anticoagulants; I48.2 Chronic atrial fibrillation; E11.610 Type 2 diabetes mellitus with diabetic neuropathic arthropathy; E66.01 Morbid (severe) obesity due to excess calories; Z68.42 Body mass index [BMI] 45.0-49.9, adult; E88.09 Other disorders of plasma-protein metabolism, not elsewhere classified; R09.02 Hypoxemia; I25.10 Atherosclerotic heart disease of native coronary artery without angina pectoris; D72.829 Elevated white blood cell count, unspecified; Z95.5 Presence of coronary angioplasty implant and graft; Z87.891 Personal history of nicotine dependence; Z79.4 Long term (current) use of insulin; G47.30 Sleep apnea, unspecified
CPT/HCPCS: 36415; 71045-TC-FY; 80048; 80053; 81003; 82550; 82962; 83036; 83735; 83880; 84443; 84484; 85025; 85027; 85379; 85610; 85730; 87081; 87086; 93005; 93010; 93970-TC; 97116-GP; 97161-GP; 99285-25